=== PATIENT | female | born 1940 | race Caucasian/White ===

== ENCOUNTER 2017-07-25 17:26 | Inpatient (IN) | payer MEDICARE ==
--- NOTE | 2017-07-25 19:11 | EDM.PDOC ---
ED HPI GENERAL MEDICAL PROBLEM - General Chief Complaint: Lower Extremity Injury/Pain Stated Complaint: KNEE Time Seen by Provider: 07/25/17 17:55 Source of Information: Reports: Patient History Limitations: Reports: No Limitations - History of Present Illness INITIAL COMMENTS - FREE TEXT/NARRATIVE: pt went to stand up and she was not able to extend her knee. It is not painful unless there is an attemt to extend the knee. Onset: Today Duration: Hour(s):, Other (pt went to stand up. She did not fall. ) Location: Reports: Lower Extremity, Right Associated Symptoms: Reports: No Other Symptoms right knee Pain Score (Numeric/FACES): 0 - Related Data Allergies Allergy/AdvReac Type Severity Reaction Status Date / Time polyester fibers Allergy Hives Verified 07/25/17 17:48 lidocaine AdvReac Arrhythmias Verified 07/25/17 17:48 metoprolol AdvReac Arrhythmias Verified 07/25/17 17:48 Home Meds: Home Meds Ascorbic Acid [Vitamin C] 500 mg PO DAILY 04/11/14 [History] Levothyroxine 112 mcg PO DAILY 04/11/14 [History] Lisinopril 10 mg PO DAILY 04/11/14 [History] Meclizine [Antivert] 25 mg PO ASDIRECTED 04/11/14 [History] Multivitamin [Multi-Vitamin Daily] 1 each PO DAILY 04/11/14 [History] Vitamin B Complex 1 each PO DAILY 04/11/14 [History] Warfarin [Coumadin] 2.5 mg PO ASDIRECTED 04/11/14 [History] traMADol [Ultram] 100 mg PO Q6HR PRN 11/30/14 [History] Nitroglycerin [Nitrostat] 1 each PO ASDIRECTED 12/30/14 [History] Warfarin [Coumadin] 5 mg PO ASDIRECTED 12/30/14 [History] Gabapentin [Neurontin] 1 cap PO TID 02/14/16 [History] Bumetanide [Bumex] 6 mg PO DAILY 02/17/16 [History] Past Medical History HEENT History: Reports: Allergic Rhinitis Cardiovascular History: Reports: Afib, Heart Failure, Hypertension, Pacemaker, Pulmonary Hypertension Other Cardiovascular History: mitral regurgitation Respiratory History: Reports: Other (See Below) Other Respiratory History: home O2 at night Gastrointestinal History: Reports: GERD, GI Bleed, PUD Other Gastrointestinal History: esophageal stricture Genitourinary History: Reports: Renal Disease, Other (See Below) Other Genitourinary History: incontinence 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: , 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 Musculoskeletal History: Reports: Arthritis, Back Pain, Chronic, Fracture, Osteoarthritis Other Musculoskeletal History: DJD Neurological History: Reports: CVA Other Neuro History: hemorrhagic, compression fracture of L1, 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 Endocrine/Metabolic History: Reports: Hypothyroidism, Obesity/BMI 30+, Vitamin D Deficiency Hematologic History: Reports: Anemia, Anticoagulation Therapy Dermatologic History: Reports: Other (See Below) Other Dermatologic History: allergy to polyester - Infectious Disease History 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, Influenza, Measles, Mumps, VRE - Past Surgical History Cardiovascular Surgical History: Reports: Pacer Respiratory Surgical History: Reports: None GI Surgical History: Reports: Colonoscopy, EGD, Hernia, Abdominal Female Surgical History: Reports: None Endocrine Surgical History: Reports: None Musculoskeletal Surgical History: Reports: Knee Replacement, Other (See Below) Other Musculoskeletal Surgeries/Procedures:: bilateral knees replaced Social & Family History - Tobacco Use Smoking Status *Q: Never Smoker Second Hand Smoke Exposure: No - Alcohol Use Days Per Week of Alcohol Use: 0 - Recreational Drug Use Recreational Drug Use: No Review of Systems - Review of Systems Review Of Systems: See Below Constitutional: Reports: No Symptoms Eyes: Reports: No Symptoms Ears: Reports: No Symptoms Nose: Reports: No Symptoms Mouth/Throat: Reports: No Symptoms Respiratory: Reports: No Symptoms Cardiovascular: Reports: No Symptoms GI/Abdominal: Reports: No Symptoms Genitourinary: Reports: No Symptoms Musculoskeletal: Reports: Other ( severe kne pain. ) Skin: Reports: No Symptoms ED EXAM, GENERAL - Physical Exam Exam: See Below Free Text/Narrative:: pt arrived with pain in the rt knee. She is not able to extend the knee. She has not hit it or fallen. She had a total knee done several years ago. Exam Limited By: No Limitations General Appearance: Alert, Anxious Ears: Normal TMs Nose: Normal Inspection Throat/Mouth: Normal Inspection Head: Atraumatic Neck: Normal Inspection Respiratory/Chest: No Respiratory Distress Cardiovascular: Regular Rate, Rhythm GI/Abdominal: Soft, Non-Tender (Female) Exam: Deferred Rectal (Female) Exam: Deferred Back Exam: Normal Inspection Extremities: Normal Inspection Neurological: Alert, Oriented, Normal Cognition Psychiatric: Normal Affect Course - Vital Signs Last Recorded V/S: Last Vital Signs Temp 36.7 C 07/25/17 17:54 Pulse 70 07/25/17 17:54 Resp 16 07/25/17 17:54 BP 139/71 07/25/17 17:54 Pulse Ox 95 07/25/17 17:54 - Orders/Labs/Meds Orders: Active Orders 24 hr Category Date Time Status Knee Min 4V Rt [CR] Stat Exams 07/25/17 18:08 Taken Knee wo Cont Rt [CT] Stat Exams 07/25/17 20:01 Taken TSH ULTRASENSITIVE [CHEM] Stat Lab 07/25/17 20:40 Ordered UA W/MICROSCOPIC [URIN] Urgent Lab 07/25/17 19:55 Uncollected Sodium Chloride 0.9% [Normal Saline] 1,000 ml Med 07/25/17 20:45 Ordered IV ASDIRECTED Medication Orders Sodium Chloride (Normal Saline) 1,000 mls @ 200 mls/hr IV ASDIRECTED HAMZAH Labs: Laboratory Tests 07/25/17 07/25/17 07/25/17 Range/Units 20:08 20:08 20:08 WBC 6.2 (4.5-11.0) K/uL RBC 4.55 (3.30-5.50) M/uL Hgb 13.0 (12.0-15.0) g/dL Hct 41.4 (36.0-48.0) % MCV 91 (80-98) fL MCH 29 (27-31) pg MCHC 31 L (32-36) % Plt Count 193 (150-400) K/uL Neut % (Auto) 64 (36-66) % Lymph % (Auto) 18 L (24-44) % Gilchrist % (Auto) 10 H (2-6) % Eos % (Auto) 8 H (2-4) % Baso % (Auto) 1 (0-1) % PT 18.8 H (9.5-12.0) sec INR 1.72 H (0.80-1.20) Sodium 142 (140-148) mmol/L Potassium 3.8 (3.6-5.2) mmol/L Chloride 101 (100-108) mmol/L Carbon Dioxide 34 H (21-32) mmol/L Anion Gap 10.8 (5.0-14.0) mmol/L BUN 33 H D (7-18) mg/dL Creatinine 1.7 H D (0.6-1.0) mg/dL Est Cr Clr Drug Dosing 20.91 mL/min Estimated GFR (MDRD) 29 L (>60) Glucose 83 (74-106) mg/dL Calcium 9.0 (8.5-10.1) mg/dL Total Bilirubin 0.5 (0.2-1.0) mg/dL AST 26 (15-37) U/L ALT 25 (12-78) U/L Alkaline Phosphatase 109 (46-116) U/L Total Protein 7.0 (6.4-8.2) g/dL Albumin 3.5 (3.4-5.0) g/dL Globulin 3.5 (2.3-3.5) g/dL Albumin/Globulin Ratio 1.0 L (1.2-2.2) Meds: Medications Generic Name Dose Route Start Last Admin Trade Name Freq PRN Reason Stop Dose Admin Sodium Chloride 1,000 mls @ 200 mls/hr 07/25/17 20:45 Normal Saline IV ASDIRECTED HAMZAH - Re-Assessments/Exams Free Text/Narrative Re-Assessment/Exam: 07/25/17 19:43 pt had her total joint done in [facility] in 2012. She has not had problems with the joint. 07/25/17 19:44 The hardware appears to be intact. The films were sent to Dr Christiana Bustillos to review in the lite of her symptpoms. 07/25/17 20:41 Dr Christiana Bustillos requested a cat scan of the knee. Departure - Departure Time of Disposition: 20:44 Disposition: Admitted As Inpatient 66 Condition: Fair Clinical Impression: Knee pain, acute - Discharge Information Referrals: Ronan Nolasco MD [Primary Care Provider] - Forms: ED Department Discharge Care Plan Goals: admit to [facility] - My Orders Last 24 Hours: My Active Orders 07/25/17 18:08 Knee Min 4V Rt [CR] Stat 07/25/17 19:55 UA W/MICROSCOPIC [URIN] Urgent 07/25/17 20:01 Knee wo Cont Rt [CT] Stat 07/25/17 20:40 TSH ULTRASENSITIVE [CHEM] Stat 07/25/17 20:45 Sodium Chloride 0.9% [Normal Saline] 1,000 ml IV ASDIRECTED - Assessment/Plan Last 24 Hours: My Active Orders 07/25/17 18:08 Knee Min 4V Rt [CR] Stat 07/25/17 19:55 UA W/MICROSCOPIC [URIN] Urgent 07/25/17 20:01 Knee wo Cont Rt [CT] Stat 07/25/17 20:40 TSH ULTRASENSITIVE [CHEM] Stat 07/25/17 20:45 Sodium Chloride 0.9% [Normal Saline] 1,000 ml IV ASDIRECTED
[2017-07-25] MEDS ORDERED: Sodium Chloride 0.9% 1,000 ML IV SCH ×2 (20:45→22:34)
[2017-07-25] MEDS ORDERED: Docusate Sodium 100 MG Cap PO PRN (22:34)
[2017-07-25] MEDS ORDERED: Morphine 2 MG/ML Syringe IVPUSH PRN (22:34)
[2017-07-25] MEDS ORDERED: Ondansetron 4 MG/2 ML SDV IV PRN (22:34)
[2017-07-25] MEDS ORDERED: Zolpidem 5 MG Tab PO PRN (22:34)
[2017-07-25] MEDS ORDERED: Ondansetron 4 MG Tab.DIS PO PRN (22:34)
[2017-07-25] MEDS ORDERED: LORazepam 2 MG/ML MDV IV PRN (22:34)
[2017-07-25] MEDS ORDERED: Albuterol 0.083% 2.5 MG/3 ML Neb Soln NEB PRN (22:34)
--- NOTE | 2017-07-26 00:04 | PCM.HP ---
H&P History of Present Illness - General Admit Problem/Dx: Admission Diagnosis/Problem Admission Diagnosis/Problem Knee pain Source of Information: Patient, Family History Limitations: Reports: No Limitations - History of Present Illness Onset of Symptoms: Reports: Today, Sudden Symptom Onset Date: 07/25/17 Symptom Onset Time: 16:30 Duration of Symptoms: Reports: Hour(s): Location: Reports: Lower Extremity, Right Quality: Reports: Other (unable to flex right knee. ) Severity: Moderate Improves with: Reports: Immobilization Worsens with: Reports: Movement Associated Symptoms: Reports: Weakness right knee Pain Score (Numeric/FACES): 2 - Related Data Allergies/Adverse Reactions: Allergies Allergy/AdvReac Type Severity Reaction Status Date / Time polyester fibers Allergy Hives Verified 07/25/17 17:48 lidocaine AdvReac Arrhythmias Verified 07/25/17 17:48 metoprolol AdvReac Arrhythmias Verified 07/25/17 17:48 Home Medications: Home Meds Ascorbic Acid [Vitamin C] 500 mg PO DAILY 04/11/14 [History] Levothyroxine 112 mcg PO DAILY 04/11/14 [History] Lisinopril 10 mg PO DAILY 04/11/14 [History] Meclizine [Antivert] 25 mg PO ASDIRECTED 04/11/14 [History] Multivitamin [Multi-Vitamin Daily] 1 each PO DAILY 04/11/14 [History] Vitamin B Complex 1 each PO DAILY 04/11/14 [History] Warfarin [Coumadin] 2.5 mg PO ASDIRECTED 04/11/14 [History] traMADol [Ultram] 100 mg PO Q6HR PRN 11/30/14 [History] Nitroglycerin [Nitrostat] 1 each PO ASDIRECTED 12/30/14 [History] Warfarin [Coumadin] 5 mg PO ASDIRECTED 12/30/14 [History] Gabapentin [Neurontin] 1 cap PO TID 02/14/16 [History] Bumetanide [Bumex] 6 mg PO DAILY 02/17/16 [History] Past Medical History HEENT History: Reports: Allergic Rhinitis, Hard of Hearing Cardiovascular History: Reports: Afib, Heart Failure, Hypertension, Pacemaker, Pulmonary Hypertension Other Cardiovascular History: mitral regurgitation Respiratory History: Reports: Other (See Below) Other Respiratory History: home O2 at night Gastrointestinal History: Reports: GERD, GI Bleed, PUD Other Gastrointestinal History: esophageal stricture Genitourinary History: Reports: Renal Disease, Other (See Below) Other Genitourinary History: incontinence 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: , 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 Musculoskeletal History: Reports: Arthritis, Back Pain, Chronic, Fracture, Osteoarthritis Other Musculoskeletal History: DJD Neurological History: Reports: CVA Other Neuro History: hemorrhagic, compression fracture of L1, 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 Endocrine/Metabolic History: Reports: Hypothyroidism, Obesity/BMI 30+, Vitamin D Deficiency Hematologic History: Reports: Anemia, Anticoagulation Therapy Dermatologic History: Reports: Other (See Below) Other Dermatologic History: allergy to polyester - Infectious Disease History 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, Influenza, Measles, Mumps, VRE - Past Surgical History Cardiovascular Surgical History: Reports: Pacer Respiratory Surgical History: Reports: None GI Surgical History: Reports: Colonoscopy, EGD, Hernia, Abdominal Female Surgical History: Reports: None Endocrine Surgical History: Reports: None Musculoskeletal Surgical History: Reports: Knee Replacement, Other (See Below) Other Musculoskeletal Surgeries/Procedures:: bilateral knees replaced Social & Family History - Tobacco Use Smoking Status *Q: Never Smoker Second Hand Smoke Exposure: Yes - Caffeine Use Caffeine Use: Reports: Coffee - Alcohol Use Days Per Week of Alcohol Use: 0 - Recreational Drug Use Recreational Drug Use: No - Living Situation & Occupation Living situation: Reports: Single, with Family (lives in [facility], with 2 Grandsons. One Grandson has schizophrenia) H&P Review of Systems - Review of Systems: Review Of Systems: See Below General: Reports: Weakness HEENT: Reports: No Symptoms Pulmonary: Reports: No Symptoms Cardiovascular: Reports: No Symptoms Gastrointestinal: Reports: No Symptoms Genitourinary: Reports: No Symptoms Skin: Reports: Other (right kne pain without injury) Psychiatric: Reports: No Symptoms Neurological: Reports: No Symptoms Hematologic/Lymphatic: Reports: No Symptoms Immunologic: Reports: No Symptoms Exam - Exam Exam: See Below - Vital Signs Vital Signs: Last Vital Signs Temp 36.7 C 07/25/17 17:54 Pulse 70 07/25/17 21:16 Resp 16 07/25/17 21:16 BP 151/88 H 07/25/17 21:16 Pulse Ox 96 07/25/17 21:16 Weight: 77.791 kg - Exam Quality Assessment: Supplemental Oxygen (at bedtime and all during the night, use oxygen 2 l per NC) General: Alert, Oriented, Mild Distress (with any movement of right knee) HEENT: PERRLA, Hearing Intact, Mucosa Moist & Warden, Nares Patent, Normal Nasal Septum, Posterior Pharynx Clear, Conjunctiva Clear, EOMI, EACs Clear, TMs Clear Neck: Supple, Trachea Midline, 2 Lungs: Clear to Auscultation, Normal Respiratory Effort Cardiovascular: Regular Rate, Regular Rhythm GI/Abdominal Exam: Normal Bowel Sounds, Soft, Non-Tender, No Organomegaly, No Distention, No Abnormal Bruit, No Mass, Pelvis Stable Back Exam: Normal Inspection, Full Range of Motion, NT Extremities: Normal Inspection, Normal Range of Motion, Non-Tender, No Pedal Edema, Normal Capillary Refill Skin: Warm, Dry, Intact Neurological: Cranial Nerves Intact, Reflexes Equal Bilateral Neuro Extensive - Mental Status: Alert, Oriented x3, Normal Mood/Affect, Normal Cognition Neuro Extensive - Motor, Sensory, Reflexes: CN II-XII Intact, Normal Gait, Normal Reflexes Psychiatric: Alert, Normal Affect, Normal Mood - Patient Data Result Diagrams: 07/25/17 20:08 07/25/17 20:08 *Q Meaningful Use (ADM) - VTE *Q VTE Criteria *Q: - Stroke *Q Stroke Criteria *Q: - AMI *Q AMI Criteria *Q: - Problem List (1) Knee pain, acute SNOMED Code(s): 06945240 ICD Code: M25.569 - PAIN IN UNSPECIFIED KNEE Status: Acute Priority: High Current Visit: Yes Qualifiers: Laterality: right Qualified Code(s): M25.561 - Pain in right knee (2) Afib, Atrial fibrillation SNOMED Code(s): 72459153 ICD Code: I48.91 - UNSPECIFIED ATRIAL FIBRILLATION Status: Chronic Priority: High Current Visit: No Onset Date: 04/11/14 (3) Cardiac pacemaker SNOMED Code(s): 564857539 ICD Code: Z95.0 - PRESENCE OF CARDIAC PACEMAKER Status: Chronic Priority : High Current Visit: No Problem List Initiated/Reviewed/Updated: Yes Orders Last 24hrs: Active Orders 24 hr Category Date Time Status Patient Status [ADT] Routine ADT 07/25/17 22:34 Active Bedrest Bathroom Privileges [RC] ASDIRECTED Care 07/25/17 22:34 Active Intake and Output [RC] QSHIFT Care 07/25/17 22:34 Active Notify Provider Consults [RC] ASDIRECTED Care 07/25/17 22:34 Active Notify Provider Vital Signs [RC] ASDIRECTED Care 07/25/17 22:34 Active Oxygen Therapy [RC] PRN Care 07/25/17 22:34 Active RT Aerosol Therapy [RC] ASDIRECTED Care 07/25/17 22:34 Active VTE/DVT Education [RC] Per Unit Routine Care 07/25/17 22:34 Active Vital Signs [RC] Q4H Care 07/25/17 22:34 Active Consult to Physician [CONS] Routine Cons 07/25/17 22:34 Ordered Consult to Spiritual Care [CONS] Routine Cons 07/25/17 22:34 Active OT Evaluation and Treatment [CONS] Routine Cons 07/25/17 22:34 Active PT Evaluation and Treatment [CONS] Routine Cons 07/25/17 22:34 Active 2 Gram Sodium Diet [DIET] Diet 07/25/17 Breakfast Active BASIC METABOLIC PANEL,BMP [CHEM] AM Lab 07/26/17 05:11 Ordered CBC WITH AUTO DIFF [HEME] AM Lab 07/26/17 05:11 Ordered Acetaminophen/HYDROcodone [[place] 325-5 MG] Med 07/25/17 22:34 Active 1 tab PO Q4H PRN Albuterol [Proventil Neb Soln] Med 07/25/17 22:34 Active 2.5 mg NEB Q4H PRN Bumetanide [Bumex] Med 07/26/17 09:00 Active 6 mg PO DAILY Docusate Sodium [Colace] Med 07/25/17 22:34 Active 100 mg PO BID PRN Enoxaparin [Lovenox] Med 07/26/17 09:00 Active 30 mg SUBCUT DAILY Gabapentin [Neurontin] Med 07/26/17 09:00 Active 300 mg PO TID LORazepam [Ativan] Med 07/25/17 22:34 Active 1 mg IV Q6H PRN Levothyroxine Med 07/26/17 09:00 Active 112 mcg PO DAILY Lisinopril [Prinivil] Med 07/26/17 09:00 Active 10 mg PO DAILY Morphine Med 07/25/17 22:34 Active 2 mg IVPUSH Q2H PRN Ondansetron [Zofran ODT] Med 07/25/17 22:34 Active 4 mg PO Q6H PRN Ondansetron [Zofran] Med 07/25/17 22:34 Active 4 mg IV Q4H PRN Sodium Chloride 0.9% [Normal Saline] 1,000 ml Med 07/25/17 22:34 Active IV ASDIRECTED Zolpidem [Ambien] Med 07/25/17 22:34 Active 5 mg PO BEDTIME PRN Sequential Compression Device [OM.PC] Per Unit Routine Oth 07/25/17 22:34 Ordered Resuscitation Status Routine Resus Stat 07/25/17 21:19 Ordered Medication Orders Hydrocodone Bitart/Acetaminophen ([place] 325-5 Mg) 1 tab PO Q4H PRN PRN Reason: Pain (moderate 4-6) Albuterol (Proventil Neb Soln) 2.5 mg NEB Q4H PRN PRN Reason: Shortness Of Breath/wheezing Bumetanide (Bumex) 6 mg PO DAILY [facility] Docusate Sodium (Colace) 100 mg PO BID PRN PRN Reason: Constipation Enoxaparin Sodium (Lovenox) 30 mg SUBCUT DAILY [facility] Gabapentin (Neurontin) 300 mg PO TID [facility] Sodium Chloride (Normal Saline) 1,000 mls @ 200 mls/hr IV ASDIRECTED [facility] Last Admin: 07/25/17 21:28 Dose: 200 mls/hr Sodium Chloride (Normal Saline) 1,000 mls @ 100 mls/hr IV ASDIRECTED [facility] Levothyroxine Sodium (Levothyroxine) 112 mcg PO DAILY [facility] Lisinopril (Prinivil) 10 mg PO DAILY [facility] Lorazepam (Ativan) 1 mg IV Q6H PRN PRN Reason: Nausea/Vomiting Morphine Sulfate (Morphine) 2 mg IVPUSH Q2H PRN PRN Reason: Pain (severe 7-10) Ondansetron HCl (Zofran Odt) 4 mg PO Q6H PRN PRN Reason: Nausea able to take PO Ondansetron HCl (Zofran) 4 mg IV Q4H PRN PRN Reason: Nausea/Vomiting Zolpidem Tartrate (Ambien) 5 mg PO BEDTIME PRN PRN Reason: Sleep Assessment/Plan Comment:: ASSESSMENT / PLAN': Right knee pain. this is a 77 year old female with a past history of knee replacement, was at [facility] all day, got home, then could not get out of chair due to intense pain. She is unable to flex or extend the right knee. She had xray and CT scan of right knee did not show any acute finding. due to pain and unable to bear wt. consult to Dr. Jaison Yo, it was advised to admit for pain control and will re-evaluate in am. Right Knee pain -Admit to [address] [place] [address] for further monitoring -IV Fluids for rehydration NS at 125 mL per hour -pain medications ordered -consult to Dr. Jaison Yo, Orthopedic MD. Chronic Afib /flutter, hx of pacemarker -continue present plan of medication Sleep Apnea -oxygen 2 liter per nasal cannula during the night Maintenance issues -Orders home meds: -Nutrition: regular diet -Mukherjee catheter not indicated at this time -DVT: scd -PPI; PO Protonix 40mg daily -consult OT for discharge planning -consult PT for strengthing. -consult Spiritual CODE STATUS: FULL CODE Admission status: Admit to [address] [place] [address] Admission justification. This patient will be admitted for inpatient services and is medically appropriate meeting medical necessity for inpatient admission as outlined in my documentation. I reasonably expect the patient will require inpatient services that span. Time over 2 midnights. I reasonably expect this patient to be discharged or transferred within 96 hours after admission to the critical access hospital. Disposition; home Primary care provider: Dr. Armond Nolasco Hospitalists: Dr. Aaron Garcia
[2017-07-26] MEDS: Acetaminophen/HYDROcodone 325-5 MG Tab PO PRN ×3 (00:19→17:47)
[2017-07-26] MEDS ORDERED: Phytonadione ORAL 5mg/5ml Soln Simple Syrup U/D PO ONE (08:20)
--- NOTE | 2017-07-26 08:52 | CR ---
Knee Min 4V Rt INDICATION: pt is not able to straighten out hr total knee. FINDINGS: Postoperative changes total knee arthroplasty. No radiographic evidence for loosening. No a cute fracture. Tiny exostosis or spur extending anteriorly from the distal femur.
[2017-07-26] MEDS ORDERED: Enoxaparin 30 MG/0.3 ML Syringe SUBCUT SCH (09:00)
[2017-07-26] MEDS: Levothyroxine 112 MCG Tab PO SCH (09:01)
[2017-07-26] MEDS: Lisinopril 10 MG Tab PO SCH (09:03)
[2017-07-26] MEDS: Bumetanide 1 MG Tab PO SCH (09:03)
[2017-07-26] MEDS: Gabapentin 300 MG Cap PO SCH ×3 (09:04→21:31)
--- NOTE | 2017-07-26 09:58 | PCM.CONS ---
H&P History of Present Illness - General Admit Problem/Dx: Admission Diagnosis/Problem Admission Diagnosis/Problem Knee pain Source of Information: Patient History Limitations: Reports: No Limitations - History of Present Illness Onset of Symptoms: Reports: Sudden Duration of Symptoms: Reports: Day(s): Location: Reports: Lower Extremity, Right Quality: Reports: Burning, Dull, Pressure Severity: Moderate Improves with: Reports: Immobilization Worsens with: Reports: Movement Associated Symptoms: Reports: No Other Symptoms right knee Pain Score (Numeric/FACES): 2 - Related Data Allergies/Adverse Reactions: Allergies Allergy/AdvReac Type Severity Reaction Status Date / Time polyester fibers Allergy Hives Verified 07/25/17 17:48 lidocaine AdvReac Arrhythmias Verified 07/25/17 17:48 metoprolol AdvReac Arrhythmias Verified 07/25/17 17:48 Home Medications: Home Meds Ascorbic Acid [Vitamin C] 500 mg PO DAILY 04/11/14 [History] Levothyroxine 112 mcg PO DAILY 04/11/14 [History] Lisinopril 10 mg PO DAILY 04/11/14 [History] Meclizine [Antivert] 25 mg PO ASDIRECTED 04/11/14 [History] Multivitamin [Multi-Vitamin Daily] 1 each PO DAILY 04/11/14 [History] Vitamin B Complex 1 each PO DAILY 04/11/14 [History] Warfarin [Coumadin] 2.5 mg PO ASDIRECTED 04/11/14 [History] traMADol [Ultram] 100 mg PO Q6HR PRN 11/30/14 [History] Nitroglycerin [Nitrostat] 1 each PO ASDIRECTED 12/30/14 [History] Warfarin [Coumadin] 5 mg PO ASDIRECTED 12/30/14 [History] Gabapentin [Neurontin] 1 cap PO TID 02/14/16 [History] Bumetanide [Bumex] 6 mg PO DAILY 02/17/16 [History] Past Medical History HEENT History: Reports: Allergic Rhinitis, Hard of Hearing Cardiovascular History: Reports: Afib, Heart Failure, Hypertension, Pacemaker, Pulmonary Hypertension Other Cardiovascular History: mitral regurgitation Respiratory History: Reports: Other (See Below) Other Respiratory History: home O2 at night Gastrointestinal History: Reports: GERD, GI Bleed, PUD Other Gastrointestinal History: esophageal stricture Genitourinary History: Reports: Renal Disease, Other (See Below) Other Genitourinary History: incontinence 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: , 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 Musculoskeletal History: Reports: Arthritis, Back Pain, Chronic, Fracture, Osteoarthritis Other Musculoskeletal History: DJD Neurological History: Reports: CVA Other Neuro History: hemorrhagic, compression fracture of L1, 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 Endocrine/Metabolic History: Reports: Hypothyroidism, Obesity/BMI 30+, Vitamin D Deficiency Hematologic History: Reports: Anemia, Anticoagulation Therapy Dermatologic History: Reports: Other (See Below) Other Dermatologic History: allergy to polyester - Infectious Disease History 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, Influenza, Measles, Mumps, VRE - Past Surgical History Cardiovascular Surgical History: Reports: Pacer Respiratory Surgical History: Reports: None GI Surgical History: Reports: Colonoscopy, EGD, Hernia, Abdominal Female Surgical History: Reports: None Endocrine Surgical History: Reports: None Musculoskeletal Surgical History: Reports: Knee Replacement, Other (See Below) Other Musculoskeletal Surgeries/Procedures:: bilateral knees replaced Social & Family History - Tobacco Use Smoking Status *Q: Never Smoker Second Hand Smoke Exposure: Yes - Caffeine Use Caffeine Use: Reports: Coffee - Alcohol Use Days Per Week of Alcohol Use: 0 - Recreational Drug Use Recreational Drug Use: No - Living Situation & Occupation Living situation: Reports: Single, with Family (lives in [facility], with 2 Grandsons. One Grandson has schizophrenia) H&P Review of Systems - Review of Systems: Review Of Systems: See Below General: Reports: No Symptoms HEENT: Reports: No Symptoms Pulmonary: Reports: No Symptoms Cardiovascular: Reports: No Symptoms Gastrointestinal: Reports: No Symptoms Genitourinary: Reports: No Symptoms Musculoskeletal: Reports: Joint Pain Skin: Reports: No Symptoms Psychiatric: Reports: No Symptoms Neurological: Reports: No Symptoms Hematologic/Lymphatic: Reports: No Symptoms Immunologic: Reports: No Symptoms Exam - Exam Exam: See Below - Vital Signs Vital Signs: Last Vital Signs Temp 96.6 F 07/26/17 07:40 Pulse 71 07/26/17 07:40 Resp 19 07/26/17 07:40 BP 145/69 H 07/26/17 09:03 Pulse Ox 97 07/26/17 07:40 Weight: 171 lb 8 oz - Exam General: Alert HEENT: PERRLA, Conjunctiva Clear, EOMI, Hearing Intact, Mucosa Moist & [place] Neck: Supple Lungs: Normal Respiratory Effort Back Exam: Normal Inspection, Full Range of Motion Extremities: Limited Range of Motion Skin: Warm, Dry, Intact Neuro Extensive - Mental Status: Alert, Oriented x3, Normal Mood/Affect, Normal Cognition Psychiatric: Alert, Normal Affect, Normal Mood - Patient Data Lab Results Last 24 hrs: Laboratory Results - last 24 hr 07/26/17 07/26/17 07/26/17 Range/Units 02:56 04:45 04:45 WBC 5.8 (4.5-11.0) K/uL RBC 4.02 (3.30-5.50) M/uL Hgb 11.5 L (12.0-15.0) g/dL Hct 37.0 (36.0-48.0) % MCV 92 (80-98) fL MCH 29 (27-31) pg MCHC 31 L (32-36) % Plt Count 173 (150-400) K/uL Neut % (Auto) 57 (36-66) % Lymph % (Auto) 20 L (24-44) % [place] % (Auto) 14 H (2-6) % Eos % (Auto) 9 H (2-4) % Baso % (Auto) 0 (0-1) % Sodium 145 (140-148) mmol/L Potassium 3.7 (3.6-5.2) mmol/L Chloride 108 (100-108) mmol/L Carbon Dioxide 33 H (21-32) mmol/L Anion Gap 7.7 (5.0-14.0) mmol/L BUN 30 H (7-18) mg/dL Creatinine 1.6 H (0.6-1.0) mg/dL Est Cr Clr Drug Dosing 22.22 mL/min Estimated GFR (MDRD) 31 L (>60) Glucose 74 (74-106) mg/dL Calcium 8.1 L (8.5-10.1) mg/dL C-Reactive Protein (0.0-0.3) mg/dL Urine Color Yellow Urine Appearance Clear Urine pH 5.0 (4.5-8.0) Ur Specific [place] 1.020 (1.008-1.030) Urine Protein Negative (NEGATIVE) mg/dL Urine Glucose (UA) Normal (NEGATIVE) mg/dL Urine Ketones Negative (NEGATIVE) mg/dL Urine Occult Blood Negative (NEGATIVE) Urine Nitrite Negative (NEGATIVE) Urine Bilirubin Negative (NEGATIVE) Urine Urobilinogen Normal (NORMAL) mg/dL Ur Leukocyte Esterase Large (NEGATIVE) Urine RBC 0-5 (0-5) Urine WBC 5-10 H (0-5) Ur Epithelial Cells Few Amorphous Sediment Not seen Urine Bacteria Few Urine Mucus Not seen Fluid Type Fluid Glucose mg/dL Fluid Total Protein g/dL Fluid Uric Acid mg/dL 07/26/17 07/26/17 Range/Units 08:25 09:46 WBC (4.5-11.0) K/uL RBC (3.30-5.50) M/uL Hgb (12.0-15.0) g/dL Hct (36.0-48.0) % MCV (80-98) fL MCH (27-31) pg MCHC (32-36) % Plt Count (150-400) K/uL Neut % (Auto) (36-66) % Lymph % (Auto) (24-44) % [place] % (Auto) (2-6) % Eos % (Auto) (2-4) % Baso % (Auto) (0-1) % Sodium (140-148) mmol/L Potassium (3.6-5.2) mmol/L Chloride (100-108) mmol/L Carbon Dioxide (21-32) mmol/L Anion Gap (5.0-14.0) mmol/L BUN (7-18) mg/dL Creatinine (0.6-1.0) mg/dL Est Cr Clr Drug Dosing mL/min Estimated GFR (MDRD) (>60) Glucose (74-106) mg/dL Calcium (8.5-10.1) mg/dL C-Reactive Protein 1.28 H (0.0-0.3) mg/dL Urine Color Urine Appearance Urine pH (4.5-8.0) Ur Specific [place] (1.008-1.030) Urine Protein (NEGATIVE) mg/dL Urine Glucose (UA) (NEGATIVE) mg/dL Urine Ketones (NEGATIVE) mg/dL Urine Occult Blood (NEGATIVE) Urine Nitrite (NEGATIVE) Urine Bilirubin (NEGATIVE) Urine Urobilinogen (NORMAL) mg/dL Ur Leukocyte Esterase (NEGATIVE) Urine RBC (0-5) Urine WBC (0-5) Ur Epithelial Cells Amorphous Sediment Urine Bacteria Urine Mucus Fluid Type Synovial fluid Fluid Glucose 62 mg/dL Fluid Total Protein 2.3 g/dL Fluid Uric Acid 7.2 mg/dL Result Diagrams: 07/26/17 04:45 07/26/17 04:45 Robinson Results Last 24 hrs: Microbiology 07/26/17 08:48 Gram Stain - Final Joint / Synovial Fluid - Knee, Right Consult PN Assessment/Plan POD#: 0 Procedures: Procedures AIRWAY INHALATION TREATMENT (02/14/16) ASSAY OF CK (CPK) (12/30/14) ASSAY OF DIGOXIN TOTAL (02/14/16) ASSAY OF LACTIC ACID (02/14/16) ASSAY OF TROPONIN QUANT (02/14/16) ASSAY THYROID STIM HORMONE (12/30/14) BLOOD CULTURE FOR BACTERIA (02/14/16) BLOOD GASES ANY COMBINATION (02/14/16) CHEST X-RAY 1 VIEW FRONTAL (12/30/14) CHEST X-RAY 2VW FRONTAL&LATL (02/14/16) COMPLETE CBC AUTOMATED (12/30/14) COMPLETE CBC W/AUTO DIFF WBC (02/14/16) COMPREHEN METABOLIC PANEL (02/14/16) CT LOWER EXTREMITY W/O DYE (07/19/15) CT LUMBAR SPINE W/O DYE (07/19/15) ECG/MONITORING AND ANALYSIS (11/23/14) ELECTROCARDIOGRAM REPORT (02/14/16) ELECTROCARDIOGRAM TRACING (02/14/16) EMERGENCY DEPT VISIT (02/14/16) EMERGENCY DEPT VISIT (12/30/14) EMERGENCY DEPT VISIT (12/30/14) EMERGENCY DEPT VISIT (11/30/14) EMERGENCY DEPT VISIT (04/11/14) EMERGENCY DEPT VISIT (04/11/14) HYDRATE IV INFUSION ADD-ON (11/30/14) INFLUENZA ASSAY W/OPTIC (02/14/16) MEASURE BLOOD OXYGEN LEVEL (02/14/16) METABOLIC PANEL TOTAL CA (02/14/16) MICROBE SUSCEPTIBLE DIFFUSE (12/30/14) MICROBE SUSCEPTIBLE ROBINSON (02/14/16) OT EVALUATION (04/09/14) PROTHROMBIN TIME (02/14/16) PT EVALUATION (02/14/16) REMOTE 30 DAY ECG REV/REPORT (11/23/14) ROUTINE VENIPUNCTURE (02/14/16) THER/PROPH/DIAG INJ IV PUSH (12/30/14) THERAPEUTIC ACTIVITIES (02/14/16) THERAPEUTIC EXERCISES (04/09/14) TX/PRO/DX INJ NEW DRUG ADDON (12/30/14) URINALYSIS AUTO W/SCOPE (02/14/16) URINE BACTERIA CULTURE (02/14/16) URINE CULTURE/COLONY COUNT (02/14/16) US EXAM ABDO BACK WALL COMP (03/27/17) WITHDRAWAL OF ARTERIAL BLOOD (02/14/16) (1) Knee pain, acute SNOMED Code(s): 51553516 Code(s): M25.569 - PAIN IN UNSPECIFIED KNEE Priority: High Current Visit : Yes Qualifiers: Laterality: right Qualified Code(s): M25.561 - Pain in right knee Problem List Initiated/Reviewed/Updated: Yes My Orders Last 24 Hours: My Active Orders 07/26/17 08:24 Blood Culture x2 Reflex Set [OM.PC] Urgent 07/26/17 08:25 SEDIMENTATION RATE MANUAL [HEME] Routine 07/26/17 08:45 CULTURE BLOOD [BC] Urgent 07/26/17 08:48 CULTURE ANAEROBIC [RM] Routine CULTURE BLOOD [BC] Urgent CULTURE BODY FLUID + SMEAR [RM] Routine 07/26/17 09:46 CELL COUNT,BODY FLUID [BF] Routine 07/26/17 09:50 CRYSTALS,SYNOVIAL BATTERY [REF] Routine 07/27/17 07:30 Bone Scan 3 Phase [NM] Routine Plan: I the pleasure visiting with the patient today in her hospital room. In 2012 she had a right total knee replacement done in [place], [place]. She did very well until yesterday. She does not recall any traumatic injury. She is been unable to bear weight on it and unable to extend beyond 15 of flexion. Most of the pain is on the lateral side of her knee at the proximal tibia. She denies any previous problems after knee replacement. She did state that she fell proximally one year ago severely. She recovered uneventfully. She denies any fevers or chills. Physical examination of the right knee shows skin to be warm, dry, and intact. No effusion is present. Distal motor and sensory examinations grossly intact. The patient is able to actively extend her knee from 90 of flexion to 15. She has extreme pain with any increased extension. The knee stable varus and valgus stress at 15 and 30 of flexion. The patella appears to be tracking normally. Imaging plain films and CT of the right knee were reviewed incorporated into the decision-making process. This shows the implant to be in good position without any lucency around the implant or the cement. The polyethylene appears to be stable at the patella and tibial baseplate. No evidence of fractures visualized. Plan: I was able to aspirate 15 mL of sanguinous fluid from the knee. I'm going to send this off. Will also obtain blood cultures, sedimentation rate, and C- reactive protein. Will obtain a 3-phase bone scan tomorrow morning. I will evaluate her again after these tests are complete.
--- NOTE | 2017-07-26 10:59 | PCM.PN ---
- General Info Date of Service: 07/26/17 Functional Status: Reports: Pain Controlled, Tolerating Diet - Review of Systems General: Reports: Weakness Musculoskeletal: Reports: Joint Pain (right knee) Systems Review Comment:: No acute events overnight. Pain is a little better after aspiration of a small quantity of fluid. Ability to extend the knee has improved slightly. She has not had any fevers. Cultures were obtained from synovial fluid this morning. No issues with shortness of breath or abdominal pain. - Patient Data Vitals - Most Recent: Last Vital Signs Temp 35.9 C 07/26/17 07:40 Pulse 71 07/26/17 07:40 Resp 19 07/26/17 07:40 BP 145/69 H 07/26/17 09:03 Pulse Ox 97 07/26/17 07:40 Weight - Most Recent: 77.791 kg I&O - Last 24 Hours: Intake & Output 07/25/17 07/26/17 07/26/17 22:59 06:59 14:59 Output Total 1200 Balance -1200 Lab Results Last 24 Hours: Laboratory Results - last 24 hr 07/26/17 07/26/17 07/26/17 Range/Units 02:56 04:45 04:45 WBC 5.8 (4.5-11.0) K/uL RBC 4.02 (3.30-5.50) M/uL Hgb 11.5 L (12.0-15.0) g/dL Hct 37.0 (36.0-48.0) % MCV 92 (80-98) fL MCH 29 (27-31) pg MCHC 31 L (32-36) % Plt Count 173 (150-400) K/uL Neut % (Auto) 57 (36-66) % Lymph % (Auto) 20 L (24-44) % [place] % (Auto) 14 H (2-6) % Eos % (Auto) 9 H (2-4) % Baso % (Auto) 0 (0-1) % ESR (0-25) mm/hr Sodium 145 (140-148) mmol/L Potassium 3.7 (3.6-5.2) mmol/L Chloride 108 (100-108) mmol/L Carbon Dioxide 33 H (21-32) mmol/L Anion Gap 7.7 (5.0-14.0) mmol/L BUN 30 H (7-18) mg/dL Creatinine 1.6 H (0.6-1.0) mg/dL Est Cr Clr Drug Dosing 22.22 mL/min Estimated GFR (MDRD) 31 L (>60) Glucose 74 (74-106) mg/dL Calcium 8.1 L (8.5-10.1) mg/dL C-Reactive Protein (0.0-0.3) mg/dL Urine Color Yellow Urine Appearance Clear Urine pH 5.0 (4.5-8.0) Ur Specific [place] 1.020 (1.008-1.030) Urine Protein Negative (NEGATIVE) mg/dL Urine Glucose (UA) Normal (NEGATIVE) mg/dL Urine Ketones Negative (NEGATIVE) mg/dL Urine Occult Blood Negative (NEGATIVE) Urine Nitrite Negative (NEGATIVE) Urine Bilirubin Negative (NEGATIVE) Urine Urobilinogen Normal (NORMAL) mg/dL Ur Leukocyte Esterase Large (NEGATIVE) Urine RBC 0-5 (0-5) Urine WBC 5-10 H (0-5) Ur Epithelial Cells Few Amorphous Sediment Not seen Urine Bacteria Few Urine Mucus Not seen Fluid Type Fluid WBC /ul Fluid RBC /ul Fluid Diff Comment Fluid Mononuclear Cell % Fl Polymorphonucl Cell % Fluid Glucose mg/dL Fluid Total Protein g/dL Fluid Uric Acid mg/dL 07/26/17 07/26/17 07/26/17 Range/Units 08:25 08:25 09:46 WBC (4.5-11.0) K/uL RBC (3.30-5.50) M/uL Hgb (12.0-15.0) g/dL Hct (36.0-48.0) % MCV (80-98) fL MCH (27-31) pg MCHC (32-36) % Plt Count (150-400) K/uL Neut % (Auto) (36-66) % Lymph % (Auto) (24-44) % [place] % (Auto) (2-6) % Eos % (Auto) (2-4) % Baso % (Auto) (0-1) % ESR 28 H (0-25) mm/hr Sodium (140-148) mmol/L Potassium (3.6-5.2) mmol/L Chloride (100-108) mmol/L Carbon Dioxide (21-32) mmol/L Anion Gap (5.0-14.0) mmol/L BUN (7-18) mg/dL Creatinine (0.6-1.0) mg/dL Est Cr Clr Drug Dosing mL/min Estimated GFR (MDRD) (>60) Glucose (74-106) mg/dL Calcium (8.5-10.1) mg/dL C-Reactive Protein 1.28 H (0.0-0.3) mg/dL Urine Color Urine Appearance Urine pH (4.5-8.0) Ur Specific [place] (1.008-1.030) Urine Protein (NEGATIVE) mg/dL Urine Glucose (UA) (NEGATIVE) mg/dL Urine Ketones (NEGATIVE) mg/dL Urine Occult Blood (NEGATIVE) Urine Nitrite (NEGATIVE) Urine Bilirubin (NEGATIVE) Urine Urobilinogen (NORMAL) mg/dL Ur Leukocyte Esterase (NEGATIVE) Urine RBC (0-5) Urine WBC (0-5) Ur Epithelial Cells Amorphous Sediment Urine Bacteria Urine Mucus Fluid Type Synovial fluid Fluid WBC 200 /ul Fluid RBC [id number] /ul Fluid Diff Comment Fluid Mononuclear Cell 40 % Fl Polymorphonucl Cell 60 % Fluid Glucose mg/dL Fluid Total Protein g/dL Fluid Uric Acid mg/dL 07/26/17 Range/Units 09:46 WBC (4.5-11.0) K/uL RBC (3.30-5.50) M/uL Hgb (12.0-15.0) g/dL Hct (36.0-48.0) % MCV (80-98) fL MCH (27-31) pg MCHC (32-36) % Plt Count (150-400) K/uL Neut % (Auto) (36-66) % Lymph % (Auto) (24-44) % [place] % (Auto) (2-6) % Eos % (Auto) (2-4) % Baso % (Auto) (0-1) % ESR (0-25) mm/hr Sodium (140-148) mmol/L Potassium (3.6-5.2) mmol/L Chloride (100-108) mmol/L Carbon Dioxide (21-32) mmol/L Anion Gap (5.0-14.0) mmol/L BUN (7-18) mg/dL Creatinine (0.6-1.0) mg/dL Est Cr Clr Drug Dosing mL/min Estimated GFR (MDRD) (>60) Glucose (74-106) mg/dL Calcium (8.5-10.1) mg/dL C-Reactive Protein (0.0-0.3) mg/dL Urine Color Urine Appearance Urine pH (4.5-8.0) Ur Specific [place] (1.008-1.030) Urine Protein (NEGATIVE) mg/dL Urine Glucose (UA) (NEGATIVE) mg/dL Urine Ketones (NEGATIVE) mg/dL Urine Occult Blood (NEGATIVE) Urine Nitrite (NEGATIVE) Urine Bilirubin (NEGATIVE) Urine Urobilinogen (NORMAL) mg/dL Ur Leukocyte Esterase (NEGATIVE) Urine RBC (0-5) Urine WBC (0-5) Ur Epithelial Cells Amorphous Sediment Urine Bacteria Urine Mucus Fluid Type Synovial fluid Fluid WBC /ul Fluid RBC /ul Fluid Diff Comment Fluid Mononuclear Cell % Fl Polymorphonucl Cell % Fluid Glucose 62 mg/dL Fluid Total Protein 2.3 g/dL Fluid Uric Acid 7.2 mg/dL Robinson Results Last 24 Hours: Microbiology 07/26/17 08:48 Gram Stain - Final Joint / Synovial Fluid - Knee, Right Med Orders - Current: Current Medications Hydrocodone Bitart/Acetaminophen (Latimer 325-5 Mg) 1 tab PO Q4H PRN PRN Reason: Pain (moderate 4-6) Last Admin: 07/26/17 00:19 Dose: 1 tab Albuterol (Proventil Neb Soln) 2.5 mg NEB Q4H PRN PRN Reason: Shortness Of Breath/wheezing Bumetanide (Bumex) 6 mg PO DAILY [facility] Last Admin: 07/26/17 09:03 Dose: 6 mg Docusate Sodium (Colace) 100 mg PO BID PRN PRN Reason: Constipation Enoxaparin Sodium (Lovenox) 30 mg SUBCUT DAILY [facility] Last Admin: 07/26/17 09:02 Dose: 30 mg Gabapentin (Neurontin) 300 mg PO TID [facility] Last Admin: 07/26/17 09:04 Dose: 300 mg Levothyroxine Sodium (Levothyroxine) 112 mcg PO DAILY@0730 [facility] Last Admin: 07/26/17 09:01 Dose: 112 mcg Lisinopril (Prinivil) 10 mg PO DAILY [facility] Last Admin: 07/26/17 09:03 Dose: 10 mg Lorazepam (Ativan) 1 mg IV Q6H PRN PRN Reason: Nausea/Vomiting Morphine Sulfate (Morphine) 2 mg IVPUSH Q2H PRN PRN Reason: Pain (severe 7-10) Ondansetron HCl (Zofran Odt) 4 mg PO Q6H PRN PRN Reason: Nausea able to take PO Ondansetron HCl (Zofran) 4 mg IV Q4H PRN PRN Reason: Nausea/Vomiting Zolpidem Tartrate (Ambien) 5 mg PO BEDTIME PRN PRN Reason: Sleep Discontinued Medications Sodium Chloride (Normal Saline) 1,000 mls @ 200 mls/hr IV ASDIRECTED [facility] Last Admin: 07/25/17 21:28 Dose: 200 mls/hr Sodium Chloride (Normal Saline) 1,000 mls @ 100 mls/hr IV ASDIRECTED [facility] Last Admin: 07/26/17 03:50 Dose: 100 mls/hr Phytonadione (Aquamephyton) 5 mg PO ONETIME ONE Stop: 07/26/17 08:21 Last Admin: 07/26/17 09:10 Dose: 5 mg - Exam Quality Assessment: No: Supplemental Oxygen General: Alert, Oriented, Cooperative, No Acute Distress Neck: Supple Lungs: Normal Respiratory Effort GI/Abdominal Exam: No Distention Extremities: No Pedal Edema. No: Joint Swelling, Increased Warmth, Redness Psy/Mental Status: Alert, Normal Affect - Problem List Review Problem List Initiated/Reviewed/Updated: Yes - My Orders Last 24 Hours: My Active Orders 07/26/17 10:58 Up With Assistance [RC] ASDIRECTED 07/26/17 11:00 Sodium Chloride 0.9% [Normal Saline] 1,000 ml IV ASDIRECTED 07/26/17 Lunch Regular Diet [DIET] 07/27/17 05:00 BASIC METABOLIC PANEL,BMP [CHEM] Timed CBC W/O DIFF,HEMOGRAM [HEME] Timed (1) - Plan Plan:: ASSESSMENT / PLAN- Right knee pain - exact cause for pain not entirely clear. Doing little bit better today. Cultures were obtained from synovial fluid this morning which did appear bloody. No fevers. -Pain control -Follow-up cultures -Bone scan in the morning -consult to Dr. Jaison Yo, Orthopedic MD. Chronic Afib /flutter, hx of pacemarker - heart rate and rhythm have been stable with no symptoms. She has been chronically anticoagulated and this was reversed today. -Vitamin K 1 this morning -INR in the morning -continue present plan of medication Stage III chronic kidney disease - creatinine near baseline at this time. Sleep Apnea -oxygen 2 liter per nasal cannula during the night Maintenance issues -Nutrition: regular diet -Mukherjee catheter not indicated at this time -DVT: scd -PPI; PO Protonix 40mg daily -consult OT for discharge planning -consult PT for strengthing. -consult Spiritual Disposition; home Primary care provider: Dr. Armond Garcia MD
[2017-07-26] MEDS ORDERED: Sodium Chloride 0.9% 1,000 ML IV SCH (11:00)
[2017-07-27] MEDS: Levothyroxine 112 MCG Tab PO SCH (07:34)
[2017-07-27] MEDS: Lisinopril 10 MG Tab PO SCH ×2 (07:35→10:07)
[2017-07-27] MEDS: Gabapentin 300 MG Cap PO SCH ×4 (07:36→20:23)
[2017-07-27] MEDS: Acetaminophen/HYDROcodone 325-5 MG Tab PO PRN ×3 (07:42→19:40)
[2017-07-27] MEDS: Bumetanide 1 MG Tab PO SCH ×2 (07:48→10:07)
--- NOTE | 2017-07-27 13:59 | NM ---
Bone Scan 3 Phase INDICATION: knee pain COMPARISON: CT and x-ray 07/25/2017. TECHNIQUE: Nuclear medicine three-phase bone scan was performed of both knees utilizing 22.6 mCi of t echnetium 99 M injected IV. FINDINGS: Angiographic phase images demonstrate increased uptake about the right total knee arthropla sty. Blood pole images demonstrate increased uptake about the femoral, and minimally the tibial compo nents of the right total knee arthroplasty. 4 hour delayed images demonstrate increased radiotracer u ptake about the right and left total knee arthroplasties. IMPRESSION: Increased uptake on all 3 phases about the right total knee arthroplasty. Finding are sarah picious for infection.
--- NOTE | 2017-07-27 14:49 | PCM.PN ---
- General Info Date of Service: 07/27/17 Functional Status: Reports: Pain Controlled, Tolerating Diet, Ambulating - Review of Systems Musculoskeletal: Reports: Joint Pain (right knee) Systems Review Comment:: no acute events overnight. Knee pain is improving as is her range of motion. She has not had any fevers. No shortness breath or abdominal pain. Bone scan revealed uptake in all 3 phases felt to be most consistent with infection though need does not have significant redness or warmth at this time. - Patient Data Vitals - Most Recent: Last Vital Signs Temp 36.7 C 07/27/17 11:00 Pulse 74 07/27/17 11:00 Resp 18 07/27/17 11:00 BP 152/64 H 07/27/17 11:00 Pulse Ox 93 L 07/27/17 11:00 Weight - Most Recent: 77.791 kg I&O - Last 24 Hours: Intake & Output 07/26/17 07/27/17 07/27/17 22:59 06:59 14:59 Intake Total 2201 600 Output Total 260 021 9149 Balance 1801 -425 -600 Lab Results Last 24 Hours: Laboratory Results - last 24 hr 07/26/17 07/27/17 07/27/17 Range/Units 09:50 05:47 05:47 WBC 4.8 (4.5-11.0) K/uL RBC 4.16 (3.30-5.50) M/uL Hgb 11.8 L (12.0-15.0) g/dL Hct 38.4 (36.0-48.0) % MCV 92 (80-98) fL MCH 28 (27-31) pg MCHC 31 L (32-36) % Plt Count 168 (150-400) K/uL Sodium 144 (140-148) mmol/L Potassium 3.8 (3.6-5.2) mmol/L Chloride 108 (100-108) mmol/L Carbon Dioxide 32 (21-32) mmol/L Anion Gap 4.5 L (5.0-14.0) mmol/L BUN 23 H (7-18) mg/dL Creatinine 1.3 H (0.6-1.0) mg/dL Est Cr Clr Drug Dosing 27.35 mL/min Estimated GFR (MDRD) 40 L (>60) Glucose 88 (74-106) mg/dL Calcium 8.1 L (8.5-10.1) mg/dL Synovial Specific Grav 1.017 Synovial Crystals None seen Robinson Results Last 24 Hours: Microbiology 07/26/17 08:48 Aerobic Blood Culture - Preliminary Blood - Arm, Left NO GROWTH AFTER 1 DAY Anaerobic Blood Culture - Preliminary NO GROWTH AFTER 1 DAY 07/26/17 08:45 Aerobic Blood Culture - Preliminary Blood - Arm, Left NO GROWTH AFTER 1 DAY Anaerobic Blood Culture - Preliminary NO GROWTH AFTER 1 DAY 07/26/17 08:48 Anaerobic Culture - Preliminary Knee, Right NO GROWTH AFTER 1 DAY 07/26/17 08:48 Gram Stain - Final Joint / Synovial Fluid - Knee, Right Body Fluid Culture - Preliminary NO GROWTH AFTER 1 DAY Med Orders - Current: Current Medications Hydrocodone Bitart/Acetaminophen ([place] 325-5 Mg) 1 tab PO Q4H PRN PRN Reason: Pain (moderate 4-6) Last Admin: 07/27/17 12:23 Dose: 1 tab Albuterol (Proventil Neb Soln) 2.5 mg NEB Q4H PRN PRN Reason: Shortness Of Breath/wheezing Bumetanide (Bumex) 6 mg PO DAILY [facility] Last Admin: 07/27/17 10:07 Dose: Not Given Docusate Sodium (Colace) 100 mg PO BID PRN PRN Reason: Constipation Gabapentin (Neurontin) 300 mg PO TID [facility] Last Admin: 07/27/17 14:16 Dose: 300 mg Sodium Chloride (Normal Saline) 1,000 mls @ 50 mls/hr IV ASDIRECTED [facility] Last Admin: 07/26/17 15:08 Dose: 50 mls/hr Levothyroxine Sodium (Levothyroxine) 112 mcg PO DAILY@0730 [facility] Last Admin: 07/27/17 07:34 Dose: 112 mcg Lisinopril (Prinivil) 10 mg PO DAILY [facility] Last Admin: 07/27/17 10:07 Dose: Not Given Lorazepam (Ativan) 1 mg IV Q6H PRN PRN Reason: Nausea/Vomiting Morphine Sulfate (Morphine) 2 mg IVPUSH Q2H PRN PRN Reason: Pain (severe 7-10) Ondansetron HCl (Zofran Odt) 4 mg PO Q6H PRN PRN Reason: Nausea able to take PO Ondansetron HCl (Zofran) 4 mg IV Q4H PRN PRN Reason: Nausea/Vomiting Zolpidem Tartrate (Ambien) 5 mg PO BEDTIME PRN PRN Reason: Sleep Discontinued Medications Enoxaparin Sodium (Lovenox) 30 mg SUBCUT DAILY [facility] Last Admin: 07/26/17 09:02 Dose: 30 mg Sodium Chloride (Normal Saline) 1,000 mls @ 200 mls/hr IV ASDIRECTED [facility] Last Admin: 07/25/17 21:28 Dose: 200 mls/hr Sodium Chloride (Normal Saline) 1,000 mls @ 100 mls/hr IV ASDIRECTED [facility] Last Admin: 07/26/17 03:50 Dose: 100 mls/hr Phytonadione (Aquamephyton) 5 mg PO ONETIME ONE Stop: 07/26/17 08:21 Last Admin: 07/26/17 09:10 Dose: 5 mg - Exam Quality Assessment: No: Supplemental Oxygen General: Alert, Oriented, Cooperative, No Acute Distress Neck: Supple Lungs: Normal Respiratory Effort GI/Abdominal Exam: No Distention Extremities: No Pedal Edema Psy/Mental Status: Alert, Normal Affect - Problem List Review Problem List Initiated/Reviewed/Updated: Yes - Plan Plan:: ASSESSMENT / PLAN- Right knee pain - exact cause for pain not entirely clear, but hemarthrosis seems to be highest on the list of potential culprits. Cultures pending but no growth to date and no bacteria seen. Clinically she is improving each day. -Pain control -Follow-up cultures -discuss bone scan with orthopedic team -consult to Dr. Jaison [facility] . Chronic Afib /flutter, hx of pacemarker - heart rate and rhythm have been stable with no symptoms. She has been chronically anticoagulated and this was reversed today. -restart warfarin tomorrow -INR in the morning Stage III chronic kidney disease - creatinine near baseline and has been slowly improving. Sleep Apnea -oxygen 2 liter per nasal cannula during the night Maintenance issues -Nutrition: regular diet -Mukherjee catheter not indicated at this time -DVT: scd -PPI; PO Protonix 40mg daily -consult OT for discharge planning -consult PT for strengthing. -consult Spiritual Disposition; acute versus subacute rehabilitation Primary care provider: Dr. Armond Garcia MD
[2017-07-27] MEDS ORDERED: guaiFENesin 600 MG Tab.ER PO PRN (19:50)
[2017-07-28] MEDS: Acetaminophen/HYDROcodone 325-5 MG Tab PO PRN ×2 (06:30→20:00)
--- NOTE | 2017-07-28 08:55 | PCM.PN ---
- General Info Functional Status: Reports: Pain Controlled - Review of Systems General: Reports: No Symptoms HEENT: Reports: No Symptoms Pulmonary: Reports: No Symptoms Cardiovascular: Reports: No Symptoms Gastrointestinal: Reports: No Symptoms Genitourinary: Reports: No Symptoms Musculoskeletal: Reports: Joint Pain Skin: Reports: No Symptoms Neurological: Reports: No Symptoms Psychiatric: Reports: No Symptoms - Patient Data Vitals - Most Recent: Last Vital Signs Temp 97.0 F 07/28/17 07:00 Pulse 70 07/28/17 07:00 Resp 18 07/28/17 07:00 BP 138/60 07/28/17 07:00 Pulse Ox 92 L 07/28/17 07:00 Weight - Most Recent: 171 lb 8 oz I&O - Last 24 Hours: Intake & Output 07/27/17 07/28/17 07/28/17 22:59 06:59 14:59 Intake Total 800 Balance 800 Lab Results Last 24 Hours: Laboratory Results - last 24 hr 07/26/17 Range/Units 09:50 Synovial Specific Grav 1.017 Synovial Crystals None seen Robinson Results Last 24 Hours: Microbiology 07/26/17 08:48 Aerobic Blood Culture - Preliminary Blood - Arm, Left NO GROWTH AFTER 2 DAYS Anaerobic Blood Culture - Preliminary NO GROWTH AFTER 2 DAYS 07/26/17 08:45 Aerobic Blood Culture - Preliminary Blood - Arm, Left NO GROWTH AFTER 2 DAYS Anaerobic Blood Culture - Preliminary NO GROWTH AFTER 2 DAYS 07/26/17 08:48 Anaerobic Culture - Preliminary Knee, Right NO GROWTH AFTER 2 DAYS 07/26/17 08:48 Gram Stain - Final Joint / Synovial Fluid - Knee, Right Body Fluid Culture - Preliminary NO GROWTH AFTER 2 DAYS Med Orders - Current: Current Medications Hydrocodone Bitart/Acetaminophen ([place] 325-5 Mg) 1 tab PO Q4H PRN PRN Reason: Pain (moderate 4-6) Last Admin: 07/28/17 06:30 Dose: 1 tab Albuterol (Proventil Neb Soln) 2.5 mg NEB Q4H PRN PRN Reason: Shortness Of Breath/wheezing Bumetanide (Bumex) 6 mg PO DAILY [facility] Last Admin: 07/27/17 10:07 Dose: Not Given Docusate Sodium (Colace) 100 mg PO BID PRN PRN Reason: Constipation Gabapentin (Neurontin) 300 mg PO TID [facility] Last Admin: 07/27/17 20:23 Dose: 300 mg Guaifenesin (Mucinex) 600 mg PO BID PRN PRN Reason: Congestion Last Admin: 07/27/17 20:23 Dose: 600 mg Levothyroxine Sodium (Levothyroxine) 112 mcg PO DAILY@0730 [facility] Last Admin: 07/27/17 07:34 Dose: 112 mcg Lisinopril (Prinivil) 10 mg PO DAILY [facility] Last Admin: 07/27/17 10:07 Dose: Not Given Lorazepam (Ativan) 1 mg IV Q6H PRN PRN Reason: Nausea/Vomiting Morphine Sulfate (Morphine) 2 mg IVPUSH Q2H PRN PRN Reason: Pain (severe 7-10) Ondansetron HCl (Zofran Odt) 4 mg PO Q6H PRN PRN Reason: Nausea able to take PO Ondansetron HCl (Zofran) 4 mg IV Q4H PRN PRN Reason: Nausea/Vomiting Zolpidem Tartrate (Ambien) 5 mg PO BEDTIME PRN PRN Reason: Sleep Discontinued Medications Enoxaparin Sodium (Lovenox) 30 mg SUBCUT DAILY [facility] Last Admin: 07/26/17 09:02 Dose: 30 mg Sodium Chloride (Normal Saline) 1,000 mls @ 200 mls/hr IV ASDIRECTED [facility] Last Admin: 07/25/17 21:28 Dose: 200 mls/hr Sodium Chloride (Normal Saline) 1,000 mls @ 100 mls/hr IV ASDIRECTED [facility] Last Admin: 07/26/17 03:50 Dose: 100 mls/hr Sodium Chloride (Normal Saline) 1,000 mls @ 50 mls/hr IV ASDIRECTED [facility] Last Admin: 07/26/17 15:08 Dose: 50 mls/hr Phytonadione (Aquamephyton) 5 mg PO ONETIME ONE Stop: 07/26/17 08:21 Last Admin: 07/26/17 09:10 Dose: 5 mg - Exam General: Alert, Oriented HEENT: Pupils Equal, Pupils Reactive Neck: Supple Extremities: Normal Inspection, Normal Range of Motion Skin: Warm, Dry, Intact Neurological: No New Focal Deficit Psy/Mental Status: Alert, Normal Affect, Normal Mood - Problem List & Annotations (1) Knee pain, acute SNOMED Code(s): 35883693 Code(s): M25.569 - PAIN IN UNSPECIFIED KNEE Status: Acute Priority: High Current Visit: Yes Qualifiers: Laterality: right Qualified Code(s): M25.561 - Pain in right knee - Problem List Review Problem List Initiated/Reviewed/Updated: Yes - Plan Plan:: assessment: Hemarthrosis right knee Plan: So far the cultures come back negative. The bone scan is positive but I believe that this is secondary to hemarthrosis. No crystals were found on synovial fluid examination. The patient is doing significantly better with physical therapy with decreased pain. I will continue range of motion exercises. We will see how she does in the next day. If she continues to do better hopefully we can avoid sending her to the extended care facility. If she continues to have pain I recommend centimeter the extended care facility with physical therapy and ultrasound treatment.
[2017-07-28] MEDS: Levothyroxine 112 MCG Tab PO SCH (09:39)
[2017-07-28] MEDS: Lisinopril 10 MG Tab PO SCH (09:40)
[2017-07-28] MEDS: Gabapentin 300 MG Cap PO SCH ×3 (09:40→20:00)
[2017-07-28] MEDS: Bumetanide 1 MG Tab PO SCH (09:40)
--- NOTE | 2017-07-28 11:33 | PCM.PN ---
- General Info Date of Service: 07/28/17 Functional Status: Reports: Pain Controlled, Tolerating Diet, Ambulating - Review of Systems General: Denies: Fever Musculoskeletal: Reports: Joint Pain (mild right knee) Systems Review Comment:: No acute events overnight. Pain continues to improve. She's been able to improve her activity as well as her extension has not quite returned to full extension. Appetite good. No fevers. Cultures are all negative so far. - Patient Data Vitals - Most Recent: Last Vital Signs Temp 36.1 C 07/28/17 07:00 Pulse 70 07/28/17 07:00 Resp 18 07/28/17 07:00 BP 138/60 07/28/17 09:40 Pulse Ox 92 L 07/28/17 07:00 Weight - Most Recent: 77.791 kg I&O - Last 24 Hours: Intake & Output 07/27/17 07/28/17 07/28/17 22:59 06:59 14:59 Intake Total 800 360 Balance 800 360 Lab Results Last 24 Hours: Laboratory Results - last 24 hr 07/26/17 Range/Units 09:50 Synovial Specific Grav 1.017 Synovial Crystals None seen Robinson Results Last 24 Hours: Microbiology 07/26/17 08:48 Aerobic Blood Culture - Preliminary Blood - Arm, Left NO GROWTH AFTER 2 DAYS Anaerobic Blood Culture - Preliminary NO GROWTH AFTER 2 DAYS 07/26/17 08:45 Aerobic Blood Culture - Preliminary Blood - Arm, Left NO GROWTH AFTER 2 DAYS Anaerobic Blood Culture - Preliminary NO GROWTH AFTER 2 DAYS 07/26/17 08:48 Anaerobic Culture - Preliminary Knee, Right NO GROWTH AFTER 2 DAYS 07/26/17 08:48 Gram Stain - Final Joint / Synovial Fluid - Knee, Right Body Fluid Culture - Preliminary NO GROWTH AFTER 2 DAYS Med Orders - Current: Current Medications Hydrocodone Bitart/Acetaminophen ([place] 325-5 Mg) 1 tab PO Q4H PRN PRN Reason: Pain (moderate 4-6) Last Admin: 07/28/17 06:30 Dose: 1 tab Albuterol (Proventil Neb Soln) 2.5 mg NEB Q4H PRN PRN Reason: Shortness Of Breath/wheezing Bumetanide (Bumex) 6 mg PO DAILY [facility] Last Admin: 07/28/17 09:40 Dose: 6 mg Docusate Sodium (Colace) 100 mg PO BID PRN PRN Reason: Constipation Gabapentin (Neurontin) 300 mg PO TID [facility] Last Admin: 07/28/17 09:40 Dose: 300 mg Guaifenesin (Mucinex) 600 mg PO BID PRN PRN Reason: Congestion Last Admin: 07/27/17 20:23 Dose: 600 mg Levothyroxine Sodium (Levothyroxine) 112 mcg PO DAILY@0730 [facility] Last Admin: 07/28/17 09:39 Dose: 112 mcg Lisinopril (Prinivil) 10 mg PO DAILY [facility] Last Admin: 07/28/17 09:40 Dose: 10 mg Morphine Sulfate (Morphine) 2 mg IVPUSH Q2H PRN PRN Reason: Pain (severe 7-10) Ondansetron HCl (Zofran Odt) 4 mg PO Q6H PRN PRN Reason: Nausea able to take PO Ondansetron HCl (Zofran) 4 mg IV Q4H PRN PRN Reason: Nausea/Vomiting Warfarin Sodium (Coumadin) 5 mg PO DAILY@1300 [facility] Zolpidem Tartrate (Ambien) 5 mg PO BEDTIME PRN PRN Reason: Sleep Discontinued Medications Enoxaparin Sodium (Lovenox) 30 mg SUBCUT DAILY [facility] Last Admin: 07/26/17 09:02 Dose: 30 mg Sodium Chloride (Normal Saline) 1,000 mls @ 200 mls/hr IV ASDIRECTED [facility] Last Admin: 07/25/17 21:28 Dose: 200 mls/hr Sodium Chloride (Normal Saline) 1,000 mls @ 100 mls/hr IV ASDIRECTED [facility] Last Admin: 07/26/17 03:50 Dose: 100 mls/hr Sodium Chloride (Normal Saline) 1,000 mls @ 50 mls/hr IV ASDIRECTED [facility] Last Admin: 07/26/17 15:08 Dose: 50 mls/hr Lorazepam (Ativan) 1 mg IV Q6H PRN PRN Reason: Nausea/Vomiting Phytonadione (Aquamephyton) 5 mg PO ONETIME ONE Stop: 07/26/17 08:21 Last Admin: 07/26/17 09:10 Dose: 5 mg - Exam Quality Assessment: No: Supplemental Oxygen General: Alert, Oriented, Cooperative, No Acute Distress Neck: Supple Lungs: Normal Respiratory Effort Extremities: No Pedal Edema. No: Joint Swelling Psy/Mental Status: Alert, Normal Affect - Problem List Review Problem List Initiated/Reviewed/Updated: Yes - My Orders Last 24 Hours: My Active Orders 07/27/17 19:50 guaiFENesin [Mucinex] 600 mg PO BID PRN 07/28/17 13:00 Warfarin [Coumadin] 5 mg PO DAILY@1300 07/29/17 05:00 BASIC METABOLIC PANEL,BMP [CHEM] Timed INR,PT,PROTHROMBIN TIME [COAG] Timed - Plan Plan:: ASSESSMENT / PLAN- Right knee pain, suspect hemarthrosis - clinically doing better each day. Cultures remain negative and she has been afebrile. Bone scan showed inflammation with all 3 stages but we suspect this is because of the hemarthrosis. -Pain control -Follow-up cultures -Physical therapy Chronic Afib /flutter, hx of pacemarker - heart rate and rhythm have been stable with no symptoms. Restarting chronic anticoagulation today. -restart warfarin tomorrow -INR in the morning Stage III chronic kidney disease - creatinine near baseline and has been slowly improving. Sleep Apnea -oxygen 2 liter per nasal cannula during the night Maintenance issues -Nutrition: regular diet -DVT: scd -PPI; PO Protonix 40mg daily -consult OT for discharge planning -consult PT for strengthing -consult Spiritual Disposition - with ongoing improvement and no strong evidence for infection she may be able to go home tomorrow if she continues to improve. Primary care provider: Dr. Armond Garcia MD
[2017-07-28] MEDS: Warfarin 5 MG Tab PO SCH (14:04)
[2017-07-29] MEDS: Acetaminophen/HYDROcodone 325-5 MG Tab PO PRN (07:55)
[2017-07-29] MEDS: Bumetanide 1 MG Tab PO SCH (08:07)
[2017-07-29] MEDS: Gabapentin 300 MG Cap PO SCH ×2 (08:22→14:41)
[2017-07-29] MEDS: Levothyroxine 112 MCG Tab PO SCH (08:22)
[2017-07-29] MEDS: Lisinopril 10 MG Tab PO SCH (08:22)
[2017-07-29] MEDS ORDERED: Potassium Chloride 20 MEQ Tab.ER PO ONE (10:00)
--- NOTE | 2017-07-29 11:23 | PCM.DCSUM1 ---
Discharge Summary - Hospital Course Brief History: 77-year-old female with remote history of right knee replacement , chronic atrial fibrillation with chronic anticoagulation and previous embolic stroke who presented with right knee pain and inability to fully extend the knee - Discharge Data Discharge Date: 07/29/17 Discharge Disposition: Home, W Home Health Agency 06 Condition: Good - Discharge Diagnosis/Problem(s) (1) Hemarthrosis of knee, right SNOMED Code(s): 852045407 ICD Code: M25.061 - HEMARTHROSIS, RIGHT KNEE Status: Acute Current Visit : Yes (2) Afib, Atrial fibrillation SNOMED Code(s): 21658186 ICD Code: I48.91 - UNSPECIFIED ATRIAL FIBRILLATION Status: Chronic Priority: High Current Visit: No Onset Date: 04/11/14 - Patient Summary/Data Consults: Consultations 07/25/17 22:34 Consult to Physician [CONS] Routine Consulting Provider: Jaison Yo Call Completed to Consulting Physician: Yes Reason for Consult: right knee pain Consult to Spiritual Care [CONS] Routine OT Evaluation and Treatment [CONS] Routine Please Evaluate and Treat. OT Reason for Consult: Discharge Planning This query below is only for informational purposes and is not editable. PT Evaluation and Treatment [CONS] Routine Please Evaluate and Treat. PT Reason for Consult: Ambulation This query below is only for informational purposes and is not editable. Labs Pending at D/C: Final results of cultures which are negative at 4 days Hospital Course: Shannon presented to the emergency room with right knee pain with some swelling and inability to fully extend her knee. There had been no preceding trauma. Workup in the emergency room included x-ray which showed some soft tissue swelling but no evidence for fracture or hardware loosening. CT scan showed prepatellar swelling but no other significant abnormalities. She was admitted to the hospital for pain control and further workup. We held her warfarin on arrival and did reverse her INR with vitamin K. The morning after admission the joint was aspirated and bloody fluid was returned. This was sent for cultures. Just having the fluid aspirated improved her pain a fair amount. Over the next couple of days she worked with physical therapy and did make some improvement in extending her knee and had a decrease in her pain. She has been afebrile and has continued to have a normal white blood cell count. Cultures have remained negative throughout the hospital stay. 2 days before discharge she had a three- phase bone scan which revealed inflammation on all 3 phases but this was felt to be related to the hemarthrosis rather than a joint infection. Clinically she has done well and progressed not consistently throughout the hospital stay. She has been afebrile and stable throughout the hospital stay. We have restarted her warfarin though her level was not therapeutic as of yet. I'm not going to bridge the warfarin until therapeutic because of the recent hemarthrosis so there is additional time to allow the source of bleeding to quit and heal. Initially there was concern that she might need a correction facility for rehabilitation but she has a progressed quite well. Dr. Yo with the orthopedic services has been following along and we are both in agreement that she is safe for discharge at this time. The etiology for her pain and difficulty with extending the knee was a hemarthrosis which was probably spontaneous in the setting of chronic anticoagulation. There is no evidence for infection and she has not received any antibiotics. She will be discharged to home today and she is interested in home health care services. They will be providing nursing to help monitor the joint along with the blood testing and she will be receiving physical therapy. She should have her INR checked on Sunday, 2 days from now. She will receive an extra 5 mg of warfarin prior to discharge today with an attempt to increase the INR more quickly. - Patient Instructions Diet: Regular Diet as Tolerated Activity: As Tolerated Driving: Do Not Drive (while taking pain pills) Showering/Bathing: May Shower Notify Provider of: Fever, Increased Pain, Nausea and/or Vomiting Other/Special Instructions: 1. You were in the hospital for management of right knee pain caused by a hemarthrosis (blood in the knee joint). You have improved after aspiration of the joint and holding your warfarin for a couple of days. I recommend home physical therapy and pain control with hydrocodone/ acetaminophen. 2. Continue your warfarin as previously prescribed. You should take 5 mg today and tomorrow. I recommend a recheck of your warfarin level on Sunday. 3. I have placed a referral to home health to help ease the transition home from the hospital. They will provide nursing and physical therapy. 4. Please continue your other medications as previously prescribed. 5. Seek medical attention if you develop fever >101, severe knee pain or sudden onset of shortness of breath/chest pain. - Discharge Plan Prescriptions/Med Rec: Acetaminophen/HYDROcodone [Reagan 325-5 MG] 1 tab PO Q4H PRN #20 tablet PRN Reason: Pain Home Medications: Home Meds Ascorbic Acid [Vitamin C] 500 mg PO DAILY 04/11/14 [History] Levothyroxine 112 mcg PO DAILY 04/11/14 [History] Lisinopril 10 mg PO DAILY 04/11/14 [History] Meclizine [Antivert] 25 mg PO ASDIRECTED 04/11/14 [History] Multivitamin [Multi-Vitamin Daily] 1 each PO DAILY 04/11/14 [History] Vitamin B Complex 1 each PO DAILY 04/11/14 [History] Warfarin [Coumadin] 2.5 mg PO ASDIRECTED 04/11/14 [History] traMADol [Ultram] 100 mg PO Q6HR PRN 11/30/14 [History] Nitroglycerin [Nitrostat] 1 each PO ASDIRECTED 12/30/14 [History] Warfarin [Coumadin] 5 mg PO ASDIRECTED 12/30/14 [History] Gabapentin [Neurontin] 1 cap PO TID 02/14/16 [History] Bumetanide [Bumex] 4 mg PO DAILY 02/17/16 [History] Acetaminophen/HYDROcodone [Reagan 325-5 MG] 1 tab PO Q4H PRN #20 tablet 07/29/17 [Rx] Patient Handouts: Acetaminophen; Hydrocodone tablets or capsules, Knee Pain Referrals: Ronan Nolasco MD [Primary Care Provider] - (as needed) Jaison Yo DO [Physician] - (3 weeks - f/u right knee hemarthrosis ) - Discharge Summary/Plan Comment DC Time >30 min.: Yes (40 - setting up home care) - Patient Data Vitals - Most Recent: Last Vital Signs Temp 36.4 C 07/29/17 06:00 Pulse 80 07/29/17 06:00 Resp 16 07/29/17 06:00 BP 133/70 07/29/17 08:22 Pulse Ox 98 07/29/17 06:00 Weight - Most Recent: 77.791 kg I&O - Last 24 hours: Intake & Output 07/28/17 07/29/17 07/29/17 22:59 06:59 14:59 Intake Total 480 Output Total 900 Balance -900 480 Lab Results - Last 24 hrs: Laboratory Results - last 24 hr 07/29/17 07/29/17 Range/Units 05:40 05:40 PT 11.7 (9.5-12.0) sec INR 1.09 (0.80-1.20) Sodium 146 (140-148) mmol/L Potassium 3.4 L (3.6-5.2) mmol/L Chloride 105 (100-108) mmol/L Carbon Dioxide 36 H (21-32) mmol/L Anion Gap 8.4 (5.0-14.0) mmol/L BUN 26 H (7-18) mg/dL Creatinine 1.4 H (0.6-1.0) mg/dL Est Cr Clr Drug Dosing 25.39 mL/min Estimated GFR (MDRD) 36 L (>60) Glucose 91 (74-106) mg/dL Calcium 8.6 (8.5-10.1) mg/dL RIAN Results - Last 24 hrs: Microbiology 07/26/17 08:48 Aerobic Blood Culture - Preliminary Blood - Arm, Left NO GROWTH AFTER 3 DAYS Anaerobic Blood Culture - Preliminary NO GROWTH AFTER 3 DAYS 07/26/17 08:45 Aerobic Blood Culture - Preliminary Blood - Arm, Left NO GROWTH AFTER 3 DAYS Anaerobic Blood Culture - Preliminary NO GROWTH AFTER 3 DAYS 07/26/17 08:48 Anaerobic Culture - Final Knee, Right NO GROWTH AFTER 3 DAYS 07/26/17 08:48 Gram Stain - Final Joint / Synovial Fluid - Knee, Right Body Fluid Culture - Final NO GROWTH AFTER 3 DAYS Med Orders - Current: Current Medications Hydrocodone Bitart/Acetaminophen (Reagan 325-5 Mg) 1 tab PO Q4H PRN PRN Reason: Pain (moderate 4-6) Last Admin: 07/29/17 07:55 Dose: 1 tab Albuterol (Proventil Neb Soln) 2.5 mg NEB Q4H PRN PRN Reason: Shortness Of Breath/wheezing Bumetanide (Bumex) 6 mg PO DAILY [facility] Last Admin: 07/29/17 08:07 Dose: 4 mg Docusate Sodium (Colace) 100 mg PO BID PRN PRN Reason: Constipation Gabapentin (Neurontin) 300 mg PO TID [facility] Last Admin: 07/29/17 08:22 Dose: 300 mg Guaifenesin (Mucinex) 600 mg PO BID PRN PRN Reason: Congestion Last Admin: 07/27/17 20:23 Dose: 600 mg Levothyroxine Sodium (Levothyroxine) 112 mcg PO DAILY@0730 [facility] Last Admin: 07/29/17 08:22 Dose: 112 mcg Lisinopril (Prinivil) 10 mg PO DAILY [facility] Last Admin: 07/29/17 08:22 Dose: 10 mg Morphine Sulfate (Morphine) 2 mg IVPUSH Q2H PRN PRN Reason: Pain (severe 7-10) Ondansetron HCl (Zofran Odt) 4 mg PO Q6H PRN PRN Reason: Nausea able to take PO Ondansetron HCl (Zofran) 4 mg IV Q4H PRN PRN Reason: Nausea/Vomiting Warfarin Sodium (Coumadin) 5 mg PO DAILY@1300 [facility] Last Admin: 07/28/17 14:04 Dose: 5 mg Zolpidem Tartrate (Ambien) 5 mg PO BEDTIME PRN PRN Reason: Sleep Discontinued Medications Enoxaparin Sodium (Lovenox) 30 mg SUBCUT DAILY [facility] Last Admin: 07/26/17 09:02 Dose: 30 mg Sodium Chloride (Normal Saline) 1,000 mls @ 200 mls/hr IV ASDIRECTED [facility] Last Admin: 07/25/17 21:28 Dose: 200 mls/hr Sodium Chloride (Normal Saline) 1,000 mls @ 100 mls/hr IV ASDIRECTED [facility] Last Admin: 07/26/17 03:50 Dose: 100 mls/hr Sodium Chloride (Normal Saline) 1,000 mls @ 50 mls/hr [facility] Last Admin: 07/26/17 15:08 Dose: 50 mls/hr Lorazepam (Ativan) 1 mg IV Q6H PRN PRN Reason: Nausea/Vomiting Phytonadione (Aquamephyton) 5 mg PO ONETIME ONE Stop: 07/26/17 08:21 Last Admin: 07/26/17 09:10 Dose: 5 mg Potassium Chloride (Klor-Con M20) 40 meq PO ONETIME ONE Stop: 07/29/17 10:01 - Exam Quality Assessment: Denies: Supplemental Oxygen General: Reports: Alert, Oriented, Cooperative, No Acute Distress Neck: Reports: Supple Lungs: Reports: Normal Respiratory Effort Extremities: Pedal Edema, Other (no redness or swelling of the right knee) Psy/Mental Status: Reports: Alert, Normal Affect *Q Meaningful Use (DIS) - VTE *Q VTE Criteria *Q: - Stroke *Q Stroke Criteria *Q: - AMI *Q AMI Criteria *Q:
[2017-07-29] MEDS: Warfarin 5 MG Tab PO SCH (12:09)
[2017-07-29 15:13] VITALS: BP 137/61
== END 2017-07-29 15:30 | disposition home health service (06) | DRG 554 ==
LOC: JP.ED 17:26 → JP.MS 21:17
PROVIDERS: ADMIT Internal Medicine; ATTEND Orthopaedic Surgery
PROC: 0S9C3ZX Drainage of Right Knee Joint, Percutaneous Approach, Diagnostic (ICD-10-PCS; principal; 2017-07-26)
DX: M25.561 Pain in right knee (principal); M25.061 Hemarthrosis, right knee; Z96.653 Presence of artificial knee joint, bilateral; I48.2 Chronic atrial fibrillation; Z79.01 Long term (current) use of anticoagulants; I12.9 Hypertensive chronic kidney disease with stage 1 through stage 4 chronic kidney disease, or unspecified chronic kidney disease; N18.3 Chronic kidney disease, stage 3 (moderate); E03.9 Hypothyroidism, unspecified; G47.30 Sleep apnea, unspecified; Z95.0 Presence of cardiac pacemaker; Z99.81 Dependence on supplemental oxygen; M54.9 Dorsalgia, unspecified; G89.29 Other chronic pain; M19.90 Unspecified osteoarthritis, unspecified site; Z86.73 Personal history of transient ischemic attack (TIA), and cerebral infarction without residual deficits; Z88.8 Allergy status to other drugs, medicaments and biological substances; Z91.048 Other nonmedicinal substance allergy status
CPT/HCPCS: 36415; 73564-26-RT; 73564-RT; 73700-RT; 78315; 78315-26; 80048; 80053; 81001; 82945; 84157; 84443; 84560; 85025; 85027; 85610; 85651; 86140; 87040; 87070; 87075; 87205; 89050; 89060; 97010; 97110-GP; 97140-GP; 97162-GP; 97165-GO; 99284; 99285-25; A9270-GY; A9561; J1650; J7040

== ENCOUNTER 2017-09-03 14:16 | Emergency (ER) | payer MEDICARE ==
[2017-09-03] MEDS ORDERED: Diltiazem 25 MG/5 ML SDV IVPUSH ONE (14:50)
--- NOTE | 2017-09-03 15:19 | EDM.PDOC ---
ED HPI GENERAL MEDICAL PROBLEM - General Chief Complaint: Cardiovascular Problem Stated Complaint: CHEST PAIN/HIGH BP Time Seen by Provider: 09/03/17 14:45 Source of Information: Reports: Patient History Limitations: Reports: No Limitations - History of Present Illness INITIAL COMMENTS - FREE TEXT/NARRATIVE: 77-year-old female with a previous history of atrial fibrillation, on Coumadin therapy presents with palpitations for the past 48 hours. She received an injection in her hip 3 days ago and is wondering if she's having a reaction. She 's also been having intermittent mild substernal chest pain responding to nitroglycerin. Mild shortness of breath, no nausea or vomiting. Onset: Sudden (She thinks the atrial fibrillation started Sunday morning) Duration: Day(s): (2 days) Location: Reports: Chest Severity: Moderate Worsens with: Reports: Other (Activity) Associated Symptoms: Reports: Chest Pain, Shortness of Breath (With activity). Denies: Diaphoresis, Nausea/Vomiting - Related Data Allergies Allergy/AdvReac Type Severity Reaction Status Date / Time polyester fibers Allergy Hives Verified 09/03/17 14:34 lidocaine AdvReac Arrhythmias Verified 09/03/17 14:34 metoprolol AdvReac Arrhythmias Verified 09/03/17 14:34 Home Meds: Home Meds Ascorbic Acid [Vitamin C] 500 mg PO BEDTIME 04/11/14 [History] Meclizine [Antivert] 25 mg PO ASDIRECTED 04/11/14 [History] Multivitamin [Multi-Vitamin Daily] 1 each PO BEDTIME 04/11/14 [History] Vitamin B Complex 1 each PO BEDTIME 04/11/14 [History] Warfarin [Coumadin] 2.5 mg PO ASDIRECTED 04/11/14 [History] traMADol [Ultram] 100 mg PO Q8H PRN 11/30/14 [History] Nitroglycerin [Nitrostat] 0.4 mg PO ASDIRECTED 12/30/14 [History] Warfarin [Coumadin] 5 mg PO ASDIRECTED 12/30/14 [History] Gabapentin [Neurontin] 300 mg PO TID 02/14/16 [History] Bumetanide [Bumex] 4 mg PO DAILY 02/17/16 [History] Levothyroxine [Synthroid] 1 tab PO DAILY 09/03/17 [History] Lisinopril 1 tab PO BEDTIME 09/03/17 [History] Oxybutynin 1 tab PO TID 09/03/17 [History] Past Medical History HEENT History: Reports: Allergic Rhinitis, Hard of Hearing Cardiovascular History: Reports: Afib, Heart Failure, Hypertension, Pacemaker, Pulmonary Hypertension Other Cardiovascular History: mitral regurgitation Respiratory History: Reports: Other (See Below) Other Respiratory History: home O2 at night Gastrointestinal History: Reports: GERD, GI Bleed, PUD Other Gastrointestinal History: esophageal stricture Genitourinary History: Reports: Renal Disease, Urinary Incontinence Other Genitourinary History: incontinence [employer] History: Reports: , Spontaneous Musculoskeletal History: Reports: Arthritis, Back Pain, Chronic, Fracture, Osteoarthritis Other Musculoskeletal History: DJD Neurological History: Reports: CVA Other Neuro History: hemorrhagic, compression fracture of L1, 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 Endocrine/Metabolic History: Reports: Hypothyroidism, Obesity/BMI 30+, Vitamin D Deficiency Hematologic History: Reports: Anemia, Anticoagulation Therapy Dermatologic History: Reports: Other (See Below) Other Dermatologic History: allergy to polyester - Infectious Disease History 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, Influenza, Measles, Mumps, VRE - Past Surgical History HEENT Surgical History: Reports: Tonsillectomy Cardiovascular Surgical History: Reports: Pacer GI Surgical History: Reports: Colonoscopy, EGD, Hernia, Abdominal Musculoskeletal Surgical History: Reports: Knee Replacement, Other (See Below) Other Musculoskeletal Surgeries/Procedures:: bilateral knees replaced Social & Family History - Tobacco Use Smoking Status *Q: Never Smoker Second Hand Smoke Exposure: Yes - Caffeine Use Caffeine Use: Reports: Coffee - Alcohol Use Days Per Week of Alcohol Use: 0 - Recreational Drug Use Recreational Drug Use: No - Living Situation & Occupation Living situation: Reports: Single, with Family (lives in [facility], with 2 Grandsons. One Grandson has schizophrenia) ED ROS GENERAL - Review of Systems Review Of Systems: See Below Constitutional: Denies: Fever, Chills HEENT: Reports: No Symptoms Respiratory: Reports: Shortness of Breath Cardiovascular: Reports: Chest Pain GI/Abdominal: Denies: Abdominal Pain : Reports: No Symptoms Musculoskeletal: Reports: Back Pain Neurological: Denies: Headache Psychiatric: Reports: No Symptoms ED EXAM, GENERAL - Physical Exam Exam: See Below Exam Limited By: No Limitations General Appearance: Alert, No Apparent Distress Eye Exam: Bilateral Eye: Normal Inspection Respiratory/Chest: No Respiratory Distress, Lungs Clear Cardiovascular: Tachycardia, Irregularly Irregular GI/Abdominal: Soft, Non-Tender Neurological: Alert, Oriented Psychiatric: Normal Affect, Normal Mood Skin Exam: Warm, Dry EKG INTERPRETATION EKG Date: 09/03/17 Rhythm: A-Fib Rate (Beats/Min): 148 QRS: RBBB ST-T: Normal Course - Vital Signs Last Recorded V/S: Last Vital Signs Temp 98 F 09/03/17 14:32 Pulse 105 H 09/03/17 17:49 Resp 15 09/03/17 17:45 BP 157/97 H 09/03/17 17:49 Pulse Ox 98 09/03/17 17:45 - Orders/Labs/Meds Labs: Laboratory Tests 09/03/17 09/03/17 09/03/17 Range/Units 15:02 15:02 15:02 WBC 10.9 (4.5-11.0) K/uL RBC 4.88 (3.30-5.50) M/uL Hgb 14.0 D (12.0-15.0) g/dL Hct 43.3 (36.0-48.0) % MCV 89 (80-98) fL MCH 29 (27-31) pg MCHC 32 (32-36) % Plt Count 252 (150-400) K/uL Neut % (Auto) 82 H (36-66) % Lymph % (Auto) 7 L (24-44) % [place] % (Auto) 11 H (2-6) % Eos % (Auto) 0 L (2-4) % Baso % (Auto) 0 (0-1) % PT 21.3 H (9.5-12.0) sec INR 1.94 H (0.80-1.20) Sodium 143 (140-148) mmol/L Potassium 3.9 (3.6-5.2) mmol/L Chloride 102 (100-108) mmol/L Carbon Dioxide 33 H (21-32) mmol/L Anion Gap 11.9 (5.0-14.0) mmol/L BUN 41 H D (7-18) mg/dL Creatinine 1.5 H (0.6-1.0) mg/dL Est Cr Clr Drug Dosing 23.70 mL/min Estimated GFR (MDRD) 34 L (>60) Glucose 127 H (74-106) mg/dL Calcium 8.4 L (8.5-10.1) mg/dL Total Bilirubin 0.3 (0.2-1.0) mg/dL AST 38 H (15-37) U/L ALT 49 D (12-78) U/L Alkaline Phosphatase 118 H (46-116) U/L Troponin I (0.000-0.056) ng/mL Total Protein 7.0 (6.4-8.2) g/dL Albumin 3.4 (3.4-5.0) g/dL Globulin 3.6 H (2.3-3.5) g/dL Albumin/Globulin Ratio 0.9 L (1.2-2.2) 09/03/17 Range/Units 15:02 WBC (4.5-11.0) K/uL RBC (3.30-5.50) M/uL Hgb (12.0-15.0) g/dL Hct (36.0-48.0) % MCV (80-98) fL MCH (27-31) pg MCHC (32-36) % Plt Count (150-400) K/uL Neut % (Auto) (36-66) % Lymph % (Auto) (24-44) % [place] % (Auto) (2-6) % Eos % (Auto) (2-4) % Baso % (Auto) (0-1) % PT (9.5-12.0) sec INR (0.80-1.20) Sodium (140-148) mmol/L Potassium (3.6-5.2) mmol/L Chloride (100-108) mmol/L Carbon Dioxide (21-32) mmol/L Anion Gap (5.0-14.0) mmol/L BUN (7-18) mg/dL Creatinine (0.6-1.0) mg/dL Est Cr Clr Drug Dosing mL/min Estimated GFR (MDRD) (>60) Glucose (74-106) mg/dL Calcium (8.5-10.1) mg/dL Total Bilirubin (0.2-1.0) mg/dL AST (15-37) U/L ALT (12-78) U/L Alkaline Phosphatase (46-116) U/L Troponin I 0.019 (0.000-0.056) ng/mL Total Protein (6.4-8.2) g/dL Albumin (3.4-5.0) g/dL Globulin (2.3-3.5) g/dL Albumin/Globulin Ratio (1.2-2.2) Meds: Medications Discontinued Medications Generic Name Dose Route Start Last Admin Trade Name Scarlett PRN Reason Stop Dose Admin Diltiazem HCl 20 mg 09/03/17 14:50 09/03/17 15:05 Diltiazem IVPUSH 09/03/17 14:51 20 mg ONETIME ONE Administration Diltiazem HCl 120 mg 09/03/17 17:36 09/03/17 17:49 Cardizem Cd PO 09/03/17 17:37 120 mg ONETIME ONE Administration Propofol 80 mg 09/03/17 15:57 09/03/17 16:14 Diprivan 20 Ml IVPUSH 09/03/17 15:58 80 mg ONETIME ONE Administration - Re-Assessments/Exams Free Text/Narrative Re-Assessment/Exam: 09/03/17 15:27 An IV was started, CBC, CMP and troponin were obtained. Patient was given 20 mg of IV diltiazem. This gave her excellent rate control into the mid 80s to mid 90s over the next 30 minutes but she did not convert to sinus rhythm. She had no chest pain while in the emergency room. 09/03/17 17:09 Patient's troponin returned negative, CBC and CMP were reassuring. With the assistance of Dr. Garcia of the hospitalist service, the patient was given 80 mg of propofol IV and under appropriate sedation after consent was obtained, synchronized cardioversion was used to convert the patient back into sinus rhythm. Initially the patient converted to a sinus rhythm with very frequent PACs and slight sinus arrhythmia, which slowly increased in rate from 80-106 and appeared to be more irregular. She was given 120 mg of extended release diltiazem and a prescription for a daily dose, and should follow up with her primary physician in 5-7 days. She can return if she redevelops symptoms of palpitations or chest pain. Departure - Departure Time of Disposition: 18:20 Disposition: Home, Self-Care 01 Condition: Good Clinical Impression: Afib, Atrial fibrillation Instructions: Atrial Fibrillation, [id number] Referrals: Larissa Nolasco CNM [Primary Care Provider] - Forms: ED Department Discharge Care Plan Goals: Continue your current medications and add the once daily diltiazem as directed. Return any time if symptoms recur such as recurring chest pain, palpitations or lightheadedness. A recheck with your regular doctor in 5-10 days would be worthwhile.
[2017-09-03] MEDS ORDERED: Propofol 200 MG/20 ML SDV IVPUSH ONE (15:57)
--- NOTE | 2017-09-03 16:25 | PCM.PRNOTE ---
- Free Text/Narrative Note: Date of service: 09/03/2017 Proposed procedure: Synchronized cardioversion Preprocedure diagnosis: Paroxysmal atrial fibrillation with rapid ventricular response Post procedure diagnosis: Paroxysmal atrial fibrillation with rapid ventricular response Indication for procedure: Shannon was evaluated today for management atrial fibrillation with rapid ventricular response. Synchronized cardioversion was recommended as a primary treatment. she has been chronically anticoagulated. Description of the procedure: Shannon is currently located in [place] [id number]. We have reviewed the potential risks of electrical cardioversion including but not limited to: Superficial skin porras, ineffective treatment, other arrhythmias, reaction to anesthesia medications or potentially asystole. The benefits of the procedure have also been reviewed. At this time the patient wishes to proceed with electrical cardioversion. All necessary pre-procedure information and paperwork has been provided and completed, respectively. The patient was connected to cardioversion pads and monitoring equipment per protocol. Prior to the procedure, a timeout was held with nursing and anesthesia present to confirm the right patient and right procedure. Once appropriate anesthesia was applied the machine was charged to 200 Joules and a synchronized electrical shock was applied. Unfortunately she remained in atrial fibrillation after the initial shock. We performed a second electrical shock at 250 J. The patient was successfully converted to normal sinus rhythm based on telemetry monitoring. They will remain in their current location until anesthesia has dissipated and the patient is more awake and alert. They will then be discharged to home once medically stable. Anticoagulation should be continued for at least one month post cardioversion. There were no immediate complications noted from the procedure. Post procedure EKG is pending at the time of dictation. Aaron Garcia M.D.
[2017-09-03] MEDS ORDERED: Diltiazem 120 MG Cap.CD PO ONE (17:36)
[2017-09-03 17:50] VITALS: BP 157/97
== END 2017-09-03 18:58 | disposition home or self-care (01) ==
LOC: JP.ED 14:16
DX: I48.91 Unspecified atrial fibrillation (principal); I11.0 Hypertensive heart disease with heart failure; I50.9 Heart failure, unspecified; Z79.01 Long term (current) use of anticoagulants; Z95.0 Presence of cardiac pacemaker; Z99.81 Dependence on supplemental oxygen; Z77.22 Contact with and (suspected) exposure to environmental tobacco smoke (acute) (chronic); Z79.899 Other long term (current) drug therapy; Z88.6 Allergy status to analgesic agent; Z88.8 Allergy status to other drugs, medicaments and biological substances; Z91.048 Other nonmedicinal substance allergy status
CPT/HCPCS: 36415; 80053; 84484; 85025; 85610; 92950; 93005; 96374; 96375; 99285; A9270; J2704; J3490; 93010; 99284

== ENCOUNTER 2018-05-09 08:02 | Day surgery (SDC) | payer MEDICARE ==
[2018-05-09] MEDS ORDERED: Sodium Chloride 0.9% 10 ML Syringe FLUSH PRN (08:21)
[2018-05-09 09:30] VITALS: BP 114/72
--- NOTE | 2018-05-09 09:31 | OR ---
DATE OF PROCEDURE: 05/09/2018 POSTOPERATIVE CARE: Postoperative care will be provided mainly at the [address] [place] [address] [facility] in conjunction with [facility]. PREOPERATIVE DIAGNOSIS: Cataract, left eye. POSTOPERATIVE DIAGNOSIS: Cataract, left eye. PROCEDURE: Cataract extraction and phacoemulsification with intraocular lens placement, left eye. ANESTHESIA: Topical and intracameral. ESTIMATED BLOOD LOSS: Minimal. COMPLICATIONS: None. PATHOLOGY SPECIMENS: None. SURGICAL FINDINGS: None. INDICATION FOR PROCEDURE: The patient is a 77-year-old female with history of a visually significant cataract in the left eye, which interfered with activities of daily living. This consisted of a nuclear sclerosis cataract. Following careful discussion of the risks, benefits and alternatives to cataract extraction with intraocular lens placement including blindness and , the patient elected to proceed, and informed, written consent was obtained prior to the procedure. DESCRIPTION OF THE PROCEDURE: The patient was previously identified, and a yossi placed above the left eye. All sources, including the patient, indicated that the left eye was the correct eye. The patient was subsequently taken to the operating room where standard monitors were applied. The patient was then prepped and draped in the usual sterile fashion for ophthalmic surgery. Attention was first directed at the 12 o'clock position where a paracentesis port was fashioned. Shugar solution followed by Viscoat was instilled into the eye. Attention was then directed to the 8:30 position where a triplanar incision was made in a near-clear manner using a keratome. A continuous capsulorrhexis was then made using a combination of the cystotome and Utrata forceps. Hydrodissection was achieved using a balanced salt solution, and the lens rotated nicely. Phacoemulsification was then done using a modified [id number] technique without complication. Phaco time was 5.95 CDE. The remaining cortex was removed using the irrigation/aspiration handpiece. Provisc was then instilled into the eye. A Technis lens, model [id number], at 17.5 diopters was then placed in the capsular bag using an [place] injector. The remaining viscoelastic was removed using the irrigation/aspiration forceps. All wounds were then checked and found to be watertight. The lid speculum and drapes were removed. Maxitrol ointment was placed in the patient's left eye, and the eye was shielded. The patient tolerated the procedure well. The patient was instructed to follow up tomorrow. All needle and sponge counts were correct at the end of the procedure. Diann Duenas MD /[id number]
== END 2018-05-09 10:07 | disposition home or self-care (01) ==
LOC: JP.SDS 08:02
PROVIDERS: ATTEND Ophthalmology
DX: H25.12 Age-related nuclear cataract, left eye (principal); I10 Essential (primary) hypertension; I48.91 Unspecified atrial fibrillation; E03.9 Hypothyroidism, unspecified; Z88.4 Allergy status to anesthetic agent; Z88.8 Allergy status to other drugs, medicaments and biological substances; Z91.048 Other nonmedicinal substance allergy status
CPT/HCPCS: 66984; J7050; V2632

== ENCOUNTER 2018-10-03 13:47 | Emergency (ER) | payer MEDICARE ==
[2018-10-03] MEDS ORDERED: Diltiazem 120 MG Cap.CD PO ONE (14:52)
--- NOTE | 2018-10-03 14:56 | EDM.PDOC ---
ED HPI GENERAL MEDICAL PROBLEM - General Chief Complaint: Cardiovascular Problem Stated Complaint: HAS PACE MAKER [place] IS FAST Time Seen by Provider: 10/03/18 14:40 Source of Information: Reports: Patient, RN Notes Reviewed History Limitations: Reports: No Limitations - History of Present Illness INITIAL COMMENTS - FREE TEXT/NARRATIVE: 78-year-old female presents to the emergency department today with complaint of palpitations, she has a known history of atrial fibrillation does of pacemaker in place and is anticoagulated, she states there have been some changes to her medications mainly with the Cardizem she used to be on 240 mg which seemed to be working well for her recently she was dropped down from 240-120 she started noticing more palpitations heart rate running in the 120s to 130 range however today had her pacemaker checked she had heart rates of 150 and the asked her to present to the emergency department for evaluation. She denies chest pain however she does have palpitations and does feel short of breath with exertion - Related Data Allergies Allergy/AdvReac Type Severity Reaction Status Date / Time atropine [From Lomotil] Allergy Rash Verified 10/03/18 14:06 Beta-Adrenergic Agents Allergy Dizziness Verified 10/03/18 14:06 diphenoxylate [From Lomotil] Allergy Rash Verified 10/03/18 14:06 polyester fibers Allergy Hives Verified 10/03/18 14:06 procaine Allergy Cannot Verified 10/03/18 14:06 Remember rosuvastatin Allergy Cannot Verified 10/03/18 14:06 Remember lidocaine AdvReac Arrhythmias Verified 10/03/18 14:06 metoprolol AdvReac Arrhythmias Verified 10/03/18 14:06 Home Meds: Home Meds Ascorbic Acid [Vitamin C] 500 mg PO BEDTIME 04/11/14 [History] Meclizine [Antivert] 25 mg PO TID PRN 04/11/14 [History] Multivitamin [Multi-Vitamin Daily] 1 each PO BEDTIME 04/11/14 [History] Vitamin B Complex 1 each PO BEDTIME 04/11/14 [History] Warfarin [Coumadin] 2.5 mg PO ASDIRECTED 04/11/14 [History] traMADol [Ultram] 100 mg PO Q8H PRN 11/30/14 [History] Nitroglycerin [Nitrostat] 0.4 mg PO ASDIRECTED 12/30/14 [History] Warfarin [Coumadin] 5 mg PO ASDIRECTED 12/30/14 [History] Gabapentin [Neurontin] 300 mg PO TID 02/14/16 [History] Bumetanide [Bumex] 2 mg PO DAILY 02/17/16 [History] Levothyroxine [Synthroid] 100 mcg PO DAILY 09/03/17 [History] Lisinopril 5 mg PO BEDTIME 09/03/17 [History] Oxybutynin 5 mg PO TID 09/03/17 [History] Aspirin 325 mg PO DAILY 04/09/18 [History] Cholecalciferol (Vitamin D3) [Cholecalciferol] 400 mg PO DAILY 04/09/18 [History ] Clotrimazole/Betamethasone Dip [Lotrisone Cream] 1 film TOP BID 04/09/18 [ History] Diclofenac Sodium [Voltaren] 4 gr TOP QID 04/09/18 [History] Diltiazem HCl [Cardizem Cd] 180 mg PO QPM 04/09/18 [History] Fluticasone Propionate [Flonase] 2 spray NASBOTH DAILY 04/09/18 [History] Diltiazem HCl [Cardizem LA] 240 mg PO DAILY #30 tab.sr.24h 10/03/18 [Rx] Past Medical History HEENT History: Reports: Allergic Rhinitis, Cataract, Hard of Hearing, Impaired Vision Other HEENT History: left cataract Cardiovascular History: Reports: Afib, Heart Failure, Hypertension, [place], Pacemaker, Pulmonary Hypertension Other Cardiovascular History: mitral regurgitation Respiratory History: Reports: SOB, Other (See Below) Other Respiratory History: home O2 at night Gastrointestinal History: Reports: GERD, GI Bleed, PUD Other Gastrointestinal History: esophageal stricture Genitourinary History: Reports: Renal Disease, Urinary Incontinence Other Genitourinary History: incontinence [employer]ING History: Reports: , Spontaneous Musculoskeletal History: Reports: Arthritis, Back Pain, Chronic, Fracture, Osteoarthritis Other Musculoskeletal History: DJD Neurological History: Reports: CVA, TIA Other Neuro History: hemorrhagic, compression fracture of L1, 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 Endocrine/Metabolic History: Reports: Hypothyroidism, Obesity/BMI 30+, Vitamin D Deficiency Hematologic History: Reports: Anemia, Anticoagulation Therapy Dermatologic History: Reports: Other (See Below) Other Dermatologic History: allergy to polyester - Infectious Disease History Infectious Disease History: Reports: Chicken Pox, Measles, Mumps - Past Surgical History Head Surgeries/Procedures: Reports: None Cardiovascular Surgical History: Reports: Pacer Respiratory Surgical History: Reports: None GI Surgical History: Reports: Colonoscopy, EGD, Hernia, Abdominal Female Surgical History: Reports: None Endocrine Surgical History: Reports: None Neurological Surgical History: Reports: None Musculoskeletal Surgical History: Reports: Knee Replacement, Other (See Below) Other Musculoskeletal Surgeries/Procedures:: bilateral knees replaced Dermatological Surgical History: Reports: None Social & Family History - Family History Family Medical History: Noncontributory - Tobacco Use Smoking Status *Q: Never Smoker Second Hand Smoke Exposure: No - Caffeine Use Caffeine Use: Reports: Coffee - Recreational Drug Use Recreational Drug Use: No - Living Situation & Occupation Living situation: Reports: Single, with Family (lives in [facility], with 2 Grandsons. One Grandson has schizophrenia) ED ROS GENERAL - Review of Systems Review Of Systems: See Below Constitutional: Reports: No Symptoms HEENT: Reports: No Symptoms Respiratory: Reports: Shortness of Breath Cardiovascular: Reports: Dyspnea on Exertion, Palpitations. Denies: Chest Pain GI/Abdominal: Reports: No Symptoms : Reports: No Symptoms ED EXAM, GENERAL - Physical Exam Exam: See Below Exam Limited By: No Limitations General Appearance: Alert, WD/WN, No Apparent Distress Head: Atraumatic, Normocephalic Neck: Normal Inspection, Supple, Non-Tender, Full Range of Motion Respiratory/Chest: No Respiratory Distress, Lungs Clear, Normal Breath Sounds, No Accessory Muscle Use, Chest Non-Tender Cardiovascular: Tachycardia GI/Abdominal: Soft, Non-Tender Course - Vital Signs Last Recorded V/S: Last Vital Signs Temp 97.8 F 10/03/18 14:01 Pulse 104 H 10/03/18 15:18 Resp 16 10/03/18 15:18 BP 139/55 L 10/03/18 15:18 Pulse Ox 92 L 10/03/18 15:18 - Orders/Labs/Meds Orders: Active Orders 24 hr Category Date Time Status Cardiac Monitoring [RC] .As Directed Care 10/03/18 14:52 Active EKG Documentation Completion [RC] ASDIRECTED Care 10/03/18 14:52 Active EKG 12 Lead [EK] Stat Ther 10/03/18 14:52 Ordered Labs: Laboratory Tests 10/03/18 10/03/18 10/03/18 Range/Units 14:53 14:53 14:53 WBC 6.8 (4.5-11.0) K/uL RBC 4.60 (3.30-5.50) M/uL Hgb 13.6 (12.0-15.0) g/dL Hct 42.5 (36.0-48.0) % MCV 92 (80-98) fL MCH 30 (27-31) pg MCHC 32 (32-36) % Plt Count 212 (150-400) K/uL Neut % (Auto) 73 H (36-66) % Lymph % (Auto) 12 L (24-44) % [place] % (Auto) 10 H (2-6) % Eos % (Auto) 5 H (2-4) % Baso % (Auto) 1 (0-1) % PT 23.5 H (9.5-12.0) sec INR 2.24 H (0.80-1.20) Sodium 144 (140-148) mmol/L Potassium 3.8 (3.6-5.2) mmol/L Chloride 103 (100-108) mmol/L Carbon Dioxide 31 (21-32) mmol/L Anion Gap 9.8 (5.0-14.0) mmol/L BUN 29 H (7-18) mg/dL Creatinine 1.6 H (0.6-1.0) mg/dL Est Cr Clr Drug Dosing 21.87 mL/min Estimated GFR (MDRD) 31 L (>60) Glucose 100 (74-106) mg/dL Lactic Acid (0.4-2.0) mmol/L Calcium 9.1 (8.5-10.1) mg/dL Total Bilirubin 0.5 (0.2-1.0) mg/dL AST 28 (15-37) U/L ALT 28 (12-78) U/L Alkaline Phosphatase 128 H (46-116) U/L Troponin I < 0.017 (0.000-0.056) ng/mL Total Protein 7.3 (6.4-8.2) g/dL Albumin 3.5 (3.4-5.0) g/dL Globulin 3.8 H (2.3-3.5) g/dL Albumin/Globulin Ratio 0.9 L (1.2-2.2) 10/03/18 Range/Units 14:53 WBC (4.5-11.0) K/uL RBC (3.30-5.50) M/uL Hgb (12.0-15.0) g/dL Hct (36.0-48.0) % MCV (80-98) fL MCH (27-31) pg MCHC (32-36) % Plt Count (150-400) K/uL Neut % (Auto) (36-66) % Lymph % (Auto) (24-44) % [place] % (Auto) (2-6) % Eos % (Auto) (2-4) % Baso % (Auto) (0-1) % PT (9.5-12.0) sec INR (0.80-1.20) Sodium (140-148) mmol/L Potassium (3.6-5.2) mmol/L Chloride (100-108) mmol/L Carbon Dioxide (21-32) mmol/L Anion Gap (5.0-14.0) mmol/L BUN (7-18) mg/dL Creatinine (0.6-1.0) mg/dL Est Cr Clr Drug Dosing mL/min Estimated GFR (MDRD) (>60) Glucose (74-106) mg/dL Lactic Acid 1.4 (0.4-2.0) mmol/L Calcium (8.5-10.1) mg/dL Total Bilirubin (0.2-1.0) mg/dL AST (15-37) U/L ALT (12-78) U/L Alkaline Phosphatase (46-116) U/L Troponin I (0.000-0.056) ng/mL Total Protein (6.4-8.2) g/dL Albumin (3.4-5.0) g/dL Globulin (2.3-3.5) g/dL Albumin/Globulin Ratio (1.2-2.2) Meds: Medications Discontinued Medications Generic Name Dose Route Start Last Admin Trade Name Freq PRN Reason Stop Dose Admin Diltiazem HCl 120 mg 10/03/18 14:52 10/03/18 15:01 Cardizem Cd PO 10/03/18 14:53 120 mg ONETIME ONE Administration Departure - Departure Time of Disposition: 15:51 Disposition: Home, Self-Care 01 Condition: Fair Clinical Impression: Atrial fibrillation with RVR Referrals: PCP,None [Primary Care Provider] - Forms: ED Department Discharge Additional Instructions: Start Cardizem SA at 240 mg once a day prescription was sent to [facility] you can start this medication tomorrow, please keep your follow-up appointment with your primary care provider at the end of the month call return to the emergency department worsening of symptoms - My Orders Last 24 Hours: My Active Orders 10/03/18 14:52 Cardiac Monitoring [RC] .As Directed EKG Documentation Completion [RC] ASDIRECTED EKG 12 Lead [EK] Stat - Assessment/Plan Last 24 Hours: My Active Orders 10/03/18 14:52 Cardiac Monitoring [RC] .As Directed EKG Documentation Completion [RC] ASDIRECTED EKG 12 Lead [EK] Stat Plan: Assessment Acuity = acute Site and laterality = atrial fibrillation with rapid ventricular response Etiology = probably related to underdosing of Cardizem Manifestations = palpitations now resolved Location of injury = Home Lab values = CBC unremarkable INR therapeutic at 2.24 creatinine elevated 1.6 consistent chronic renal failure stage G IIIB EKG demonstrates a tachycardia 138 atrial fibrillation Plan Plan is to discharge home increase her Cardizem from 120-240 daily prescription faxed to [facility] to follow-up with her primary care to in the month for reevaluation This note was dictated using [employer] voice recognition software please call with any questions on syntax or grammar.
[2018-10-03 16:04] VITALS: BP 149/85
== END 2018-10-03 16:44 | disposition home or self-care (01) ==
LOC: JP.ED 13:47
DX: I48.91 Unspecified atrial fibrillation (principal); I11.0 Hypertensive heart disease with heart failure; I50.9 Heart failure, unspecified; I25.2 Old myocardial infarction; E03.9 Hypothyroidism, unspecified; Z95.0 Presence of cardiac pacemaker; Z88.8 Allergy status to other drugs, medicaments and biological substances; Z79.899 Other long term (current) drug therapy
CPT/HCPCS: 36415; 80053; 83605; 84484; 85025; 85610; 93005; 99284; A9270

== ENCOUNTER 2018-11-23 14:25 | Emergency (ER) | payer MEDICARE ==
[2018-11-23 14:47] VITALS: BP 116/72
--- NOTE | 2018-11-23 15:33 | EDM.PDOC ---
ED HPI GENERAL MEDICAL PROBLEM - General Chief Complaint: Back Pain or Injury Stated Complaint: BACK PAIN Time Seen by Provider: 11/23/18 15:14 Source of Information: Reports: Patient, Old Records, RN Notes Reviewed History Limitations: Reports: No Limitations - History of Present Illness INITIAL COMMENTS - FREE TEXT/NARRATIVE: 78-year-old female presents to the emergency department today with complaint of back pain, she fell about 6 weeks ago has been evaluated by her primary care with image studies including there is a question of compression fractures thorax and lumbar region however uncertain age. She has been using combination of Tylenol and tramadol for pain control her biggest issue is she would like to try some for muscle spasms she has used Flexeril in the past Upper Back Pain Score (Numeric/FACES): 4 - Related Data Allergies Allergy/AdvReac Type Severity Reaction Status Date / Time atropine [From Lomotil] Allergy Rash Verified 10/03/18 14:06 Beta-Adrenergic Agents Allergy Dizziness Verified 10/03/18 14:06 diphenoxylate [From Lomotil] Allergy Rash Verified 10/03/18 14:06 polyester fibers Allergy Hives Verified 10/03/18 14:06 procaine Allergy Cannot Verified 10/03/18 14:06 Remember rosuvastatin Allergy Cannot Verified 10/03/18 14:06 Remember lidocaine AdvReac Arrhythmias Verified 10/03/18 14:06 metoprolol AdvReac Arrhythmias Verified 10/03/18 14:06 Home Meds: Home Meds Ascorbic Acid [Vitamin C] 500 mg PO BEDTIME 04/11/14 [History] Meclizine [Antivert] 25 mg PO TID PRN 04/11/14 [History] Multivitamin [Multi-Vitamin Daily] 1 each PO BEDTIME 04/11/14 [History] Vitamin B Complex 1 each PO BEDTIME 04/11/14 [History] Warfarin [Coumadin] 2.5 mg PO ASDIRECTED 04/11/14 [History] traMADol [Ultram] 100 mg PO Q8H PRN 11/30/14 [History] Nitroglycerin [Nitrostat] 0.4 mg PO ASDIRECTED 12/30/14 [History] Warfarin [Coumadin] 5 mg PO ASDIRECTED 12/30/14 [History] Gabapentin [Neurontin] 300 mg PO TID 02/14/16 [History] Bumetanide [Bumex] 2 mg PO DAILY 02/17/16 [History] Levothyroxine [Synthroid] 100 mcg PO DAILY 09/03/17 [History] Lisinopril 5 mg PO BEDTIME 09/03/17 [History] Oxybutynin 5 mg PO TID 09/03/17 [History] Aspirin 325 mg PO DAILY 04/09/18 [History] Cholecalciferol (Vitamin D3) [Cholecalciferol] 400 mg PO DAILY 04/09/18 [History ] Clotrimazole/Betamethasone Dip [Lotrisone Cream] 1 film TOP BID 04/09/18 [ History] Diclofenac Sodium [Voltaren] 4 gr TOP QID 04/09/18 [History] Diltiazem HCl [Cardizem Cd] 180 mg PO QPM 04/09/18 [History] Fluticasone Propionate [Flonase] 2 spray NASBOTH DAILY 04/09/18 [History] Diltiazem HCl [Cardizem LA] 240 mg PO DAILY #30 tab.sr.24h 10/03/18 [Rx] Cyclobenzaprine [Flexeril] 10 mg PO TID PRN #30 tab 11/23/18 [Rx] Past Medical History HEENT History: Reports: Allergic Rhinitis, Cataract, Hard of Hearing, Impaired Vision Other HEENT History: left cataract Cardiovascular History: Reports: Afib, Heart Failure, Hypertension, [place], Pacemaker, Pulmonary Hypertension Other Cardiovascular History: mitral regurgitation Respiratory History: Reports: SOB, Other (See Below) Other Respiratory History: home O2 at night Gastrointestinal History: Reports: GERD, GI Bleed, PUD Other Gastrointestinal History: esophageal stricture Genitourinary History: Reports: Renal Disease, Urinary Incontinence Other Genitourinary History: incontinence [employer]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: , 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 Musculoskeletal History: Reports: Arthritis, Back Pain, Chronic, Fracture, Osteoarthritis Other Musculoskeletal History: DJD Neurological History: Reports: CVA, TIA Other Neuro History: hemorrhagic, compression fracture of L1, 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 Endocrine/Metabolic History: Reports: Hypothyroidism, Obesity/BMI 30+, Vitamin D Deficiency Hematologic History: Reports: Anemia, Anticoagulation Therapy Dermatologic History: Reports: Other (See Below) Other Dermatologic History: allergy to polyester - Infectious Disease History Infectious Disease History: Reports: Measles, Mumps - Past Surgical History Head Surgeries/Procedures: Reports: None Cardiovascular Surgical History: Reports: Pacer Respiratory Surgical History: Reports: None GI Surgical History: Reports: Colonoscopy, EGD, Hernia, Abdominal Female Surgical History: Reports: None Endocrine Surgical History: Reports: None Neurological Surgical History: Reports: None Musculoskeletal Surgical History: Reports: Knee Replacement, Other (See Below) Other Musculoskeletal Surgeries/Procedures:: bilateral knees replaced Dermatological Surgical History: Reports: None Social & Family History - Family History Family Medical History: Noncontributory - Tobacco Use Smoking Status *Q: Never Smoker - Caffeine Use Caffeine Use: Reports: Coffee, Soda, Tea - Recreational Drug Use Recreational Drug Use: No - Living Situation & Occupation Living situation: Reports: Single, with Family (lives in [facility], with 2 Grandsons. One Grandson has schizophrenia) ED ROS GENERAL - Review of Systems Review Of Systems: See Below Constitutional: Reports: No Symptoms : Reports: No Symptoms Musculoskeletal: Reports: Back Pain Neurological: Reports: No Symptoms ED EXAM, UPPER BACK/NECK PAIN - Physical Exam Exam: See Below Exam Limited By: No Limitations General Appearance: Alert, WD/WN, No Apparent Distress Cardiovascular/Respiratory: No Respiratory Distress Course - Vital Signs Last Recorded V/S: Last Vital Signs Temp 98.8 F 11/23/18 14:52 Pulse 114 H 11/23/18 14:52 Resp 13 11/23/18 14:52 BP 116/72 11/23/18 14:52 Pulse Ox 93 L 11/23/18 14:52 Departure - Departure Time of Disposition: 15:31 Disposition: Home, Self-Care 01 Condition: Fair Clinical Impression: Chronic low back pain Qualifiers: Back pain laterality: midline Sciatica presence: without sciatica Qualified Code(s): M54.5 - Low back pain; G89.29 - Other chronic pain - Discharge Information Referrals: Larissa Nolasco CNM [Primary Care Provider] - Additional Instructions: Try the Flexeril as needed for muscle relaxant, please follow-up with your primary care in the next 3-5 days for reevaluation and pain control, your medications have been faxed to [facility] - Assessment/Plan Plan: Assessment Acuity = chronic Site and laterality = lumbar and thoracic back pain Etiology = compression fractures Manifestations = none Location of injury = Home Lab values = none Plan Prescription written for Flexeril 10 mg by mouth 3 times a day when necessary have her follow-up with her primary care for further evaluation next week This note was dictated using [employer] voice recognition software please call with any questions on syntax or grammar.
== END 2018-11-23 15:43 | disposition home or self-care (01) ==
LOC: JP.ED 14:25
DX: M54.5 Low back pain (principal); M54.6 Pain in thoracic spine; I11.0 Hypertensive heart disease with heart failure; I50.9 Heart failure, unspecified; K21.9 Gastro-esophageal reflux disease without esophagitis; E03.9 Hypothyroidism, unspecified; Z88.8 Allergy status to other drugs, medicaments and biological substances; Z79.899 Other long term (current) drug therapy; Z79.01 Long term (current) use of anticoagulants
CPT/HCPCS: 99282

== ENCOUNTER 2019-01-13 09:38 | Inpatient (IN) | payer MEDICARE ==
[2019-01-13] MEDS ORDERED: Albuterol/Ipratropium 3.0-0.5 MG/3 ML Neb Soln NEB ONE (10:24)
--- NOTE | 2019-01-13 10:33 | CR ---
CHEST: 2 view CLINICAL HISTORY:Dyspnea COMPARISON:2018 FINDINGS: Heart is moderately enlarged. Pulmonary vascular areas cephalized. There is diffuse interstitial prominence appears some of this is chronic but appears to have increased since prior study suggesting superimposed interstitial edema. The patient is a permanent cardiac pacer. Lungs are generally hyperaerated Impression: Cardiomegaly may have increased slightly since prior study. There is vascular cephalization and interstitial prominence suggests mild CHF.
--- NOTE | 2019-01-13 10:35 | EDM.PDOC ---
ED HPI GENERAL MEDICAL PROBLEM - General Chief Complaint: Cardiovascular Problem Stated Complaint: FLUID LEGS AND LUNGS Time Seen by Provider: 01/13/19 09:55 Source of Information: Reports: Patient, Family, Provider History Limitations: Reports: No Limitations - History of Present Illness INITIAL COMMENTS - FREE TEXT/NARRATIVE: 70-year-old female that is having trouble taking the correct dose of Bumex over the past several days, did see nephrology last week and had her doses directed. Over the weekend however she's become more short of breath. She went into the clinic this morning and was found to be dyspneic with O2 saturations of 85% so was sent over the emergency room. She has some fullness in her chest from a chronic hiatal hernia, but no chest pain, she also has increased peripheral edema. She arrived to the emergency room on that was provided by the clinic and her sats are 95%. Onset: Unknown/Unsure Associated Symptoms: Reports: Shortness of Breath (Especially with activity), Weakness. 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 Left Upper Abdomen Pain Score (Numeric/FACES): 5 - Related Data Allergies Allergy/AdvReac Type Severity Reaction Status Date / Time atropine [From Lomotil] Allergy Rash Verified 01/13/19 09:40 Beta-Adrenergic Agents Allergy Dizziness Verified 01/13/19 09:40 diphenoxylate [From Lomotil] Allergy Rash Verified 01/13/19 09:40 polyester fibers Allergy Hives Verified 01/13/19 09:40 procaine Allergy Cannot Verified 01/13/19 09:40 Remember rosuvastatin Allergy Cannot Verified 01/13/19 09:40 Remember lidocaine AdvReac Arrhythmias Verified 01/13/19 09:40 metoprolol AdvReac Arrhythmias Verified 01/13/19 09:40 Home Meds: Home Meds Ascorbic Acid [Vitamin C] 500 mg PO BEDTIME 04/11/14 [History] Meclizine [Antivert] 25 mg PO TID PRN 04/11/14 [History] Multivitamin [Multi-Vitamin Daily] 1 each PO BEDTIME 04/11/14 [History] Vitamin B Complex 1 each PO BEDTIME 04/11/14 [History] Warfarin [Coumadin] 2.5 mg PO ASDIRECTED 04/11/14 [History] traMADol [Ultram] 100 mg PO Q8H PRN 11/30/14 [History] Nitroglycerin [Nitrostat] 0.4 mg PO ASDIRECTED 12/30/14 [History] Warfarin [Coumadin] 5 mg PO ASDIRECTED 12/30/14 [History] Gabapentin [Neurontin] 300 mg PO TID 02/14/16 [History] Bumetanide [Bumex] 1 mg PO BID 02/17/16 [History] Levothyroxine [Synthroid] 100 mcg PO DAILY 09/03/17 [History] Oxybutynin 5 mg PO TID 09/03/17 [History] Aspirin 325 mg PO DAILY 04/09/18 [History] Cholecalciferol (Vitamin D3) [Cholecalciferol] 400 mg PO DAILY 04/09/18 [History ] Clotrimazole/Betamethasone Dip [Lotrisone Cream] 1 film TOP BID 04/09/18 [ History] Diclofenac Sodium [Voltaren] 4 gr TOP QID 04/09/18 [History] Diltiazem HCl [Cardizem Cd] 180 mg PO QPM 04/09/18 [History] Fluticasone Propionate [Flonase] 2 spray NASBOTH DAILY 04/09/18 [History] Cyclobenzaprine [Flexeril] 10 mg PO TID PRN #30 tab 11/23/18 [Rx] Past Medical History HEENT History: Reports: Allergic Rhinitis, Cataract, Hard of Hearing, Impaired Vision Other HEENT History: left cataract Cardiovascular History: Reports: Afib, Heart Failure, Hypertension, [place], Pacemaker, Pulmonary Hypertension Other Cardiovascular History: mitral regurgitation Respiratory History: Reports: SOB, Other (See Below) Other Respiratory History: home O2 at night Gastrointestinal History: Reports: GERD, GI Bleed, PUD Other Gastrointestinal History: esophageal stricture Genitourinary History: Reports: Renal Disease, Urinary Incontinence Other Genitourinary History: incontinence 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: , 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 Musculoskeletal History: Reports: Arthritis, Back Pain, Chronic, Fracture, Osteoarthritis Other Musculoskeletal History: DJD Neurological History: Reports: CVA, TIA Other Neuro History: hemorrhagic, compression fracture of L1, 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 Endocrine/Metabolic History: Reports: Hypothyroidism, Obesity/BMI 30+, Vitamin D Deficiency Hematologic History: Reports: Anemia, Anticoagulation Therapy Dermatologic History: Reports: Other (See Below) Other Dermatologic History: allergy to polyester - Infectious Disease History Infectious Disease History: Reports: Measles, Mumps - Past Surgical History Cardiovascular Surgical History: Reports: Pacer GI Surgical History: Reports: Colonoscopy, EGD, Hernia, Abdominal Endocrine Surgical History: Reports: None Musculoskeletal Surgical History: Reports: Knee Replacement, Other (See Below) Other Musculoskeletal Surgeries/Procedures:: bilateral knees replaced Social & Family History - Family History Family Medical History: Noncontributory - Tobacco Use Smoking Status *Q: Never Smoker - Caffeine Use Caffeine Use: Reports: Coffee - Recreational Drug Use Recreational Drug Use: No - Living Situation & Occupation Living situation: Reports: Single, with Family (lives in [facility], with 2 Grandsons. One Grandson has schizophrenia) ED ROS GENERAL - Review of Systems Review Of Systems: See Below Constitutional: Denies: Fever, Chills HEENT: Reports: No Symptoms Respiratory: Reports: Shortness of Breath Cardiovascular: Reports: Edema (Chronic lower extremity edema, recently worse than baseline). Denies: Chest Pain GI/Abdominal: Denies: Abdominal Pain, Decreased Appetite, Nausea, Vomiting : Reports: No Symptoms Skin: Reports: Other (Chronic skin discoloration of the lower extremities, easy bruising) Neurological: Denies: Headache ED EXAM, GENERAL - Physical Exam Exam: See Below Exam Limited By: No Limitations General Appearance: Alert, No Apparent Distress Eye Exam: Bilateral Eye: EOMI Head: Atraumatic Neck: Normal Inspection Respiratory/Chest: No Respiratory Distress, Wheezing (Diffuse expiratory wheezes , more pronounced in the bases) Cardiovascular: Regular Rate, Rhythm GI/Abdominal: Soft, Non-Tender Extremities: Pedal Edema (Patient has 2+ pitting edema of the lower extremities with chronic venous stasis discoloration of the lower legs) Neurological: Alert, Oriented Psychiatric: Normal Affect Skin Exam: Erythema (Lower extremities) Course - Vital Signs Last Recorded V/S: Last Vital Signs Temp 98.6 F 01/14/19 07:27 Pulse 79 01/14/19 07:27 Resp 16 01/14/19 07:27 BP 160/73 H 01/14/19 07:27 Pulse Ox 90 L 01/14/19 07:27 - Orders/Labs/Meds Orders: Medication Orders Acetaminophen (Tylenol) 650 mg PO Q4H PRN PRN Reason: Pain (Mild 1-3)/fever Albuterol/Ipratropium (Duoneb 3.0-0.5 Mg/3 Ml) 3 ml NEB Q4H PRN PRN Reason: Shortness Of Breath/wheezing Aspirin (Ecotrin) 325 mg PO DAILY [facility] Last Admin: 01/14/19 08:50 Dose: 325 mg Cyclobenzaprine HCl (Flexeril) 10 mg PO TID PRN PRN Reason: Pain Last Admin: 01/14/19 07:44 Dose: 10 mg Admin: 01/13/19 21:33 Dose: 10 mg Diclofenac Sodium (Voltaren 1% Gel) 0 gm TOP QID [facility] Last Admin: 01/14/19 06:09 Dose: Admin: 01/13/19 22:16 Dose: Admin: 01/13/19 21:09 Dose: Diltiazem HCl (Cardizem Cd) 180 mg PO QPM [facility] Last Admin: 01/13/19 21:08 Dose: 180 mg Fluticasone Propionate (Flonase) 0 gm NASBOTH DAILY [facility] Last Admin: 01/14/19 08:50 Dose: 2 spray Gabapentin (Neurontin) 300 mg PO TID [facility] Last Admin: 01/14/19 08:49 Dose: 300 mg Admin: 01/13/19 21:08 Dose: 300 mg Levothyroxine Sodium (Synthroid) 100 mcg PO DAILY@0730 [facility] Last Admin: 01/14/19 08:50 Dose: 100 mcg Ondansetron HCl (Zofran) 4 mg IV Q4H PRN PRN Reason: Nausea/Vomiting Oxybutynin Chloride (Oxybutynin) 5 mg PO TID [facility] Last Admin: 01/14/19 08:50 Dose: 5 mg Admin: 01/13/19 21:08 Dose: 5 mg Polyethylene Glycol (Miralax) 17 gm PO DAILY PRN PRN Reason: Constipation Sodium Chloride (Saline Flush) 10 ml FLUSH ASDIRECTED PRN PRN Reason: Keep Vein Open Tramadol HCl (Ultram) 100 mg PO Q8H PRN PRN Reason: Pain Warfarin Sodium (Coumadin) 5 mg PO MoFr@1300 [facility] Last Admin: 01/13/19 21:08 Dose: 5 mg Warfarin Sodium (Coumadin) 2.5 mg PO SuTuWeThSa@1300 [facility] Labs: Laboratory Tests 04/01/13/19 01/13/19 Range/Units 11:45 11:45 11:47 WBC 8.0 (4.5-11.0) K/uL RBC 4.39 (3.30-5.50) M/uL Hgb 12.4 (12.0-15.0) g/dL Hct 40.8 (36.0-48.0) % MCV 93 (80-98) fL MCH 28 (27-31) pg MCHC 30 L (32-36) % Plt Count 231 (150-400) K/uL Neut % (Auto) 78 H (36-66) % Lymph % (Auto) 9 L (24-44) % [place] % (Auto) 12 H (2-6) % Eos % (Auto) 1 L (2-4) % Baso % (Auto) 0 (0-1) % PT 23.2 H (9.5-12.0) sec INR 2.21 H (0.80-1.20) Sodium 145 (140-148) mmol/L Potassium 3.1 L (3.6-5.2) mmol/L Chloride 102 (100-108) mmol/L Carbon Dioxide 33 H (21-32) mmol/L Anion Gap 13.1 (5.0-14.0) mmol/L BUN 24 H (7-18) mg/dL Creatinine 1.5 H (0.6-1.0) mg/dL Est Cr Clr Drug Dosing 23.32 mL/min Estimated GFR (MDRD) 34 L (>60) Glucose 99 (74-106) mg/dL Calcium 8.8 (8.5-10.1) mg/dL Total Bilirubin 0.9 D (0.2-1.0) mg/dL AST 22 (15-37) U/L ALT 17 (12-78) U/L Alkaline Phosphatase 119 H (46-116) U/L Total Protein 6.7 (6.4-8.2) g/dL Albumin 3.0 L (3.4-5.0) g/dL Globulin 3.7 H (2.3-3.5) g/dL Albumin/Globulin Ratio 0.8 L (1.2-2.2) Meds: Medications Generic Name Dose Route Start Last Admin Trade Name Freq PRN Reason Stop Dose Admin Acetaminophen 650 mg 01/13/19 18:07 Tylenol PO Q4H PRN Pain (Mild 1-3)/fever Albuterol/Ipratropium 3 ml 01/13/19 18:07 Duoneb 3.0-0.5 Mg/3 Ml NEB Q4H PRN Shortness Of Breath/wheezing Aspirin 325 mg 01/14/19 09:00 01/14/19 08:50 Ecotrin PO 325 mg DAILY [facility] Administration Cyclobenzaprine HCl 10 mg 01/13/19 18:07 01/14/19 07:44 Flexeril PO 10 mg TID PRN Administration Pain Diclofenac Sodium 0 gm 01/13/19 18:07 01/14/19 06:09 Voltaren 1% Gel TOP Not Given QID [facility] Diltiazem HCl 180 mg 01/13/19 18:07 01/13/19 21:08 Cardizem Cd PO 180 mg QPM [facility] Administration Fluticasone Propionate 0 gm 01/14/19 09:00 01/14/19 08:50 Flonase NASBOTH 2 spray DAILY [facility] Administration Gabapentin 300 mg 01/13/19 21:00 01/14/19 08:49 Neurontin PO 300 mg TID [facility] Administration Levothyroxine Sodium 100 mcg 01/14/19 07:30 01/14/19 08:50 Synthroid PO 100 mcg DAILY@0730 [facility] Administration Ondansetron HCl 4 mg 01/13/19 18:07 Zofran IV Q4H PRN Nausea/Vomiting Oxybutynin Chloride 5 mg 01/13/19 21:00 01/14/19 08:50 Oxybutynin PO 5 mg TID [facility] Administration Polyethylene Glycol 17 gm 01/13/19 18:07 Miralax PO DAILY PRN Constipation Sodium Chloride 10 ml 01/13/19 18:07 Saline Flush FLUSH ASDIRECTED PRN Keep Vein Open Tramadol HCl 100 mg 01/13/19 18:07 Ultram PO Q8H PRN Pain Warfarin Sodium 5 mg 01/13/19 19:30 01/13/19 21:08 Coumadin PO 5 mg MoFr@1300 [facility] Administration Warfarin Sodium 2.5 mg 01/14/19 13:00 Coumadin PO SuTuWeThSa@1300 [facility] Discontinued Medications Generic Name Dose Route Start Last Admin Trade Name Freq PRN Reason Stop Dose Admin Albuterol/Ipratropium 3 ml 04/29/19 10:24 01/13/19 10:28 Duoneb 3.0-0.5 Mg/3 Ml NEB 01/13/19 10:25 3 ml ONETIME ONE Administration Bumetanide 2 mg 01/13/19 11:01 01/13/19 11:08 Bumex PO 01/13/19 11:02 2 mg ONETIME ONE Administration Bumetanide 4 mg 01/13/19 18:07 01/13/19 21:09 Bumex IVPUSH 01/13/19 18:08 4 mg ONETIME ONE Administration Bumetanide Confirm 01/13/19 20:51 01/13/19 21:07 Bumex Administered 01/13/19 20:52 Not Given Dose 4 mg .ROUTE .STK-MED ONE Potassium Chloride 40 meq/ 100 mls @ 25 mls/hr 01/13/19 18:30 01/13/19 21:10 Premix IV 01/13/19 22:29 Not Given ONETIME ONE Potassium Chloride 40 meq/ 100 mls @ 25 mls/hr 01/13/19 22:30 Premix IV 01/14/19 02:29 ONETIME ONE Potassium Chloride 20 meq/ 100 mls @ 50 mls/hr 01/13/19 21:00 01/14/19 03:33 Premix IV 01/14/19 04:59 50 mls/hr Q2H [facility] Administration Potassium Chloride 40 meq 01/13/19 18:07 01/13/19 21:08 Klor-Con M20 PO 01/13/19 18:08 40 meq ONETIME ONE Administration Potassium Chloride Confirm 01/13/19 20:54 01/13/19 21:07 Klor-Con M20 Administered 01/13/19 20:55 Not Given Dose 40 meq .ROUTE .STK-MED ONE Sodium Chloride 10 ml 01/13/19 13:07 01/13/19 14:44 Saline Flush FLUSH 10 ml ASDIRECTED PRN Administration Keep Vein Open - Re-Assessments/Exams Free Text/Narrative Re-Assessment/Exam: 01/13/19 12:37 A two-view chest x-ray was obtained which showed mild to moderate congestive failure. No effusions. Patient was given a DuoNeb but still remained hypoxic without oxygen. CBC CMP were obtained and she was given 2 mg of oral Bumex. Because of the failure to diuresis as an outpatient and the hypoxia even at rest without supplemental O2 requires admission for IV diuretics and monitoring for diuresis. Patient is agreeable to the plan. Departure - Departure Time of Disposition: 16:11 Disposition: Admitted As Inpatient 66 Condition: Fair Clinical Impression: Chronic diastolic (congestive) heart failure
[2019-01-13] MEDS ORDERED: Bumetanide 1 MG Tab PO ONE (11:01)
[2019-01-13] MEDS ORDERED: Sodium Chloride 0.9% 10 ML Syringe FLUSH PRN ×2 (13:07→18:07)
--- NOTE | 2019-01-13 15:20 | PCM.HP ---
H&P History of Present Illness - General Date of Service: 01/13/19 Admit Problem/Dx: Admission Diagnosis/Problem Admission Diagnosis/Problem CHF, Congestive heart failure Source of Information: Patient, Provider, RN Notes Reviewed History Limitations: Reports: No Limitations - History of Present Illness Initial Comments - Free Text/Narative: Ms. Lezama is a 78-year-old woman who was admitted through the emergency department with cough and shortness of breath secondary to congestive heart failure. She is noted increased fluid retention over the weekend, with worsening peripheral edema extending into her thighs. Associated with this has been weakness and increased shortness of breath. She denies any chest pain or pressure but has had a nonproductive cough. She denies PND and orthopnea. Chest x-ray shows evidence of pulmonary edema. Left Upper Abdomen Pain Score (Numeric/FACES): 5 - Related Data Allergies/Adverse Reactions: Allergies Allergy/AdvReac Type Severity Reaction Status Date / Time atropine [From Lomotil] Allergy Rash Verified 01/13/19 09:40 Beta-Adrenergic Agents Allergy Dizziness Verified 01/13/19 09:40 diphenoxylate [From Lomotil] Allergy Rash Verified 01/13/19 09:40 polyester fibers Allergy Hives Verified 01/13/19 09:40 procaine Allergy Cannot Verified 01/13/19 09:40 Remember rosuvastatin Allergy Cannot Verified 01/13/19 09:40 Remember lidocaine AdvReac Arrhythmias Verified 01/13/19 09:40 metoprolol AdvReac Arrhythmias Verified 01/13/19 09:40 Home Medications: Home Meds Ascorbic Acid [Vitamin C] 500 mg PO BEDTIME 04/11/14 [History] Meclizine [Antivert] 25 mg PO TID PRN 04/11/14 [History] Multivitamin [Multi-Vitamin Daily] 1 each PO BEDTIME 04/11/14 [History] Vitamin B Complex 1 each PO BEDTIME 04/11/14 [History] Warfarin [Coumadin] 2.5 mg PO ASDIRECTED 04/11/14 [History] traMADol [Ultram] 100 mg PO Q8H PRN 11/30/14 [History] Nitroglycerin [Nitrostat] 0.4 mg PO ASDIRECTED 12/30/14 [History] Warfarin [Coumadin] 5 mg PO ASDIRECTED 04/15/15 [History] Gabapentin [Neurontin] 300 mg PO TID 02/14/16 [History] Bumetanide [Bumex] 1 mg PO BID 02/17/16 [History] Levothyroxine [Synthroid] 100 mcg PO DAILY 09/03/17 [History] Oxybutynin 5 mg PO TID 09/03/17 [History] Aspirin 325 mg PO DAILY 04/09/18 [History] Cholecalciferol (Vitamin D3) [Cholecalciferol] 400 mg PO DAILY 04/09/18 [History ] Clotrimazole/Betamethasone Dip [Lotrisone Cream] 1 film TOP BID 04/09/18 [ History] Diclofenac Sodium [Voltaren] 4 gr TOP QID 04/09/18 [History] Diltiazem HCl [Cardizem Cd] 180 mg PO QPM 04/09/18 [History] Fluticasone Propionate [Flonase] 2 spray NASBOTH DAILY 04/09/18 [History] Cyclobenzaprine [Flexeril] 10 mg PO TID PRN #30 tab 11/23/18 [Rx] Past Medical History HEENT History: Reports: Allergic Rhinitis, Cataract, Hard of Hearing, Impaired Vision Other HEENT History: left cataract Cardiovascular History: Reports: Afib, Heart Failure, Hypertension, [place], Pacemaker, Pulmonary Hypertension Other Cardiovascular History: mitral regurgitation Respiratory History: Reports: SOB, Other (See Below) Other Respiratory History: home O2 at night Gastrointestinal History: Reports: GERD, GI Bleed, PUD Other Gastrointestinal History: esophageal stricture Genitourinary History: Reports: Renal Disease, Urinary Incontinence Other Genitourinary History: incontinence 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: , 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 Musculoskeletal History: Reports: Arthritis, Back Pain, Chronic, Fracture, Osteoarthritis Other Musculoskeletal History: DJD Neurological History: Reports: CVA, TIA Other Neuro History: hemorrhagic, compression fracture of L1, 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 Endocrine/Metabolic History: Reports: Hypothyroidism, Obesity/BMI 30+, Vitamin D Deficiency Hematologic History: Reports: Anemia, Anticoagulation Therapy Dermatologic History: Reports: Other (See Below) Other Dermatologic History: allergy to polyester - Infectious Disease History Infectious Disease History: Reports: Measles, Mumps - Past Surgical History Cardiovascular Surgical History: Reports: Pacer GI Surgical History: Reports: Colonoscopy, EGD, Hernia, Abdominal Endocrine Surgical History: Reports: None Musculoskeletal Surgical History: Reports: Knee Replacement, Other (See Below) Other Musculoskeletal Surgeries/Procedures:: bilateral knees replaced Social & Family History - Family History Family Medical History: Noncontributory - Tobacco Use Smoking Status *Q: Never Smoker - Caffeine Use Caffeine Use: Reports: Coffee - Recreational Drug Use Recreational Drug Use: No - Living Situation & Occupation Living situation: Reports: Single, with Family (lives in [facility], with 2 Grandsons. One Grandson has schizophrenia) H&P Review of Systems - Review of Systems: Review Of Systems: See Below General: Reports: Weakness, Fatigue. Denies: Fever, Chills HEENT: Reports: No Symptoms Pulmonary: Reports: Shortness of Breath, Cough. Denies: Wheezing, Pleuritic Chest Pain, Sputum, Hemoptysis Cardiovascular: Reports: Dyspnea on Exertion, Edema. Denies: Chest Pain, Palpitations, Orthopnea, PND, Lightheadedness Gastrointestinal: Reports: No Symptoms Genitourinary: Reports: No Symptoms Musculoskeletal: Reports: No Symptoms Skin: Reports: No Symptoms Psychiatric: Reports: No Symptoms Neurological: Reports: No Symptoms Hematologic/Lymphatic: Reports: No Symptoms Immunologic: Reports: No Symptoms Exam - Exam Exam: See Below - Vital Signs Vital Signs: Last Vital Signs Temp 98.4 F 01/13/19 09:45 Pulse 68 01/13/19 15:03 Resp 20 01/13/19 10:45 BP 133/58 L 01/13/19 15:03 Pulse Ox 93 L 01/13/19 15:03 Weight: 176 lb 2.389 oz - Exam Quality Assessment: Supplemental Oxygen, DVT Prophylaxis General: Alert, Oriented, Cooperative, Mild Distress HEENT: Conjunctiva Clear, Hearing Intact, Mucosa Moist & [place], Normal Nasal Septum, Posterior Pharynx Clear, Pupils Equal Neck: Supple, Trachea Midline, +2 Carotid Pulse wo Bruit Lungs: Decreased Breath Sounds, Rales. No: Rhonchi, Rub, Stridor Cardiovascular: Regular Rate, Normal S1, Normal S2, Irregular Rhythm, Systolic Murmur. No: Diastolic Murmur GI/Abdominal Exam: Soft, Non-Tender, No Organomegaly, No Distention Back Exam: Normal Inspection, Full Range of Motion Extremities: Non-Tender, Pedal Edema Skin: Warm, Dry Neurological: Cranial Nerves Intact, Strength Equal Bilateral, Normal Speech, Normal Tone, Sensation Intact. No: Focal Deficit Neuro Extensive - Mental Status: Alert, Oriented x3, Normal Mood/Affect, Normal Cognition, Memory Intact - Patient Data Lab Results Last 24 hrs: Laboratory Results - last 24 hr 01/13/19 01/13/19 Range/Units 11:45 11:45 WBC 8.0 (4.5-11.0) K/uL RBC 4.39 (3.30-5.50) M/uL Hgb 12.4 (12.0-15.0) g/dL Hct 40.8 (36.0-48.0) % MCV 93 (80-98) fL MCH 28 (27-31) pg MCHC 30 L (32-36) % Plt Count 231 (150-400) K/uL Neut % (Auto) 78 H (36-66) % Lymph % (Auto) 9 L (24-44) % [place] % (Auto) 12 H (2-6) % Eos % (Auto) 1 L (2-4) % Baso % (Auto) 0 (0-1) % Sodium 145 (140-148) mmol/L Potassium 3.1 L (3.6-5.2) mmol/L Chloride 102 (100-108) mmol/L Carbon Dioxide 33 H (21-32) mmol/L Anion Gap 13.1 (5.0-14.0) mmol/L BUN 24 H (7-18) mg/dL Creatinine 1.5 H (0.6-1.0) mg/dL Est Cr Clr Drug Dosing 23.32 mL/min Estimated GFR (MDRD) 34 L (>60) Glucose 99 (74-106) mg/dL Calcium 8.8 (8.5-10.1) mg/dL Total Bilirubin 0.9 D (0.2-1.0) mg/dL AST 22 (15-37) U/L ALT 17 (12-78) U/L Alkaline Phosphatase 119 H (46-116) U/L Total Protein 6.7 (6.4-8.2) g/dL Albumin 3.0 L (3.4-5.0) g/dL Globulin 3.7 H (2.3-3.5) g/dL Albumin/Globulin Ratio 0.8 L (1.2-2.2) Result Diagrams: 01/13/19 11:45 01/13/19 11:45 *Q Meaningful Use (ADM) - VTE Risk Assess *Q Each Risk Factor Represents 1 Point: Obesity ( BMI > 25 kg/m2), Congestive heart failure (CHF) Total Score 1 Point Risk Factors: 2 Each Risk Factor Represents 2 Points: None Total Score 2 Point Risk Factors: 0 Each Risk Factor Represents 3 Points: Age 75 Years or Greater Total Score 3 Point Risk Factors: 3 Each Risk Factor Represents 5 Points: None Total Score 5 Point Risk Factors: 0 Venous Thromboembolism Risk Factor Score *Q: 5 Problem List Initiated/Reviewed/Updated: Yes Orders Last 24hrs: Active Orders 24 hr Category Date Time Status Patient Status Manage Transfer [TRANSFER] Routine ADT 01/13/19 15:11 Active RT Aerosol Therapy [RC] ASDIRECTED Care 01/13/19 10:24 Active Sodium Chloride 0.9% [Saline Flush] Med 01/13/19 13:07 Active 10 ml FLUSH ASDIRECTED PRN Saline Lock Insert [OM.PC] Routine Oth 01/13/19 13:07 Ordered Resuscitation Status Routine Resus Stat 01/13/19 15:15 Ordered Medication Orders Sodium Chloride (Saline Flush) 10 ml FLUSH ASDIRECTED PRN PRN Reason: Keep Vein Open Last Admin: 01/13/19 14:44 Dose: 10 ml Assessment/Plan Comment:: ASSESSMENT AND PLAN CONGESTIVE HEART FAILURE-previous history of heart failure, reports recent dietary indiscretion with sodium. -Echocardiogram in a.m. -2 g sodium diet -Bumex 4 mg IV now, reassess in a.m. HYPOXIA-secondary to congestive heart failure with pulmonary edema -Supplemental oxygen as needed CHRONIC KIDNEY DISEASE STAGE IIIb -Closely monitor urine output and renal function with diuresis HYPOKALEMIA -IV and oral potassium replacement -Recheck potassium level in a.m. ATRIAL FIBRILLATION-rate well controlled, on long-term oral anticoagulation with warfarin. -Continue usual dosing of warfarin -INR in a.m. MAINTENANCE ISSUES -DVT prophylaxis; current therapy with warfarin should provide adequate DVT prophylaxis -GI prophylaxis; not indicated -Mukherjee catheter; not indicated -Nutrition; 2 g sodium diet -Nicotine dependence; not required CODE STATUS-FULL CODE ADMISSION STATUS-patient will be admitted to inpatient status, expect at least a 2 night hospital stay for evaluation and management of problems as outlined above. At the time of this admission I do not reasonably expected evaluation and management of this problem will require more than a 96 hour hospital stay. DISPOSITION-anticipate discharge to home after the hospital stay. PRIMARY CARE PROVIDER-Larissa Nolasco
[2019-01-13] MEDS ORDERED: Potassium Chloride 20 MEQ Tab.ER PO ONE (18:07)
[2019-01-13] MEDS ORDERED: Polyethylene Glycol 3350 Powder 17 GM Packet PO PRN (18:07)
[2019-01-13] MEDS ORDERED: Ondansetron 4 MG/2 ML SDV IV PRN (18:07)
[2019-01-13] MEDS ORDERED: Bumetanide 1 MG/4 ML MDV IVPUSH ONE (18:07)
[2019-01-13] MEDS ORDERED: Albuterol/Ipratropium 3.0-0.5 MG/3 ML Neb Soln NEB PRN (18:07)
[2019-01-13] MEDS ORDERED: Potassium Chloride Riders 40 MEQ in Premix Bag 1 BAG IV ONE ×2 (18:30→22:30)
[2019-01-13] MEDS ORDERED: Bumetanide 1 MG/4 ML MDV ONE (20:51)
[2019-01-13] MEDS ORDERED: Potassium Chloride 20 MEQ Tab.ER ONE (20:54)
[2019-01-13] MEDS: Gabapentin 300 MG Cap PO SCH (21:08)
[2019-01-13] MEDS: Warfarin 5 MG Tab PO SCH (21:08)
[2019-01-13] MEDS: Oxybutynin 5 MG Tab PO SCH (21:08)
[2019-01-13] MEDS: Diltiazem 180 MG Cap.CD PO SCH (21:08)
[2019-01-13] MEDS: Diclofenac Sodium 1% Gel 100 GM Tube TOP SCH ×2 (21:09→22:16)
[2019-01-13] MEDS: Potassium Chloride 20 MEQ in Premix Bag 1 BAG IV SCH ×2 (21:20→23:26)
[2019-01-13] MEDS: Cyclobenzaprine 10 MG Tab PO PRN (21:33)
[2019-01-14] MEDS: Potassium Chloride 20 MEQ in Premix Bag 1 BAG IV SCH ×2 (01:30→03:33)
[2019-01-14] MEDS: Diclofenac Sodium 1% Gel 100 GM Tube TOP SCH ×4 (06:09→21:12)
[2019-01-14] MEDS: Cyclobenzaprine 10 MG Tab PO PRN (07:44)
[2019-01-14] MEDS: Gabapentin 300 MG Cap PO SCH ×3 (08:49→21:12)
[2019-01-14] MEDS: Oxybutynin 5 MG Tab PO SCH ×3 (08:50→21:12)
[2019-01-14] MEDS: Fluticasone Propionate Nasal Spray 16 GM Bottle NASBOTH SCH (08:50)
[2019-01-14] MEDS: Levothyroxine 100 MCG Tab PO SCH (08:50)
[2019-01-14] MEDS: Aspirin 325 MG Tab.EC PO SCH (08:50)
[2019-01-14] MEDS: Warfarin 2.5 MG Tab PO SCH (13:09)
[2019-01-14] MEDS ORDERED: Bumetanide 2.5 MG/10 ML MDV IVPUSH ONE (15:00)
[2019-01-14] MEDS: Diltiazem 180 MG Cap.CD PO SCH (16:12)
--- NOTE | 2019-01-14 16:35 | PCM.PN ---
- General Info Date of Service: 01/14/19 Subjective Update: Ms. Lezama has improved from admission with less shortness of breath and peripheral edema following IV Bumex given yesterday. She is able to walk further and feels as though she has more energy. Preliminary report on echocardiogram shows decreased left ventricular function with estimated ejection fraction of 40-45%, biatrial enlargement, right ventricular enlargement , moderate to severe TR, and moderate MR. Functional Status: Reports: Tolerating Diet, Ambulating, Urinating - Review of Systems General: Reports: Weakness. Denies: Fever, Chills Pulmonary: Reports: Shortness of Breath. Denies: Pleuritic Chest Pain, Cough, Sputum, Hemoptysis, Wheezing Cardiovascular: Reports: Dyspnea on Exertion, Edema. Denies: Chest Pain, Palpitations, Orthopnea, PND, Lightheadedness Gastrointestinal: Reports: No Symptoms - Patient Data Vitals - Most Recent: Last Vital Signs Temp 97.9 F 01/14/19 15:53 Pulse 78 01/14/19 15:53 Resp 16 01/14/19 15:53 BP 139/65 01/14/19 15:53 Pulse Ox 92 L 01/14/19 15:53 Weight - Most Recent: 169 lb 3.206 oz I&O - Last 24 Hours: Intake & Output 01/14/19 01/14/19 01/14/19 06:59 14:59 22:59 Intake Total 300 Output Total 200 Balance 300 -200 Lab Results Last 24 Hours: Laboratory Results - last 24 hr 01/13/19 01/14/19 01/14/19 Range/Units 11:47 05:00 05:00 PT 23.2 H 20.9 H (9.5-12.0) sec INR 2.21 H 1.97 H (0.80-1.20) Sodium (140-148) mmol/L Potassium (3.6-5.2) mmol/L Chloride (100-108) mmol/L Carbon Dioxide (21-32) mmol/L Anion Gap (5.0-14.0) mmol/L BUN (7-18) mg/dL Creatinine (0.6-1.0) mg/dL Est Cr Clr Drug Dosing mL/min Estimated GFR (MDRD) (>60) Glucose (74-106) mg/dL Calcium (8.5-10.1) mg/dL Magnesium (1.8-2.4) mg/dL TSH, Ultra Sensitive 1.712 (0.358-3.740) uIU/mL 01/14/19 Range/Units 05:00 PT (9.5-12.0) sec INR (0.80-1.20) Sodium 143 (140-148) mmol/L Potassium 4.2 (3.6-5.2) mmol/L Chloride 102 (100-108) mmol/L Carbon Dioxide 35 H (21-32) mmol/L Anion Gap 10.2 (5.0-14.0) mmol/L BUN 21 H (7-18) mg/dL Creatinine 1.4 H (0.6-1.0) mg/dL Est Cr Clr Drug Dosing 25.02 mL/min Estimated GFR (MDRD) 36 L (>60) Glucose 107 H (74-106) mg/dL Calcium 9.0 (8.5-10.1) mg/dL Magnesium 1.8 (1.8-2.4) mg/dL TSH, Ultra Sensitive (0.358-3.740) uIU/mL Med Orders - Current: Current Medications Acetaminophen (Tylenol) 650 mg PO Q4H PRN PRN Reason: Pain (Mild 1-3)/fever Albuterol/Ipratropium (Duoneb 3.0-0.5 Mg/3 Ml) 3 ml NEB Q4H PRN PRN Reason: Shortness Of Breath/wheezing Aspirin (Ecotrin) 325 mg PO DAILY [facility] Last Admin: 01/14/19 08:50 Dose: 325 mg Cyclobenzaprine HCl (Flexeril) 10 mg PO TID PRN PRN Reason: Pain Last Admin: 01/14/19 07:44 Dose: 10 mg Diclofenac Sodium (Voltaren 1% Gel) 0 gm TOP QID [facility] Last Admin: 01/14/19 16:12 Dose: Not Given Diltiazem HCl (Cardizem Cd) 180 mg PO QPM [facility] Last Admin: 01/14/19 16:12 Dose: 180 mg Fluticasone Propionate (Flonase) 0 gm NASBOTH DAILY [facility] Last Admin: 01/14/19 08:50 Dose: 2 spray Gabapentin (Neurontin) 300 mg PO TID [facility] Last Admin: 01/14/19 13:09 Dose: 300 mg Levothyroxine Sodium (Synthroid) 100 mcg PO DAILY@0730 [facility] Last Admin: 01/14/19 08:50 Dose: 100 mcg Ondansetron HCl (Zofran) 4 mg IV Q4H PRN PRN Reason: Nausea/Vomiting Oxybutynin Chloride (Oxybutynin) 5 mg PO TID [facility] Last Admin: 01/14/19 13:09 Dose: 5 mg Polyethylene Glycol (Miralax) 17 gm PO DAILY PRN PRN Reason: Constipation Sodium Chloride (Saline Flush) 10 ml FLUSH ASDIRECTED PRN PRN Reason: Keep Vein Open Tramadol HCl (Ultram) 100 mg PO Q8H PRN PRN Reason: Pain Warfarin Sodium (Coumadin) 5 mg PO MoFr@1300 [facility] Last Admin: 01/13/19 21:08 Dose: 5 mg Warfarin Sodium (Coumadin) 2.5 mg PO SuTuWeThSa@1300 [facility] Last Admin: 01/14/19 13:09 Dose: 2.5 mg Discontinued Medications Albuterol/Ipratropium (Duoneb 3.0-0.5 Mg/3 Ml) 3 ml NEB ONETIME ONE Stop: 01/13/19 10:25 Last Admin: 01/13/19 10:28 Dose: 3 ml Bumetanide (Bumex) 2 mg PO ONETIME ONE Stop: 01/13/19 11:02 Last Admin: 01/13/19 11:08 Dose: 2 mg Bumetanide (Bumex) 4 mg IVPUSH ONETIME ONE Stop: 01/13/19 18:08 Last Admin: 01/13/19 21:09 Dose: 4 mg Bumetanide (Bumex) Confirm Administered Dose 4 mg .ROUTE .STK-MED ONE Stop: 01/13/19 20:52 Last Admin: 01/13/19 21:07 Dose: Not Given Bumetanide (Bumex) 4 mg IVPUSH ONETIME ONE Stop: 01/14/19 15:01 Last Admin: 01/14/19 15:19 Dose: 4 mg Potassium Chloride 40 meq/ (Premix) 100 mls @ 25 mls/hr IV ONETIME ONE Stop: 01/13/19 22:29 Last Admin: 01/13/19 21:10 Dose: Not Given Potassium Chloride 40 meq/ (Premix) 100 mls @ 25 mls/hr IV ONETIME ONE Stop: 01/14/19 02:29 Potassium Chloride 20 meq/ (Premix) 100 mls @ 50 mls/hr IV Q2H [facility] Stop: 01/14/19 04:59 Last Admin: 01/14/19 03:33 Dose: 50 mls/hr Potassium Chloride (Klor-Con M20) 40 meq PO ONETIME ONE Stop: 01/13/19 18:08 Last Admin: 01/13/19 21:08 Dose: 40 meq Potassium Chloride (Klor-Con M20) Confirm Administered Dose 40 meq .ROUTE .STK- MED ONE Stop: 01/13/19 20:55 Last Admin: 01/13/19 21:07 Dose: Not Given Sodium Chloride (Saline Flush) 10 ml FLUSH ASDIRECTED PRN PRN Reason: Keep Vein Open Last Admin: 01/13/19 14:44 Dose: 10 ml - Exam Quality Assessment: DVT Prophylaxis. No: Supplemental Oxygen General: Alert, Oriented, Cooperative, Mild Distress Lungs: Clear to Auscultation, Normal Respiratory Effort Cardiovascular: Regular Rate, Irregular Rhythm, Murmurs GI/Abdominal Exam: Soft, Non-Tender, No Organomegaly, No Distention Extremities: Non-Tender, Pedal Edema - Problem List Review Problem List Initiated/Reviewed/Updated: Yes - My Orders Last 24 Hours: My Active Orders 01/13/19 18:07 Patient Status [ADT] Routine Ambulate [RC] QID Cardiac Monitoring [RC] .As Directed Height and Weight [RC] DAILY Intake and Output [RC] QSHIFT Notify Provider Vital Signs [RC] ASDIRECTED Oxygen Therapy [RC] PRN RT Aerosol Therapy [RC] ASDIRECTED Up With Assistance [RC] ASDIRECTED Up to Chair [RC] QID VTE/DVT Education [RC] Per Unit Routine Vital Signs [RC] Q4H Acetaminophen [Tylenol] 650 mg PO Q4H PRN Albuterol/Ipratropium [DuoNeb 3.0-0.5 MG/3 ML] 3 ml NEB Q4H PRN Cyclobenzaprine [Flexeril] 10 mg PO TID PRN Diclofenac Sodium [Voltaren 1% Gel] 0 gm TOP QID Diltiazem [Cardizem CD] 180 mg PO QPM Ondansetron [Zofran] 4 mg IV Q4H PRN Polyethylene Glycol 3350 [MiraLAX] 17 gm PO DAILY PRN Sodium Chloride 0.9% [Saline Flush] 10 ml FLUSH ASDIRECTED PRN traMADol [Ultram] 100 mg PO Q8H PRN Saline Lock Insert [OM.PC] Routine VTE Pharmacological Contraindications [AST] Per Unit Routine 01/13/19 19:30 Warfarin [Coumadin] 5 mg PO MoFr@1300 01/13/19 21:00 Gabapentin [Neurontin] 300 mg PO TID Oxybutynin 5 mg PO TID 01/14/19 07:30 Levothyroxine [Synthroid] 100 mcg PO DAILY@0730 01/14/19 08:00 Echo Comp wo Cont [US] Urgent 01/14/19 09:00 Aspirin [Ecotrin] 325 mg PO DAILY Fluticasone Propionate [Flonase] 0 gm NASBOTH DAILY 01/14/19 13:00 Warfarin [Coumadin] 2.5 mg PO SuTuWeThSa@1300 01/15/19 05:00 BASIC METABOLIC PANEL,BMP [CHEM] Timed INR,PT,PROTHROMBIN TIME [COAG] Timed - Plan Plan:: ASSESSMENT AND PLAN CONGESTIVE HEART FAILURE-previous history of heart failure, reports recent dietary indiscretion with sodium. Preliminary report of echocardiogram shows decreased left ventricular systolic function with estimated ejection fraction of 40-45%. Moderate mitral regurgitation and moderate to severe tricuspid regurgitation -2 g sodium diet -Bumex 4 mg IV now, reassess in a.m. HYPOXIA-resolved with diuresis, now off of supplemental oxygen. -Supplemental oxygen as needed CHRONIC KIDNEY DISEASE STAGE IIIb-renal function has remained stable with diuresis -Closely monitor urine output and renal function with diuresis HYPOKALEMIA-potassium level today within normal range -Recheck potassium level in a.m. ATRIAL FIBRILLATION-rate well controlled, on long-term oral anticoagulation with warfarin. -Continue usual dosing of warfarin -INR in a.m. MAINTENANCE ISSUES -DVT prophylaxis; current therapy with warfarin should provide adequate DVT prophylaxis -GI prophylaxis; not indicated -Mukherjee catheter; not indicated -Nutrition; 2 g sodium diet -Nicotine dependence; not required CODE STATUS-FULL CODE ADMISSION STATUS-patient will be admitted to inpatient status, expect at least a 2 night hospital stay for evaluation and management of problems as outlined above. At the time of this admission I do not reasonably expected evaluation and management of this problem will require more than a 96 hour hospital stay. DISPOSITION-anticipate discharge to home after the hospital stay. PRIMARY CARE PROVIDER-Larissa Nolasco
[2019-01-14] MEDS: Acetaminophen 325 MG Tab PO PRN (21:19)
[2019-01-15] MEDS: Diclofenac Sodium 1% Gel 100 GM Tube TOP SCH ×4 (07:19→23:33)
[2019-01-15] MEDS: Levothyroxine 100 MCG Tab PO SCH (07:23)
[2019-01-15] MEDS: Cyclobenzaprine 10 MG Tab PO PRN (07:26)
[2019-01-15] MEDS: Fluticasone Propionate Nasal Spray 16 GM Bottle NASBOTH SCH (08:09)
[2019-01-15] MEDS: Aspirin 325 MG Tab.EC PO SCH (08:10)
[2019-01-15] MEDS: Gabapentin 300 MG Cap PO SCH ×3 (08:10→20:44)
[2019-01-15] MEDS: Oxybutynin 5 MG Tab PO SCH ×3 (08:11→20:44)
[2019-01-15] MEDS ORDERED: Bumetanide 1 MG/4 ML MDV IVPUSH ONE (09:00)
[2019-01-15] MEDS: traMADol 50 MG Tab PO PRN ×2 (09:36→20:49)
[2019-01-15] MEDS: Acetaminophen 325 MG Tab PO PRN (11:30)
--- NOTE | 2019-01-15 12:48 | PCM.PN ---
- General Info Date of Service: 01/15/19 Subjective Update: Ms. Giron not felt as well today with increased shortness of breath and increase in edema despite IV diuretic therapy. She feels she is somewhat more short of breath today with exertion than she had been yesterday. Functional Status: Reports: Tolerating Diet, Ambulating, Urinating - Review of Systems General: Reports: Weakness. Denies: Fever, Chills Pulmonary: Reports: Shortness of Breath. Denies: Pleuritic Chest Pain, Cough, Sputum, Hemoptysis, Wheezing Cardiovascular: Reports: Dyspnea on Exertion, Edema. Denies: Chest Pain, Palpitations, Orthopnea, PND, Lightheadedness Gastrointestinal: Reports: No Symptoms - Patient Data Vitals - Most Recent: Last Vital Signs Temp 97.6 F 01/15/19 10:27 Pulse 88 01/15/19 10:27 Resp 18 01/15/19 10:27 BP 133/79 01/15/19 10:27 Pulse Ox 86 L 01/15/19 12:34 Weight - Most Recent: 168 lb I&O - Last 24 Hours: Intake & Output 01/14/19 01/15/19 01/15/19 22:59 06:59 14:59 Intake Total 680 240 Output Total 600 350 500 Balance 80 -350 -260 Lab Results Last 24 Hours: Laboratory Results - last 24 hr 01/15/19 01/15/19 Range/Units 05:54 05:54 PT 20.4 H (9.5-12.0) sec INR 1.92 H (0.80-1.20) Sodium 143 (140-148) mmol/L Potassium 3.7 (3.6-5.2) mmol/L Chloride 102 (100-108) mmol/L Carbon Dioxide 33 H (21-32) mmol/L Anion Gap 11.7 (5.0-14.0) mmol/L BUN 23 H (7-18) mg/dL Creatinine 1.3 H (0.6-1.0) mg/dL Est Cr Clr Drug Dosing 26.94 mL/min Estimated GFR (MDRD) 40 L (>60) Glucose 112 H (74-106) mg/dL Calcium 9.0 (8.5-10.1) mg/dL Med Orders - Current: Current Medications Acetaminophen (Tylenol) 650 mg PO Q4H PRN PRN Reason: Pain (Mild 1-3)/fever Last Admin: 01/15/19 11:30 Dose: 650 mg Albuterol/Ipratropium (Duoneb 3.0-0.5 Mg/3 Ml) 3 ml NEB Q4H PRN PRN Reason: Shortness Of Breath/wheezing Aspirin (Ecotrin) 325 mg PO DAILY [facility] Last Admin: 01/15/19 08:10 Dose: 325 mg Bumetanide (Bumex) 2 mg IVPUSH Q12H [facility] Cyclobenzaprine HCl (Flexeril) 10 mg PO TID PRN PRN Reason: Pain Last Admin: 01/15/19 07:26 Dose: 10 mg Diclofenac Sodium (Voltaren 1% Gel) 0 gm TOP QID [facility] Last Admin: 01/15/19 09:36 Dose: Not Given Diltiazem HCl (Cardizem Cd) 180 mg PO QPM [facility] Last Admin: 01/14/19 16:12 Dose: 180 mg Fluticasone Propionate (Flonase) 0 gm NASBOTH DAILY [facility] Last Admin: 01/15/19 08:09 Dose: 2 spray Gabapentin (Neurontin) 300 mg PO TID [facility] Last Admin: 01/15/19 08:10 Dose: 300 mg Levothyroxine Sodium (Synthroid) 100 mcg PO DAILY@0730 [facility] Last Admin: 01/15/19 07:23 Dose: 100 mcg Ondansetron HCl (Zofran) 4 mg IV Q4H PRN PRN Reason: Nausea/Vomiting Oxybutynin Chloride (Oxybutynin) 5 mg PO TID [facility] Last Admin: 01/15/19 08:11 Dose: 5 mg Polyethylene Glycol (Miralax) 17 gm PO DAILY PRN PRN Reason: Constipation Sodium Chloride (Saline Flush) 10 ml FLUSH ASDIRECTED PRN PRN Reason: Keep Vein Open Tramadol HCl (Ultram) 100 mg PO Q8H PRN PRN Reason: Pain Last Admin: 01/15/19 09:36 Dose: 100 mg Warfarin Sodium (Coumadin) 5 mg PO MoFr@1300 [facility] Last Admin: 01/13/19 21:08 Dose: 5 mg Warfarin Sodium (Coumadin) 2.5 mg PO SuTuWeThSa@1300 [facility] Last Admin: 01/14/19 13:09 Dose: 2.5 mg Discontinued Medications Albuterol/Ipratropium (Duoneb 3.0-0.5 Mg/3 Ml) 3 ml NEB ONETIME ONE Stop: 01/13/19 10:25 Last Admin: 01/13/19 10:28 Dose: 3 ml Bumetanide (Bumex) 2 mg PO ONETIME ONE Stop: 01/13/19 11:02 Last Admin: 01/13/19 11:08 Dose: 2 mg Bumetanide (Bumex) 4 mg IVPUSH ONETIME ONE Stop: 01/13/19 18:08 Last Admin: 01/13/19 21:09 Dose: 4 mg Bumetanide (Bumex) Confirm Administered Dose 4 mg .ROUTE .STK-MED ONE Stop: 01/13/19 20:52 Last Admin: 01/13/19 21:07 Dose: Not Given Bumetanide (Bumex) 4 mg IVPUSH ONETIME ONE Stop: 01/14/19 15:01 Last Admin: 01/14/19 15:19 Dose: 4 mg Bumetanide (Bumex) 4 mg IVPUSH ONETIME ONE Stop: 01/15/19 09:01 Last Admin: 01/15/19 09:30 Dose: 4 mg Potassium Chloride 40 meq/ (Premix) 100 mls @ 25 mls/hr IV ONETIME ONE Stop: 01/13/19 22:29 Last Admin: 01/13/19 21:10 Dose: Not Given Potassium Chloride 40 meq/ (Premix) 100 mls @ 25 mls/hr IV ONETIME ONE Stop: 01/14/19 02:29 Potassium Chloride 20 meq/ (Premix) 100 mls @ 50 mls/hr IV Q2H [facility] Stop: 01/14/19 04:59 Last Admin: 01/14/19 03:33 Dose: 50 mls/hr Potassium Chloride (Klor-Con M20) 40 meq PO ONETIME ONE Stop: 01/13/19 18:08 Last Admin: 01/13/19 21:08 Dose: 40 meq Potassium Chloride (Klor-Con M20) Confirm Administered Dose 40 meq .ROUTE .STK- MED ONE Stop: 01/13/19 20:55 Last Admin: 01/13/19 21:07 Dose: Not Given Sodium Chloride (Saline Flush) 10 ml FLUSH ASDIRECTED PRN PRN Reason: Keep Vein Open Last Admin: 01/13/19 14:44 Dose: 10 ml - Exam Quality Assessment: Supplemental Oxygen, DVT Prophylaxis General: Alert, Oriented, Cooperative, Mild Distress Lungs: Normal Respiratory Effort, Rales. No: Crackles, Rhonchi, Rub, Wheezing Cardiovascular: Regular Rate, Regular Rhythm, No Murmurs GI/Abdominal Exam: Soft, Non-Tender, No Organomegaly, No Distention Extremities: Non-Tender, No Pedal Edema - Problem List Review Problem List Initiated/Reviewed/Updated: Yes - My Orders Last 24 Hours: My Active Orders 01/14/19 13:00 Warfarin [Coumadin] 2.5 mg PO SuTuWeThSa@1300 01/15/19 12:22 Evaluate for Home Oxygen [RT Evaluate for Home Oxygen] [RC] Click to Edit 01/15/19 19:00 Bumetanide [Bumex] 2 mg IVPUSH Q12H 01/16/19 05:00 BASIC METABOLIC PANEL,BMP [CHEM] Timed INR,PT,PROTHROMBIN TIME [COAG] Timed - Plan Plan:: ASSESSMENT AND PLAN CONGESTIVE HEART FAILURE-previous history of heart failure, reports recent dietary indiscretion with sodium. Preliminary report of echocardiogram shows decreased left ventricular systolic function with estimated ejection fraction of 40-45%. Moderate mitral regurgitation and moderate to severe tricuspid regurgitation -2 g sodium diet -Bumex 2 mg IV q12h, reassess in a.m. HYPOXIA-ttoday he is requiring use of supplemental oxygen because of hypoxia -Supplemental oxygen as needed CHRONIC KIDNEY DISEASE STAGE IIIb-renal function has remained stable with diuresis -Closely monitor urine output and renal function with diuresis HYPOKALEMIA-potassium level today within normal range -Recheck potassium level in a.m. ATRIAL FIBRILLATION-rate well controlled, on long-term oral anticoagulation with warfarin. -Continue usual dosing of warfarin -INR in a.m. MAINTENANCE ISSUES -DVT prophylaxis; current therapy with warfarin should provide adequate DVT prophylaxis -GI prophylaxis; not indicated -Mukherjee catheter; not indicated -Nutrition; 2 g sodium diet -Nicotine dependence; not required CODE STATUS-FULL CODE ADMISSION STATUS-patient will be admitted to inpatient status, expect at least a 2 night hospital stay for evaluation and management of problems as outlined above. At the time of this admission I do not reasonably expected evaluation and management of this problem will require more than a 96 hour hospital stay. DISPOSITION-anticipate discharge to home after the hospital stay. PRIMARY CARE PROVIDER-Larissa Nolasco
[2019-01-15] MEDS: Warfarin 2.5 MG Tab PO SCH (13:06)
[2019-01-15] MEDS: Diltiazem 180 MG Cap.CD PO SCH (16:34)
[2019-01-15] MEDS: Bumetanide 1 MG/4 ML MDV IVPUSH SCH (20:43)
[2019-01-16] MEDS: Cyclobenzaprine 10 MG Tab PO PRN ×2 (02:26→10:46)
[2019-01-16] MEDS: Diclofenac Sodium 1% Gel 100 GM Tube TOP SCH ×4 (06:30→21:09)
[2019-01-16] MEDS: Bumetanide 1 MG/4 ML MDV IVPUSH SCH (07:49)
[2019-01-16] MEDS: Levothyroxine 100 MCG Tab PO SCH (07:52)
[2019-01-16] MEDS: Aspirin 325 MG Tab.EC PO SCH (09:17)
[2019-01-16] MEDS: Gabapentin 300 MG Cap PO SCH ×3 (09:18→21:09)
[2019-01-16] MEDS: Fluticasone Propionate Nasal Spray 16 GM Bottle NASBOTH SCH (09:18)
[2019-01-16] MEDS: Oxybutynin 5 MG Tab PO SCH ×3 (09:19→21:09)
[2019-01-16] MEDS: Warfarin 2.5 MG Tab PO SCH (12:42)
--- NOTE | 2019-01-16 13:37 | CRLCR ---
INDICATION: Increased dyspnea, cough TECHNIQUE: Chest radiograph 2 views COMPARISON: 01/13/2019 FINDINGS: Mediastinum: Large sliding type gastric hiatal hernia (type IV) is present with a large amount of mottled luminal densities. Moderate cardiomegaly is noted. There is a left cardiac pacer present with leads in the right atrium and right ventricle. Lung: Mild compressive atelectasis at the left lung base is seen. There is an asymmetric density in the medial right apex measuring 1.3 cm which is most likely due to osteophytes at the 1st costochondral junction. No sign of pleural effusion seen. No pneumothorax is identified. Musculoskeletal: Severe chronic appearing compression deformity is present in the mid thoracic spine. IMPRESSIONS: 1. Large sliding type gastric hiatal hernia (type IV) is present with a large amount of mottled luminal densities. Correlation with patient history would be helpful to distinguish between a recent meal or a bezoar. 2. There is an asymmetric density in the medial right apex measuring 1.3 cm which is most likely due to osteophytes at the 1st costochondral junction. Comparison with any prior outside imaging is recommended. If these cannot be obtained, follow up chest radiograph in 3 months is warranted to document stability. 3. Moderate cardiomegaly is noted. Dictated by Brian Romero MD @ 01/16/2019 1:34:33 PM Dictated by: Brian Romero MD @ 01/16/2019 13:34:36 (Electronically Signed)
--- NOTE | 2019-01-16 15:36 | PCM.PN ---
- General Info Date of Service: 01/16/19 Subjective Update: Ms. Lezama is not felt as well today, somewhat short of breath with nausea and anorexia. She is diuresed fairly well with current dose of IV Bumex, peripheral edema has essentially resolved. Chest x-ray was obtained and really shows no significant pulmonary edema or pleural effusion. Chest x-ray did note a fairly large hiatal hernia with material within the stomach consistent with food versus bezoar. She is really not had anything to eat today, making food less likely. Functional Status: Reports: Ambulating, Urinating. Denies: Tolerating Diet - Review of Systems Pulmonary: Reports: Shortness of Breath. Denies: Pleuritic Chest Pain, Cough, Sputum, Hemoptysis, Wheezing Cardiovascular: Reports: Dyspnea on Exertion. Denies: Chest Pain, Palpitations , Orthopnea, PND, Edema, Lightheadedness Gastrointestinal: Reports: Decreased Appetite, Nausea. Denies: Abdominal Pain, Diarrhea, Difficulty Swallowing, Vomiting - Patient Data Vitals - Most Recent: Last Vital Signs Temp 98.6 F 01/16/19 07:42 Pulse 96 01/16/19 14:00 Resp 18 01/16/19 14:00 BP 126/67 01/16/19 14:00 Pulse Ox 94 L 01/16/19 14:00 Weight - Most Recent: 168 lb I&O - Last 24 Hours: Intake & Output 01/16/19 01/16/19 01/16/19 06:59 14:59 22:59 Intake Total 200 500 Output Total 1500 745 Balance -1300 -245 Lab Results Last 24 Hours: Laboratory Results - last 24 hr 01/16/19 01/16/19 Range/Units 04:30 04:30 PT 18.7 H (9.5-12.0) sec INR 1.75 H (0.80-1.20) Sodium 140 (140-148) mmol/L Potassium 3.7 (3.6-5.2) mmol/L Chloride 98 L (100-108) mmol/L Carbon Dioxide 36 H (21-32) mmol/L Anion Gap 9.7 (5.0-14.0) mmol/L BUN 23 H (7-18) mg/dL Creatinine 1.3 H (0.6-1.0) mg/dL Est Cr Clr Drug Dosing 26.94 mL/min Estimated GFR (MDRD) 40 L (>60) Glucose 109 H (74-106) mg/dL Calcium 9.0 (8.5-10.1) mg/dL Med Orders - Current: Current Medications Acetaminophen (Tylenol) 650 mg PO Q4H PRN PRN Reason: Pain (Mild 1-3)/fever Last Admin: 01/15/19 11:30 Dose: 650 mg Albuterol/Ipratropium (Duoneb 3.0-0.5 Mg/3 Ml) 3 ml NEB Q4H PRN PRN Reason: Shortness Of Breath/wheezing Aspirin (Ecotrin) 325 mg PO DAILY [facility] Last Admin: 01/16/19 09:17 Dose: 325 mg Bumetanide (Bumex) 2 mg PO BIDDIURETIC [facility] Cyclobenzaprine HCl (Flexeril) 10 mg PO TID PRN PRN Reason: Pain Last Admin: 01/16/19 10:46 Dose: 10 mg Diclofenac Sodium (Voltaren 1% Gel) 0 gm TOP QID [facility] Last Admin: 01/16/19 09:22 Dose: 1 applic Diltiazem HCl (Cardizem Cd) 180 mg PO QPM [facility] Last Admin: 01/15/19 16:34 Dose: 180 mg Fluticasone Propionate (Flonase) 0 gm NASBOTH DAILY [facility] Last Admin: 01/16/19 09:18 Dose: 2 spray Gabapentin (Neurontin) 300 mg PO TID [facility] Last Admin: 01/16/19 15:31 Dose: 300 mg Phytonadione 1 mg/ Sodium (Chloride) 50.5 mls @ 100 mls/hr IV ONETIME ONE Stop: 01/16/19 15:59 Levothyroxine Sodium (Synthroid) 100 mcg PO DAILY@0730 [facility] Last Admin: 01/16/19 07:52 Dose: 100 mcg Ondansetron HCl (Zofran) 4 mg IV Q4H PRN PRN Reason: Nausea/Vomiting Oxybutynin Chloride (Oxybutynin) 5 mg PO TID [facility] Last Admin: 01/16/19 14:14 Dose: 5 mg Polyethylene Glycol (Miralax) 17 gm PO DAILY PRN PRN Reason: Constipation Sodium Chloride (Saline Flush) 10 ml FLUSH ASDIRECTED PRN PRN Reason: Keep Vein Open Tramadol HCl (Ultram) 100 mg PO Q8H PRN PRN Reason: Pain Last Admin: 01/15/19 20:49 Dose: 100 mg Warfarin Sodium (Coumadin) 5 mg PO MoFr@1300 [facility] Last Admin: 01/13/19 21:08 Dose: 5 mg Warfarin Sodium (Coumadin) 2.5 mg PO SuTuWeThSa@1300 [facility] Last Admin: 01/16/19 12:42 Dose: 2.5 mg Discontinued Medications Albuterol/Ipratropium (Duoneb 3.0-0.5 Mg/3 Ml) 3 ml NEB ONETIME ONE Stop: 01/13/19 10:25 Last Admin: 01/13/19 10:28 Dose: 3 ml Bumetanide (Bumex) 2 mg PO ONETIME ONE Stop: 01/13/19 11:02 Last Admin: 01/13/19 11:08 Dose: 2 mg Bumetanide (Bumex) 4 mg IVPUSH ONETIME ONE Stop: 01/13/19 18:08 Last Admin: 01/13/19 21:09 Dose: 4 mg Bumetanide (Bumex) Confirm Administered Dose 4 mg .ROUTE .STK-MED ONE Stop: 01/13/19 20:52 Last Admin: 01/13/19 21:07 Dose: Not Given Bumetanide (Bumex) 4 mg IVPUSH ONETIME ONE Stop: 01/14/19 15:01 Last Admin: 01/14/19 15:19 Dose: 4 mg Bumetanide (Bumex) 4 mg IVPUSH ONETIME ONE Stop: 01/15/19 09:01 Last Admin: 01/15/19 09:30 Dose: 4 mg Bumetanide (Bumex) 2 mg IVPUSH Q12H [facility] Last Admin: 01/16/19 07:49 Dose: 2 mg Potassium Chloride 40 meq/ (Premix) 100 mls @ 25 mls/hr IV ONETIME ONE Stop: 01/13/19 22:29 Last Admin: 01/13/19 21:10 Dose: Not Given Potassium Chloride 40 meq/ (Premix) 100 mls @ 25 mls/hr IV ONETIME ONE Stop: 01/14/19 02:29 Potassium Chloride 20 meq/ (Premix) 100 mls @ 50 mls/hr IV Q2H [facility] Stop: 01/14/19 04:59 Last Admin: 01/14/19 03:33 Dose: 50 mls/hr Potassium Chloride (Klor-Con M20) 40 meq PO ONETIME ONE Stop: 01/13/19 18:08 Last Admin: 01/13/19 21:08 Dose: 40 meq Potassium Chloride (Klor-Con M20) Confirm Administered Dose 40 meq .ROUTE .STK- MED ONE Stop: 01/13/19 20:55 Last Admin: 01/13/19 21:07 Dose: Not Given Sodium Chloride (Saline Flush) 10 ml FLUSH ASDIRECTED PRN PRN Reason: Keep Vein Open Last Admin: 01/13/19 14:44 Dose: 10 ml Warfarin Sodium (Coumadin) 1 mg PO DAILY@1300 [facility] - Exam Quality Assessment: DVT Prophylaxis General: Alert, Oriented, Cooperative, Mild Distress Lungs: Clear to Auscultation, Normal Respiratory Effort Cardiovascular: Regular Rate, Regular Rhythm, No Murmurs GI/Abdominal Exam: Soft, Non-Tender, No Organomegaly. No: Distended Extremities: Non-Tender, No Pedal Edema - Problem List Review Problem List Initiated/Reviewed/Updated: Yes - My Orders Last 24 Hours: My Active Orders 01/16/19 15:24 Notify Provider Consults [RC] ASDIRECTED Consult to Physician [CONS] Routine 01/16/19 15:29 Phytonadione [AquaMephyton] 1 mg Sodium Chloride 0.9% [Normal Saline] 50 ml IV ONETIME 01/17/19 05:00 BASIC METABOLIC PANEL,BMP [CHEM] Timed 01/17/19 05:11 INR,PT,PROTHROMBIN TIME [COAG] AM 01/17/19 08:00 Bumetanide [Bumex] 2 mg PO BIDDIURETIC 01/17/19 Breakfast Nothing per Oral After Midnight Diet [DIET] - Plan Plan:: ASSESSMENT AND PLAN CONGESTIVE HEART FAILURE-still notes symptoms of shortness of breath, chest x- ray shows no appreciable pulmonary edema and peripheral edema markedly improved -2 g sodium diet -Bumex 2 mg by mouth twice daily HYPOXIA-10 used to experience symptoms of shortness of breath -Supplemental oxygen as needed NAUSEA AND ANOREXIA-question of retained food versus possible bezoar in the stomach -Consult Dr. Connor serrano for EGD in a.m. CHRONIC KIDNEY DISEASE STAGE IIIb-renal function has remained stable with diuresis -Closely monitor urine output and renal function with diuresis HYPOKALEMIA-potassium level today within normal range -Recheck potassium level in a.m. ATRIAL FIBRILLATION-rate well controlled, on long-term oral anticoagulation with warfarin. -Vitamin K 1 mg IV now because of EGD in a.m. -INR in a.m. MAINTENANCE ISSUES -DVT prophylaxis; current therapy with warfarin should provide adequate DVT prophylaxis -GI prophylaxis; not indicated -Mukherjee catheter; not indicated -Nutrition; 2 g sodium diet -Nicotine dependence; not required CODE STATUS-FULL CODE ADMISSION STATUS-patient will be admitted to inpatient status, expect at least a 2 night hospital stay for evaluation and management of problems as outlined above. At the time of this admission I do not reasonably expected evaluation and management of this problem will require more than a 96 hour hospital stay. DISPOSITION-anticipate discharge to home after the hospital stay. PRIMARY CARE PROVIDER-Larissa Nolasco
[2019-01-16] MEDS ORDERED: Phytonadione 1 MG in Sodium Chloride 0.9% 50 ML IV ONE (16:00)
[2019-01-16] MEDS: Diltiazem 180 MG Cap.CD PO SCH (16:13)
[2019-01-17] MEDS: Diclofenac Sodium 1% Gel 100 GM Tube TOP SCH ×4 (05:43→21:36)
[2019-01-17] MEDS ORDERED: Midazolam 1 MG/ML 2 ML SDV ONE (09:43)
[2019-01-17] MEDS ORDERED: fentaNYL 100 MCG/2 ML SDV ONE (09:43)
[2019-01-17] MEDS ORDERED: Propofol 200 MG/20 ML SDV ONE (09:43)
[2019-01-17] MEDS: Levothyroxine 100 MCG Tab PO SCH (12:10)
[2019-01-17] MEDS: Bumetanide 1 MG Tab PO SCH ×2 (12:10→14:10)
[2019-01-17] MEDS: Oxybutynin 5 MG Tab PO SCH ×3 (12:11→20:28)
[2019-01-17] MEDS: Aspirin 325 MG Tab.EC PO SCH (12:11)
[2019-01-17] MEDS: Gabapentin 300 MG Cap PO SCH ×3 (12:11→20:28)
[2019-01-17] MEDS: Fluticasone Propionate Nasal Spray 16 GM Bottle NASBOTH SCH (14:09)
[2019-01-17] MEDS: Warfarin 5 MG Tab PO SCH (14:10)
--- NOTE | 2019-01-17 16:17 | PCM.PN ---
- General Info Date of Service: 01/17/19 Subjective Update: Ms. Lezama did undergo EGD earlier today by Dr. Barfield, this didn't document significant hiatal hernia with a large bezoar. For the most part he was able to dismantle the bezoar and hopefully it will clear. She currently is on a clear liquid diet, level of dyspnea stable. Functional Status: Reports: Tolerating Diet, Ambulating, Urinating - Review of Systems General: Reports: Weakness. Denies: Fever, Chills Pulmonary: Reports: Shortness of Breath, Cough. Denies: Pleuritic Chest Pain, Sputum, Hemoptysis, Wheezing Cardiovascular: Reports: Dyspnea on Exertion. Denies: Chest Pain, Palpitations , Orthopnea, PND, Edema, Lightheadedness Gastrointestinal: Reports: Decreased Appetite, Nausea. Denies: Abdominal Pain, Constipation, Diarrhea, Difficulty Swallowing, Vomiting - Patient Data Vitals - Most Recent: Last Vital Signs Temp 98.5 F 01/17/19 14:00 Pulse 90 01/17/19 14:00 Resp 16 01/17/19 14:00 BP 126/63 01/17/19 14:00 Pulse Ox 92 L 01/17/19 14:00 Weight - Most Recent: 164 lb I&O - Last 24 Hours: Intake & Output 01/17/19 01/17/19 01/17/19 06:59 14:59 22:59 Intake Total 200 300 Output Total 450 250 Balance -250 50 Lab Results Last 24 Hours: Laboratory Results - last 24 hr 01/17/19 01/17/19 Range/Units 05:25 05:25 PT 13.2 H (9.5-12.0) sec INR 1.21 H (0.80-1.20) Sodium 141 (140-148) mmol/L Potassium 3.7 (3.6-5.2) mmol/L Chloride 99 L (100-108) mmol/L Carbon Dioxide 37 H (21-32) mmol/L Anion Gap 8.7 (5.0-14.0) mmol/L BUN 27 H (7-18) mg/dL Creatinine 1.4 H (0.6-1.0) mg/dL Est Cr Clr Drug Dosing 25.02 mL/min Estimated GFR (MDRD) 36 L (>60) Glucose 100 (74-106) mg/dL Calcium 9.2 (8.5-10.1) mg/dL Med Orders - Current: Current Medications Acetaminophen (Tylenol) 650 mg PO Q4H PRN PRN Reason: Pain (Mild 1-3)/fever Last Admin: 01/15/19 11:30 Dose: 650 mg Albuterol/Ipratropium (Duoneb 3.0-0.5 Mg/3 Ml) 3 ml NEB Q4H PRN PRN Reason: Shortness Of Breath/wheezing Aspirin (Ecotrin) 325 mg PO DAILY [facility] Last Admin: 01/17/19 12:11 Dose: Not Given Bumetanide (Bumex) 2 mg PO BIDDIURETIC [facility] Last Admin: 01/17/19 14:10 Dose: 2 mg Cyclobenzaprine HCl (Flexeril) 10 mg PO TID PRN PRN Reason: Pain Last Admin: 01/16/19 10:46 Dose: 10 mg Diclofenac Sodium (Voltaren 1% Gel) 0 gm TOP QID [facility] Last Admin: 01/17/19 14:09 Dose: 1 applic Diltiazem HCl (Cardizem Cd) 180 mg PO QPM [facility] Last Admin: 01/16/19 16:13 Dose: 180 mg Fluticasone Propionate (Flonase) 0 gm NASBOTH DAILY [facility] Last Admin: 01/17/19 14:09 Dose: 2 spray Gabapentin (Neurontin) 300 mg PO TID [facility] Last Admin: 01/17/19 14:10 Dose: 300 mg Levothyroxine Sodium (Synthroid) 100 mcg PO DAILY@0730 [facility] Last Admin: 01/17/19 12:10 Dose: Not Given Metoclopramide HCl (Reglan) 10 mg IV Q6H [facility] Ondansetron HCl (Zofran) 4 mg IV Q4H PRN PRN Reason: Nausea/Vomiting Oxybutynin Chloride (Oxybutynin) 5 mg PO TID [facility] Last Admin: 01/17/19 14:11 Dose: 5 mg Polyethylene Glycol (Miralax) 17 gm PO DAILY PRN PRN Reason: Constipation Sodium Chloride (Saline Flush) 10 ml FLUSH ASDIRECTED PRN PRN Reason: Keep Vein Open Tramadol HCl (Ultram) 100 mg PO Q8H PRN PRN Reason: Pain Last Admin: 01/15/19 20:49 Dose: 100 mg Warfarin Sodium (Coumadin) 5 mg PO MoFr@1300 [facility] Last Admin: 01/17/19 14:10 Dose: 5 mg Warfarin Sodium (Coumadin) 2.5 mg PO SuTuWeThSa@1300 [facility] Last Admin: 01/16/19 12:42 Dose: 2.5 mg Discontinued Medications Albuterol/Ipratropium (Duoneb 3.0-0.5 Mg/3 Ml) 3 ml NEB ONETIME ONE Stop: 01/13/19 10:25 Last Admin: 01/13/19 10:28 Dose: 3 ml Bumetanide (Bumex) 2 mg PO ONETIME ONE Stop: 01/13/19 11:02 Last Admin: 01/13/19 11:08 Dose: 2 mg Bumetanide (Bumex) 4 mg IVPUSH ONETIME ONE Stop: 01/13/19 18:08 Last Admin: 01/13/19 21:09 Dose: 4 mg Bumetanide (Bumex) Confirm Administered Dose 4 mg .ROUTE .STK-MED ONE Stop: 01/13/19 20:52 Last Admin: 01/13/19 21:07 Dose: Not Given Bumetanide (Bumex) 4 mg IVPUSH ONETIME ONE Stop: 01/14/19 15:01 Last Admin: 01/14/19 15:19 Dose: 4 mg Bumetanide (Bumex) 4 mg IVPUSH ONETIME ONE Stop: 01/15/19 09:01 Last Admin: 01/15/19 09:30 Dose: 4 mg Bumetanide (Bumex) 2 mg IVPUSH Q12H [facility] Last Admin: 01/16/19 07:49 Dose: 2 mg Fentanyl (Sublimaze) Confirm Administered Dose 100 mcg .ROUTE .STK-MED ONE Stop: 01/17/19 09:44 Potassium Chloride 40 meq/ (Premix) 100 mls @ 25 mls/hr IV ONETIME ONE Stop: 01/13/19 22:29 Last Admin: 01/13/19 21:10 Dose: Not Given Potassium Chloride 40 meq/ (Premix) 100 mls @ 25 mls/hr IV ONETIME ONE Stop: 01/14/19 02:29 Potassium Chloride 20 meq/ (Premix) 100 mls @ 50 mls/hr IV Q2H [facility] Stop: 01/14/19 04:59 Last Admin: 01/14/19 03:33 Dose: 50 mls/hr Phytonadione 1 mg/ Sodium (Chloride) 50.5 mls @ 100 mls/hr IV ONETIME ONE Stop: 01/16/19 16:30 Last Admin: 01/16/19 16:08 Dose: 100 mls/hr Midazolam HCl (Versed 1 Mg/Ml) Confirm Administered Dose 2 mg .ROUTE .STK-MED ONE Stop: 01/17/19 09:44 Potassium Chloride (Klor-Con M20) 40 meq PO ONETIME ONE Stop: 01/13/19 18:08 Last Admin: 01/13/19 21:08 Dose: 40 meq Potassium Chloride (Klor-Con M20) Confirm Administered Dose 40 meq .ROUTE .STK- MED ONE Stop: 01/13/19 20:55 Last Admin: 01/13/19 21:07 Dose: Not Given Propofol (Diprivan 20 Ml) Confirm Administered Dose 200 mg .ROUTE .STK-MED ONE Stop: 01/17/19 09:44 Sodium Chloride (Saline Flush) 10 ml FLUSH ASDIRECTED PRN PRN Reason: Keep Vein Open Last Admin: 01/13/19 14:44 Dose: 10 ml Warfarin Sodium (Coumadin) 1 mg PO DAILY@1300 [facility] - Exam Quality Assessment: DVT Prophylaxis General: Alert, Oriented, Cooperative, Mild Distress Lungs: Decreased Breath Sounds. No: Rales, Rhonchi, Rub, Wheezing Cardiovascular: Regular Rate, Regular Rhythm, No Murmurs GI/Abdominal Exam: Soft, Non-Tender, No Organomegaly, No Distention Extremities: Non-Tender, No Pedal Edema - Problem List Review Problem List Initiated/Reviewed/Updated: Yes - My Orders Last 24 Hours: My Active Orders 01/16/19 15:24 Notify Provider Consults [RC] ASDIRECTED Consult to Physician [CONS] Routine 01/17/19 08:00 Bumetanide [Bumex] 2 mg PO BIDDIURETIC 01/17/19 15:00 Metoclopramide [Reglan] 10 mg IV Q6H 01/18/19 05:00 INR,PT,PROTHROMBIN TIME [COAG] Timed - Plan Plan:: ASSESSMENT AND PLAN CONGESTIVE HEART FAILURE-still notes symptoms of shortness of breath, chest x- ray shows no appreciable pulmonary edema and peripheral edema markedly improved. Congestive failure remains well compensated over the last 24 hours -2 g sodium diet -Bumex 2 mg by mouth twice daily HYPOXIA-shortness of breath is improved since yesterday -Supplemental oxygen as needed GASTRIC BEZOAR WITH LARGE HIATAL HERNIA-this potentially could explain many of her symptoms including nausea and even shortness of breath -Clear liquid diet, plan to advance to anti-bezoar diet -Reglan 10 mg IV every 6 hours CHRONIC KIDNEY DISEASE STAGE IIIb-renal function has remained stable with diuresis -Closely monitor urine output and renal function with diuresis HYPOKALEMIA-resolved ATRIAL FIBRILLATION-rate well controlled, on long-term oral anticoagulation with warfarin. -Resume useual dosing of warfarin -INR in a.m. MAINTENANCE ISSUES -DVT prophylaxis; current therapy with warfarin should provide adequate DVT prophylaxis -GI prophylaxis; not indicated -Mukherjee catheter; not indicated -Nutrition; 2 g sodium diet -Nicotine dependence; not required CODE STATUS-FULL CODE ADMISSION STATUS-patient will be admitted to inpatient status, expect at least a 2 night hospital stay for evaluation and management of problems as outlined above. At the time of this admission I do not reasonably expected evaluation and management of this problem will require more than a 96 hour hospital stay. DISPOSITION-anticipate discharge to home after the hospital stay. PRIMARY CARE PROVIDER-Larissa Nolasco
[2019-01-17] MEDS: Metoclopramide 10 MG/2 ML SDV IV SCH ×2 (16:20→20:27)
[2019-01-17] MEDS: Diltiazem 180 MG Cap.CD PO SCH (16:25)
[2019-01-18] MEDS: Metoclopramide 10 MG/2 ML SDV IV SCH ×2 (03:46→09:56)
[2019-01-18] MEDS: Diclofenac Sodium 1% Gel 100 GM Tube TOP SCH ×2 (05:48→09:57)
[2019-01-18] MEDS: Levothyroxine 100 MCG Tab PO SCH (07:50)
[2019-01-18] MEDS: Bumetanide 1 MG Tab PO SCH ×2 (08:56→13:52)
[2019-01-18] MEDS: Gabapentin 300 MG Cap PO SCH ×2 (09:55→13:52)
[2019-01-18] MEDS: Oxybutynin 5 MG Tab PO SCH ×2 (09:55→13:52)
[2019-01-18] MEDS: Aspirin 325 MG Tab.EC PO SCH (09:55)
[2019-01-18] MEDS: Fluticasone Propionate Nasal Spray 16 GM Bottle NASBOTH SCH (09:55)
[2019-01-18 11:17] VITALS: BP 132/67
--- NOTE | 2019-01-18 13:16 | PCM.DCSUM1 ---
Discharge Summary - Hospital Course Brief History: Ms. Lezama is a 78-year-old woman who was admitted through the emergency department with weakness, shortness of breath, nausea, secondary to CHF exacerbation and a large hiatal hernia with a bezoar. - Discharge Data Discharge Date: 01/18/19 Discharge Disposition: Home, Self-Care 01 Condition: Fair - Discharge Diagnosis/Problem(s) (1) Hiatal hernia SNOMED Code(s): 76485994 ICD Code: K44.9 - DIAPHRAGMATIC HERNIA WITHOUT OBSTRUCTION OR GANGRENE Status: Acute Current Visit: Yes (2) Gastric bezoar SNOMED Code(s): 122918931 ICD Code: T18.2XXA - FOREIGN BODY IN STOMACH, INITIAL ENCOUNTER Status: Acute Current Visit: Yes (3) Afib, Atrial fibrillation SNOMED Code(s): 32028164 ICD Code: I48.91 - UNSPECIFIED ATRIAL FIBRILLATION Status: Chronic Priority: High Current Visit: No Onset Date: 04/11/14 (4) CKD (chronic kidney disease) stage 4, GFR 15-29 ml/min SNOMED Code(s): 858951462 ICD Code: N18.4 - CHRONIC KIDNEY DISEASE, STAGE 4 (SEVERE) Status: Chronic Current Visit: No (5) Chronic diastolic (congestive) heart failure SNOMED Code(s): 291564924, 404075073 ICD Code: I50.32 - CHRONIC DIASTOLIC (CONGESTIVE) HEART FAILURE Status: Chronic Current Visit: Yes (6) Chronic anticoagulation SNOMED Code(s): 010395621 ICD Code: 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 bezoar on CXR, EGD in am Hospital Course: Ms. Lezama is a 78-year-old woman who was admitted through the emergency department with cough and shortness of breath secondary to congestive heart failure. She has noted increased fluid retention over the weekend, with worsening peripheral edema extending into her thighs. Associated with this has been weakness and increased shortness of breath. She denies any chest pain or pressure but has had a nonproductive cough. She denies PND and orthopnea. Chest x-ray shows evidence of pulmonary edema. She was given IV Bumex in the emergency department and this was continued over the next 2 days of her hospitalization. Echocardiogram was obtained which did show mild decrease in left ventricular function with estimated ejection fraction of 4045%. In addition there was biatrial enlargement, moderate TR, moderate MR, and elevation in right-sided pressures. Initially she noted some improvement of symptoms but then reported ongoing shortness of breath as well as nausea with abdominal and lower chest fullness. She had been kept on a 2 g sodium diet and did experience good diuresis with the Bumex. Chest x-ray was repeated showing no evidence of pulmonary edema but did show a large hiatal hernia with evidence of retained food or other material. She was seen and evaluated by Dr. Barfield for surgical consult and EGD was performed which did document a large hiatal hernia with a large bezoar. Dr. Barfield was able to break the bezoar apart and she was started on IV Reglan which was transitioned to oral Reglan at the time of discharge. She will be on a soft low residue diet and was given written information concerning the antibiotics or diet. We'll resume her usual dose of diuretic therapy and continue to also monitor the sodium in her diet. Activity will be as tolerated and follow-up appointment will be scheduled with her primary care provider within one week. Follow up appointment will be scheduled in the Coumadin clinic for January 20. - Patient Instructions Diet: GI Soft/Low Residue/Low Fiber Activity: As Tolerated Other/Special Instructions: Reschedule follow-up appointment with primary care provider within one week. Please schedule follow-up appointment in the Coumadin clinic for January 20. - Discharge Plan *PRESCRIPTION DRUG MONITORING PROGRAM REVIEWED*: Not Applicable *COPY OF PRESCRIPTION DRUG MONITORING REPORT IN PATIENT EMILY: Not Applicable Prescriptions/Med Rec: Metoclopramide [Reglan] 5 mg PO QID #120 tab Home Medications: Home Meds Ascorbic Acid [Vitamin C] 500 mg PO BEDTIME 04/11/14 [History] Meclizine [Antivert] 25 mg PO TID PRN 04/11/14 [History] Multivitamin [Multi-Vitamin Daily] 1 each PO BEDTIME 04/11/14 [History] Vitamin B Complex 1 each PO BEDTIME 04/11/14 [History] Warfarin [Coumadin] 2.5 mg PO ASDIRECTED 04/11/14 [History] traMADol [Ultram] 100 mg PO Q8H PRN 11/30/14 [History] Nitroglycerin [Nitrostat] 0.4 mg PO ASDIRECTED 12/30/14 [History] Warfarin [Coumadin] 5 mg PO ASDIRECTED 12/30/14 [History] Gabapentin [Neurontin] 300 mg PO TID 02/14/16 [History] Bumetanide [Bumex] 1 mg PO BID 02/17/16 [History] Levothyroxine [Synthroid] 100 mcg PO DAILY 09/03/17 [History] Oxybutynin 5 mg PO TID 09/03/17 [History] Aspirin 325 mg PO DAILY 04/09/18 [History] Cholecalciferol (Vitamin D3) [Cholecalciferol] 400 mg PO DAILY 04/09/18 [History ] Clotrimazole/Betamethasone Dip [Lotrisone Cream] 1 film TOP BID 04/09/18 [ History] Diclofenac Sodium [Voltaren] 4 gr TOP QID 04/09/18 [History] Diltiazem HCl [Cardizem Cd] 180 mg PO QPM 04/09/18 [History] Fluticasone Propionate [Flonase] 2 spray NASBOTH DAILY 04/09/18 [History] Cyclobenzaprine [Flexeril] 10 mg PO TID PRN #30 tab 11/23/18 [Rx] Metoclopramide [Reglan] 5 mg PO QID #120 tab 01/18/19 [Rx] Oxygen Therapy Mode: Nasal Cannula Referrals: Nayla Grant MD [Ordering Only Provider] - 01/23/19 1:30 pm (Please arrive 15 minutes early to register for your appointment.) - Discharge Summary/Plan Comment DC Time >30 min.: No - Patient Data Vitals - Most Recent: Last Vital Signs Temp 97 F 01/18/19 11:14 Pulse 62 01/18/19 11:14 Resp 12 01/18/19 11:14 BP 132/67 01/18/19 11:14 Pulse Ox 86 L 01/18/19 12:01 Weight - Most Recent: 164 lb I&O - Last 24 hours: Intake & Output 01/17/19 01/18/19 01/18/19 22:59 06:59 14:59 Intake Total 1000 720 Output Total 400 300 Balance 600 -300 720 Lab Results - Last 24 hrs: Laboratory Results - last 24 hr 01/18/19 Range/Units 04:30 PT 12.3 H (9.5-12.0) sec INR 1.13 (0.80-1.20) Med Orders - Current: Current Medications Acetaminophen (Tylenol) 650 mg PO Q4H PRN PRN Reason: Pain (Mild 1-3)/fever Last Admin: 01/15/19 11:30 Dose: 650 mg Albuterol/Ipratropium (Duoneb 3.0-0.5 Mg/3 Ml) 3 ml NEB Q4H PRN PRN Reason: Shortness Of Breath/wheezing Aspirin (Ecotrin) 325 mg PO DAILY [facility] Last Admin: 01/18/19 09:55 Dose: 325 mg Bumetanide (Bumex) 2 mg PO BIDDIURETIC [facility] Last Admin: 01/18/19 08:56 Dose: 2 mg Cyclobenzaprine HCl (Flexeril) 10 mg PO TID PRN PRN Reason: Pain Last Admin: 01/16/19 10:46 Dose: 10 mg Diclofenac Sodium (Voltaren 1% Gel) 0 gm TOP QID [facility] Last Admin: 01/18/19 09:57 Dose: Not Given Diltiazem HCl (Cardizem Cd) 180 mg PO QPM [facility] Last Admin: 01/17/19 16:25 Dose: 180 mg Fluticasone Propionate (Flonase) 0 gm NASBOTH DAILY [facility] Last Admin: 01/18/19 09:55 Dose: 2 spray Gabapentin (Neurontin) 300 mg PO TID [facility] Last Admin: 01/18/19 09:55 Dose: 300 mg Levothyroxine Sodium (Synthroid) 100 mcg PO DAILY@0730 [facility] Last Admin: 01/18/19 07:50 Dose: 100 mcg Metoclopramide HCl (Reglan) 10 mg IV Q6H [facility] Last Admin: 01/18/19 09:56 Dose: 10 mg Ondansetron HCl (Zofran) 4 mg IV Q4H PRN PRN Reason: Nausea/Vomiting Oxybutynin Chloride (Oxybutynin) 5 mg PO TID [facility] Last Admin: 01/18/19 09:55 Dose: 5 mg Polyethylene Glycol (Miralax) 17 gm PO DAILY PRN PRN Reason: Constipation Sodium Chloride (Saline Flush) 10 ml FLUSH ASDIRECTED PRN PRN Reason: Keep Vein Open Tramadol HCl (Ultram) 100 mg PO Q8H PRN PRN Reason: Pain Last Admin: 01/15/19 20:49 Dose: 100 mg Warfarin Sodium (Coumadin) 5 mg PO MoFr@1300 [facility] Last Admin: 01/17/19 14:10 Dose: 5 mg Warfarin Sodium (Coumadin) 2.5 mg PO SuTuWeThSa@1300 [facility] Last Admin: 01/16/19 12:42 Dose: 2.5 mg Discontinued Medications Albuterol/Ipratropium (Duoneb 3.0-0.5 Mg/3 Ml) 3 ml NEB ONETIME ONE Stop: 01/13/19 10:25 Last Admin: 01/13/19 10:28 Dose: 3 ml Bumetanide (Bumex) 2 mg PO ONETIME ONE Stop: 01/13/19 11:02 Last Admin: 01/13/19 11:08 Dose: 2 mg Bumetanide (Bumex) 4 mg IVPUSH ONETIME ONE Stop: 01/13/19 18:08 Last Admin: 01/13/19 21:09 Dose: 4 mg Bumetanide (Bumex) Confirm Administered Dose 4 mg .ROUTE .STK-MED ONE Stop: 01/13/19 20:52 Last Admin: 01/13/19 21:07 Dose: Not Given Bumetanide (Bumex) 4 mg IVPUSH ONETIME ONE Stop: 01/14/19 15:01 Last Admin: 01/14/19 15:19 Dose: 4 mg Bumetanide (Bumex) 4 mg IVPUSH ONETIME ONE Stop: 01/15/19 09:01 Last Admin: 01/15/19 09:30 Dose: 4 mg Bumetanide (Bumex) 2 mg IVPUSH Q12H [facility] Last Admin: 01/16/19 07:49 Dose: 2 mg Fentanyl (Sublimaze) Confirm Administered Dose 100 mcg .ROUTE .STK-MED ONE Stop: 01/17/19 09:44 Potassium Chloride 40 meq/ (Premix) 100 mls @ 25 mls/hr IV ONETIME ONE Stop: 01/13/19 22:29 Last Admin: 01/13/19 21:10 Dose: Not Given Potassium Chloride 40 meq/ (Premix) 100 mls @ 25 mls/hr IV ONETIME ONE Stop: 01/14/19 02:29 Potassium Chloride 20 meq/ (Premix) 100 mls @ 50 mls/hr IV Q2H [facility] Stop: 01/14/19 04:59 Last Admin: 01/14/19 03:33 Dose: 50 mls/hr Phytonadione 1 mg/ Sodium (Chloride) 50.5 mls @ 100 mls/hr IV ONETIME ONE Stop: 01/16/19 16:30 Last Admin: 01/16/19 16:08 Dose: 100 mls/hr Midazolam HCl (Versed 1 Mg/Ml) Confirm Administered Dose 2 mg .ROUTE .STK-MED ONE Stop: 01/17/19 09:44 Potassium Chloride (Klor-Con M20) 40 meq PO ONETIME ONE Stop: 01/13/19 18:08 Last Admin: 01/13/19 21:08 Dose: 40 meq Potassium Chloride (Klor-Con M20) Confirm Administered Dose 40 meq .ROUTE .STK- MED ONE Stop: 01/13/19 20:55 Last Admin: 01/13/19 21:07 Dose: Not Given Propofol (Diprivan 20 Ml) Confirm Administered Dose 200 mg .ROUTE .STK-MED ONE Stop: 01/17/19 09:44 Sodium Chloride (Saline Flush) 10 ml FLUSH ASDIRECTED PRN PRN Reason: Keep Vein Open Last Admin: 01/13/19 14:44 Dose: 10 ml Warfarin Sodium (Coumadin) 1 mg PO DAILY@1300 [facility] - Exam Quality Assessment: Reports: Supplemental Oxygen, DVT Prophylaxis General: Reports: Alert, Oriented, Cooperative, No Acute Distress Lungs: Reports: Clear to Auscultation, Normal Respiratory Effort, Decreased Breath Sounds Cardiovascular: Reports: Regular Rate, Regular Rhythm, No Murmurs GI/Abdominal Exam: Soft, Non-Tender, No Organomegaly, No Distention Extremities: Non-Tender, No Pedal Edema *Q Meaningful Use (DIS) - VTE *Q VTE Pharmacological Contraindications *Q: High INR Value
[2019-01-18] MEDS: Warfarin 2.5 MG Tab PO SCH (13:51)
--- NOTE | 2019-01-20 13:47 | OR ---
DATE OF PROCEDURE: 01/17/2019 PREOPERATIVE DIAGNOSIS: Dysphagia. POSTOPERATIVE DIAGNOSIS: Dysphagia, hiatal hernia with bezoar within it. PROCEDURE PERFORMED: Esophagogastroduodenoscopy with break up of bezoar in the hiatal hernia. SURGEON: Primo Barfield MD ANESTHESIA: IV anesthesia with monitored anesthesia care. INDICATION: This 78-year-old white female is in the hospital. She is having difficulty eating. She eats only a little bit and becomes full. CT scan is suggestive of a bezoar. She has a hiatal hernia. A request is made for an upper endoscopy. I counseled her for an upper endoscopy with possible biopsy, including risks and alternatives, and she gave her informed consent to proceed. DESCRIPTION OF PROCEDURE: The patient was placed in the left lateral decubitus position. IV anesthesia was administered by the Anesthesia Service. Time-out was held. The flexible video Olympus upper endoscope was passed through her mouth, down her esophagus and into her stomach. At the entrance of the stomach, we encountered a lot of old food. This was in a hiatal hernia. We were able to get past this and go into the main body of the stomach, which was clear. The scope was then passed through the pylorus down into the duodenum, reaching its third portion. The scope was then slowly withdrawn examining the mucosa throughout. The duodenal mucosa appeared unremarkable. The main portion of the stomach appeared unremarkable. We went back up into the hiatal hernia. We took a snare and broke up the bezoar. We aspirated some of it up and some of it passed down into the main body of the stomach. It should hopefully pass after we broke it up. The scope was then removed. She tolerated the procedure well. Primo Barfield MD /[id number]
== END 2019-01-18 14:45 | disposition home or self-care (01) | DRG 291 ==
LOC: JP.ED 09:38 → JP.MS 15:11
PROVIDERS: ADMIT Hospitalist; ATTEND Hospitalist
PROC: 0DC68ZZ Extirpation of Matter from Stomach, Via Natural or Artificial Opening Endoscopic (ICD-10-PCS; principal; 2019-01-17)
DX: I13.0 Hypertensive heart and chronic kidney disease with heart failure and stage 1 through stage 4 chronic kidney disease, or unspecified chronic kidney disease (principal); I50.33 Acute on chronic diastolic (congestive) heart failure; N18.3 Chronic kidney disease, stage 3 (moderate); N18.4 Chronic kidney disease, stage 4 (severe); T18.2XXA Foreign body in stomach, initial encounter; K44.9 Diaphragmatic hernia without obstruction or gangrene; R13.10 Dysphagia, unspecified; R09.02 Hypoxemia; I48.91 Unspecified atrial fibrillation; X58.XXXA Exposure to other specified factors, initial encounter; Z79.01 Long term (current) use of anticoagulants; I25.2 Old myocardial infarction; Z95.0 Presence of cardiac pacemaker; Z99.81 Dependence on supplemental oxygen; R06.02 Shortness of breath; E03.9 Hypothyroidism, unspecified; E87.6 Hypokalemia; R11.0 Nausea; R63.0 Anorexia; M79.5 Residual foreign body in soft tissue; K21.9 Gastro-esophageal reflux disease without esophagitis; Z86.73 Personal history of transient ischemic attack (TIA), and cerebral infarction without residual deficits; M19.90 Unspecified osteoarthritis, unspecified site; M54.9 Dorsalgia, unspecified; G89.29 Other chronic pain; E55.9 Vitamin D deficiency, unspecified; H54.7 Unspecified visual loss; H91.90 Unspecified hearing loss, unspecified ear; Z96.653 Presence of artificial knee joint, bilateral; R32 Unspecified urinary incontinence; Z87.11 Personal history of peptic ulcer disease; J30.9 Allergic rhinitis, unspecified; I27.20 Pulmonary hypertension, unspecified; Z79.82 Long term (current) use of aspirin; Z88.8 Allergy status to other drugs, medicaments and biological substances; Z79.899 Other long term (current) drug therapy; I34.0 Nonrheumatic mitral (valve) insufficiency; I07.1 Rheumatic tricuspid insufficiency
CPT/HCPCS: 36415; 71046 ×2; 80053; 85025; 85610; 94640; 99285; A9270; 80048; 83735; 84443; 93306; J2250; J2704; J2765; J3010; J3430; J3480; J3490; J7050; J7620-GY

== ENCOUNTER 2019-01-28 16:59 | Emergency (ER) | payer MEDICARE ==
[2019-01-28 17:32] VITALS: BP 106/70
--- NOTE | 2019-01-28 18:03 | EDM.PDOC ---
ED HPI GENERAL MEDICAL PROBLEM - General Chief Complaint: Laceration Stated Complaint: FELL HURT HEAD AND FINGER Time Seen by Provider: 01/28/19 17:30 Source of Information: Reports: Patient, Family History Limitations: Reports: No Limitations - History of Present Illness INITIAL COMMENTS - FREE TEXT/NARRATIVE: 70-year-old female arrives after falling while working in her yard. She arrives with an injury to her right scalp, where there is dried blood but no active bleeding. She also has a small skin tear on her right forearm and some nontender hematomas of the hands, a small amount of tenderness to the right knee. Onset: Sudden Duration: Hour(s): (Within the last 2 hours) Associated Symptoms: Denies: Confusion, Chest Pain, Cough, Nausea/Vomiting, Shortness of Breath Head Pain Score (Numeric/FACES): 3 - Related Data Allergies Allergy/AdvReac Type Severity Reaction Status Date / Time atropine [From Lomotil] Allergy Rash Verified 01/28/19 17:33 Beta-Adrenergic Agents Allergy Dizziness Verified 01/28/19 17:33 diphenoxylate [From Lomotil] Allergy Rash Verified 01/28/19 17:33 polyester fibers Allergy Hives Verified 01/28/19 17:33 procaine Allergy Cannot Verified 01/28/19 17:33 Remember rosuvastatin Allergy Cannot Verified 01/28/19 17:33 Remember lidocaine AdvReac Arrhythmias Verified 01/28/19 17:33 metoprolol AdvReac Arrhythmias Verified 01/28/19 17:33 Home Meds: Home Meds Ascorbic Acid [Vitamin C] 500 mg PO BEDTIME 04/11/14 [History] Meclizine [Antivert] 25 mg PO TID PRN 04/11/14 [History] Multivitamin [Multi-Vitamin Daily] 1 each PO BEDTIME 04/11/14 [History] Vitamin B Complex 1 each PO BEDTIME 04/11/14 [History] Warfarin [Coumadin] 2.5 mg PO ASDIRECTED 04/11/14 [History] traMADol [Ultram] 100 mg PO Q8H PRN 11/30/14 [History] Nitroglycerin [Nitrostat] 0.4 mg PO ASDIRECTED 12/30/14 [History] Warfarin [Coumadin] 5 mg PO ASDIRECTED 12/30/14 [History] Gabapentin [Neurontin] 300 mg PO TID 02/14/16 [History] Bumetanide [Bumex] 1 mg PO BID 02/17/16 [History] Levothyroxine [Synthroid] 100 mcg PO DAILY 09/03/17 [History] Oxybutynin 5 mg PO TID 09/03/17 [History] Aspirin 325 mg PO DAILY 04/09/18 [History] Cholecalciferol (Vitamin D3) [Cholecalciferol] 400 mg PO DAILY 04/09/18 [History ] Clotrimazole/Betamethasone Dip [Lotrisone Cream] 1 film TOP BID 04/09/18 [ History] Diclofenac Sodium [Voltaren] 4 gr TOP QID 04/09/18 [History] Diltiazem HCl [Cardizem Cd] 180 mg PO QPM 04/09/18 [History] Fluticasone Propionate [Flonase] 2 spray NASBOTH DAILY 04/09/18 [History] Cyclobenzaprine [Flexeril] 10 mg PO TID PRN #30 tab 11/23/18 [Rx] Metoclopramide [Reglan] 5 mg PO QID #120 tab 01/18/19 [Rx] Lisinopril 2.5 mg PO DAILY 01/28/19 [History] Past Medical History HEENT History: Reports: Allergic Rhinitis, Cataract, Hard of Hearing, Impaired Vision Other HEENT History: left cataract Cardiovascular History: Reports: Afib, Heart Failure, Hypertension, ID, Pacemaker, Pulmonary Hypertension Other Cardiovascular History: mitral regurgitation Respiratory History: Reports: SOB, Other (See Below) Other Respiratory History: home O2 at night Gastrointestinal History: Reports: GERD, GI Bleed, PUD Other Gastrointestinal History: esophageal stricture Genitourinary History: Reports: Renal Disease, Urinary Incontinence Other Genitourinary History: incontinence 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: , 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 Musculoskeletal History: Reports: Arthritis, Back Pain, Chronic, Fracture, Osteoarthritis Other Musculoskeletal History: DJD Neurological History: Reports: CVA, TIA Other Neuro History: hemorrhagic, compression fracture of L1, 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 Endocrine/Metabolic History: Reports: Hypothyroidism, Obesity/BMI 30+, Vitamin D Deficiency Hematologic History: Reports: Anemia, Anticoagulation Therapy Dermatologic History: Reports: Other (See Below) Other Dermatologic History: allergy to polyester - Infectious Disease History Infectious Disease History: Reports: Chicken Pox, Measles, Mumps - Past Surgical History Cardiovascular Surgical History: Reports: Pacer GI Surgical History: Reports: Colonoscopy, EGD, Hernia, Abdominal Endocrine Surgical History: Reports: None Musculoskeletal Surgical History: Reports: Knee Replacement, Other (See Below) Other Musculoskeletal Surgeries/Procedures:: bilateral knees replaced Social & Family History - Family History Family Medical History: Noncontributory - Tobacco Use Smoking Status *Q: Never Smoker Second Hand Smoke Exposure: No - Caffeine Use Caffeine Use: Reports: Coffee, Soda - Recreational Drug Use Recreational Drug Use: No - Living Situation & Occupation Living situation: Reports: Single, with Family (lives in [facility], with 2 Grandsons. One Grandson has schizophrenia) ED ROS GENERAL - Review of Systems Review Of Systems: See Below Constitutional: Denies: Fever, Chills HEENT: Denies: Vision Change Respiratory: Denies: Shortness of Breath Cardiovascular: Denies: Chest Pain GI/Abdominal: Denies: Nausea, Vomiting Skin: Reports: Other (Bruising of the arms) Neurological: Denies: Dizziness, Headache Psychiatric: Reports: No Symptoms ED EXAM, SKIN/RASH Exam: See Below Exam Limited By: No Limitations General Appearance: Alert, No Apparent Distress Eye Exam: Bilateral Eye: EOMI Head: Other (Injured area on the right parietal scalp was cleaned and revealed a 2.5 cm laceration into the subcutaneous tissue) Neck: Supple, Non-Tender Respiratory/Chest: No Respiratory Distress, Lungs Clear Cardiovascular: Regular Rate, Rhythm Extremities: Other (Very small 1 cm skin tear on the right forearm, nontender hematomas on the dorsal aspect of the left hand and a smaller one on the right hand) Neurological: Alert, Oriented Course - Vital Signs Last Recorded V/S: Last Vital Signs Temp 96.9 F 01/28/19 17:42 Pulse 76 01/28/19 17:42 Resp 24 H 01/28/19 17:42 BP 106/70 01/28/19 17:42 Pulse Ox 88 L 01/28/19 17:42 - Orders/Labs/Meds Meds: Medications Discontinued Medications Generic Name Dose Route Start Last Admin Trade Name Freq PRN Reason Stop Dose Admin Bacitracin 1 dose 01/28/19 18:38 01/28/19 18:43 Bacitracin Oint 1 Gm TOP 01/28/19 18:39 1 dose ONETIME ONE Administration Lidocaine HCl 5 ml 01/28/19 18:21 01/28/19 18:26 Xylocaine-Mpf 1% INJECT 01/28/19 18:22 5 ml ONETIME ONE Administration - Re-Assessments/Exams Free Text/Narrative Re-Assessment/Exam: 01/29/19 07:38 CT of the head without contrast was done which was negative for intracranial injury. This was done due to the age of the patient as well as Coumadin therapy and significant head injury. After the CT scan, the scalp laceration was infiltrated with lidocaine and 3 micha were applied across the laceration. Bacitracin and a Band-Aid was applied to the right forearm skin tear. Patient was encouraged to ice sore areas for the next couple of days, micha can be removed in 7-8 days. She should return sooner if increased pain, concerns of infection or not improving satisfactorily. Departure - Departure Time of Disposition: 19:50 Disposition: Home, Self-Care 01 Condition: Good Clinical Impression: Scalp laceration Qualifiers: Encounter type: initial encounter Qualified Code(s): S01.01XA - Laceration without foreign body of scalp, initial encounter Skin tear of right forearm without complication Qualifiers: Encounter type: initial encounter Qualified Code(s): S51.811A - Laceration without foreign body of right forearm, initial encounter Traumatic hematoma of left hand Qualifiers: Encounter type: initial encounter Qualified Code(s): S60.222A - Contusion of left hand, initial encounter - Discharge Information Instructions: Hand Contusion, [id number], Laceration Care, Adult Referrals: Nayla Grant MD [Primary Care Provider] - Forms: ED Department Discharge Care Plan Goals: Ice to sore or swollen areas for the next 2 days will be helpful. Scalp micha can be removed in 7 or 8 days, Sunday or Sunday of next week. Increase activity as tolerated. Keep abrasions clean while healing. Recheck sooner if concerns of infection or not healing satisfactorily.
--- NOTE | 2019-01-28 18:37 | CRLCT ---
INDICATION: Fall on Coumadin TECHNIQUE: CT head without contrast. COMPARISON: None FINDINGS: CSF spaces: Within normal limits for age. Brain parenchyma: The lomeli-white differentiation is normal. No sign of mass, hemorrhage, or midline shift. Bifrontal volume loss. Skull base and calvarium: The visualized paranasal sinuses and mastoid air cells demonstrate no acute or significant findings. The visualized orbits are grossly unremarkable. No skull fractures. IMPRESSION: No evidence of acute intracranial trauma. Dictated by John Paul Stoner MD @ 01/28/2019 6:35:37 PM Please note that all CT scans at this facility use dose modulation, iterative reconstruction, and/or weight-based dosing when appropriate to reduce radiation dose to as low as reasonably achievable. Dictated by: John Paul Stoner MD @ 01/28/2019 18:35:42 (Electronically Signed)
[2019-01-28] MEDS ORDERED: Bacitracin Oint 1 GM U/D Packet TOP ONE (18:38)
== END 2019-01-28 19:27 | disposition home or self-care (01) ==
LOC: JP.ED 16:59
DX: S01.01XA Laceration without foreign body of scalp, initial encounter (principal); S51.811A Laceration without foreign body of right forearm, initial encounter; S60.222A Contusion of left hand, initial encounter; I11.0 Hypertensive heart disease with heart failure; I50.9 Heart failure, unspecified; I48.91 Unspecified atrial fibrillation; I25.2 Old myocardial infarction; K21.9 Gastro-esophageal reflux disease without esophagitis; Z86.73 Personal history of transient ischemic attack (TIA), and cerebral infarction without residual deficits; E03.9 Hypothyroidism, unspecified; Z79.01 Long term (current) use of anticoagulants; Z79.899 Other long term (current) drug therapy; Z88.8 Allergy status to other drugs, medicaments and biological substances; Z91.09 Other allergy status, other than to drugs and biological substances; W19.XXXA Unspecified fall, initial encounter; Y92.096 Garden or yard of other non-institutional residence as the place of occurrence of the external cause; Y99.0 Civilian activity done for income or pay
CPT/HCPCS: 12001; 70450; 99283; J2001

== ENCOUNTER 2019-01-30 18:37 | Emergency (ER) | payer MEDICARE ==
[2019-01-30] MEDS ORDERED: Diltiazem 25 MG/5 ML SDV IVPUSH ONE (20:00)
[2019-01-30] MEDS ORDERED: Sodium Chloride 0.9% 10 ML Syringe FLUSH PRN (20:02)
[2019-01-30] MEDS ORDERED: Sodium Chloride 0.9% 1,000 ML IV SCH (20:15)
--- NOTE | 2019-01-30 20:35 | EDM.PDOC ---
ED HPI GENERAL MEDICAL PROBLEM - General Chief Complaint: Neurological Problem Stated Complaint: LIGHTHEADED Time Seen by Provider: 01/30/19 19:00 Source of Information: Reports: Patient History Limitations: Reports: No Limitations - History of Present Illness INITIAL COMMENTS - FREE TEXT/NARRATIVE: 78-year-old female took a fall 2 days ago resulting in a scalp laceration and numerous bruises. She was seen in the emergency room and had a CT scan of the head which was normal. Yesterday she started noticing lightheadedness when she stood up. She denies any symptoms of spinning or focal neurologic deficit. She was seen at the walk-in clinic and subsequently referred to the emergency room for more detailed workup. She denies any pain. She does have a history of recurrent atrial fibrillation and sometimes with rapid ventricular response. She is anticoagulated with Coumadin. She has a history of COPD and is oxygen dependent at night. She denies any shortness of breath at this time. - Related Data Allergies Allergy/AdvReac Type Severity Reaction Status Date / Time atropine [From Lomotil] Allergy Rash Verified 01/30/19 19:10 Beta-Adrenergic Agents Allergy Dizziness Verified 01/30/19 19:10 diphenoxylate [From Lomotil] Allergy Rash Verified 01/30/19 19:10 polyester fibers Allergy Hives Verified 01/30/19 19:10 procaine Allergy Cannot Verified 01/30/19 19:10 Remember rosuvastatin Allergy Cannot Verified 01/30/19 19:10 Remember lidocaine AdvReac Arrhythmias Verified 01/30/19 19:10 metoprolol AdvReac Arrhythmias Verified 01/30/19 19:10 Home Meds: Home Meds RX: Ascorbic Acid [Vitamin C] 500 mg PO BEDTIME 04/11/14 [History] RX: Meclizine [Antivert] 25 mg PO TID PRN 04/11/14 [History] RX: Multivitamin [Multi-Vitamin Daily] 1 each PO BEDTIME 04/11/14 [History] RX: Vitamin B Complex 1 each PO BEDTIME 04/11/14 [History] RX: Warfarin [Coumadin] 2.5 mg PO ASDIRECTED 04/11/14 [History] RX: traMADol [Ultram] 50 mg PO Q8H PRN 11/30/14 [History] RX: Nitroglycerin [Nitrostat] 0.4 mg PO ASDIRECTED 12/30/14 [History] RX: Warfarin [Coumadin] 5 mg PO ASDIRECTED 12/30/14 [History] RX: Gabapentin [Neurontin] 300 mg PO TID 02/14/16 [History] RX: Bumetanide [Bumex] 1 mg PO BID 02/17/16 [History] RX: Levothyroxine [Synthroid] 100 mcg PO DAILY 09/03/17 [History] RX: Oxybutynin 5 mg PO TID 09/03/17 [History] RX: Aspirin 81 mg PO DAILY 04/09/18 [History] RX: Cholecalciferol (Vitamin D3) [Cholecalciferol] 400 mg PO DAILY 04/09/18 [ History] RX: Clotrimazole/Betamethasone Dip [Lotrisone Cream] 1 film TOP BID 04/09/18 [ History] RX: Diclofenac Sodium [Voltaren] 4 gr TOP QID 04/09/18 [History] RX: Diltiazem HCl [Cardizem Cd] 240 mg PO QPM 04/09/18 [History] RX: Fluticasone Propionate [Flonase] 2 spray NASBOTH DAILY 04/09/18 [History] RX: Lisinopril 2.5 mg PO DAILY 01/28/19 [History] Omeprazole 40 mg PO ACBREAKFAST 01/30/19 [History] RX: tiZANidine [Zanaflex] 4 mg PO Q8H PRN 01/30/19 [History] Past Medical History HEENT History: Reports: Allergic Rhinitis, Cataract, Hard of Hearing, Impaired Vision Other HEENT History: left cataract Cardiovascular History: Reports: Afib, Heart Failure, Hypertension, [place], Pacemaker, Pulmonary Hypertension Other Cardiovascular History: mitral regurgitation Respiratory History: Reports: SOB, Other (See Below) Other Respiratory History: home O2 at night Gastrointestinal History: Reports: GERD, GI Bleed, PUD Other Gastrointestinal History: esophageal stricture Genitourinary History: Reports: Renal Disease, Urinary Incontinence, UTI, Recurrent Other Genitourinary History: incontinence 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: Reports: , Spontaneous Musculoskeletal History: Reports: Arthritis, Back Pain, Chronic, Fracture, Osteoarthritis Other Musculoskeletal History: DJD Neurological History: Reports: CVA, Migraines, TIA Other Neuro History: hemorrhagic, compression fracture of L1, 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 Endocrine/Metabolic History: Reports: Hypothyroidism, Obesity/BMI 30+, Vitamin D Deficiency Hematologic History: Reports: Anemia, Anticoagulation Therapy Oncologic (Cancer) History: Reports: Malignant Melanoma, Other (See Below) Other Oncologic History: skin cancer on nose Dermatologic History: Reports: Melanoma Other Dermatologic History: allergy to polyester - Infectious Disease History Infectious Disease History: Reports: Chicken Pox, Measles, Mumps - Past Surgical History HEENT Surgical History: Reports: Cataract Surgery Cardiovascular Surgical History: Reports: Pacer GI Surgical History: Reports: Colonoscopy, EGD, Hernia, Abdominal Endocrine Surgical History: Reports: None Musculoskeletal Surgical History: Reports: Knee Replacement, Other (See Below) Other Musculoskeletal Surgeries/Procedures:: bilateral knees replaced Social & Family History - Family History Family Medical History: Noncontributory - Tobacco Use Smoking Status *Q: Never Smoker - Caffeine Use Caffeine Use: Reports: Coffee - Recreational Drug Use Recreational Drug Use: No - Living Situation & Occupation Living situation: Reports: Single, with Family (lives in [facility], with 2 Grandsons. One Grandson has schizophrenia) ED ROS GENERAL - Review of Systems Review Of Systems: See Below Constitutional: Reports: Weakness. Denies: Fever, Chills HEENT: Reports: No Symptoms. Denies: Vertigo Respiratory: Reports: No Symptoms. Denies: Shortness of Breath, Pleuritic Chest Pain Cardiovascular: Reports: Lightheadedness, Palpitations. Denies: Chest Pain, Edema Endocrine: Reports: Fatigue GI/Abdominal: Reports: No Symptoms. Denies: Abdominal Pain, Constipation, Diarrhea Musculoskeletal: Reports: No Symptoms Neurological: Reports: Weakness. Denies: Confusion, Paresthesia, Syncope, Tingling, Trouble Speaking ED EXAM, NEURO - Physical Exam Exam: See Below Exam Limited By: No Limitations General Appearance: Alert, No Apparent Distress Eye Exam: Bilateral Eye: Abnormal EOM, Abnormal Pupil Ears: Normal External Exam, Normal Canal Head Exam: Other (Repaired laceration on posterior scalp. No infection.) Neck: Supple, Non-Tender Respiratory/Chest: No Respiratory Distress, Lungs Clear, Normal Breath Sounds Cardiovascular: Tachycardia, Irregularly Irregular GI/Abdominal: Normal Bowel Sounds, Soft, Non-Tender (Female) Exam: No: Adnexal Tenderness Neurological: Alert, No Motor/Sensory Deficits, Oriented x 3 EKG INTERPRETATION Rhythm: A-Fib Rate (Beats/Min): 130 P-Wave: Absent Course - Vital Signs Last Recorded V/S: Last Vital Signs Temp 35.7 C 01/30/19 19:00 Pulse 68 01/30/19 22:15 Resp 15 01/30/19 22:15 BP 119/59 L 01/30/19 22:15 Pulse Ox 95 01/30/19 22:15 - Orders/Labs/Meds Orders: Active Orders 24 hr Category Date Time Status EKG Documentation Completion [RC] ASDIRECTED Care 01/30/19 19:57 Active Saline Lock Insert [OM.PC] Routine Oth 01/30/19 20:02 Ordered EKG 12 Lead [EK] Urgent Ther 01/30/19 19:55 Ordered Labs: Laboratory Tests 01/30/19 01/30/19 01/30/19 Range/Units 19:56 20:19 20:19 WBC 6.8 (4.5-11.0) K/uL RBC 4.51 (3.30-5.50) M/uL Hgb 12.9 (12.0-15.0) g/dL Hct 41.2 (36.0-48.0) % MCV 91 (80-98) fL MCH 29 (27-31) pg MCHC 31 L (32-36) % Plt Count 273 (150-400) K/uL Neut % (Auto) 58 (36-66) % Lymph % (Auto) 20 L (24-44) % Lake % (Auto) 15 H (2-6) % Eos % (Auto) 7 H (2-4) % Baso % (Auto) 1 (0-1) % PT (9.5-12.0) sec INR (0.80-1.20) Sodium 140 (140-148) mmol/L Potassium 3.5 L (3.6-5.2) mmol/L Chloride 100 (100-108) mmol/L Carbon Dioxide 35 H (21-32) mmol/L Anion Gap 8.5 (5.0-14.0) mmol/L BUN 33 H (7-18) mg/dL Creatinine 1.9 H (0.6-1.0) mg/dL Est Cr Clr Drug Dosing 18.41 mL/min Estimated GFR (MDRD) 26 L (>60) Glucose 110 H (74-106) mg/dL Lactic Acid 1.1 (0.4-2.0) mmol/L Calcium 8.4 L (8.5-10.1) mg/dL Magnesium 2.1 (1.8-2.4) mg/dL Total Bilirubin 0.4 D (0.2-1.0) mg/dL AST 28 (15-37) U/L ALT 24 (12-78) U/L Alkaline Phosphatase 145 H (46-116) U/L Troponin I < 0.017 (0.000-0.056) ng/mL Total Protein 6.8 (6.4-8.2) g/dL Albumin 3.1 L (3.4-5.0) g/dL Globulin 3.7 H (2.3-3.5) g/dL Albumin/Globulin Ratio 0.8 L (1.2-2.2) Urine Color Urine Appearance Urine pH (4.5-8.0) Ur Specific [place] (1.008-1.030) Urine Protein (NEGATIVE) mg/dL Urine Glucose (UA) (NEGATIVE) mg/dL Urine Ketones (NEGATIVE) mg/dL Urine Occult Blood (NEGATIVE) Urine Nitrite (NEGATIVE) Urine Bilirubin (NEGATIVE) Urine Urobilinogen (NORMAL) mg/dL Ur Leukocyte Esterase (NEGATIVE) Urine RBC (0-5) Urine WBC (0-5) Ur Epithelial Cells Amorphous Sediment Urine Bacteria Urine Mucus 01/30/19 01/30/19 Range/Units 20:23 21:05 WBC (4.5-11.0) K/uL RBC (3.30-5.50) M/uL Hgb (12.0-15.0) g/dL Hct (36.0-48.0) % MCV (80-98) fL MCH (27-31) pg MCHC (32-36) % Plt Count (150-400) K/uL Neut % (Auto) (36-66) % Lymph % (Auto) (24-44) % Lake % (Auto) (2-6) % Eos % (Auto) (2-4) % Baso % (Auto) (0-1) % PT 23.4 H (9.5-12.0) sec INR 2.23 H (0.80-1.20) Sodium (140-148) mmol/L Potassium (3.6-5.2) mmol/L Chloride (100-108) mmol/L Carbon Dioxide (21-32) mmol/L Anion Gap (5.0-14.0) mmol/L BUN (7-18) mg/dL Creatinine (0.6-1.0) mg/dL Est Cr Clr Drug Dosing mL/min Estimated GFR (MDRD) (>60) Glucose (74-106) mg/dL Lactic Acid (0.4-2.0) mmol/L Calcium (8.5-10.1) mg/dL Magnesium (1.8-2.4) mg/dL Total Bilirubin (0.2-1.0) mg/dL AST (15-37) U/L ALT (12-78) U/L Alkaline Phosphatase (46-116) U/L Troponin I (0.000-0.056) ng/mL Total Protein (6.4-8.2) g/dL Albumin (3.4-5.0) g/dL Globulin (2.3-3.5) g/dL Albumin/Globulin Ratio (1.2-2.2) Urine Color Yellow Urine Appearance Cloudy Urine pH 6.0 (4.5-8.0) Ur Specific [place] 1.010 (1.008-1.030) Urine Protein Negative (NEGATIVE) mg/dL Urine Glucose (UA) Normal (NEGATIVE) mg/dL Urine Ketones Negative (NEGATIVE) mg/dL Urine Occult Blood Trace (NEGATIVE) Urine Nitrite Negative (NEGATIVE) Urine Bilirubin Moderate (NEGATIVE) Urine Urobilinogen 4 (NORMAL) mg/dL Ur Leukocyte Esterase Moderate (NEGATIVE) Urine RBC 0-5 (0-5) Urine WBC 10-20 H (0-5) Ur Epithelial Cells Few Amorphous Sediment Rare Urine Bacteria Many Urine Mucus Few Meds: Medications Discontinued Medications Generic Name Dose Route Start Last Admin Trade Name Freq PRN Reason Stop Dose Admin Diltiazem HCl 20 mg 01/30/19 20:00 01/30/19 20:27 Diltiazem IVPUSH 01/30/19 20:01 20 mg ONETIME ONE Administration Sodium Chloride 1,000 mls @ 125 mls/hr 01/30/19 20:15 01/30/19 20:27 Normal Saline IV 125 mls/hr ASDIRECTED HAMZAH Administration Sodium Chloride 10 ml 01/30/19 20:02 01/30/19 20:27 Saline Flush FLUSH 10 ml ASDIRECTED PRN Administration Keep Vein Open - Radiology Interpretation Free Text/Narrative:: Chest x-ray is normal. - Re-Assessments/Exams Free Text/Narrative Re-Assessment/Exam: 01/30/19 22:20 Diltiazem 20 mg IV was administered and she had improvement of her rate which dropped down into the 70s and 80s and she felt much improved. Labs were pretty much were unremarkable. Her INR is therapeutic. She was able to get up and walked bathroom without any problem Departure - Departure Time of Disposition: 22:30 Disposition: Home, Self-Care 01 Condition: Good Clinical Impression: Atrial fibrillation with rapid ventricular response, UTI (urinary tract infection) - Discharge Information *PRESCRIPTION DRUG MONITORING PROGRAM REVIEWED*: No *COPY OF PRESCRIPTION DRUG MONITORING REPORT IN PATIENT EMILY: No Instructions: Asymptomatic Bacteriuria, Atrial Fibrillation Referrals: Larissa Nolasco CNM [Primary Care Provider] - Forms: ED Department Discharge Additional Instructions: Patient will be discharged home at this time with her daughter and she will be observed by her family. She will follow-up with her primary care provider tomorrow for a reevaluation of her EKG and heart rate. Return if there is any acute worsening of symptoms. Care Plan Goals: Follow-up with primary care provider tomorrow. Return if any acute symptoms recur. Bactrim prescribed for urinary tract infection. - Problem List & Annotations (1) Atrial fibrillation with RVR SNOMED Code(s): 995992074245454 Code(s): I48.91 - UNSPECIFIED ATRIAL FIBRILLATION Status: Acute Priority : High - Problem List Review Problem List Initiated/Reviewed/Updated: Yes - My Orders Last 24 Hours: My Active Orders 01/30/19 19:55 EKG 12 Lead [EK] Urgent 01/30/19 19:57 EKG Documentation Completion [RC] ASDIRECTED 01/30/19 20:02 Saline Lock Insert [OM.PC] Routine - Assessment/Plan Last 24 Hours: My Active Orders 01/30/19 19:55 EKG 12 Lead [EK] Urgent 01/30/19 19:57 EKG Documentation Completion [RC] ASDIRECTED 01/30/19 20:02 Saline Lock Insert [OM.PC] Routine Plan: Patient is feeling much better after rate control using diltiazem. She was asking to go home at this time. She lives with her grandson who takes care of her and feels comfortable in doing this. Her daughter has also arrived and has agreed to help. She will be following up with her primary care provider tomorrow.
--- NOTE | 2019-01-30 20:48 | CRLCR ---
Indication: Weakness Technique: Chest 1 view Comparison: January 16, 2019 Findings/Impression: Stable cardiomegaly. Dual lead left-sided pacemaker appears intact. Normal pulmonary vasculature. No focal infiltrate, effusion, or pneumothorax. Levoscoliosis. Dictated by Nayla Moody MD @ Jan 30 2019 8:44PM Signed by Dr. Nayla Moody @ Jan 30 2019 8:45PM
[2019-01-30 22:28] VITALS: BP 119/59
== END 2019-01-30 22:46 | disposition home or self-care (01) ==
LOC: JP.ED 18:37
DX: I48.91 Unspecified atrial fibrillation (principal); N39.0 Urinary tract infection, site not specified; I11.0 Hypertensive heart disease with heart failure; I50.9 Heart failure, unspecified; I25.2 Old myocardial infarction; K21.9 Gastro-esophageal reflux disease without esophagitis; E03.9 Hypothyroidism, unspecified; Z88.8 Allergy status to other drugs, medicaments and biological substances; Z88.5 Allergy status to narcotic agent; Z79.82 Long term (current) use of aspirin; Z79.899 Other long term (current) drug therapy
CPT/HCPCS: 36415; 71045; 80053; 81001; 83605; 83735; 84484; 85025; 85610; 93005; 96374; 99284; J3490; J7030

== ENCOUNTER 2019-03-09 10:40 | Emergency (ER) | payer MEDICARE ==
[2019-03-09] MEDS ORDERED: Diltiazem IR 30 MG Tab PO ONE (11:19)
--- NOTE | 2019-03-09 13:39 | EDM.PDOC ---
ED HPI GENERAL MEDICAL PROBLEM - General Chief Complaint: Cardiovascular Problem Stated Complaint: CHEST PAINS, LOW BP, HIGH PULSE Time Seen by Provider: 03/09/19 11:00 Source of Information: Reports: Patient History Limitations: Reports: No Limitations - History of Present Illness INITIAL COMMENTS - FREE TEXT/NARRATIVE: This lady comes in because of an episode of rapid heart rate and chest pain. She said her heart rate went up to about 135 on her blood pressure monitor and that stayed up for about 4 hours. She felt a little bit short of breath eventually she had chest pain for about 10 minutes but took some nitroglycerin and it went away. She also had a headache after the nitroglycerin. She said she' s been getting little twinges of chest pain for a couple of days with a just last little while. She has a pacemaker and said recently it was tested and the battery is somewhere between empty and 09/24 of atank. She is scheduled to have the pacemaker generator replaced in the very near future as well as an ablation. Next by the cardiology clinic in [place]. Her Dr. there is Dr. Ace. She also thinks she might have a bladder infection. - Related Data Allergies Allergy/AdvReac Type Severity Reaction Status Date / Time atropine [From Lomotil] Allergy Rash Verified 03/09/19 10:49 Beta-Adrenergic Agents Allergy Dizziness Verified 03/09/19 10:49 diphenoxylate [From Lomotil] Allergy Rash Verified 03/09/19 10:49 polyester fibers Allergy Hives Verified 03/09/19 10:49 procaine Allergy Cannot Verified 03/09/19 10:49 Remember rosuvastatin Allergy Cannot Verified 03/09/19 10:49 Remember lidocaine AdvReac Arrhythmias Verified 03/09/19 10:49 metoprolol AdvReac Arrhythmias Verified 03/09/19 10:49 Home Meds: Home Meds Ascorbic Acid [Vitamin C] 500 mg PO BEDTIME 04/11/14 [History] Meclizine [Antivert] 25 mg PO TID PRN 04/11/14 [History] Multivitamin [Multi-Vitamin Daily] 1 each PO BEDTIME 04/11/14 [History] Vitamin B Complex 1 each PO BEDTIME 04/11/14 [History] Warfarin [Coumadin] 2.5 mg PO ASDIRECTED 04/11/14 [History] traMADol [Ultram] 50 mg PO Q8H PRN 11/30/14 [History] Nitroglycerin [Nitrostat] 0.4 mg PO ASDIRECTED 12/30/14 [History] Warfarin [Coumadin] 5 mg PO ASDIRECTED 12/30/14 [History] Gabapentin [Neurontin] 300 mg PO TID 02/14/16 [History] Bumetanide [Bumex] 1 mg PO BID 02/17/16 [History] Levothyroxine [Synthroid] 100 mcg PO DAILY 09/03/17 [History] Oxybutynin 5 mg PO TID 09/03/17 [History] Aspirin 81 mg PO DAILY 04/09/18 [History] Cholecalciferol (Vitamin D3) [Cholecalciferol] 400 mg PO DAILY 04/09/18 [History ] Clotrimazole/Betamethasone Dip [Lotrisone Cream] 1 film TOP BID 04/09/18 [ History] Diclofenac Sodium [Voltaren] 4 gr TOP QID 04/09/18 [History] Diltiazem HCl [Cardizem Cd] 240 mg PO QPM 04/09/18 [History] Fluticasone Propionate [Flonase] 2 spray NASBOTH DAILY 04/09/18 [History] Lisinopril 2.5 mg PO ASDIRECTED 01/28/19 [History] Omeprazole 40 mg PO ACBREAKFAST 01/30/19 [History] tiZANidine [Zanaflex] 4 mg PO Q8H PRN 01/30/19 [History] Past Medical History HEENT History: Reports: Allergic Rhinitis, Cataract, Hard of Hearing, Impaired Vision Other HEENT History: left cataract Cardiovascular History: Reports: Afib, Heart Failure, Hypertension, [place], Pacemaker, Pulmonary Hypertension Other Cardiovascular History: mitral regurgitation Respiratory History: Reports: SOB, Other (See Below) Other Respiratory History: home O2 at night Gastrointestinal History: Reports: GERD, GI Bleed, PUD Other Gastrointestinal History: esophageal stricture Genitourinary History: Reports: Renal Disease, Urinary Incontinence, UTI, Recurrent Other Genitourinary History: incontinence 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: , 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 Musculoskeletal History: Reports: Arthritis, Back Pain, Chronic, Fracture, Osteoarthritis Other Musculoskeletal History: DJD Neurological History: Reports: CVA, Migraines, TIA Other Neuro History: hemorrhagic, compression fracture of L1, 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 Endocrine/Metabolic History: Reports: Hypothyroidism, Obesity/BMI 30+, Vitamin D Deficiency Hematologic History: Reports: Anemia, Anticoagulation Therapy Oncologic (Cancer) History: Reports: Malignant Melanoma, Other (See Below) Other Oncologic History: skin cancer on nose Dermatologic History: Reports: Melanoma Other Dermatologic History: allergy to polyester - Infectious Disease History Infectious Disease History: Reports: Chicken Pox, Measles, Mumps - Past Surgical History HEENT Surgical History: Reports: Cataract Surgery Cardiovascular Surgical History: Reports: Pacer GI Surgical History: Reports: Colonoscopy, EGD, Hernia, Abdominal Endocrine Surgical History: Reports: None Musculoskeletal Surgical History: Reports: Knee Replacement, Other (See Below) Other Musculoskeletal Surgeries/Procedures:: bilateral knees replaced Social & Family History - Family History Family Medical History: Noncontributory - Tobacco Use Smoking Status *Q: Never Smoker - Caffeine Use Caffeine Use: Reports: Coffee, Soda - Recreational Drug Use Recreational Drug Use: No - Living Situation & Occupation Living situation: Reports: Single, with Family (lives in [facility], with 2 Grandsons. One Grandson has schizophrenia) ED ROS GENERAL - Review of Systems Review Of Systems: See Below Constitutional: Reports: No Symptoms HEENT: Reports: No Symptoms Respiratory: Reports: Shortness of Breath (Brief shortness of breath) Cardiovascular: Reports: Chest Pain, Palpitations Endocrine: Reports: No Symptoms GI/Abdominal: Reports: No Symptoms : Reports: No Symptoms ED EXAM, GENERAL - Physical Exam Exam: See Below Exam Limited By: No Limitations General Appearance: Alert, No Apparent Distress, Thin Eye Exam: Bilateral Eye: Normal Inspection Ears: Normal External Exam Nose: Normal Inspection Throat/Mouth: Normal Oropharynx Head: Atraumatic Neck: Normal Inspection Respiratory/Chest: Lungs Clear Cardiovascular: Normal Peripheral Pulses, Tachycardia, Irregularly Irregular, Other (She appears to be in atrial fibrillation or atrial flutter and the right ranges from about 110s to 115 sometimes a little higher.) GI/Abdominal: Soft, Non-Tender Extremities: Normal Inspection Neurological: Alert, Oriented, CN II-XII Intact, No Motor/Sensory Deficits Psychiatric: Normal Affect Skin Exam: Warm, Dry Course - Vital Signs Last Recorded V/S: Last Vital Signs Temp 36.3 C 03/09/19 10:44 Pulse 120 H 03/09/19 10:44 Resp 16 03/09/19 10:44 BP 135/68 03/09/19 10:44 Pulse Ox 91 L 03/09/19 10:44 - Orders/Labs/Meds Orders: Active Orders 24 hr Category Date Time Status EKG Documentation Completion [RC] ASDIRECTED Care 03/09/19 11:14 Active EKG 12 Lead [EK] Urgent Ther 03/09/19 11:14 Ordered Labs: Laboratory Tests 03/09/19 03/09/19 03/09/19 Range/Units 11:25 11:25 11:25 WBC 5.7 (4.5-11.0) K/uL RBC 4.22 (3.30-5.50) M/uL Hgb 12.5 (12.0-15.0) g/dL Hct 39.1 (36.0-48.0) % MCV 93 (80-98) fL MCH 30 (27-31) pg MCHC 32 (32-36) % Plt Count 204 (150-400) K/uL Neut % (Auto) 66 (36-66) % Lymph % (Auto) 17 L (24-44) % [place] % (Auto) 12 H (2-6) % Eos % (Auto) 5 H (2-4) % Baso % (Auto) 1 (0-1) % PT 34.8 H (9.5-12.0) sec INR 3.39 H (0.80-1.20) Sodium 142 (140-148) mmol/L Potassium 3.5 L (3.6-5.2) mmol/L Chloride 102 (100-108) mmol/L Carbon Dioxide 34 H (21-32) mmol/L Anion Gap 9.5 (5.0-14.0) mmol/L BUN 24 H (7-18) mg/dL Creatinine 1.4 H (0.6-1.0) mg/dL Est Cr Clr Drug Dosing 28.60 mL/min Estimated GFR (MDRD) 36 L (>60) Glucose 100 (74-106) mg/dL Calcium 8.8 (8.5-10.1) mg/dL Total Bilirubin 0.6 (0.2-1.0) mg/dL AST 26 (15-37) U/L ALT 30 (12-78) U/L Alkaline Phosphatase 105 (46-116) U/L Troponin I < 0.017 (0.000-0.056) ng/mL Total Protein 6.7 (6.4-8.2) g/dL Albumin 3.1 L (3.4-5.0) g/dL Globulin 3.6 H (2.3-3.5) g/dL Albumin/Globulin Ratio 0.9 L (1.2-2.2) Urine Color Urine Appearance Urine pH (4.5-8.0) Ur Specific [place] (1.008-1.030) Urine Protein (NEGATIVE) mg/dL Urine Glucose (UA) (NEGATIVE) mg/dL Urine Ketones (NEGATIVE) mg/dL Urine Occult Blood (NEGATIVE) Urine Nitrite (NEGATIVE) Urine Bilirubin (NEGATIVE) Urine Urobilinogen (NORMAL) mg/dL Ur Leukocyte Esterase (NEGATIVE) Urine RBC (0-5) Urine WBC (0-5) Ur Epithelial Cells Amorphous Sediment Urine Bacteria Urine Mucus 03/09/19 Range/Units 11:47 WBC (4.5-11.0) K/uL RBC (3.30-5.50) M/uL Hgb (12.0-15.0) g/dL Hct (36.0-48.0) % MCV (80-98) fL MCH (27-31) pg MCHC (32-36) % Plt Count (150-400) K/uL Neut % (Auto) (36-66) % Lymph % (Auto) (24-44) % [place] % (Auto) (2-6) % Eos % (Auto) (2-4) % Baso % (Auto) (0-1) % PT (9.5-12.0) sec INR (0.80-1.20) Sodium (140-148) mmol/L Potassium (3.6-5.2) mmol/L Chloride (100-108) mmol/L Carbon Dioxide (21-32) mmol/L Anion Gap (5.0-14.0) mmol/L BUN (7-18) mg/dL Creatinine (0.6-1.0) mg/dL Est Cr Clr Drug Dosing mL/min Estimated GFR (MDRD) (>60) Glucose (74-106) mg/dL Calcium (8.5-10.1) mg/dL Total Bilirubin (0.2-1.0) mg/dL AST (15-37) U/L ALT (12-78) U/L Alkaline Phosphatase (46-116) U/L Troponin I (0.000-0.056) ng/mL Total Protein (6.4-8.2) g/dL Albumin (3.4-5.0) g/dL Globulin (2.3-3.5) g/dL Albumin/Globulin Ratio (1.2-2.2) Urine Color Yellow Urine Appearance Slightly cloudy Urine pH 6.0 (4.5-8.0) Ur Specific [place] 1.005 L (1.008-1.030) Urine Protein Negative (NEGATIVE) mg/dL Urine Glucose (UA) Normal (NEGATIVE) mg/dL Urine Ketones Negative (NEGATIVE) mg/dL Urine Occult Blood Negative (NEGATIVE) Urine Nitrite Negative (NEGATIVE) Urine Bilirubin Negative (NEGATIVE) Urine Urobilinogen Normal (NORMAL) mg/dL Ur Leukocyte Esterase Small (NEGATIVE) Urine RBC 0-5 (0-5) Urine WBC 0-5 (0-5) Ur Epithelial Cells Not seen Amorphous Sediment Moderate Urine Bacteria Rare Urine Mucus Rare Meds: Medications Discontinued Medications Generic Name Dose Route Start Last Admin Trade Name Freq PRN Reason Stop Dose Admin Diltiazem HCl 60 mg 03/09/19 11:19 03/09/19 11:35 Cardizem PO 03/09/19 11:20 60 mg ONETIME ONE Administration - Re-Assessments/Exams Free Text/Narrative Re-Assessment/Exam: 03/09/19 13:35 Initial EKG showed atrial flutter at 109 bpm with some borderline ST changes laterally. Labs were done and I just gave her Cardizem immediate release 60 mg orally. She normally takes Cardizem CD 240 mg at night. The purpose here was just again a little bit more control over her heart rate. IV medications does not appear to be indicated. I continue to observe her but it made little difference in her heart rate then suddenly she switched to a ventricular paced rhythm running at about 110 bpm. She did maintain a good pulse during that rhythm. It has switched back and forth from the ventricular paced rhythm to her previous atrial flutter rhythm. I spoke briefly with Dr. Hurd in [place] and he thinks that the pacemaker is malfunctioning. I then spoke with the the nurse test kitchen home economist at the [facility] in [place] and the patient has been sick accepted in transfer there to the services of with direct admission to the telemetry unit. The patient is stable at time of transport but she still is in and out of a ventricular paced rhythm versus atrial flutter rhythm at about 110 to 112 bpm. Departure - Departure Time of Disposition: 13:39 Disposition: DC/Tfer to Acute Hospital 02 Reason for Transfer *Q: Other (Pacemaker generator replacement) Condition: Serious Clinical Impression: Malfunction of generator of cardiac pacemaker Referrals: Nayla Grant MD [Primary Care Provider] - - My Orders Last 24 Hours: My Active Orders 03/09/19 11:14 EKG Documentation Completion [RC] ASDIRECTED EKG 12 Lead [EK] Urgent - Assessment/Plan Last 24 Hours: My Active Orders 03/09/19 11:14 EKG Documentation Completion [RC] ASDIRECTED EKG 12 Lead [EK] Urgent
[2019-03-09 15:28] VITALS: BP 111/60
== END 2019-03-09 16:01 ==
LOC: JP.ED 10:40
DX: T82.111A Breakdown (mechanical) of cardiac pulse generator (battery), initial encounter (principal); I48.91 Unspecified atrial fibrillation; I11.0 Hypertensive heart disease with heart failure; I50.9 Heart failure, unspecified; K21.9 Gastro-esophageal reflux disease without esophagitis; E03.9 Hypothyroidism, unspecified; E66.9 Obesity, unspecified; I25.2 Old myocardial infarction; Z88.8 Allergy status to other drugs, medicaments and biological substances; Z79.899 Other long term (current) drug therapy; Z79.01 Long term (current) use of anticoagulants; Z95.0 Presence of cardiac pacemaker; Z86.73 Personal history of transient ischemic attack (TIA), and cerebral infarction without residual deficits; Z68.27 Body mass index [BMI] 27.0-27.9, adult; Y83.8 Other surgical procedures as the cause of abnormal reaction of the patient, or of later complication, without mention of misadventure at the time of the procedure; Z79.82 Long term (current) use of aspirin
CPT/HCPCS: 36415; 80053; 81001; 84484; 85025; 85610; 93005; 99285; A9270; 93010

== ENCOUNTER 2019-03-14 07:26 | Emergency (ER) | payer MEDICARE ==
--- NOTE | 2019-03-14 09:01 | EDM.PDOC ---
ED HPI GENERAL MEDICAL PROBLEM - General Chief Complaint: Cardiovascular Problem Stated Complaint: MEDICAL VIA [facility] Time Seen by Provider: 03/14/19 07:40 Source of Information: Reports: Patient, EMS, Family History Limitations: Reports: No Limitations - History of Present Illness INITIAL COMMENTS - FREE TEXT/NARRATIVE: 78-year-old female brought in by ambulance from [facility] with tachycardia and mild chest discomfort. She was just discharged from the hospital 2 days ago with ongoing atrial fib flutter and is scheduled for an ablation on 26 March. When she is in atrial fibrillation her rate is controlled but is tachycardic went in atrial flutter. This morning she woke with chest pressure, palpitations and mild pain in the upper right chest into her neck. No significant shortness of breath. She was found to be tachycardic so sent him to the emergency room for evaluation. On arrival she was found to be in atrial flutter with a rate of 145 which was very consistent. She did not receive her morning medications. Onset: Unknown/Unsure (Symptoms and flutter must have started sometime in the night) Associated Symptoms: Reports: Other (Some mild chest pressure, neck discomfort and general malaise) - Related Data Allergies Allergy/AdvReac Type Severity Reaction Status Date / Time atropine [From Lomotil] Allergy Rash Verified 03/14/19 07:40 Beta-Adrenergic Agents Allergy Dizziness Verified 03/14/19 07:40 diphenoxylate [From Lomotil] Allergy Rash Verified 03/14/19 07:40 polyester fibers Allergy Hives Verified 03/14/19 07:40 procaine Allergy Cannot Verified 03/14/19 07:40 Remember rosuvastatin Allergy Cannot Verified 03/14/19 07:40 Remember lidocaine AdvReac Arrhythmias Verified 03/14/19 07:40 metoprolol AdvReac Arrhythmias Verified 03/14/19 07:40 Home Meds: Home Meds Ascorbic Acid [Vitamin C] 500 mg PO BEDTIME 04/11/14 [History] Meclizine [Antivert] 25 mg PO TID PRN 04/11/14 [History] Multivitamin [Multi-Vitamin Daily] 1 each PO BEDTIME 04/11/14 [History] Vitamin B Complex 1 each PO BEDTIME 04/11/14 [History] Warfarin [Coumadin] 2.5 mg PO ASDIRECTED 04/11/14 [History] traMADol [Ultram] 50 mg PO Q8H PRN 11/30/14 [History] Nitroglycerin [Nitrostat] 0.4 mg PO ASDIRECTED 12/30/14 [History] Warfarin [Coumadin] 5 mg PO ASDIRECTED 12/30/14 [History] Gabapentin [Neurontin] 300 mg PO TID 02/14/16 [History] Bumetanide [Bumex] 1 mg PO BID 02/17/16 [History] Levothyroxine [Synthroid] 100 mcg PO DAILY 09/03/17 [History] Oxybutynin 5 mg PO TID 09/03/17 [History] Aspirin 81 mg PO DAILY 04/09/18 [History] Cholecalciferol (Vitamin D3) [Cholecalciferol] 1,000 mg PO DAILY 04/09/18 [ History] Clotrimazole/Betamethasone Dip [Lotrisone Cream] 1 film TOP BID 04/09/18 [ History] Diclofenac Sodium [Voltaren] 4 gr TOP QID 04/09/18 [History] Diltiazem HCl [Cardizem Cd] 180 mg PO QAM 04/09/18 [History] Fluticasone Propionate [Flonase] 2 spray NASBOTH DAILY 04/09/18 [History] Lisinopril 2.5 mg PO ASDIRECTED 01/28/19 [History] Omeprazole 40 mg PO ACBREAKFAST 01/30/19 [History] tiZANidine [Zanaflex] 4 mg PO Q8H PRN 01/30/19 [History] Magnesium Oxide [Magnesium Oxide 400] 241.3 mg PO 03/14/19 [History] Metoclopramide [Reglan] 5 mg PO QID 03/14/19 [History] Past Medical History HEENT History: Reports: Allergic Rhinitis, Cataract, Hard of Hearing, Impaired Vision Other HEENT History: left cataract Cardiovascular History: Reports: Afib, Heart Failure, Hypertension, [place], Pacemaker, Pulmonary Hypertension Other Cardiovascular History: mitral regurgitation Respiratory History: Reports: SOB, Other (See Below) Other Respiratory History: home O2 at night Gastrointestinal History: Reports: GERD, GI Bleed, PUD Other Gastrointestinal History: esophageal stricture Genitourinary History: Reports: Renal Disease, Urinary Incontinence, UTI, Recurrent Other Genitourinary History: incontinence 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: , 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 Musculoskeletal History: Reports: Arthritis, Back Pain, Chronic, Fracture, Osteoarthritis Other Musculoskeletal History: DJD Neurological History: Reports: CVA, Migraines, TIA Other Neuro History: hemorrhagic, compression fracture of L1, 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 Endocrine/Metabolic History: Reports: Hypothyroidism, Obesity/BMI 30+, Vitamin D Deficiency Hematologic History: Reports: Anemia, Anticoagulation Therapy Oncologic (Cancer) History: Reports: Malignant Melanoma, Other (See Below) Other Oncologic History: skin cancer on nose Dermatologic History: Reports: Melanoma Other Dermatologic History: allergy to polyester - Infectious Disease History Infectious Disease History: Reports: Chicken Pox, Measles, Mumps - Past Surgical History HEENT Surgical History: Reports: Cataract Surgery Cardiovascular Surgical History: Reports: Pacer GI Surgical History: Reports: Colonoscopy, EGD, Hernia, Abdominal Musculoskeletal Surgical History: Reports: Knee Replacement, Other (See Below) Other Musculoskeletal Surgeries/Procedures:: bilateral knees replaced Social & Family History - Family History Family Medical History: Noncontributory - Tobacco Use Smoking Status *Q: Never Smoker Second Hand Smoke Exposure: No - Caffeine Use Caffeine Use: Reports: Coffee, Soda Other Caffeine Use: pop per day - Recreational Drug Use Recreational Drug Use: No - Living Situation & Occupation Living situation: Reports: Single, with Family (lives in [facility], with 2 Grandsons. One Grandson has schizophrenia) ED ROS GENERAL - Review of Systems Review Of Systems: See Below Constitutional: Reports: Malaise. Denies: Fever, Chills HEENT: Denies: Vision Change Respiratory: Reports: Shortness of Breath Cardiovascular: Reports: Chest Pain, Dyspnea on Exertion, Palpitations GI/Abdominal: Denies: Abdominal Pain, Nausea, Vomiting : Reports: No Symptoms Skin: Reports: No Symptoms Neurological: Denies: Headache ED EXAM, GENERAL - Physical Exam Exam: See Below Exam Limited By: No Limitations General Appearance: Alert, No Apparent Distress Eye Exam: Bilateral Eye: Normal Inspection Head: Atraumatic Neck: Normal Inspection Respiratory/Chest: No Respiratory Distress, Lungs Clear Cardiovascular: Regular Rate, Rhythm, No Murmur, Tachycardia GI/Abdominal: Non-Tender Extremities: No: Pedal Edema Neurological: Alert, Oriented Psychiatric: Normal Affect, Normal Mood Skin Exam: Warm, Dry EKG INTERPRETATION EKG Date: 03/14/19 Rhythm: A-Flutter Rate (Beats/Min): 145 Course - Vital Signs Last Recorded V/S: Last Vital Signs Temp 97.6 F 03/14/19 07:36 Pulse 96 03/14/19 09:49 Resp 15 03/14/19 09:49 BP 123/67 03/14/19 09:49 Pulse Ox 91 L 03/14/19 09:49 - Orders/Labs/Meds Orders: Active Orders 24 hr Category Date Time Status EKG Documentation Completion [RC] ASDIRECTED Care 03/14/19 07:44 Active EKG Documentation Completion [RC] ASDIRECTED Care 03/14/19 09:47 Active EKG 12 Lead [EK] Routine Ther 03/14/19 07:43 Ordered EKG 12 Lead [EK] Routine Ther 03/14/19 09:47 Ordered Labs: Laboratory Tests 03/14/19 03/14/19 03/14/19 Range/Units 07:50 07:50 07:50 WBC 7.8 (4.5-11.0) K/uL RBC 4.81 (3.30-5.50) M/uL Hgb 13.8 (12.0-15.0) g/dL Hct 44.3 (36.0-48.0) % MCV 92 (80-98) fL MCH 29 (27-31) pg MCHC 31 L (32-36) % Plt Count 248 (150-400) K/uL Neut % (Auto) 72 H (36-66) % Lymph % (Auto) 13 L (24-44) % [place] % (Auto) 11 H (2-6) % Eos % (Auto) 4 (2-4) % Baso % (Auto) 1 (0-1) % PT 10.9 (9.5-12.0) sec INR 0.99 (0.80-1.20) Sodium 142 (140-148) mmol/L Potassium 3.9 (3.6-5.2) mmol/L Chloride 103 (100-108) mmol/L Carbon Dioxide 30 (21-32) mmol/L Anion Gap 9.4 (5.0-14.0) mmol/L BUN 18 (7-18) mg/dL Creatinine 1.2 H (0.6-1.0) mg/dL Est Cr Clr Drug Dosing 28.45 mL/min Estimated GFR (MDRD) 43 L (>60) Glucose 111 H (74-106) mg/dL Calcium 9.2 (8.5-10.1) mg/dL Troponin I < 0.017 (0.000-0.056) ng/mL Meds: Medications Discontinued Medications Generic Name Dose Route Start Last Admin Trade Name Scarlett PRN Reason Stop Dose Admin Diltiazem HCl 20 mg 03/14/19 09:24 03/14/19 09:32 Diltiazem IVPUSH 03/14/19 09:25 20 mg ONETIME ONE Administration Diltiazem HCl 180 mg 03/14/19 09:43 03/14/19 09:48 Cardizem Cd PO 03/14/19 09:44 180 mg ONETIME ONE Administration - Re-Assessments/Exams Free Text/Narrative Re-Assessment/Exam: 03/14/19 10:02 Initial monitor showed atrial flutter with a rate of 145-149. This was confirmed with EKG. Records were obtained from [place], and it appeared when discharged she was not in a tachycardia. She is scheduled for an ablation on the . A CBC, BMP, troponin and INR were obtained. INR returned at 0.99, but she did receive vitamin K in [place] and just resumed Coumadin last evening. Electrocardioversion is not an option. CBC BMP and troponin returned reassuring troponin was 0. At that point she was given 20 mg of IV Cardizem which converted her into atrial fibrillation with an excellent rate. Rate was around 100. Her symptoms did improve, the change was documented with EKG. She was given her 180 mg of oral Cardizem. 03/14/19 10:10 Patient was discharged still in the atrial fibrillation with a rate between 95 and 102. She was more comfortable. Departure - Departure Time of Disposition: 10:27 Disposition: DC/Tfer to [facility] 63 Reason for Transfer *Q: Other Clinical Impression: Atrial fibrillation and flutter, Tachycardia Instructions: Atrial Flutter Referrals: Chauncey Pollard MD [Primary Care Provider] - Forms: ED Department Discharge Care Plan Goals: Continue current medications, return to ER if persistent tachycardia recurs. If patient wakes in the morning with tachycardia, give her the regular Cardizem dose and send to the emergency room if she does not improve over the next 1-2 hours. - My Orders Last 24 Hours: My Active Orders 03/14/19 07:43 EKG 12 Lead [EK] Routine 03/14/19 07:44 EKG Documentation Completion [RC] ASDIRECTED 03/14/19 09:47 EKG Documentation Completion [RC] ASDIRECTED EKG 12 Lead [EK] Routine - Assessment/Plan Last 24 Hours: My Active Orders 03/14/19 07:43 EKG 12 Lead [EK] Routine 03/14/19 07:44 EKG Documentation Completion [RC] ASDIRECTED 03/14/19 09:47 EKG Documentation Completion [RC] ASDIRECTED EKG 12 Lead [EK] Routine
[2019-03-14] MEDS ORDERED: Diltiazem 25 MG/5 ML SDV IVPUSH ONE (09:24)
[2019-03-14] MEDS ORDERED: Diltiazem 180 MG Cap.CD PO ONE (09:43)
[2019-03-14 09:50] VITALS: BP 123/67
== END 2019-03-14 10:27 ==
LOC: JP.ED 07:26
DX: I48.91 Unspecified atrial fibrillation (principal); I48.92 Unspecified atrial flutter; I25.2 Old myocardial infarction; I27.22 Pulmonary hypertension due to left heart disease; I34.0 Nonrheumatic mitral (valve) insufficiency; K21.9 Gastro-esophageal reflux disease without esophagitis; E03.9 Hypothyroidism, unspecified; E55.9 Vitamin D deficiency, unspecified; E66.9 Obesity, unspecified; Z68.30 Body mass index [BMI] 30.0-30.9, adult; Z86.73 Personal history of transient ischemic attack (TIA), and cerebral infarction without residual deficits; Z88.8 Allergy status to other drugs, medicaments and biological substances; Z91.09 Other allergy status, other than to drugs and biological substances; Z79.01 Long term (current) use of anticoagulants; Z79.82 Long term (current) use of aspirin; Z79.899 Other long term (current) drug therapy; Z95.0 Presence of cardiac pacemaker
CPT/HCPCS: 36415; 80048; 84484; 85025; 85610; 93005; 96374; 99284; 99285; A9270; J3490

== ENCOUNTER 2019-09-12 05:26 | Day surgery (SDC) | payer MEDICARE ==
[2019-09-12] MEDS ORDERED: Dextrose 5%-Lactated Ringers 1,000 ML IV SCH (06:30)
[2019-09-12] MEDS ORDERED: fentaNYL 100 MCG/2 ML SDV ONE (07:00)
[2019-09-12] MEDS ORDERED: Propofol 200 MG/20 ML SDV ONE (07:00)
[2019-09-12 08:55] VITALS: BP 123/81; PULSE 81
--- NOTE | 2019-09-22 11:03 | OR ---
DATE OF PROCEDURE: 09/12/2019 SURGEON: Reddy Yo MD PREOPERATIVE DIAGNOSIS: Continued epigastric pain and early satiety with known previous gastric bezoar. POSTOPERATIVE DIAGNOSIS: Persistent large gastric bezoar. OPERATIVE PROCEDURE: Esophagogastroduodenoscopy with antral biopsies for RUDOLPH test. ANESTHESIA: IV sedation. INDICATION FOR PROCEDURE: A 79-year-old female presenting with ongoing epigastric discomfort, some heartburn, and a sense of early satiety. The patient is known to have a bezoar and was scheduled to have repeat endoscopy at this time to see to what extent that has been cleared. She was started on an anti-bezoar diet and also being maintained on omeprazole 40 mg a day. Potential risks of the procedure including bleeding and perforation were discussed, and the patient wishes to proceed. DETAILS OF PROCEDURE: The patient was taken to the operating room and placed in a left lateral decubitus position. IV sedation was administered, after which the upper GI endoscope was passed orally through the length of the esophagus into the stomach with retroflexion view of the fundus, and thereafter, through the pyloric channel into the junction of the third and fourth portions of the duodenum. Findings included normal hypopharynx, larynx, upper esophageal sphincter, and esophageal body. At the EG junction, there was no significant inflammation or signs of neoplastic changes. Within the stomach, the patient continued to have a large gastric bezoar consisting of old vegetable matter and other food substances. There was some redness along the edges of the bezoar site and the adjacent mucosa, as well as the antrum, but no erosions or ulcers were seen. The pyloric channel and proximal duodenum were unremarkable. At this point, biopsies were taken from the antrum and sent for RUDOLPH test for H pylori. No bleeding from the biopsy sites was seen, and the procedure was then concluded. At this point, we will have Dietary review the anti-bezoar diet with the patient and any available family, as well as [facility], which is the patient's assisted-living facility. We will add Zithromax 1/2 tab of 250 mg tablet, i.e. 125 mg a day to augment gastric emptying as well, and we will plan to repeat the upper endoscopy in 2 months. Reddy Yo MD /[id number]
== END 2019-09-12 09:45 | disposition home or self-care (01) ==
LOC: JP.SDS 05:26
PROVIDERS: ATTEND Surgery
DX: T18.2XXA Foreign body in stomach, initial encounter (principal); I13.0 Hypertensive heart and chronic kidney disease with heart failure and stage 1 through stage 4 chronic kidney disease, or unspecified chronic kidney disease; N18.9 Chronic kidney disease, unspecified; I50.9 Heart failure, unspecified; I25.10 Atherosclerotic heart disease of native coronary artery without angina pectoris; K21.9 Gastro-esophageal reflux disease without esophagitis; X58.XXXA Exposure to other specified factors, initial encounter; Z86.73 Personal history of transient ischemic attack (TIA), and cerebral infarction without residual deficits; Z79.899 Other long term (current) drug therapy
CPT/HCPCS: 43239; 87081; J2704; J3010; J7121

== ENCOUNTER 2019-10-20 16:46 | Observation (INO) | payer MEDICARE ==
[2019-10-20] MEDS ORDERED: Sodium Chloride 0.9% 10 ML Syringe FLUSH PRN (16:52)
[2019-10-20] MEDS ORDERED: Acetaminophen 325 MG Tab PO PRN (16:52)
[2019-10-20] MEDS ORDERED: Ondansetron 4 MG/2 ML SDV IV PRN (16:52)
[2019-10-20] MEDS ORDERED: Polyethylene Glycol 3350 Powder 17 GM Packet PO PRN (16:52)
--- NOTE | 2019-10-20 17:01 | PCM.HP.2 ---
H&P History of Present Illness - General Date of Service: 10/20/19 Admit Problem/Dx: Admission Diagnosis/Problem Admission Diagnosis/Problem CHF, Congestive heart failure Source of Information: Patient, Family, Old Records, Provider, RN Notes Reviewed History Limitations: Reports: No Limitations - History of Present Illness Initial Comments - Free Text/Narative: Ms. Lezama is a 79-year-old woman who was admitted as a direct admission from the clinic with symptoms of shortness of breath and increased peripheral edema secondary to CHF exacerbation. She has a known history of congestive heart failure, was hospitalized at this facility last December and at that time echocardiogram showed an ejection fraction of 40 to 45%. She was also found to have moderate TR, moderate MR, and elevated right-sided pressures. She is noted an approximate 10 pound weight gain over the past few weeks with increased shortness of breath and peripheral edema. She has had no fevers chills sweats or productive cough. Denies any symptoms of chest pain or pressure. Denies PND and orthopnea. - Related Data Allergies/Adverse Reactions: Allergies Allergy/AdvReac Type Severity Reaction Status Date / Time atropine [From Lomotil] Allergy Rash Verified 09/12/19 06:12 Beta-Adrenergic Agents Allergy Dizziness Verified 09/12/19 06:12 diphenoxylate [From Lomotil] Allergy Rash Verified 09/12/19 06:12 metoclopramide [From Reglan] Allergy Tremors Verified 09/12/19 06:13 polyester fibers Allergy Hives Verified 09/12/19 06:12 procaine Allergy Cannot Verified 09/12/19 06:12 Remember rosuvastatin Allergy Cannot Verified 09/12/19 06:12 Remember lidocaine AdvReac Arrhythmias Verified 09/12/19 06:12 metoprolol AdvReac Arrhythmias Verified 09/12/19 06:12 Home Medications: Home Meds RX: Ascorbic Acid [Vitamin C] 500 mg PO BEDTIME 04/11/14 [History] RX: Meclizine [Antivert] 25 mg PO TID PRN 04/11/14 [History] RX: Vitamin B Complex 1 each PO BEDTIME 04/11/14 [History] RX: Warfarin [Coumadin] 2.5 mg PO ASDIRECTED 04/11/14 [History] RX: traMADol [Ultram] 50 mg PO Q8H PRN 11/30/14 [History] RX: Nitroglycerin [Nitrostat] 0.4 mg PO ASDIRECTED 12/30/14 [History] RX: Warfarin [Coumadin] 5 mg PO ASDIRECTED 12/30/14 [History] RX: Gabapentin [Neurontin] 300 mg PO TID 02/14/16 [History] RX: Bumetanide [Bumex] 1 mg PO BID 02/17/16 [History] RX: Levothyroxine [Synthroid] 100 mcg PO DAILY 09/03/17 [History] RX: Oxybutynin 5 mg PO TID 09/03/17 [History] RX: Aspirin 81 mg PO DAILY 04/09/18 [History] RX: Cholecalciferol (Vitamin D3) [Cholecalciferol] 1,000 mg PO DAILY 04/09/18 [ History] RX: Clotrimazole/Betamethasone Dip [Lotrisone Cream] 1 film TOP BID 04/09/18 [ History] RX: Diclofenac Sodium [Voltaren] 4 gr TOP DAILY PRN 04/09/18 [History] RX: Fluticasone Propionate [Flonase] 2 spray NASBOTH DAILY 04/09/18 [History] RX: Lisinopril 2.5 mg PO DAILY 01/28/19 [History] Omeprazole 40 mg PO ACBREAKFAST 01/30/19 [History] RX: tiZANidine [Zanaflex] 4 mg PO Q8H PRN 01/30/19 [History] Magnesium Oxide [Magnesium Oxide 400] 241.3 mg PO ASDIRECTED PRN 03/14/19 [ History] Acetaminophen [Tylenol] 2 tab PO TID 09/09/19 [History] Albuterol Sulfate [Albuterol Sulfate Hfa] 1 - 2 puff INH Q4HR PRN 09/09/19 [ History] Escitalopram Oxalate [Lexapro] 5 mg PO DAILY 09/09/19 [History] Sennosides [Senokot] 2 tab PO DAILY 09/09/19 [History] Magnesium Hydroxide [Milk of Magnesia] 30 ml PO DAILY PRN 09/12/19 [History] Multivit-Min/FA/Lycopen/Lutein [Certavite Sr with Lutein Tab] 1 each PO DAILY [History] Na Phos,M-B/Na Phos,DI-B [Fleet Enema] 133 ml RC DAILY PRN 09/12/19 [History] RX: Bacitracin [Bacitracin Oint 1 GM] 1 applic TOP DAILY PRN 09/12/19 [History] RX: traMADol [Ultram] 50 mg PO TID 09/12/19 [History] bisacodyL [Dulcolax] 10 mg RC ASDIRECTED PRN 09/12/19 [History] guaiFENesin [Tussin] 10 ml PO Q4H PRN 09/12/19 [History] Past Medical History HEENT History: Reports: Allergic Rhinitis, Cataract, Hard of Hearing, Impaired Vision, Macular Degeneration, Other (See Below) Other HEENT History: left cataract, hyperopia of both eyes with astigmatism and presbyopia Cardiovascular History: Reports: Afib, CAD, Heart Failure, Hypertension, [place], Pacemaker, Pulmonary Hypertension Other Cardiovascular History: mitral regurgitation Respiratory History: Reports: SOB, Other (See Below) Other Respiratory History: home O2 at night, pulmonary hypertension, hypoxemia Gastrointestinal History: Reports: GERD, GI Bleed, PUD Other Gastrointestinal History: esophageal stricture Genitourinary History: Reports: Renal Disease, Urinary Incontinence, UTI, Recurrent Other Genitourinary History: incontinence [employer] History: Reports: , Spontaneous Musculoskeletal History: Reports: Arthritis, Back Pain, Chronic, Fracture, Osteoarthritis Other Musculoskeletal History: DJD Neurological History: Reports: CVA, Migraines, TIA Other Neuro History: hemorrhagic, compression fracture of L1, 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 Endocrine/Metabolic History: Reports: Hypothyroidism, Vitamin D Deficiency Hematologic History: Reports: Anemia, Anticoagulation Therapy Oncologic (Cancer) History: Reports: Malignant Melanoma, Other (See Below) Other Oncologic History: skin cancer on nose Dermatologic History: Reports: Melanoma Other Dermatologic History: allergy to polyester - Infectious Disease History Infectious Disease History: Reports: Measles, Mumps - Past Surgical History HEENT Surgical History: Reports: Cataract Surgery, Tonsillectomy Cardiovascular Surgical History: Reports: Pacer Respiratory Surgical History: Reports: None GI Surgical History: Reports: Colonoscopy, EGD, Hernia, Abdominal Female Surgical History: Reports: None Endocrine Surgical History: Reports: None Neurological Surgical History: Reports: None Musculoskeletal Surgical History: Reports: Knee Replacement, Other (See Below) Other Musculoskeletal Surgeries/Procedures:: bilateral knees replaced, compression fx, spondylolisthesis at L2-L3, DJD Oncologic Surgical History: Reports: None Dermatological Surgical History: Reports: None Social & Family History - Family History Family Medical History: Noncontributory - Caffeine Use Caffeine Use: Reports: Coffee Other Caffeine Use: pop per day - Living Situation & Occupation Living situation: Reports: Single, with Family (lives in [facility], with 2 Grandsons. One Grandson has schizophrenia) H&P Review of Systems - Review of Systems: Review Of Systems: See Below General: Reports: Malaise, Weakness, Fatigue, Decreased Appetite, Weight Gain. Denies: Fever, Chills, Diaphoresis HEENT: Reports: No Symptoms Pulmonary: Reports: Shortness of Breath. Denies: Wheezing, Pleuritic Chest Pain , Cough, Sputum, Hemoptysis Cardiovascular: Reports: Dyspnea on Exertion, Edema. Denies: Chest Pain, Palpitations, Orthopnea, PND, Lightheadedness Gastrointestinal: Reports: No Symptoms Genitourinary: Reports: No Symptoms Musculoskeletal: Reports: No Symptoms Skin: Reports: No Symptoms Psychiatric: Reports: No Symptoms Neurological: Reports: No Symptoms Hematologic/Lymphatic: Reports: No Symptoms Immunologic: Reports: No Symptoms Exam - Exam Exam: See Below - Exam Quality Assessment: DVT Prophylaxis General: Alert, Oriented, Cooperative, Mild Distress HEENT: Conjunctiva Clear, Hearing Intact, Mucosa Moist & [place], Normal Nasal Septum, Posterior Pharynx Clear, Pupils Equal Neck: Supple, Trachea Midline, +2 Carotid Pulse wo Bruit Lungs: Rales (At bases). No: Decreased Breath Sounds, Crackles, Rhonchi, Rub, Wheezing Cardiovascular: Regular Rate, Normal S1, Normal S2, Irregular Rhythm, Systolic Murmur. No: Diastolic Murmur GI/Abdominal Exam: Soft, Non-Tender, No Organomegaly, No Distention Back Exam: Normal Inspection, Full Range of Motion Extremities: Non-Tender, Pedal Edema Skin: Warm, Dry, Intact Neurological: Cranial Nerves Intact, Strength Equal Bilateral, Normal Speech, Normal Tone, Sensation Intact. No: Focal Deficit Neuro Extensive - Mental Status: Alert, Oriented x3, Normal Mood/Affect, Normal Cognition, Memory Intact *Q Meaningful Use (ADM) - VTE Risk Assess *Q Each Risk Factor Represents 1 Point: Swollen Legs, Current, Obesity ( BMI > 25 kg/m2), Congestive heart failure (CHF) Total Score 1 Point Risk Factors: 3 Each Risk Factor Represents 2 Points: None Total Score 2 Point Risk Factors: 0 Each Risk Factor Represents 3 Points: Age 75 Years or Greater Total Score 3 Point Risk Factors: 3 Each Risk Factor Represents 5 Points: None Total Score 5 Point Risk Factors: 0 Venous Thromboembolism Risk Factor Score *Q: 6 Problem List Initiated/Reviewed/Updated: Yes Orders Last 24hrs: Active Orders 24 hr Category Date Time Status Patient Status [ADT] Routine ADT 10/20/19 16:52 Ordered Ambulate [RC] QID Care 10/20/19 16:52 Ordered Cardiac Monitoring [RC] .As Directed Care 10/20/19 16:54 Ordered Height and Weight [RC] DAILY Care 10/20/19 16:52 Ordered Intake and Output [RC] QSHIFT Care 10/20/19 16:52 Ordered Notify Provider Vital Signs [RC] ASDIRECTED Care 10/20/19 16:52 Ordered Oxygen Therapy [RC] PRN Care 10/20/19 16:52 Ordered Pulse Oximetry [RC] CONTINUOUS Care 10/20/19 16:54 Ordered Up With Assistance [RC] ASDIRECTED Care 10/20/19 16:52 Ordered Up to Chair [RC] QID Care 10/20/19 16:52 Ordered VTE/DVT Education [RC] Per Unit Routine Care 10/20/19 16:52 Ordered Vital Signs [RC] Q4H Care 10/20/19 16:52 Ordered 2 Gram Sodium Diet [DIET] Diet 10/20/19 Dinner Ordered Chest 2V [CR] Stat Exams 10/20/19 16:52 Ordered Echo Comp wo Cont [US] Urgent Exams 10/21/19 08:00 Ordered BASIC METABOLIC PANEL,BMP [CHEM] AM Lab 10/21/19 05:11 Ordered CBC WITH AUTO DIFF [HEME] AM Lab 10/21/19 05:11 Ordered INR,PT,PROTHROMBIN TIME [COAG] Stat Lab 10/20/19 16:57 Ordered INR,PT,PROTHROMBIN TIME [COAG] Timed Lab 10/21/19 05:00 Ordered MAGNESIUM [CHEM] AM Lab 10/21/19 05:11 Ordered TSH ULTRASENSITIVE [CHEM] Timed Lab 10/21/19 05:00 Ordered Acetaminophen [Tylenol] Med 10/20/19 16:52 Ordered 650 mg PO Q4H PRN Bumetanide [Bumex] Med 10/20/19 16:58 Once 4 mg IVPUSH ONETIME ONE Ondansetron [Zofran] Med 10/20/19 16:52 Ordered 4 mg IV Q4H PRN Sodium Chloride 0.9% [Saline Flush] Med 10/20/19 16:52 Ordered 10 ml FLUSH ASDIRECTED PRN polyethylene glycoL 3350 [MiraLAX] Med 10/20/19 16:52 Ordered 17 gm PO DAILY PRN Saline Lock Insert [OM.PC] Routine Oth 10/20/19 16:52 Ordered Resuscitation Status Routine Resus Stat 10/20/19 16:52 Ordered Assessment/Plan Comment:: ASSESSMENT AND PLAN CONGESTIVE HEART FAILURE EXACERBATION-treated decrease left ventricular function , estimated ejection fraction of 40 to 45% in December 2018. History of increased shortness of breath and worsened peripheral edema with approximately 10 pound weight gain. When seen at the clinic earlier today was noted to be hypoxic on room air with oxygen saturation of 88%. Initial evaluation in the hospital showed oxygen saturation of 94% on room air. -2 g sodium diet -Bumex 4 mg IV now, reassess in a.m. 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 DISPOSITION-anticipate discharge to home after the hospital stay. PRIMARY CARE PROVIDER-Dr. Grant - Mortality Measure Prognosis:: Good
[2019-10-20] MEDS ORDERED: Bumetanide 1 MG/4 ML MDV IVPUSH ONE (17:30)
[2019-10-20] MEDS ORDERED: WARFARIN 2.5 MG PO ONE (20:00)
[2019-10-20] MEDS: Gabapentin 300 MG Cap *PT OWN MED PO SCH (20:49)
[2019-10-20] MEDS: Acetaminophen 500 MG Tab PO SCH (20:58)
[2019-10-20] MEDS: [UNRECOGNIZED DRUG - OTHER] EYEBOTH SCH (21:00)
[2019-10-20] MEDS: traMADol 50 MG Tab PO SCH (22:54)
[2019-10-21] MEDS: [UNRECOGNIZED DRUG - OTHER] EYEBOTH SCH ×4 (05:58→22:12)
--- NOTE | 2019-10-21 08:44 | CR ---
CHEST: 2 view CLINICAL HISTORY:Dyspnea COMPARISON:2019 FINDINGS: Heart is moderately enlarged. Patient has a permanent cardiac pacer. Pulmonary vascularity is mildly cephalized. There are atherosclerotic changes in the aorta. There is resistant patchy density in the left lower lobe. This is seen on multiple prior studies and could be related to left-sided large hiatal hernia which is seen on the lateral image. This appearance is unchanged since 2019. Impression: Cardiomegaly with vascular cephalization suggesting pulmonary venous hypertension Patchy and mottled left lower hemithorax density is likely a very large retrocardiac hiatal hernia with debris. This appears similar to studies from 2019
[2019-10-21] MEDS ORDERED: Warfarin 2.5 MG Tab PO SCH (09:00)
[2019-10-21] MEDS: LEVOTHYROXINE 100 MCG PO SCH (09:05)
[2019-10-21] MEDS: OMEPRAZOLE 40 MG PO SCH (09:05)
[2019-10-21] MEDS ORDERED: Potassium Chloride 20 MEQ Tab.ER PO ONE ×2 (09:15→17:00)
[2019-10-21] MEDS ORDERED: Bumetanide 2.5 MG/10 ML MDV IVPUSH ONE (09:15)
[2019-10-21] MEDS: FLUTICASONE PROPIONATE NASBOTH SCH (09:55)
[2019-10-21] MEDS: ESCITALOPRAM 10 MG PO SCH (09:57)
[2019-10-21] MEDS: Aspirin 81 MG Tab.EC PO SCH (09:57)
[2019-10-21] MEDS: Magnesium Oxide 400 MG Tab PO SCH (09:58)
[2019-10-21] MEDS: LISINOPRIL 2.5 MG PO SCH (09:58)
[2019-10-21] MEDS: Gabapentin 300 MG Cap *PT OWN MED PO SCH ×3 (09:59→20:02)
[2019-10-21] MEDS: Acetaminophen 500 MG Tab PO SCH ×3 (10:00→20:13)
[2019-10-21] MEDS: Sennosides 8.6 MG Tab PO SCH (10:00)
[2019-10-21] MEDS: traMADol 50 MG Tab PO SCH ×3 (10:06→20:13)
[2019-10-21] MEDS ORDERED: WARFARIN 2.5 MG PO SCH (12:00)
[2019-10-21] MEDS ORDERED: Warfarin 2.5 MG Tab PO ONE (14:57)
--- NOTE | 2019-10-21 15:02 | PCM.PN ---
- General Info Date of Service: 10/21/19 Subjective Update: Ms. Lezama has been stable since admission and admits modest improvement in shortness of breath as well as peripheral edema with diuresis. She has tolerated diuresis well thus far, potassium mildly low, kidney function stable. Functional Status: Reports: Tolerating Diet, Ambulating, Urinating - Review of Systems General: Reports: Weakness, Fatigue. Denies: Fever, Chills Pulmonary: Reports: Shortness of Breath. Denies: Pleuritic Chest Pain, Cough, Sputum, Hemoptysis, Wheezing Cardiovascular: Reports: Dyspnea on Exertion, Edema. Denies: Chest Pain, Palpitations, Orthopnea, PND, Lightheadedness Gastrointestinal: Reports: No Symptoms - Patient Data Vitals - Most Recent: Last Vital Signs Temp 97.4 F 10/21/19 11:00 Pulse 80 10/21/19 11:00 Resp 19 10/21/19 11:00 BP 128/61 10/21/19 11:00 Pulse Ox 96 10/21/19 12:03 Weight - Most Recent: 161 lb 6.4 oz I&O - Last 24 Hours: Intake & Output 10/20/19 10/21/19 10/21/19 22:59 06:59 14:59 Intake Total 640 Output Total 700 700 900 Balance -700 -700 -260 Lab Results Last 24 Hours: Laboratory Results - last 24 hr 10/20/19 10/21/19 10/21/19 Range/Units 15:10 04:20 04:20 WBC (4.5-11.0) K/uL RBC (3.30-5.50) M/uL Hgb (12.0-15.0) g/dL Hct (36.0-48.0) % MCV (80-98) fL MCH (27-31) pg MCHC (32-36) % Plt Count (150-400) K/uL Neut % (Auto) (36-66) % Lymph % (Auto) (24-44) % [place] % (Auto) (2-6) % Eos % (Auto) (2-4) % Baso % (Auto) (0-1) % PT 27.0 H 29.3 H (9.5-12.0) sec INR 2.64 H 2.88 H (0.80-1.20) Sodium (140-148) mmol/L Potassium (3.6-5.2) mmol/L Chloride (100-108) mmol/L Carbon Dioxide (21-32) mmol/L Anion Gap (5.0-14.0) mmol/L BUN (7-18) mg/dL Creatinine (0.6-1.0) mg/dL Est Cr Clr Drug Dosing Estimated GFR (MDRD) (>60) Glucose (74-106) mg/dL Calcium (8.5-10.1) mg/dL Magnesium (1.8-2.4) mg/dL TSH, Ultra Sensitive 1.484 (0.358-3.740) uIU/mL 10/21/19 10/21/19 Range/Units 04:20 04:20 WBC 4.6 (4.5-11.0) K/uL RBC 4.13 (3.30-5.50) M/uL Hgb 11.2 L D (12.0-15.0) g/dL Hct 37.0 (36.0-48.0) % MCV 90 (80-98) fL MCH 27 (27-31) pg MCHC 30 L (32-36) % Plt Count 176 (150-400) K/uL Neut % (Auto) 55 (36-66) % Lymph % (Auto) 19 L (24-44) % [place] % (Auto) 19 H (2-6) % Eos % (Auto) 7 H (2-4) % Baso % (Auto) 0 (0-1) % PT (9.5-12.0) sec INR (0.80-1.20) Sodium 144 (140-148) mmol/L Potassium 3.5 L (3.6-5.2) mmol/L Chloride 102 (100-108) mmol/L Carbon Dioxide 36 H (21-32) mmol/L Anion Gap 9.5 (5.0-14.0) mmol/L BUN 31 H D (7-18) mg/dL Creatinine 1.7 H (0.6-1.0) mg/dL Est Cr Clr Drug Dosing TNP Estimated GFR (MDRD) 29 L (>60) Glucose 99 (74-106) mg/dL Calcium 8.6 (8.5-10.1) mg/dL Magnesium 2.3 (1.8-2.4) mg/dL TSH, Ultra Sensitive (0.358-3.740) uIU/mL Med Orders - Current: Current Medications Acetaminophen (Tylenol Extra Strength) 1,000 mg PO TID [facility] Last Admin: 10/21/19 13:31 Dose: 1,000 mg Aspirin (Halfprin) 81 mg PO DAILY [facility] Last Admin: 10/21/19 09:57 Dose: 81 mg Escitalopram Oxalate (Lexapro) 5 mg PO DAILY [facility] Last Admin: 10/21/19 09:57 Dose: 5 mg Fluticasone Propionate (Flonase) 0 gm NASBOTH DAILY [facility] Last Admin: 10/21/19 09:55 Dose: 2 spray Lisinopril (Prinivil) 2.5 mg PO DAILY [facility] Last Admin: 10/21/19 09:58 Dose: 2.5 mg Magnesium Oxide (Magnesium Oxide) 400 mg PO DAILY [facility] Last Admin: 10/21/19 09:58 Dose: 400 mg Ondansetron HCl (Zofran) 4 mg IV Q4H PRN PRN Reason: Nausea/Vomiting Artificial Tears *Pt (Onw Med*) 0 each EYEBOTH QID [facility] Last Admin: 10/21/19 10:09 Dose: 1 each Gabapentin 300 Mg (Cap *Pt Own Med*) 0 each PO TID [facility] Last Admin: 10/21/19 13:31 Dose: 1 each Levothyroxine 100 (Mcg Tab *Pt Own Med*) 0 each PO ACBREAKFAST [facility] Last Admin: 10/21/19 09:05 Dose: 1 each Omepraz[address] (Capsule *Pt Own Med*) 0 each PO ACBREAKFAST [facility] Last Admin: 10/21/19 09:05 Dose: 1 each Oxybutynin 5 Mg Tab (*Pt Own Med*) 0 each PO TID [facility] Last Admin: 10/21/19 13:30 Dose: 1 each Warfarin 2.5 Mg Tabs (*Pt Own Med*) 0 each PO MoTuThFr@1200 [facility] Last Admin: 10/21/19 13:33 Dose: 1 each Warfarin 2.5 Mg Tabs (*Pt Own Med*) 0 each PO SuWeSa@1200 [facility] Polyethylene Glycol (Miralax) 17 gm PO DAILY PRN PRN Reason: Constipation Last Admin: 10/21/19 09:12 Dose: 17 gm Senna (Senna) 17.2 mg PO DAILY [facility] Last Admin: 10/21/19 10:00 Dose: 17.2 mg Sodium Chloride (Saline Flush) 10 ml FLUSH ASDIRECTED PRN PRN Reason: Keep Vein Open Tramadol HCl (Ultram) 50 mg PO TID [facility] Last Admin: 10/21/19 13:30 Dose: 50 mg Warfarin Sodium (Coumadin) 2.5 mg PO ONETIME ONE Stop: 10/21/19 14:58 Discontinued Medications Acetaminophen (Tylenol) 650 mg PO Q4H PRN PRN Reason: Pain (Mild 1-3)/fever Bumetanide (Bumex) 4 mg IVPUSH ONETIME ONE Stop: 10/20/19 17:31 Last Admin: 10/20/19 18:53 Dose: 4 mg Bumetanide (Bumex) 4 mg IVPUSH ONETIME ONE Stop: 10/21/19 09:16 Last Admin: 10/21/19 10:07 Dose: 4 mg Warfarin 2.5 Mg Tabs (*Pt Own Med*) 0 each PO ONETIME ONE Stop: 10/20/19 20:01 Last Admin: 10/20/19 20:48 Dose: 1 each Potassium Chloride (Klor-Con M20) 40 meq PO ONETIME ONE Stop: 10/21/19 09:16 Last Admin: 10/21/19 10:02 Dose: 40 meq Warfarin Sodium (Coumadin) 2.5 mg PO DAILY [facility] - Exam Quality Assessment: Supplemental Oxygen, DVT Prophylaxis General: Alert, Oriented, Cooperative, Mild Distress Lungs: Normal Respiratory Effort, Rales. No: Crackles, Rhonchi, Rub, Wheezing Cardiovascular: Regular Rate, No Murmurs, Irregular Rhythm. No: Murmurs GI/Abdominal Exam: Soft, Non-Tender, No Organomegaly, No Distention Extremities: Non-Tender, Pedal Edema Sepsis Event Note - Evaluation Sepsis Screening Result: No Definite Risk - Focused Exam Vital Signs: Vital Signs Temp Pulse Resp BP BP Pulse Ox Pulse Ox 10/21/19 12:03 96 10/21/19 11:54 87 L 10/21/19 11:00 97.4 F 80 19 128/61 92 L 10/21/19 09:58 127/72 10/21/19 07:00 97.7 F 80 16 127/72 94 L 10/21/19 03:00 96.7 F 80 16 109/63 97 Date Exam was Performed: 10/21/19 Time Exam was Performed: 14:59 - Problem List Review Problem List Initiated/Reviewed/Updated: Yes - My Orders Last 24 Hours: My Active Orders 10/20/19 16:52 Patient Status [ADT] Routine Ambulate [RC] QID Height and Weight [RC] 0500 Intake and Output [RC] QSHIFT Notify Provider Vital Signs [RC] ASDIRECTED Oxygen Therapy [RC] PRN Up With Assistance [RC] ASDIRECTED Up to Chair [RC] QID VTE/DVT Education [RC] Per Unit Routine Vital Signs [RC] Q4H Ondansetron [Zofran] 4 mg IV Q4H PRN Sodium Chloride 0.9% [Saline Flush] 10 ml FLUSH ASDIRECTED PRN polyethylene glycoL 3350 [MiraLAX] 17 gm PO DAILY PRN Saline Lock Insert [OM.PC] Routine Resuscitation Status Routine 10/20/19 16:54 Cardiac Monitoring [RC] .As Directed Pulse Oximetry [RC] CONTINUOUS 10/20/19 21:00 Acetaminophen [Tylenol Extra Strength] 1,000 mg PO TID Patient's Own Medication [Ptom] 0 each PO TID Patient's Own Medication [Ptom] 0 each PO TID traMADol [Ultram] 50 mg PO TID 10/20/19 22:00 Patient's Own Medication [Ptom] 0 each EYEBOTH QID 10/20/19 Dinner 2 Gram Sodium Diet [DIET] 10/21/19 07:30 Patient's Own Medication [Ptom] 0 each PO ACBREAKFAST Patient's Own Medication [Ptom] 0 each PO ACBREAKFAST 10/21/19 08:00 Echo Comp wo Cont [US] Urgent 10/21/19 09:00 Aspirin [Halfprin] 81 mg PO DAILY Escitalopram [Lexapro] 5 mg PO DAILY Fluticasone Propionate [Flonase] 0 gm NASBOTH DAILY Magnesium Oxide 400 mg PO DAILY Sennosides [Senna] 17.2 mg PO DAILY lisinopriL [Prinivil] 2.5 mg PO DAILY 10/21/19 12:00 Patient's Own Medication [Ptom] 0 each PO MoTuThFr@1200 02/04/20 14:57 Warfarin [Coumadin] 2.5 mg PO ONETIME ONE 10/21/19 17:00 Potassium Chloride [Klor-Con M20] 40 meq PO ONETIME ONE 10/22/19 05:00 BASIC METABOLIC PANEL,BMP [CHEM] Timed 10/22/19 05:11 INR,PT,PROTHROMBIN TIME [COAG] AM 10/22/19 12:00 Patient's Own Medication [Ptom] 0 each PO SuWeSa@1200 - Plan Plan:: ASSESSMENT AND PLAN CONGESTIVE HEART FAILURE EXACERBATION-improvement in shortness of breath with diuresis -2 g sodium diet -Bumex 4 mg IV today -Repeat echocardiogram else pending CHRONIC KIDNEY DISEASE IIIb/IV-borderline between stage III and IV, renal function modestly improved from admission -Monitor kidney function and urine output with diuresis CHRONIC ORAL ANTICOAGULATION-in atrial fibrillation, on warfarin, INR within therapeutic range -Outpatient dosing of warfarin -Recheck INR in a.m. 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 DISPOSITION-anticipate discharge to home after the hospital stay. PRIMARY CARE PROVIDER-Dr. Grant
[2019-10-22] MEDS: [UNRECOGNIZED DRUG - OTHER] EYEBOTH SCH ×2 (05:19→09:39)
[2019-10-22] MEDS: OMEPRAZOLE 40 MG PO SCH (08:10)
[2019-10-22] MEDS: LEVOTHYROXINE 100 MCG PO SCH (08:11)
[2019-10-22] MEDS: ESCITALOPRAM 10 MG PO SCH (08:12)
[2019-10-22] MEDS: LISINOPRIL 2.5 MG PO SCH (08:13)
[2019-10-22] MEDS: FLUTICASONE PROPIONATE NASBOTH SCH (08:13)
[2019-10-22] MEDS: Aspirin 81 MG Tab.EC PO SCH (08:14)
[2019-10-22] MEDS: Magnesium Oxide 400 MG Tab PO SCH (08:14)
[2019-10-22] MEDS: Sennosides 8.6 MG Tab PO SCH (08:17)
[2019-10-22] MEDS: Acetaminophen 500 MG Tab PO SCH (08:18)
[2019-10-22] MEDS: traMADol 50 MG Tab PO SCH (08:20)
[2019-10-22] MEDS ORDERED: Gabapentin 300 MG Cap PO SCH (09:00)
[2019-10-22 11:48] VITALS: BP 124/75; PULSE 81
[2019-10-22] MEDS ORDERED: WARFARIN 2.5 MG PO SCH ×2 (12:00)
[2019-10-22] MEDS ORDERED: Bumetanide 1 MG/4 ML MDV IVPUSH ONE (12:00)
--- NOTE | 2019-10-22 12:05 | PCM.DCSUM1 ---
Discharge Summary - Hospital Course Brief History: Ms. Lezama is a 79-year-old woman who was admitted as a direct admission from the clinic with shortness of breath, peripheral edema, and hypoxia, secondary to congestive heart failure exacerbation and underlying chronic kidney disease stage IV. - Discharge Data Discharge Date: 10/22/19 Discharge Disposition: Home, Self-Care 01 Condition: Good - Referral to Home Health Primary Care Physician: Nayla Grant MD - Discharge Diagnosis/Problem(s) (1) SOB (shortness of breath) SNOMED Code(s): 088040978 ICD Code: R06.02 - SHORTNESS OF BREATH Status: Acute Current Visit: Yes (2) CHF (congestive heart failure) SNOMED Code(s): 72436669 ICD Code: I50.9 - HEART FAILURE, UNSPECIFIED Status: Acute Current Visit : Yes (3) CKD (chronic kidney disease) stage 4, GFR 15-29 ml/min SNOMED Code(s): 806167819 ICD Code: N18.4 - CHRONIC KIDNEY DISEASE, STAGE 4 (SEVERE) Status: Chronic Current Visit: No - Patient Summary/Data Hospital Course: Ms. Lezama is a 79-year-old woman who was admitted as a direct admission from the clinic with symptoms of shortness of breath and increased peripheral edema secondary to CHF exacerbation. She has a known history of congestive heart failure, was hospitalized at this facility last December and at that time echocardiogram showed an ejection fraction of 40 to 45%. She was also found to have moderate TR, moderate MR, and elevated right-sided pressures. She is noted an approximate 10 pound weight gain over the past few weeks with increased shortness of breath and peripheral edema. She has had no fevers chills sweats or productive cough. Denies any symptoms of chest pain or pressure. Denies PND and orthopnea. On admission she was given Bumex 4 mg IV and placed on a 2 g sodium diet. Echocardiogram was obtained on the day after admission. This showed a further decrease in left ventricular function with estimated ejection fraction of 30 to 35%, severe mitral regurgitation, and further increase in elevation of right-sided pressures. She improved with diuretic therapy and was given Bumex 4 mg on the next 2 days of hospitalization. By the time of discharge shortness of breath had improved and there was good improvement in her peripheral edema although it had not totally resolved. The day prior to discharge she was found to be hypoxic on room air with oxygen saturation of 87%. She will be discharged back to the assisted living facility with continuous oxygen at 2 L/min via nasal cannula. She will be placed on increased dose of oral Bumex 4 mg twice daily. She will remain on a 2 g sodium diet and activity will be as tolerated. Follow-up appointment will be scheduled with her primary care provider within 1 week and a BMP will be obtained at the time of follow-up appointment. INR levels were monitored daily during hospital stay because of her anticoagulation. INR was slightly supratherapeutic on the day of discharge and a follow-up INR level will be obtained on October 24. - Patient Instructions Diet: Low Sodium Activity: As Tolerated Other/Special Instructions: Please schedule follow-up appointment with primary care provider within 1 week. BMP should be obtained at the time of follow-up appointment. Please obtain follow-up INR on October 24. - Discharge Plan *PRESCRIPTION DRUG MONITORING PROGRAM REVIEWED*: Not Applicable *COPY OF PRESCRIPTION DRUG MONITORING REPORT IN PATIENT EMILY: Not Applicable Prescriptions/Med Rec: Bumetanide [Bumex] 4 mg PO BID #120 tablet Home Medications: Home Meds Ascorbic Acid [Vitamin C] 500 mg PO BEDTIME 04/11/14 [History] Meclizine [Antivert] 25 mg PO TID PRN 04/11/14 [History] Vitamin B Complex 1 each PO BEDTIME 04/11/14 [History] Warfarin [Coumadin] 2.5 mg PO ASDIRECTED 04/11/14 [History] Nitroglycerin [Nitrostat] 0.4 mg PO ASDIRECTED 12/30/14 [History] Warfarin [Coumadin] 5 mg PO ASDIRECTED 12/30/14 [History] Gabapentin [Neurontin] 300 mg PO TID 02/14/16 [History] Levothyroxine [Synthroid] 100 mcg PO DAILY 09/03/17 [History] Oxybutynin 5 mg PO TID 09/03/17 [History] Aspirin 81 mg PO DAILY 04/09/18 [History] Cholecalciferol (Vitamin D3) [Cholecalciferol] 1,000 mg PO DAILY 04/09/18 [ History] Clotrimazole/Betamethasone Dip [Lotrisone Cream] 1 film TOP BID 04/09/18 [ History] Diclofenac Sodium [Voltaren] 4 gr TOP DAILY PRN 04/09/18 [History] Fluticasone Propionate [Flonase] 2 spray NASBOTH DAILY 04/09/18 [History] Lisinopril 2.5 mg PO DAILY 01/28/19 [History] Omeprazole 40 mg PO ACBREAKFAST 01/30/19 [History] tiZANidine [Zanaflex] 4 mg PO Q8H PRN 01/30/19 [History] Magnesium Oxide [Magnesium Oxide 400] 400 mg PO ASDIRECTED PRN 03/14/19 [History ] Albuterol Sulfate [Albuterol Sulfate Hfa] 1 - 2 puff INH Q4HR PRN 09/09/19 [ History] Escitalopram Oxalate [Lexapro] 5 mg PO DAILY 09/09/19 [History] Sennosides [Senokot] 2 tab PO DAILY 09/09/19 [History] Bacitracin [Bacitracin Oint 1 GM] 1 applic TOP DAILY PRN 09/12/19 [History] Magnesium Hydroxide [Milk of Magnesia] 30 ml PO DAILY PRN 09/12/19 [History] Multivit-Min/FA/Lycopen/Lutein [Certavite Sr-Antioxidant Tab] 1 each PO DAILY [History] Na Phos,M-B/Na Phos,DI-B [Fleet Enema] 133 ml RC DAILY PRN 09/12/19 [History] bisacodyL [Dulcolax] 10 mg RC ASDIRECTED PRN 09/12/19 [History] traMADol [Ultram] 50 mg PO TID 09/12/19 [History] Acetaminophen 1,000 mg PO TID 10/20/19 [History] Dextran 70/Hypromellose [Artificial Tears] 1 each EYEBOTH QID 10/20/19 [History] Magnesium Oxide 400 mg PO DAILY 10/20/19 [History] Sennosides [Senna] 17.2 mg PO DAILY 10/20/19 [History] Vitamin B Complex [B Complex] 1 each DAILY 10/20/19 [History] Bumetanide [Bumex] 4 mg PO BID #120 tablet 10/22/19 [Rx] Oxygen Therapy Mode: Nasal Cannula Oxygen Flow Rate (L/min): 2 Maintain SpO2% greater than: 90 - Discharge Summary/Plan Comment DC Time >30 min.: No - Patient Data Vitals - Most Recent: Last Vital Signs Temp 97.8 F 10/22/19 11:00 Pulse 81 10/22/19 11:00 Resp 20 10/22/19 11:00 BP 124/75 10/22/19 11:00 Pulse Ox 99 10/22/19 11:00 Weight - Most Recent: 161 lb I&O - Last 24 hours: Intake & Output 10/21/19 10/22/19 10/22/19 22:59 06:59 14:59 Intake Total 120 360 360 Output Total 375 300 425 Balance -255 60 -65 Lab Results - Last 24 hrs: Laboratory Results - last 24 hr 10/22/19 10/22/19 Range/Units 04:00 04:00 PT 30.8 H (9.5-12.0) sec INR 3.04 H (0.80-1.20) Sodium 144 (140-148) mmol/L Potassium 4.6 (3.6-5.2) mmol/L Chloride 105 (100-108) mmol/L Carbon Dioxide 33 H (21-32) mmol/L Anion Gap 10.6 (5.0-14.0) mmol/L BUN 32 H (7-18) mg/dL Creatinine 1.7 H (0.6-1.0) mg/dL Est Cr Clr Drug Dosing 19.27 mL/min Estimated GFR (MDRD) 29 L (>60) Glucose 95 (74-106) mg/dL Calcium 8.5 (8.5-10.1) mg/dL Med Orders - Current: Current Medications Acetaminophen (Tylenol Extra Strength) 1,000 mg PO TID [facility] Last Admin: 10/22/19 08:18 Dose: 1,000 mg Aspirin (Halfprin) 81 mg PO DAILY [facility] Last Admin: 10/22/19 08:14 Dose: 81 mg Bumetanide (Bumex) 4 mg IVPUSH ONETIME ONE Stop: 10/22/19 12:01 Escitalopram Oxalate (Lexapro) 5 mg PO DAILY [facility] Last Admin: 10/22/19 08:12 Dose: 5 mg Fluticasone Propionate (Flonase) 0 gm NASBOTH DAILY [facility] Last Admin: 10/22/19 08:13 Dose: 2 spray Gabapentin (Neurontin) 300 mg PO TID [facility] Last Admin: 10/22/19 09:39 Dose: 300 mg Lisinopril (Prinivil) 2.5 mg PO DAILY [facility] Last Admin: 10/22/19 08:13 Dose: 2.5 mg Magnesium Oxide (Magnesium Oxide) 400 mg PO DAILY [facility] Last Admin: 10/22/19 08:14 Dose: 400 mg Ondansetron HCl (Zofran) 4 mg IV Q4H PRN PRN Reason: Nausea/Vomiting Artificial Tears *Pt (Onw Med*) 0 each EYEBOTH QID [facility] Last Admin: 10/22/19 09:39 Dose: 1 each Levothyroxine 100 (Mcg Tab *Pt Own Med*) 0 each PO ACBREAKFAST [facility] Last Admin: 10/22/19 08:11 Dose: 1 each [address] (Capsule *Pt Own Med*) 0 each PO ACBREAKFAST [facility] Last Admin: 10/22/19 08:10 Dose: 1 each Oxybutynin 5 Mg Tab (*Pt Own Med*) 0 each PO TID [facility] Last Admin: 10/22/19 08:12 Dose: 1 each Polyethylene Glycol (Miralax) 17 gm PO DAILY PRN PRN Reason: Constipation Last Admin: 10/21/19 09:12 Dose: 17 gm Senna (Senna) 17.2 mg PO DAILY [facility] Last Admin: 10/22/19 08:17 Dose: 17.2 mg Sodium Chloride (Saline Flush) 10 ml FLUSH ASDIRECTED PRN PRN Reason: Keep Vein Open Tramadol HCl (Ultram) 50 mg PO TID [facility] Last Admin: 10/22/19 08:20 Dose: 50 mg Warfarin Sodium (Coumadin) 5 mg PO MoTuThFr@1200 [facility] Warfarin Sodium (Coumadin) 2.5 mg PO SuWeSa@1200 [facility] Discontinued Medications Acetaminophen (Tylenol) 650 mg PO Q4H PRN PRN Reason: Pain (Mild 1-3)/fever Bumetanide (Bumex) 4 mg IVPUSH ONETIME ONE Stop: 10/20/19 17:31 Last Admin: 10/20/19 18:53 Dose: 4 mg Bumetanide (Bumex) 4 mg IVPUSH ONETIME ONE Stop: 10/21/19 09:16 Last Admin: 10/21/19 10:07 Dose: 4 mg Gabapentin 300 Mg (Cap *Pt Own Med*) 0 each PO TID [facility] Last Admin: 10/21/19 20:02 Dose: Not Given Warfarin 2.5 Mg Tabs (*Pt Own Med*) 0 each PO ONETIME ONE Stop: 10/20/19 20:01 Last Admin: 10/20/19 20:48 Dose: 1 each Warfarin 2.5 Mg Tabs (*Pt Own Med*) 0 each PO MoTuThFr@1200 [facility] Last Admin: 10/21/19 13:33 Dose: 1 each Warfarin 2.5 Mg Tabs (*Pt Own Med*) 0 each PO SuWeSa@1200 [facility] Potassium Chloride (Klor-Con M20) 40 meq PO ONETIME ONE Stop: 10/21/19 09:16 Last Admin: 10/21/19 10:02 Dose: 40 meq Potassium Chloride (Klor-Con M20) 40 meq PO ONETIME ONE Stop: 10/21/19 17:01 Last Admin: 10/21/19 17:08 Dose: 40 meq Warfarin Sodium (Coumadin) 2.5 mg PO DAILY HAMZAH - Exam General: Reports: Alert, Oriented, Cooperative, Mild Distress Lungs: Reports: Clear to Auscultation, Normal Respiratory Effort Cardiovascular: Reports: Regular Rate, Irregular Rhythm, Murmurs GI/Abdominal Exam: Soft, Non-Tender, No Organomegaly, No Distention Extremities: Non-Tender, Pedal Edema
[2019-10-23] MEDS ORDERED: WARFARIN 2.5 MG PO SCH (12:00)
== END 2019-10-22 13:45 | disposition home or self-care (01) ==
LOC: JP.MS 16:46
PROVIDERS: ADMIT Hospitalist; ATTEND Hospitalist
DX: I13.0 Hypertensive heart and chronic kidney disease with heart failure and stage 1 through stage 4 chronic kidney disease, or unspecified chronic kidney disease (principal); I50.9 Heart failure, unspecified; N18.4 Chronic kidney disease, stage 4 (severe); D63.1 Anemia in chronic kidney disease; T18.2XXA Foreign body in stomach, initial encounter; I25.10 Atherosclerotic heart disease of native coronary artery without angina pectoris; I25.2 Old myocardial infarction; K21.9 Gastro-esophageal reflux disease without esophagitis; I48.91 Unspecified atrial fibrillation; G43.909 Migraine, unspecified, not intractable, without status migrainosus; E03.9 Hypothyroidism, unspecified; M47.816 Spondylosis without myelopathy or radiculopathy, lumbar region; G89.29 Other chronic pain; M54.9 Dorsalgia, unspecified; X58.XXXA Exposure to other specified factors, initial encounter; Z79.01 Long term (current) use of anticoagulants; Z79.82 Long term (current) use of aspirin; Z79.899 Other long term (current) drug therapy; Z88.8 Allergy status to other drugs, medicaments and biological substances; Z88.4 Allergy status to anesthetic agent; Z91.09 Other allergy status, other than to drugs and biological substances; Z99.81 Dependence on supplemental oxygen; Z86.73 Personal history of transient ischemic attack (TIA), and cerebral infarction without residual deficits
CPT/HCPCS: 36415; 71046; 71046-26; 80048; 83735; 84443; 85025; 85610; 93306; 96374; 96376; A9270-GY; G0378; G0379; J3490

== ENCOUNTER 2019-10-24 12:54 | Emergency (ER) | payer MEDICARE, OTHER ==
[2019-10-24 13:27] VITALS: BP 125/77; PULSE 81
--- NOTE | 2019-10-24 14:08 | EDM.PDOC ---
ED HPI GENERAL MEDICAL PROBLEM - General Chief Complaint: Cardiovascular Problem Stated Complaint: from clinic stomach pain Time Seen by Provider: 10/24/19 13:35 Source of Information: Reports: Patient, Provider History Limitations: Reports: No Limitations - History of Present Illness INITIAL COMMENTS - FREE TEXT/NARRATIVE: 79-year-old female who is in the clinic for a follow-up appointment after being hospitalized for congestive heart failure, mention she was still having intermittent abdominal pain. Tests were done which were very stable, her vitals were stable but there was concern there may be a cardiac element so she was sent to the emergency room. EKG at the clinic shows a paced rhythm, when the patient arrived she was stable, comfortable, and was complaining that her pain was in her lower left abdomen and intermittent. She has not had any all day today but it will get worse if she tries to eat something. She has a known hiatal hernia and bezoar. The main reason for the referral to the ER was to get a troponin. She really is not having any chest pain. Onset: Unknown/Unsure (Patient says this is been going on for quite some time, was even occurring before her last hospitalization) Worsens with: Reports: Eating - Related Data Allergies Allergy/AdvReac Type Severity Reaction Status Date / Time atropine [From Lomotil] Allergy Rash Verified 10/24/19 13:38 Beta-Adrenergic Agents Allergy Dizziness Verified 10/24/19 13:38 diphenoxylate [From Lomotil] Allergy Rash Verified 10/24/19 13:38 metoclopramide [From Reglan] Allergy Tremors Verified 10/24/19 13:38 polyester fibers Allergy Hives Verified 10/24/19 13:38 procaine Allergy Cannot Verified 10/24/19 13:38 Remember rosuvastatin Allergy Cannot Verified 10/24/19 13:38 Remember lidocaine AdvReac Arrhythmias Verified 10/24/19 13:38 metoprolol AdvReac Arrhythmias Verified 10/24/19 13:38 Home Meds: Home Meds Ascorbic Acid [Vitamin C] 500 mg PO BEDTIME 04/11/14 [History] Meclizine [Antivert] 25 mg PO TID PRN 04/11/14 [History] Vitamin B Complex 1 each PO BEDTIME 04/11/14 [History] Warfarin [Coumadin] 2.5 mg PO ASDIRECTED 04/11/14 [History] Nitroglycerin [Nitrostat] 0.4 mg PO ASDIRECTED 12/30/14 [History] Gabapentin [Neurontin] 300 mg PO TID 02/14/16 [History] Levothyroxine [Synthroid] 100 mcg PO DAILY 09/03/17 [History] Oxybutynin 5 mg PO TID 09/03/17 [History] Aspirin 81 mg PO DAILY 04/09/18 [History] Cholecalciferol (Vitamin D3) [Cholecalciferol] 1,000 mg PO DAILY 04/09/18 [ History] Clotrimazole/Betamethasone Dip [Lotrisone Cream] 1 film TOP BID 04/09/18 [ History] Diclofenac Sodium [Voltaren] 4 gr TOP DAILY PRN 04/09/18 [History] Fluticasone Propionate [Flonase] 2 spray NASBOTH DAILY 04/09/18 [History] Lisinopril 2.5 mg PO DAILY 01/28/19 [History] Omeprazole 40 mg PO ACBREAKFAST 01/30/19 [History] tiZANidine [Zanaflex] 4 mg PO Q8H PRN 01/30/19 [History] Albuterol Sulfate [Albuterol Sulfate Hfa] 1 - 2 puff INH Q4HR PRN 09/09/19 [ History] Escitalopram Oxalate [Lexapro] 5 mg PO DAILY 09/09/19 [History] Bacitracin [Bacitracin Oint 1 GM] 1 applic TOP DAILY PRN 09/12/19 [History] Multivit-Min/FA/Lycopen/Lutein [Certavite Sr-Antioxidant Tab] 1 each PO DAILY [History] Na Phos,M-B/Na Phos,DI-B [Fleet Enema] 133 ml RC DAILY PRN 09/12/19 [History] traMADol [Ultram] 50 mg PO TID 09/12/19 [History] Acetaminophen 1,000 mg PO TID 10/20/19 [History] Dextran 70/Hypromellose [Artificial Tears] 1 each EYEBOTH QID 10/20/19 [History] Magnesium Oxide 400 mg PO DAILY 10/20/19 [History] Sennosides [Senna] 17.2 mg PO DAILY 10/20/19 [History] Bumetanide [Bumex] 4 mg PO BID #120 tablet 10/22/19 [Rx] Past Medical History HEENT History: Reports: Allergic Rhinitis, Cataract, Hard of Hearing, Impaired Vision, Macular Degeneration, Other (See Below) Other HEENT History: left cataract, hyperopia of both eyes with astigmatism and presbyopia Cardiovascular History: Reports: Afib, CAD, Heart Failure, Hypertension, [place], Pacemaker, Pulmonary Hypertension Other Cardiovascular History: mitral regurgitation Respiratory History: Reports: SOB, Other (See Below) Other Respiratory History: home O2 at night, pulmonary hypertension, hypoxemia Gastrointestinal History: Reports: GERD, GI Bleed, PUD Other Gastrointestinal History: esophageal stricture Genitourinary History: Reports: Renal Disease, Urinary Incontinence, UTI, Recurrent Other Genitourinary History: incontinence [employer] History: Reports: , Spontaneous Musculoskeletal History: Reports: Arthritis, Back Pain, Chronic, Fracture, Osteoarthritis Other Musculoskeletal History: DJD Neurological History: Reports: CVA, Migraines, TIA Other Neuro History: hemorrhagic, compression fracture of L1, 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 Endocrine/Metabolic History: Reports: Hypothyroidism, Vitamin D Deficiency Hematologic History: Reports: Anemia, Anticoagulation Therapy Oncologic (Cancer) History: Reports: Malignant Melanoma, Other (See Below) Other Oncologic History: skin cancer on nose Dermatologic History: Reports: Melanoma Other Dermatologic History: allergy to polyester - Infectious Disease History Infectious Disease History: Reports: Measles, Mumps - Past Surgical History HEENT Surgical History: Reports: Cataract Surgery, Tonsillectomy Cardiovascular Surgical History: Reports: Pacer Respiratory Surgical History: Reports: None GI Surgical History: Reports: Colonoscopy, EGD, Hernia, Abdominal Female Surgical History: Reports: None Endocrine Surgical History: Reports: None Neurological Surgical History: Reports: None Musculoskeletal Surgical History: Reports: Knee Replacement, Other (See Below) Other Musculoskeletal Surgeries/Procedures:: bilateral knees replaced, compression fx, spondylolisthesis at L2-L3, DJD Oncologic Surgical History: Reports: None Dermatological Surgical History: Reports: None Social & Family History - Family History Family Medical History: Noncontributory - Tobacco Use Smoking Status *Q: Never Smoker - Caffeine Use Caffeine Use: Reports: Coffee Other Caffeine Use: pop per day - Living Situation & Occupation Living situation: Reports: Single, with Family (lives in [facility], with 2 Grandsons. One Grandson has schizophrenia) ED ROS GENERAL - Review of Systems Review Of Systems: See Below Constitutional: Denies: Fever, Chills, Malaise, Decreased Appetite Respiratory: Reports: Shortness of Breath (Intermittent shortness of breath, chronic congestive heart failure) Cardiovascular: Denies: Chest Pain, Palpitations GI/Abdominal: Reports: Abdominal Pain (Especially the left lower quadrant after eating). Denies: Diarrhea : Reports: No Symptoms Neurological: Denies: Headache ED EXAM, GENERAL - Physical Exam Exam: See Below Exam Limited By: No Limitations General Appearance: Alert, No Apparent Distress Eye Exam: Bilateral Eye: EOMI Respiratory/Chest: No Respiratory Distress, Rales (A few rales in the bases) Cardiovascular: Irregularly Irregular GI/Abdominal: Tender (Rectal tenderness to palpation in the left lower quadrant but no guarding and no rebound) Neurological: Alert, Oriented Psychiatric: Normal Affect, Normal Mood Skin Exam: Warm, Dry Course - Vital Signs Last Recorded V/S: Last Vital Signs Temp 95.6 F 10/24/19 13:24 Pulse 81 10/24/19 13:24 Resp 14 10/24/19 13:24 BP 125/77 10/24/19 13:24 Pulse Ox 94 L 10/24/19 13:24 - Orders/Labs/Meds Labs: Laboratory Tests 10/24/19 Range/Units 13:48 Troponin I < 0.017 (0.000-0.056) ng/mL - Re-Assessments/Exams Free Text/Narrative Re-Assessment/Exam: 10/24/19 14:08 A troponin was drawn, and because this is a lingering recurring pain a CT of the abdomen and pelvis was done without contrast. 10/24/19 14:22 CT confirmed a fairly large hiatal hernia full of matter as well as the stomach. I discussed her bezoar findings with Dr. Yo, he recommended a bezoar diet which she is already on, but also may benefit from 125 mg of daily Zithromax. A prescription was written for 2 months. She can recheck with her primary provider in the next few weeks if not improving, or can return anytime if worsening. 10/24/19 14:32 Troponin was 0. Departure - Departure Time of Disposition: 14:40 Disposition: Home, Self-Care 01 Clinical Impression: Hiatal hernia Abdominal pain Qualifiers: Abdominal location: lower abdomen, unspecified Qualified Code(s): R10.30 - Lower abdominal pain, unspecified Gastric bezoar Qualifiers: Encounter type: initial encounter Qualified Code(s): T18.2XXA - Foreign body in stomach, initial encounter Instructions: Abdominal Pain, Adult, [id number] Referrals: Nayla Grant MD [Primary Care Provider] - Forms: ED Department Discharge Care Plan Goals: Continue basilar diet, continue regular medications and add 125 mg of Zithromax suspension daily as prescribed for 2 months. Recheck at the clinic for a surgical consultation if not improving after a few weeks. Sepsis Event Note - Evaluation Sepsis Screening Result: No Definite Risk - Focused Exam Vital Signs: Vital Signs Temp Pulse Resp BP Pulse Ox 10/24/19 13:24 95.6 F 81 14 125/77 94 L Date Exam was Performed: 10/24/19 Time Exam was Performed: 17:32
--- NOTE | 2019-10-24 16:09 | CT ---
Abdomen Pelvis wo Cont CLINICAL HISTORY: Abdominal pain COMPARISON: 11/20/2018. TECHNIQUE: Axial tomographic images are obtained from the dome of the diaphragm to the pubic symphysis without IV contrast enhancement. No oral contrast was used. Prescribed dose FINDINGS: There are small bibasal pleural effusions. There is a large retrocardiac hiatal hernia. There is a large amount of fluid within the hernia. The liver contains a 1.6 cm rounded fluid density focus in the posterior segment of the right lobe likely a hepatic cyst. There is a similar ovoid density in the lower portion of the posterior segment of the right lobe measuring 2 cm.. The gallbladder shows some mild wall thickening. There may be filling defect the possibly an isodense stone. The spleen has a normal size shape and density. The pancreas shows no mass or inflammatory change. The adrenal glands are normal bilaterally. The kidneys show no stones or hydronephrosis. There is a 1.3 cm low-attenuation focus in the lower pole of the left kidney. This is likely a cyst. Ureters have a normal course and caliber. The bladder has a normal contour. There is some free fluid in the cul-de-sac. This is nonspecific. Uterus is postmenopausal in appearance. The aorta shows atheromatous calcification without aneurysm. There is no suspicious retroperitoneal adenopathy. There is moderate retained stool throughout the colon. The appendix is not definitively identified. IMPRESSION: Large retrocardiac hiatal hernia. This could be a paraesophageal hernia. There is moderate amount of food within it. Gallbladder wall is ill-defined and may be slightly thickened. It is feasible there is a large the isodense gallstone which would simulate this appearance. This should be correlated with ultrasound Moderate fecal retention Small bibasal pleural effusions Probable hepatic and renal cysts. Small amount of free fluid in the cul-de-sac is nonspecific
== END 2019-10-24 14:40 | disposition home or self-care (01) ==
LOC: JP.ED 12:54
DX: K44.9 Diaphragmatic hernia without obstruction or gangrene (principal); T18.2XXA Foreign body in stomach, initial encounter; Z88.8 Allergy status to other drugs, medicaments and biological substances; I48.91 Unspecified atrial fibrillation; I25.10 Atherosclerotic heart disease of native coronary artery without angina pectoris; I11.0 Hypertensive heart disease with heart failure; I50.9 Heart failure, unspecified; I25.2 Old myocardial infarction; M19.90 Unspecified osteoarthritis, unspecified site; Z79.82 Long term (current) use of aspirin; Z79.01 Long term (current) use of anticoagulants; K21.9 Gastro-esophageal reflux disease without esophagitis; Z79.899 Other long term (current) drug therapy; E03.9 Hypothyroidism, unspecified; Z86.73 Personal history of transient ischemic attack (TIA), and cerebral infarction without residual deficits
CPT/HCPCS: 36415; 74176; 74176-26; 84484; 99283; 99284-25

== ENCOUNTER 2019-11-14 07:12 | Day surgery (SDC) | payer MEDICARE ==
[2019-11-14] MEDS ORDERED: fentaNYL 100 MCG/2 ML SDV ONE (07:42)
[2019-11-14] MEDS ORDERED: Propofol 200 MG/20 ML SDV ONE (07:43)
[2019-11-14] MEDS ORDERED: Dextrose 5%-Lactated Ringers 1,000 ML IV SCH (08:30)
[2019-11-14 08:41] VITALS: PULSE 80
[2019-11-14 09:42] VITALS: BP 101/61
--- NOTE | 2019-11-24 15:09 | OR ---
DATE OF PROCEDURE: 11/14/2019 SURGEON: Reddy Yo MD PREOPERATIVE DIAGNOSIS: History of gastric bezoar. POSTOPERATIVE DIAGNOSES: 1. No persistent bezoar. 2. Moderate distal gastritis. OPERATIVE PROCEDURE: Esophagogastroduodenoscopy with antral biopsies for CLOtest. ANESTHESIA: IV sedation. INDICATION FOR PROCEDURE: A 79-year-old who some time ago had upper endoscopy showing a large gastric bezoar. She was placed on an anti-bezoar diet and also had been on Zithromax 125 mg daily to augment gastric emptying. The plan is to proceed with upper endoscopy to evaluate whether or not the bezoar has been cleared. Potential risks of the procedure including bleeding and perforation were discussed with the patient and family, and they wished to proceed. DETAILS OF PROCEDURE: The patient was taken to the operating room and placed in the left lateral decubitus position. IV sedation was administered, after which the upper GI endoscope was passed orally through the length of the esophagus into the stomach with retroflexion view of the fundus, and thereafter, through the pyloric channel and into the proximal duodenum. Findings included normal hypopharynx, larynx, upper esophageal sphincter, and esophageal body. At the EG junction, no significant inflammation was noted. Within the stomach, no persistent bezoar was present, i.e., there was a small amount of bile present, but otherwise no bezoar. The patient did have some moderate redness in the antrum. Pyloric channel and duodenum to the junction of the 3rd and 4th portions were unremarkable. At this point, biopsies were obtained from the antrum and sent for CLOtest to establish her H pylori status. No bleeding from the biopsy sites was seen, and the procedure was then concluded. Recommendation would be to continue the anti-bezoar diet, i.e., a low-residue diet, to avoid problems with long-term tachyphylaxis which can be seen with erythromycin-type agents used to augment gastric emptying. We will decrease the Zithromax dose to 125 mg every 3 days. Followup with Surgery at this point can be p.r.n. Reddy Yo MD /[id number]
== END 2019-11-14 10:27 ==
LOC: JP.SDS 07:12
PROVIDERS: ATTEND Surgery
DX: K29.70 Gastritis, unspecified, without bleeding (principal); K21.9 Gastro-esophageal reflux disease without esophagitis; I13.0 Hypertensive heart and chronic kidney disease with heart failure and stage 1 through stage 4 chronic kidney disease, or unspecified chronic kidney disease; I50.9 Heart failure, unspecified; N18.4 Chronic kidney disease, stage 4 (severe)
CPT/HCPCS: 36415; 43239; 85610; 87081; J2704; J7121; J3010

== ENCOUNTER 2019-11-29 13:06 | Emergency (ER) | payer MEDICARE ==
[2019-11-29 13:36] VITALS: BP 109/52; PULSE 80
--- NOTE | 2019-11-29 14:02 | EDM.PDOC ---
ED HPI GENERAL MEDICAL PROBLEM - General Chief Complaint: Skin Complaint Stated Complaint: MEDICAL FROM [facility] Time Seen by Provider: 11/29/19 13:54 Source of Information: Reports: Patient History Limitations: Reports: No Limitations - History of Present Illness INITIAL COMMENTS - FREE TEXT/NARRATIVE: Patient presents for evaluation of a diffuse rash which has developed on the dorsal surface of her body and also inability bandlike distribution just under the breasts. This is come on over the last couple of days but is very itchy and uncomfortable today. She underwent angioplasty and stenting recently and this seems to developed subsequent to her hospital stay. She believes she had the same thing occur in 2019 after some type of cardiac procedure. She states that she was seen here and prescribed 2 medications which helped the symptoms resolve. She does not recall what those were. She does not notice rash or itching on any of her extremities. The majority of the abdomen and chest are not involved, only a bandlike area as noted previously. No fever or chills. No nausea or vomiting. No leakage from vascular access site. Onset: Gradual Duration: Day(s): (3) Location: Reports: Abdomen, Back. Denies: Upper Extremity, Left, Upper Extremity, Right, Lower Extremity, Left, Lower Extremity, Right Quality: Reports: Burning, Other (Itching) Severity: Mild Improves with: Reports: None Worsens with: Reports: Movement Associated Symptoms: Reports: No Other Symptoms - Related Data Allergies Allergy/AdvReac Type Severity Reaction Status Date / Time atropine [From Lomotil] Allergy Rash Verified 11/29/19 13:42 diphenoxylate [From Lomotil] Allergy Rash Verified 11/29/19 13:42 polyester fibers Allergy Hives Verified 11/29/19 13:42 procaine Allergy Cannot Verified 11/29/19 13:42 Remember rosuvastatin Allergy Cannot Verified 11/29/19 13:42 Remember Beta-Adrenergic Agents AdvReac Dizziness Verified 11/29/19 13:42 lidocaine AdvReac Arrhythmias Verified 11/29/19 13:42 metoclopramide [From Reglan] AdvReac Tremors Verified 11/29/19 13:42 metoprolol AdvReac Arrhythmias Verified 11/29/19 13:42 Home Meds: Home Meds Ascorbic Acid [Vitamin C] 500 mg PO BEDTIME 04/11/14 [History] Meclizine [Antivert] 25 mg PO TID PRN 04/11/14 [History] Vitamin B Complex 1 each PO BEDTIME 04/11/14 [History] Warfarin [Coumadin] 2.5 mg PO SUTUWETHSA 04/11/14 [History] Nitroglycerin [Nitrostat] 0.4 mg PO ASDIRECTED 12/30/14 [History] Gabapentin [Neurontin] 300 mg PO TID 02/14/16 [History] Levothyroxine [Synthroid] 100 mcg PO DAILY 09/03/17 [History] Aspirin 81 mg PO DAILY 04/09/18 [History] Cholecalciferol (Vitamin D3) [Cholecalciferol] 1,000 mg PO DAILY 04/09/18 [ History] Clotrimazole/Betamethasone Dip [Lotrisone Cream] 1 film TOP BID 04/09/18 [ History] Diclofenac Sodium [Voltaren] 4 gr TOP DAILY PRN 04/09/18 [History] Fluticasone Propionate [Flonase] 2 spray NASBOTH DAILY 04/09/18 [History] Lisinopril 2.5 mg PO DAILY 01/28/19 [History] Omeprazole 40 mg PO ACBREAKFAST 01/30/19 [History] tiZANidine [Zanaflex] 4 mg PO Q8H PRN 01/30/19 [History] Albuterol Sulfate [Albuterol Sulfate Hfa] 1 - 2 puff INH Q4HR PRN 09/09/19 [ History] Escitalopram Oxalate [Lexapro] 5 mg PO DAILY 09/09/19 [History] Bacitracin [Bacitracin Oint 1 GM] 1 applic TOP DAILY PRN 09/12/19 [History] Multivit-Min/FA/Lycopen/Lutein [Certavite Sr-Antioxidant Tab] 1 each PO DAILY [History] Na Phos,M-B/Na Phos,DI-B [Fleet Enema] 133 ml RC DAILY PRN 09/12/19 [History] traMADol [Ultram] 50 mg PO TID 09/12/19 [History] Acetaminophen 650 mg PO TID 10/20/19 [History] Dextran 70/Hypromellose [Artificial Tears] 1 each EYEBOTH QID 10/20/19 [History] Magnesium Oxide 400 mg PO DAILY 10/20/19 [History] Sennosides [Senna] 17.2 mg PO DAILY 10/20/19 [History] Azithromycin [Zithromax] 125 mg PO ASDIRECTED 11/12/19 [History] Bumetanide [Bumex] 4 mg PO BID 11/12/19 [History] Nystatin [Nystatin Crm] 1 applic TOP BID 11/12/19 [History] Tolterodine Tartrate [Detrol LA] 4 mg PO DAILY 11/12/19 [History] Warfarin [Coumadin] 5 mg PO MOFR 11/12/19 [History] Clopidogrel [Plavix] 1 tab PO DAILY 11/29/19 [History] Past Medical History HEENT History: Reports: Allergic Rhinitis, Cataract, Hard of Hearing, Impaired Vision, Macular Degeneration, Other (See Below) Other HEENT History: left cataract, hyperopia of both eyes with astigmatism and presbyopia Cardiovascular History: Reports: Afib, CAD, Heart Failure, Hypertension, [place], Pacemaker, Pulmonary Hypertension Other Cardiovascular History: mitral regurgitation Respiratory History: Reports: SOB, Other (See Below) Other Respiratory History: home O2 at night, pulmonary hypertension, hypoxemia Gastrointestinal History: Reports: GERD, GI Bleed, PUD Other Gastrointestinal History: esophageal stricture Genitourinary History: Reports: Renal Disease, Urinary Incontinence, UTI, Recurrent Other Genitourinary History: incontinence [place] History: Reports: , Spontaneous Musculoskeletal History: Reports: Arthritis, Back Pain, Chronic, Fracture, Osteoarthritis Other Musculoskeletal History: DJD Neurological History: Reports: CVA, Migraines, TIA Other Neuro History: hemorrhagic, compression fracture of L1, 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 Endocrine/Metabolic History: Reports: Hypothyroidism, Vitamin D Deficiency Hematologic History: Reports: Anemia, Anticoagulation Therapy, Blood Transfusion (s) Oncologic (Cancer) History: Reports: Malignant Melanoma, Other (See Below) Other Oncologic History: skin cancer on nose Dermatologic History: Reports: Melanoma Other Dermatologic History: allergy to polyester - Infectious Disease History Infectious Disease History: Reports: Chicken Pox, Measles, Mumps, Rubella - Past Surgical History HEENT Surgical History: Reports: Cataract Surgery, Tonsillectomy Cardiovascular Surgical History: Reports: Coronary Artery Stent, Pacer GI Surgical History: Reports: Colonoscopy, EGD, Hernia, Abdominal Musculoskeletal Surgical History: Reports: Knee Replacement, Other (See Below) Other Musculoskeletal Surgeries/Procedures:: bilateral knees replaced, compression fx, spondylolisthesis at L2-L3, DJD Social & Family History - Family History Family Medical History: Noncontributory - Tobacco Use Smoking Status *Q: Never Smoker - Caffeine Use Caffeine Use: Reports: Coffee Other Caffeine Use: pop per day - Recreational Drug Use Recreational Drug Use: No - Living Situation & Occupation Living situation: Reports: Single, with Family (lives in [facility], with 2 Grandsons. One Grandson has schizophrenia) ED ROS GENERAL - Review of Systems Review Of Systems: Comprehensive ROS is negative, except as noted in HPI. ED EXAM, SKIN/RASH Exam: See Below Text/Narrative:: Patient is resting with head of bed elevated in room 5. Exam Limited By: No Limitations General Appearance: Alert, Mild Distress Respiratory/Chest: Lungs Clear Cardiovascular: Regular Rate, Rhythm GI/Abdominal: Non-Tender, Other (There is a 4 cm or so macular band extending across the abdomen and wrapping around each flank toward the back. There are areas of confluence of the rash into a continuous red zone.) Extremities: Redness (Essentially her entire back is diffusely red, more so toward the lower back and buttock region.) Course - Vital Signs Last Recorded V/S: Last Vital Signs Temp 36.3 C 11/29/19 13:41 Pulse 80 11/29/19 13:41 Resp 16 11/29/19 13:41 BP 109/52 L 11/29/19 13:41 Pulse Ox 97 11/29/19 13:41 - Orders/Labs/Meds Meds: Medications Discontinued Medications Generic Name Dose Route Start Last Admin Trade Name Scarlett PRN Reason Stop Dose Admin Diphenhydramine HCl 12.5 mg 11/29/19 14:16 11/29/19 14:32 Benadryl PO 11/29/19 14:17 Not Given ONETIME ONE Diphenhydramine HCl 12.5 mg 11/29/19 14:29 11/29/19 14:45 Benadryl PO 11/29/19 14:30 12.5 mg ONETIME STA Administration - Re-Assessments/Exams Free Text/Narrative Re-Assessment/Exam: 11/29/19 17:35 I was unable to find records of treatment of a similar rash from 2019. She is visibly uncomfortable from the associated itching. She has a known allergy to polyester fiber and perhaps it was/she is a reaction to linens from the hospital or where she is living now. She has a long list of current medications and at this time, I would recommend treating this with then a drill 12.5 mg up to 4 times a day regularly over the next 3 days. Prednisone was not prescribed to avoid interference with multiple other medications however if it is needed later, a dose of 20 mg daily would seem appropriate. She was discharged in stable condition. Departure - Departure Time of Disposition: 14:17 Disposition: DC/Tfer to [facility] 03 Condition: Good Clinical Impression: Pruritic rash - Discharge Information *PRESCRIPTION DRUG MONITORING PROGRAM REVIEWED*: Not Applicable *COPY OF PRESCRIPTION DRUG MONITORING REPORT IN PATIENT EMILY: Not Applicable Instructions: Rash, [id number] Referrals: Nayla Grant MD [Primary Care Provider] - Forms: ED Department Discharge Additional Instructions: Patient will be given 12.5 mg of Benadryl I recommend that the care center uses 12.5 mg up to 4 times a day to try and relieve the itching from the rash. Avoid using soaps or other potentially irritating rail detector car operator over the skin area. We discussed possibly using prednisone but given her long list of other medications , I would prefer to start with Benadryl itself. Rationale for use was explained to the patient. She will be returned to her skilled facility.. Sepsis Event Note - Evaluation Sepsis Screening Result: No Definite Risk - Focused Exam Vital Signs: Vital Signs Temp Pulse Resp BP Pulse Ox 11/29/19 13:41 36.3 C 80 16 109/52 L 97 11/29/19 13:35 36.3 C 80 16 109/52 L 97 Date Exam was Performed: 11/29/19 Time Exam was Performed: 17:31
[2019-11-29] MEDS ORDERED: diphenhydrAMINE 25 MG Cap PO ONE (14:16)
[2019-11-29] MEDS ORDERED: diphenhydrAMINE 25 MG/10 ML CUP PO STA (14:29)
== END 2019-11-29 15:10 ==
LOC: JP.ED 13:06
DX: L29.9 Pruritus, unspecified (principal); I25.10 Atherosclerotic heart disease of native coronary artery without angina pectoris; I50.9 Heart failure, unspecified; I11.0 Hypertensive heart disease with heart failure; I25.2 Old myocardial infarction; I48.91 Unspecified atrial fibrillation; Z86.73 Personal history of transient ischemic attack (TIA), and cerebral infarction without residual deficits; E03.9 Hypothyroidism, unspecified; K21.9 Gastro-esophageal reflux disease without esophagitis; Z88.8 Allergy status to other drugs, medicaments and biological substances; Z79.899 Other long term (current) drug therapy; Z79.01 Long term (current) use of anticoagulants; Z79.82 Long term (current) use of aspirin; Z79.02 Long term (current) use of antithrombotics/antiplatelets
CPT/HCPCS: 99282; 99283; A9270

== ENCOUNTER 2019-12-15 15:08 | Observation (INO) | payer MEDICARE ==
[2019-12-15] MEDS ORDERED: Phytonadione 10 MG in Sodium Chloride 0.9% 50 ML IV ONE ×2 (15:31→15:45)
--- NOTE | 2019-12-15 15:36 | EDM.PDOC ---
ED HPI GENERAL MEDICAL PROBLEM - General Chief Complaint: General Stated Complaint: FELL Time Seen by Provider: 12/15/19 16:38 Source of Information: Reports: Patient, Family, Provider, RN Notes Reviewed History Limitations: Reports: No Limitations - History of Present Illness INITIAL COMMENTS - FREE TEXT/NARRATIVE: 79-year-old female presents emergency department today sent from clinic. I did discuss the case with her clinic provider she fell last night around 8PM initially went to bed awoke this morning complaining of headache presented to the clinic today walk-in for further evaluation. Upon evaluation at the walk- in clinic CT scan of the head was performed which demonstrates acute to subacute subarachnoid hemorrhage right frontal lobe with sinus hematoma frontal lobes. Subsequently reported to the emergency department for further evaluation at this time GCS of 15 only complains of a headache and little bit of stiff neck is complaining of left knee pain and left arm pain. Otherwise no difficulties with cognition no focal neurologic deficit Left Arm Pain Score (Numeric/FACES): 2 - Related Data Allergies Allergy/AdvReac Type Severity Reaction Status Date / Time atropine [From Lomotil] Allergy Rash Verified 11/29/19 13:42 diphenoxylate [From Lomotil] Allergy Rash Verified 11/29/19 13:42 polyester fibers Allergy Hives Verified 11/29/19 13:42 procaine Allergy Cannot Verified 11/29/19 13:42 Remember rosuvastatin Allergy Cannot Verified 11/29/19 13:42 Remember Beta-Adrenergic Agents AdvReac Dizziness Verified 11/29/19 13:42 lidocaine AdvReac Arrhythmias Verified 11/29/19 13:42 metoclopramide [From Reglan] AdvReac Tremors Verified 11/29/19 13:42 metoprolol AdvReac Arrhythmias Verified 11/29/19 13:42 Home Meds: Home Meds Ascorbic Acid [Vitamin C] 500 mg PO BEDTIME 04/11/14 [History] Meclizine [Antivert] 25 mg PO TID PRN 04/11/14 [History] Vitamin B Complex 1 each PO BEDTIME 04/11/14 [History] Warfarin [Coumadin] 2.5 mg PO SUTUWETHSA 04/11/14 [History] Nitroglycerin [Nitrostat] 0.4 mg PO ASDIRECTED 12/30/14 [History] Gabapentin [Neurontin] 300 mg PO TID 02/14/16 [History] Levothyroxine [Synthroid] 100 mcg PO DAILY 09/03/17 [History] Aspirin 81 mg PO DAILY 04/09/18 [History] Cholecalciferol (Vitamin D3) [Cholecalciferol] 1,000 mg PO DAILY 04/09/18 [ History] Clotrimazole/Betamethasone Dip [Lotrisone Cream] 1 film TOP BID 04/09/18 [ History] Diclofenac Sodium [Voltaren] 4 gr TOP DAILY PRN 04/09/18 [History] Fluticasone Propionate [Flonase] 2 spray NASBOTH DAILY 04/09/18 [History] Lisinopril 2.5 mg PO DAILY 01/28/19 [History] Omeprazole 40 mg PO ACBREAKFAST 01/30/19 [History] tiZANidine [Zanaflex] 4 mg PO Q8H PRN 01/30/19 [History] Albuterol Sulfate [Albuterol Sulfate Hfa] 1 - 2 puff INH Q4HR PRN 09/09/19 [ History] Escitalopram Oxalate [Lexapro] 5 mg PO DAILY 09/09/19 [History] Bacitracin [Bacitracin Oint 1 GM] 1 applic TOP DAILY PRN 09/12/19 [History] Multivit-Min/FA/Lycopen/Lutein [Certavite Sr-Antioxidant Tab] 1 each PO DAILY [History] Na Phos,M-B/Na Phos,DI-B [Fleet Enema] 133 ml RC DAILY PRN 09/12/19 [History] traMADol [Ultram] 50 mg PO TID 09/12/19 [History] Acetaminophen 650 mg PO TID 10/20/19 [History] Dextran 70/Hypromellose [Artificial Tears] 1 each EYEBOTH QID 10/20/19 [History] Magnesium Oxide 400 mg PO DAILY 10/20/19 [History] Sennosides [Senna] 17.2 mg PO DAILY 10/20/19 [History] Azithromycin [Zithromax] 125 mg PO ASDIRECTED 11/12/19 [History] Bumetanide [Bumex] 4 mg PO BID 11/12/19 [History] Nystatin [Nystatin Crm] 1 applic TOP BID 11/12/19 [History] Tolterodine Tartrate [Detrol LA] 4 mg PO DAILY 11/12/19 [History] Warfarin [Coumadin] 5 mg PO MOFR 11/12/19 [History] Clopidogrel [Plavix] 1 tab PO DAILY 11/29/19 [History] Past Medical History HEENT History: Reports: Allergic Rhinitis, Cataract, Hard of Hearing, Impaired Vision, Macular Degeneration, Other (See Below) Other HEENT History: left cataract, hyperopia of both eyes with astigmatism and presbyopia Cardiovascular History: Reports: Afib, CAD, Heart Failure, Hypertension, [place], Pacemaker, Pulmonary Hypertension Other Cardiovascular History: mitral regurgitation Respiratory History: Reports: SOB, Other (See Below) Other Respiratory History: home O2 at night, pulmonary hypertension, hypoxemia Gastrointestinal History: Reports: GERD, GI Bleed, PUD Other Gastrointestinal History: esophageal stricture Genitourinary History: Reports: Renal Disease, Urinary Incontinence, UTI, Recurrent Other Genitourinary History: incontinence MOUN[employer]IPE History: Reports: , Spontaneous Musculoskeletal History: Reports: Arthritis, Back Pain, Chronic, Fracture, Osteoarthritis Other Musculoskeletal History: DJD Neurological History: Reports: CVA, Migraines, TIA Other Neuro History: hemorrhagic, compression fracture of L1, 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 Endocrine/Metabolic History: Reports: Hypothyroidism, Vitamin D Deficiency Hematologic History: Reports: Anemia, Anticoagulation Therapy, Blood Transfusion (s) Immunologic History: Reports: Immunosuppression Oncologic (Cancer) History: Reports: Malignant Melanoma, Other (See Below) Other Oncologic History: skin cancer on nose Dermatologic History: Reports: Melanoma Other Dermatologic History: allergy to polyester - Infectious Disease History Infectious Disease History: Reports: Chicken Pox, Measles, Mumps, Rubella - Past Surgical History HEENT Surgical History: Reports: Cataract Surgery, Tonsillectomy Cardiovascular Surgical History: Reports: Coronary Artery Stent, Pacer GI Surgical History: Reports: Colonoscopy, EGD, Hernia, Abdominal Musculoskeletal Surgical History: Reports: Knee Replacement, Other (See Below) Other Musculoskeletal Surgeries/Procedures:: bilateral knees replaced, compression fx, spondylolisthesis at L2-L3, DJD Social & Family History - Family History Family Medical History: Noncontributory - Tobacco Use Smoking Status *Q: Never Smoker - Caffeine Use Caffeine Use: Reports: Coffee Other Caffeine Use: pop per day - Recreational Drug Use Recreational Drug Use: No - Living Situation & Occupation Living situation: Reports: Single, with Family (lives in [place], with 2 Grandsons. One Grandson has schizophrenia) ED ROS GENERAL - Review of Systems Review Of Systems: See Below Constitutional: Reports: No Symptoms HEENT: Reports: No Symptoms Respiratory: Reports: No Symptoms Cardiovascular: Reports: No Symptoms GI/Abdominal: Reports: No Symptoms : Reports: No Symptoms Musculoskeletal: Reports: Arm Pain, Joint Pain Neurological: Reports: Headache ED EXAM, GENERAL - Physical Exam Exam: See Below Free Text/Narrative:: Examination of the integument system bruising is appreciated over the left knee small bruise over the right knee small bruise right elbow small bruise left arm GCS remains 15 throughout the entire stay in the emergency department Exam Limited By: No Limitations General Appearance: Alert, WD/WN, No Apparent Distress Eye Exam: Bilateral Eye: EOMI, PERRL Throat/Mouth: Normal Inspection, Normal Lips, Normal Teeth, Normal Gums, Normal Oropharynx, Normal Voice, No Airway Compromise Head: Facial Swelling, Facial Tenderness, Sinus Tenderness, Other Neck: Normal Inspection, Tender Lateral. No: Tender Midline Respiratory/Chest: No Respiratory Distress, Lungs Clear, Normal Breath Sounds, No Accessory Muscle Use, Chest Non-Tender Cardiovascular: Regular Rate, Rhythm, No Murmur GI/Abdominal: Soft, Non-Tender Course - Vital Signs Last Recorded V/S: Last Vital Signs Temp 96.7 F L 12/15/19 15:25 Pulse 79 12/15/19 15:52 Resp 12 12/15/19 15:52 BP 103/33 L 12/15/19 15:52 Pulse Ox 99 12/15/19 15:52 - Orders/Labs/Meds Orders: Active Orders 24 hr Category Date Time Status Humerus Lt [CR] Stat Exams 12/15/19 15:23 Taken Knee 3V Lt [CR] Stat Exams 12/15/19 15:23 Taken Labs: Laboratory Tests 12/15/19 12/15/19 12/15/19 Range/Units 15:10 15:10 15:10 WBC 7.4 (4.5-11.0) K/uL RBC 4.38 (3.30-5.50) M/uL Hgb 12.2 (12.0-15.0) g/dL Hct 39.2 (36.0-48.0) % MCV 90 (80-98) fL MCH 28 (27-31) pg MCHC 31 L (32-36) % Plt Count 215 (150-400) K/uL Neut % (Auto) 65 (36-66) % Lymph % (Auto) 15 L (24-44) % [place] % (Auto) 13 H (2-6) % Eos % (Auto) 6 H (2-4) % Baso % (Auto) 1 (0-1) % PT 32.2 H (9.5-12.0) sec INR 3.18 H (0.80-1.20) Sodium 141 (140-148) mmol/L Potassium 4.6 (3.6-5.2) mmol/L Chloride 100 (100-108) mmol/L Carbon Dioxide 35 H (21-32) mmol/L Anion Gap 10.6 (5.0-14.0) mmol/L BUN 40 H (7-18) mg/dL Creatinine 1.6 H (0.6-1.0) mg/dL Est Cr Clr Drug Dosing 20.48 mL/min Estimated GFR (MDRD) 31 L (>60) Glucose 99 (74-106) mg/dL Calcium 8.7 (8.5-10.1) mg/dL Meds: Medications Discontinued Medications Generic Name Dose Route Start Last Admin Trade Name Freq PRN Reason Stop Dose Admin Diltiazem HCl 20 mg 12/15/19 16:44 Diltiazem IVPUSH 12/15/19 16:45 ONETIME ONE Factor IX (Pha) 1,500 unit 12/15/19 16:00 12/15/19 16:03 Kcentra IV 12/15/19 16:01 1,500 unit ONETIME ONE Administration Phytonadione 10 mg/ Sodium 51 mls @ 100 mls/hr 12/15/19 15:31 Chloride IV 12/15/19 16:01 NOW ONE Phytonadione 10 mg/ Sodium 51 mls @ 100 mls/hr 12/15/19 15:45 12/15/19 16:18 Chloride IV 12/15/19 16:15 100 mls/hr ONETIME ONE Administration Departure - Departure Time of Disposition: 17:02 Disposition: DC/Tfer to Acute Hospital 02 Condition: Fair Clinical Impression: Subarachnoid hemorrhage - Discharge Information Referrals: Nayla Grant MD [Primary Care Provider] - Forms: ED Department Discharge Sepsis Event Note - Evaluation Sepsis Screening Result: No Definite Risk - Focused Exam Vital Signs: Vital Signs Temp Pulse Resp BP Pulse Ox 12/15/19 15:52 79 12 103/33 L 99 12/15/19 15:25 96.7 F L 80 12 119/56 L 99 12/15/19 15:18 96.7 F L 80 12 119/56 L 99 Date Exam was Performed: 12/15/19 Time Exam was Performed: 16:59 - My Orders Last 24 Hours: My Active Orders 12/15/19 15:23 Humerus Lt [CR] Stat Knee 3V Lt [CR] Stat - Assessment/Plan Last 24 Hours: My Active Orders 12/15/19 15:23 Humerus Lt [CR] Stat Knee 3V Lt [CR] Stat Plan: Assessment Acuity = acute Site and laterality = subarachnoid hemorrhage Etiology = secondary to fall Manifestations = none Location of injury = Home Lab values = CT scan maxillofacial bones, CT scan of the neck showed no acute process x-ray of the left humerus left knee I did review films myself I cannot appreciate any acute process, the official read from radiology is pending. CBC BMP unremarkable INR supratherapeutic at 3.18 Plan Initially called discussed case with Dr. Manzanares neurosurgeon at [facility] recommended vitamin K, Concentra stop all anticoagulants CT scan in the morning follow-up with him in 1 week's time however any changes needs to be transferred to [place]. Tylenol as needed for pain control. Call discussed case with hospitalist at 1700 he kindly agreed to evaluate the patient for observation repeat the CT scan in the morning This note was dictated using [employer] voice recognition software please call with any questions on syntax or grammar.
[2019-12-15] MEDS ORDERED: Factor IX Complex Human 500 UNIT VIAL IV ONE (16:00)
--- NOTE | 2019-12-15 16:35 | CRLCT ---
INDICATION: Facial injury TECHNIQUE: CT maxillofacial without contrast. COMPARISON: CT head December 15, 2019. FINDINGS: Facial bones: No fractures or bone lesions. Specifically the nasal bones, temporomandibular joints, maxilla and mandible appear intact. Orbits and globes: Unremarkable. Globes are intact. No sign of intraorbital hemorrhage or emphysema. Sinuses: There is partial opacification of the left maxillary sinus. Remainder of the paranasal sinuses are clear. Soft tissues: Frontal scalp contusion is present. There is intracranial hemorrhage which is unchanged compared to the CT head exam from earlier in the day. IMPRESSION: Frontal scalp contusion. No sign of facial fracture. Stable intracranial hemorrhage where visualized. Dictated by Shayne Leonard MD @ 12/15/2019 4:32:47 PM Please note that all CT scans at this facility use dose modulation, iterative reconstruction, and/or weight-based dosing when appropriate to reduce radiation dose to as low as reasonably achievable. Dictated by: Shayne Leonard MD @ 12/15/2019 16:32:50 (Electronically Signed)
--- NOTE | 2019-12-15 16:39 | CRLCT ---
INDICATION: Trauma TECHNIQUE: CT cervical spine without contrast. COMPARISON: None FINDINGS: Vertebrae: Alignment is normal. There are no fractures or suspicious bony lesions. Discs and facet joints: There are degenerative disc changes most severe at C5-6 and C6-7. There are multilevel degenerative changes in the facets. Extraspinal findings: Paraspinous soft tissues are unremarkable. IMPRESSION: 1. No sign of acute injury. 2. Multilevel degenerative spondylosis. Dictated by Shayne Leonard MD @ 12/15/2019 4:38:02 PM Please note that all CT scans at this facility use dose modulation, iterative reconstruction, and/or weight-based dosing when appropriate to reduce radiation dose to as low as reasonably achievable. Dictated by: Shayne Leonard MD @ 12/15/2019 16:38:09 (Electronically Signed)
[2019-12-15] MEDS ORDERED: Diltiazem 25 MG/5 ML SDV IVPUSH ONE (16:44)
--- NOTE | 2019-12-15 17:18 | PCM.HP.2 ---
H&P History of Present Illness - General Date of Service: 12/15/19 Admit Problem/Dx: Admission Diagnosis/Problem Admission Diagnosis/Problem Subarachnoid hemorrhage Source of Information: Patient, Old Records, Provider, RN Notes Reviewed History Limitations: Reports: No Limitations - History of Present Illness Initial Comments - Free Text/Narative: Ms. Lezama is a 79-year-old woman who was admitted to observation status through the emergency department, for monitoring and follow-up of an acute subarachnoid hemorrhage. She fell last night injuring her forehead and face. She presented to the clinic earlier today for evaluation. CT scan of the head was obtained and showed evidence of a small subarachnoid hemorrhage. CT scan has been reviewed by neurosurgery, current plan is for observation admission overnight and follow-up CT scan of the head tomorrow morning. She denies any current neurologic symptoms or deficits. She is on anticoagulation with aspirin, Plavix , and warfarin. INR was obtained and found to be mildly supratherapeutic. Received IV vitamin K as well as factor IX complex in the emergency department. Left Arm Pain Score (Numeric/FACES): 2 - Related Data Allergies/Adverse Reactions: Allergies Allergy/AdvReac Type Severity Reaction Status Date / Time atropine [From Lomotil] Allergy Rash Verified 11/29/19 13:42 diphenoxylate [From Lomotil] Allergy Rash Verified 11/29/19 13:42 polyester fibers Allergy Hives Verified 11/29/19 13:42 procaine Allergy Cannot Verified 11/29/19 13:42 Remember rosuvastatin Allergy Cannot Verified 11/29/19 13:42 Remember Beta-Adrenergic Agents AdvReac Dizziness Verified 11/29/19 13:42 lidocaine AdvReac Arrhythmias Verified 11/29/19 13:42 metoclopramide [From Reglan] AdvReac Tremors Verified 11/29/19 13:42 metoprolol AdvReac Arrhythmias Verified 11/29/19 13:42 Home Medications: Home Meds Ascorbic Acid [Vitamin C] 500 mg PO BEDTIME 04/11/14 [History] Meclizine [Antivert] 25 mg PO TID PRN 04/11/14 [History] Vitamin B Complex 1 each PO BEDTIME 04/11/14 [History] Warfarin [Coumadin] 2.5 mg PO SUTUWETHSA 04/11/14 [History] Nitroglycerin [Nitrostat] 0.4 mg PO ASDIRECTED 12/30/14 [History] Gabapentin [Neurontin] 300 mg PO TID 02/14/16 [History] Levothyroxine [Synthroid] 100 mcg PO DAILY 09/03/17 [History] Aspirin 81 mg PO DAILY 04/09/18 [History] Cholecalciferol (Vitamin D3) [Cholecalciferol] 1,000 mg PO DAILY 04/09/18 [ History] Clotrimazole/Betamethasone Dip [Lotrisone Cream] 1 film TOP BID 04/09/18 [ History] Diclofenac Sodium [Voltaren] 4 gr TOP DAILY PRN 04/09/18 [History] Fluticasone Propionate [Flonase] 2 spray NASBOTH DAILY 04/09/18 [History] Lisinopril 2.5 mg PO DAILY 01/28/19 [History] Omeprazole 40 mg PO ACBREAKFAST 01/30/19 [History] tiZANidine [Zanaflex] 4 mg PO Q8H PRN 01/30/19 [History] Albuterol Sulfate [Albuterol Sulfate Hfa] 1 - 2 puff INH Q4HR PRN 09/09/19 [ History] Escitalopram Oxalate [Lexapro] 5 mg PO DAILY 09/09/19 [History] Bacitracin [Bacitracin Oint 1 GM] 1 applic TOP DAILY PRN 09/12/19 [History] Multivit-Min/FA/Lycopen/Lutein [Certavite Sr-Antioxidant Tab] 1 each PO DAILY [History] Na Phos,M-B/Na Phos,DI-B [Fleet Enema] 133 ml RC DAILY PRN 09/12/19 [History] traMADol [Ultram] 50 mg PO TID 09/12/19 [History] Acetaminophen 650 mg PO TID 10/20/19 [History] Dextran 70/Hypromellose [Artificial Tears] 1 each EYEBOTH QID 10/20/19 [History] Magnesium Oxide 400 mg PO DAILY 10/20/19 [History] Sennosides [Senna] 17.2 mg PO DAILY 10/20/19 [History] Azithromycin [Zithromax] 125 mg PO ASDIRECTED 11/12/19 [History] Bumetanide [Bumex] 4 mg PO BID 11/12/19 [History] Nystatin [Nystatin Crm] 1 applic TOP BID 11/12/19 [History] Tolterodine Tartrate [Detrol LA] 4 mg PO DAILY 11/12/19 [History] Warfarin [Coumadin] 5 mg PO MOFR 11/12/19 [History] Clopidogrel [Plavix] 1 tab PO DAILY 11/29/19 [History] Past Medical History HEENT History: Reports: Allergic Rhinitis, Cataract, Hard of Hearing, Impaired Vision, Macular Degeneration, Other (See Below) Other HEENT History: left cataract, hyperopia of both eyes with astigmatism and presbyopia Cardiovascular History: Reports: Afib, CAD, Heart Failure, Hypertension, NM, Pacemaker, Pulmonary Hypertension Other Cardiovascular History: mitral regurgitation Respiratory History: Reports: SOB, Other (See Below) Other Respiratory History: home O2 at night, pulmonary hypertension, hypoxemia Gastrointestinal History: Reports: GERD, GI Bleed, PUD Other Gastrointestinal History: esophageal stricture Genitourinary History: Reports: Renal Disease, Urinary Incontinence, UTI, Recurrent Other Genitourinary History: incontinence [employer] History: Reports: , Spontaneous Musculoskeletal History: Reports: Arthritis, Back Pain, Chronic, Fracture, Osteoarthritis Other Musculoskeletal History: DJD Neurological History: Reports: CVA, Migraines, TIA Other Neuro History: hemorrhagic, compression fracture of L1, 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 Endocrine/Metabolic History: Reports: Hypothyroidism, Vitamin D Deficiency Hematologic History: Reports: Anemia, Anticoagulation Therapy, Blood Transfusion (s) Immunologic History: Reports: Immunosuppression Oncologic (Cancer) History: Reports: Malignant Melanoma, Other (See Below) Other Oncologic History: skin cancer on nose Dermatologic History: Reports: Melanoma Other Dermatologic History: allergy to polyester - Infectious Disease History Infectious Disease History: Reports: Chicken Pox, Measles, Mumps, Rubella - Past Surgical History HEENT Surgical History: Reports: Cataract Surgery, Tonsillectomy Cardiovascular Surgical History: Reports: Coronary Artery Stent, Pacer GI Surgical History: Reports: Colonoscopy, EGD, Hernia, Abdominal Musculoskeletal Surgical History: Reports: Knee Replacement, Other (See Below) Other Musculoskeletal Surgeries/Procedures:: bilateral knees replaced, compression fx, spondylolisthesis at L2-L3, DJD Social & Family History - Family History Family Medical History: Noncontributory - Tobacco Use Smoking Status *Q: Never Smoker - Caffeine Use Caffeine Use: Reports: Coffee Other Caffeine Use: pop per day - Recreational Drug Use Recreational Drug Use: No - Living Situation & Occupation Living situation: Reports: Single, with Family (lives in [facility], with 2 Grandsons. One Grandson has schizophrenia) H&P Review of Systems - Review of Systems: Review Of Systems: See Below General: Reports: No Symptoms HEENT: Reports: Headaches Pulmonary: Reports: No Symptoms Cardiovascular: Reports: No Symptoms Gastrointestinal: Reports: No Symptoms Genitourinary: Reports: No Symptoms Musculoskeletal: Reports: No Symptoms Skin: Reports: Other (Ecchymosis face and forehead) Psychiatric: Reports: No Symptoms Neurological: Reports: No Symptoms Hematologic/Lymphatic: Reports: No Symptoms Immunologic: Reports: No Symptoms Exam - Exam Exam: See Below - Vital Signs Vital Signs: Last Vital Signs Temp 96.7 F L 12/15/19 15:25 Pulse 80 12/15/19 17:05 Resp 12 12/15/19 17:05 BP 102/66 12/15/19 17:05 Pulse Ox 97 12/15/19 17:05 Weight: 145 lb - Exam General: Alert, Oriented, Cooperative, Mild Distress HEENT: Conjunctiva Clear, Hearing Intact, Mucosa Moist & [place], Normal Nasal Septum, Posterior Pharynx Clear, Pupils Equal Neck: Supple, Trachea Midline, +2 Carotid Pulse wo Bruit Lungs: Clear to Auscultation, Normal Respiratory Effort Cardiovascular: Regular Rate, Normal S1, Normal S2, Irregular Rhythm. No: Systolic Murmur, Diastolic Murmur GI/Abdominal Exam: Soft, Non-Tender, No Organomegaly, No Distention Back Exam: Normal Inspection, Full Range of Motion Extremities: Non-Tender, No Pedal Edema Skin: Ecchymosis (Face and forehead) Neurological: Cranial Nerves Intact, Strength Equal Bilateral, Normal Speech, Normal Tone, Sensation Intact. No: Focal Deficit Neuro Extensive - Mental Status: Alert, Oriented x3, Normal Mood/Affect, Normal Cognition, Memory Intact - Patient Data Lab Results Last 24 hrs: Laboratory Results - last 24 hr 12/15/19 12/15/19 12/15/19 Range/Units 15:10 15:10 15:10 WBC 7.4 (4.5-11.0) K/uL RBC 4.38 (3.30-5.50) M/uL Hgb 12.2 (12.0-15.0) g/dL Hct 39.2 (36.0-48.0) % MCV 90 (80-98) fL MCH 28 (27-31) pg MCHC 31 L (32-36) % Plt Count 215 (150-400) K/uL Neut % (Auto) 65 (36-66) % Lymph % (Auto) 15 L (24-44) % [place] % (Auto) 13 H (2-6) % Eos % (Auto) 6 H (2-4) % Baso % (Auto) 1 (0-1) % PT 32.2 H (9.5-12.0) sec INR 3.18 H (0.80-1.20) Sodium 141 (140-148) mmol/L Potassium 4.6 (3.6-5.2) mmol/L Chloride 100 (100-108) mmol/L Carbon Dioxide 35 H (21-32) mmol/L Anion Gap 10.6 (5.0-14.0) mmol/L BUN 40 H (7-18) mg/dL Creatinine 1.6 H (0.6-1.0) mg/dL Est Cr Clr Drug Dosing 20.48 mL/min Estimated GFR (MDRD) 31 L (>60) Glucose 99 (74-106) mg/dL Calcium 8.7 (8.5-10.1) mg/dL Result Diagrams: 12/15/19 15:10 12/15/19 15:10 Sepsis Event Note - Evaluation Sepsis Screening Result: No Definite Risk - Focused Exam Vital Signs: Vital Signs Temp Pulse Resp BP Pulse Ox 12/15/19 17:05 80 12 102/66 97 12/15/19 15:52 79 12 103/33 L 99 12/15/19 15:25 96.7 F L 80 12 119/56 L 99 12/15/19 15:18 96.7 F L 80 12 119/56 L 99 Date Exam was Performed: 12/15/19 Time Exam was Performed: 18:01 *Q Meaningful Use (ADM) - VTE *Q VTE Pharmacological Contraindications *Q: Active Hemorrhage - VTE Risk Assess *Q Each Risk Factor Represents 1 Point: Obesity ( BMI > 25 kg/m2), Congestive heart failure (CHF) Total Score 1 Point Risk Factors: 2 Each Risk Factor Represents 2 Points: None Total Score 2 Point Risk Factors: 0 Each Risk Factor Represents 3 Points: Age 75 Years or Greater Total Score 3 Point Risk Factors: 3 Each Risk Factor Represents 5 Points: None Total Score 5 Point Risk Factors: 0 Venous Thromboembolism Risk Factor Score *Q: 5 Problem List Initiated/Reviewed/Updated: Yes Orders Last 24hrs: Active Orders 24 hr Category Date Time Status Patient Status Manage Transfer [TRANSFER] Routine ADT 12/15/19 17:08 Ordered Humerus Lt [CR] Stat Exams 12/15/19 15:23 Taken Knee 3V Lt [CR] Stat Exams 12/15/19 15:23 Taken Resuscitation Status Routine Resus Stat 12/15/19 17:12 Ordered Assessment/Plan Comment:: ASSESSMENT AND PLAN SUBARACHNOID HEMORRHAGE-stable with no neurologic symptoms -Neurochecks every 4 hours -Follow-up head CT in a.m. -Hold anticoagulation with warfarin, Plavix, and aspirin -Reassess INR in a.m. CONGESTIVE HEART FAILURE-well compensated on current therapy -Continue outpatient medications MAINTENANCE ISSUES -DVT prophylaxis; SCUDs, hold on anticoagulation because of subarachnoid hemorrhage -GI prophylaxis; not indicated -Mukherjee catheter; not indicated -Nutrition; 2 g sodium diet -Nicotine dependence; not required CODE STATUS-FULL CODE ADMISSION STATUS-this patient will be admitted to observation status, expect no more than a one night hospital stay for evaluation and management of problems as outlined above. DISPOSITION-anticipate discharge to home after the hospital stay. PRIMARY CARE PROVIDER-Dr. Grant - Mortality Measure Prognosis:: Good
[2019-12-15] MEDS ORDERED: Acetaminophen 325 MG Tab PO PRN (17:45)
[2019-12-15] MEDS ORDERED: Polyethylene Glycol 3350 Powder 17 GM Packet PO PRN (17:45)
[2019-12-15] MEDS ORDERED: tiZANidine 4 MG Tab PO PRN (17:45)
[2019-12-15] MEDS ORDERED: Sodium Chloride 0.9% 10 ML Syringe FLUSH PRN (17:45)
[2019-12-15] MEDS ORDERED: Ondansetron 4 MG/2 ML SDV IV PRN (17:45)
[2019-12-15] MEDS ORDERED: Albuterol 8 GM Inhaler INH PRN (17:45)
[2019-12-15] MEDS: oxyCODONE 5 MG Tab PO PRN (20:42)
[2019-12-15] MEDS ORDERED: Bumetanide 1 MG Tab PO SCH (21:00)
[2019-12-15] MEDS ORDERED: Gabapentin 300 MG Cap PO SCH (21:00)
[2019-12-16] MEDS: oxyCODONE 5 MG Tab PO PRN (04:10)
[2019-12-16] MEDS: Pantoprazole 40 MG Tab.CR PO SCH ×2 (06:27→06:35)
[2019-12-16] MEDS ORDERED: Levothyroxine 100 MCG Tab PO SCH ×2 (07:30→09:00)
[2019-12-16] MEDS ORDERED: Trospium 20 MG Tab PO SCH (09:00)
[2019-12-16] MEDS ORDERED: Lisinopril 2.5 MG Tab PO SCH (09:00)
[2019-12-16] MEDS ORDERED: Escitalopram 10 MG Tab PO SCH (09:00)
[2019-12-16] MEDS ORDERED: Fluticasone Propionate Nasal Spray 16 GM Bottle NASBOTH SCH (09:00)
--- NOTE | 2019-12-16 10:07 | CT ---
Head wo Cont CLINICAL HISTORY: Hemorrhage COMPARISON: 12/15/2019 TECHNIQUE: Transverse scans were obtained from the base of the skull through the vertex without IV contrast on a multislice, multidetector CT scanner. Auto dosage reduction and iterative reconstruction techniques employed. FINDINGS: The right frontal hemorrhage is similar in size and configuration. The there is been of minimal increase in surrounding edema. There is still no significant mass effect. Subarachnoid blood in the suprasellar cistern and the sagittal sulcus has diminished slightly. Rounded subdural hemorrhages are unchanged. The extra-axial spaces over the frontal lobes are moderately prominent. This may be atrophy alone but superimposed chronic subdural hygromas are also a consideration. The ventricles are normal for age. IMPRESSION: No significant change in size of right frontal hematoma or increase in mass effect Slightly diminished amount of subarachnoid blood No change in the focal subdural hematomas. Prominent extra-axial spaces over the frontal lobes could represent chronic subdural hygromas.
--- NOTE | 2019-12-16 10:10 | CR ---
Knee 3V Lt, Humerus Lt CLINICAL HISTORY: Trauma, fall FINDINGS: No acute fracture or dislocation is noted. There are no osseous lesions. Patient is a 3 component total knee arthroplasty. There is soft tissue swelling over the patella which is likely swelling and hematoma. Impression: No acute fracture Total knee arthroplasty Prepatellar soft tissue hematoma Knee 3V Lt, Humerus Lt CLINICAL HISTORY: Fall FINDINGS: There is moderate osteoarthritic change and periarticular spurring at the humeral head. No definite fracture line is identified. Impression: Moderate periarticular spurring in the humeral head. No definite fracture is identified but if clinical symptomatology persists or worsens repeat study of the shoulder should be considered.
[2019-12-16 10:56] VITALS: BP 106/64; PULSE 82
--- NOTE | 2019-12-16 14:30 | PCM.DCSUM1 ---
Discharge Summary - Hospital Course Brief History: Ms. Lezama is a 79-year-old woman who was admitted through the emergency department with headache following a fall and head trauma. On evaluation was found to have evidence of a subarachnoid hemorrhage. - Discharge Data Discharge Date: 12/16/19 Discharge Disposition: Home, W Home Health Agency 06 Condition: Fair - Referral to Home Health Date of Face to Face Encounter: 12/16/19 Reason for Homebound Status: Subarachnoid hemorrhage, weakness Primary Care Physician: Nayla Grant MD Skilled Need: Generalized weakness, pain related to recent fall - Discharge Diagnosis/Problem(s) (1) Subarachnoid hemorrhage SNOMED Code(s): 770340191 ICD Code: I60.9 - NONTRAUMATIC SUBARACHNOID HEMORRHAGE, UNSPECIFIED Status : Acute Current Visit: Yes - Patient Summary/Data Consults: Consultations 12/15/19 17:45 PT Evaluation and Treatment [CONS] Routine Please Evaluate and Treat. PT Reason for Consult: Recent fall with subarachnoid hemorrhage This query below is only for informational purposes and is not editable. Hospital Course: Ms. Lezama is a 79-year-old woman who was admitted to observation status through the emergency department, for monitoring and follow-up of an acute subarachnoid hemorrhage. She fell last night injuring her forehead and face. She presented to the clinic earlier today for evaluation. CT scan of the head was obtained and showed evidence of a small subarachnoid hemorrhage. CT scan has been reviewed by neurosurgery, current plan is for observation admission overnight and follow-up CT scan of the head tomorrow morning. She denies any current neurologic symptoms or deficits. She is on anticoagulation with aspirin, Plavix , and warfarin. INR was obtained and found to be mildly supratherapeutic. Received IV vitamin K as well as factor IX complex in the emergency department. Reported other musculoskeletal pain and x-rays were obtained showing no evidence of fractures in the area of pain. Neurochecks were obtained during hospitalization and showed no significant change during her stay. CT scan of the head without contrast was obtained on the morning of discharge and showed no significant change in the area of subarachnoid hemorrhage. Will be discharged home with home care as well as home physical therapy and Occupational Therapy. She will remain off of warfarin, Plavix, and aspirin. CT scan was sent to [facility] system prior to discharge and reviewed by neurosurgery. Follow-up appointment with neurosurgery will be scheduled in 1 week with a follow-up CT scan of the head at that time. Follow-up appointment will be scheduled with her primary care provider within 10 days. Activity will be as tolerated and she will resume her usual diet. She will return immediately to the emergency department if she notes any increase in headache pain or neurologic deficits. - Patient Instructions Diet: Usual Diet as Tolerated Activity: As Tolerated - Discharge Plan *PRESCRIPTION DRUG MONITORING PROGRAM REVIEWED*: Not Applicable *COPY OF PRESCRIPTION DRUG MONITORING REPORT IN PATIENT EMILY: Not Applicable Home Medications: Home Meds Ascorbic Acid [Vitamin C] 500 mg PO BEDTIME 04/11/14 [History] Meclizine [Antivert] 25 mg PO TID PRN 04/11/14 [History] Vitamin B Complex 1 each PO BEDTIME 04/11/14 [History] Nitroglycerin [Nitrostat] 0.4 mg PO ASDIRECTED 12/30/14 [History] Gabapentin [Neurontin] 300 mg PO TID 02/14/16 [History] Levothyroxine [Synthroid] 100 mcg PO DAILY 09/03/17 [History] Cholecalciferol (Vitamin D3) [Cholecalciferol] 1,000 mg PO DAILY 04/09/18 [ History] Clotrimazole/Betamethasone Dip [Lotrisone Cream] 1 film TOP BID 04/09/18 [ History] Diclofenac Sodium [Voltaren] 4 gr TOP DAILY PRN 04/09/18 [History] Fluticasone Propionate [Flonase] 2 spray NASBOTH DAILY 04/09/18 [History] Lisinopril 2.5 mg PO DAILY 01/28/19 [History] Omeprazole 40 mg PO ACBREAKFAST 01/30/19 [History] tiZANidine [Zanaflex] 4 mg PO Q8H PRN 01/30/19 [History] Albuterol Sulfate [Albuterol Sulfate Hfa] 1 - 2 puff INH Q4HR PRN 09/09/19 [ History] Escitalopram Oxalate [Lexapro] 5 mg PO DAILY 09/09/19 [History] Bacitracin [Bacitracin Oint 1 GM] 1 applic TOP DAILY PRN 09/12/19 [History] Multivit-Min/FA/Lycopen/Lutein [Certavite Sr-Antioxidant Tab] 1 each PO DAILY [History] Na Phos,M-B/Na Phos,DI-B [Fleet Enema] 133 ml RC DAILY PRN 09/12/19 [History] traMADol [Ultram] 50 mg PO TID 09/12/19 [History] Acetaminophen 650 mg PO TID 10/20/19 [History] Dextran 70/Hypromellose [Artificial Tears] 1 each EYEBOTH QID 10/20/19 [History] Magnesium Oxide 400 mg PO DAILY 10/20/19 [History] Sennosides [Senna] 17.2 mg PO DAILY 10/20/19 [History] Bumetanide [Bumex] 4 mg PO BID 11/12/19 [History] Nystatin [Nystatin Crm] 1 applic TOP BID 11/12/19 [History] Tolterodine Tartrate [Detrol LA] 4 mg PO DAILY 11/12/19 [History] Referrals: Nayla Grant MD [Primary Care Provider] - 12/19/19 1:00 pm (Virtue appointment with Dr. Grant through [facility]. On the day of your appointment call at [phone] 2-3 hours before scheduled appointment for instructions. ) Jewel Hercules DO [Ordering Only Provider] - - Discharge Summary/Plan Comment DC Time >30 min.: No - Patient Data Vitals - Most Recent: Last Vital Signs Temp 98.9 F 12/16/19 10:55 Pulse 82 12/16/19 10:55 Resp 16 12/16/19 10:55 BP 106/64 12/16/19 10:55 Pulse Ox 96 12/16/19 10:55 Weight - Most Recent: 143 lb 9.605 oz I&O - Last 24 hours: Intake & Output 12/15/19 12/16/19 12/16/19 22:59 06:59 14:59 Intake Total 200 Output Total 450 500 200 Balance -450 -300 -200 Lab Results - Last 24 hrs: Laboratory Results - last 24 hr 12/15/19 12/15/19 12/15/19 Range/Units 15:10 15:10 15:10 WBC 7.4 (4.5-11.0) K/uL RBC 4.38 (3.30-5.50) M/uL Hgb 12.2 (12.0-15.0) g/dL Hct 39.2 (36.0-48.0) % MCV 90 (80-98) fL MCH 28 (27-31) pg MCHC 31 L (32-36) % Plt Count 215 (150-400) K/uL Neut % (Auto) 65 (36-66) % Lymph % (Auto) 15 L (24-44) % [place] % (Auto) 13 H (2-6) % Eos % (Auto) 6 H (2-4) % Baso % (Auto) 1 (0-1) % PT 32.2 H (9.5-12.0) sec INR 3.18 H (0.80-1.20) Sodium 141 (140-148) mmol/L Potassium 4.6 (3.6-5.2) mmol/L Chloride 100 (100-108) mmol/L Carbon Dioxide 35 H (21-32) mmol/L Anion Gap 10.6 (5.0-14.0) mmol/L BUN 40 H (7-18) mg/dL Creatinine 1.6 H (0.6-1.0) mg/dL Est Cr Clr Drug Dosing 20.48 mL/min Estimated GFR (MDRD) 31 L (>60) Glucose 99 (74-106) mg/dL Calcium 8.7 (8.5-10.1) mg/dL 12/16/19 12/16/19 12/16/19 Range/Units 05:03 05:03 05:03 WBC 5.3 (4.5-11.0) K/uL RBC 3.97 (3.30-5.50) M/uL Hgb 10.6 L (12.0-15.0) g/dL Hct 35.9 L (36.0-48.0) % MCV 90 (80-98) fL MCH 27 (27-31) pg MCHC 30 L (32-36) % Plt Count 181 (150-400) K/uL Neut % (Auto) 58 (36-66) % Lymph % (Auto) 20 L (24-44) % [place] % (Auto) 13 H (2-6) % Eos % (Auto) 8 H (2-4) % Baso % (Auto) 1 (0-1) % PT 11.2 (9.5-12.0) sec INR 1.04 D (0.80-1.20) Sodium 142 (140-148) mmol/L Potassium 4.0 (3.6-5.2) mmol/L Chloride 102 (100-108) mmol/L Carbon Dioxide 36 H (21-32) mmol/L Anion Gap 8.0 (5.0-14.0) mmol/L BUN 38 H (7-18) mg/dL Creatinine 1.4 H (0.6-1.0) mg/dL Est Cr Clr Drug Dosing 23.40 mL/min Estimated GFR (MDRD) 36 L (>60) Glucose 86 (74-106) mg/dL Calcium 8.5 (8.5-10.1) mg/dL Med Orders - Current: Current Medications Acetaminophen (Tylenol) 650 mg PO Q4H PRN PRN Reason: Pain (Mild 1-3)/fever Albuterol (Ventolin Hfa) 0 gm INH Q4H PRN PRN Reason: Wheezing Bumetanide (Bumex) 4 mg PO BID [facility] Last Admin: 12/15/19 20:42 Dose: 4 mg Escitalopram Oxalate (Lexapro) 5 mg PO DAILY [facility] Fluticasone Propionate (Flonase) 0 gm NASBOTH DAILY [facility] Gabapentin (Neurontin) 300 mg PO TID [facility] Last Admin: 12/15/19 20:42 Dose: 300 mg Levothyroxine Sodium (Synthroid) 100 mcg PO ACBREAKFAST [facility] Lisinopril (Prinivil) 2.5 mg PO DAILY [facility] Ondansetron HCl (Zofran) 4 mg IV Q4H PRN PRN Reason: Nausea/Vomiting Oxycodone HCl (Oxycodone) 5 mg PO Q4H PRN PRN Reason: Pain Last Admin: 12/16/19 04:10 Dose: 5 mg Pantoprazole Sodium (Protonix) 40 mg PO ACBREAKFAST [facility] Last Admin: 12/16/19 06:35 Dose: Not Given Polyethylene Glycol (Miralax) 17 gm PO DAILY PRN PRN Reason: Constipation Sodium Chloride (Saline Flush) 10 ml FLUSH ASDIRECTED PRN PRN Reason: Keep Vein Open Tizanidine HCl (Zanaflex) 4 mg PO Q8H PRN PRN Reason: Spasms Trospium (Sanctura) 20 mg PO DAILY [facility] Discontinued Medications Factor IX (Pha) (Kcentra) 1,500 unit IV ONETIME ONE Stop: 12/15/19 16:01 Last Admin: 12/15/19 16:03 Dose: 1,500 unit Phytonadione 10 mg/ Sodium (Chloride) 51 mls @ 100 mls/hr IV NOW ONE Stop: 12/15/19 16:01 Last Admin: 12/15/19 19:20 Dose: Not Given Phytonadione 10 mg/ Sodium (Chloride) 51 mls @ 100 mls/hr IV ONETIME ONE Stop: 12/15/19 16:15 Last Admin: 12/15/19 16:18 Dose: 100 mls/hr Levothyroxine Sodium (Synthroid) 100 mcg PO DAILY [facility] - Exam Quality Assessment: Reports: DVT Prophylaxis General: Reports: Alert, Oriented, Cooperative, Mild Distress Lungs: Reports: Clear to Auscultation, Normal Respiratory Effort Cardiovascular: Reports: Regular Rate, No Murmurs, Irregular Rhythm GI/Abdominal Exam: Soft, Non-Tender, No Organomegaly, No Distention Extremities: Non-Tender, No Pedal Edema Skin: Reports: Ecchymosis (Right arm forehead and face) Neurological: Reports: No New Focal Deficit *Q Meaningful Use (DIS) - VTE *Q VTE Pharmacological Contraindications *Q: Active Hemorrhage
== END 2019-12-16 14:44 | disposition home health service (06) ==
LOC: JP.ED 15:08 → JP.MS 17:08
PROVIDERS: ADMIT Hospitalist; ATTEND Hospitalist
DX: S06.6X0A Traumatic subarachnoid hemorrhage without loss of consciousness, initial encounter (principal); I11.0 Hypertensive heart disease with heart failure; I50.9 Heart failure, unspecified; E03.9 Hypothyroidism, unspecified; Z79.01 Long term (current) use of anticoagulants; Z79.890 Hormone replacement therapy; Z79.82 Long term (current) use of aspirin; Z88.8 Allergy status to other drugs, medicaments and biological substances; Z79.899 Other long term (current) drug therapy; W19.XXXA Unspecified fall, initial encounter; Y92.009 Unspecified place in unspecified non-institutional (private) residence as the place of occurrence of the external cause
CPT/HCPCS: 36415; 70450; 70486; 72125; 73060; 73562; 80048; 85025; 85610; 96365; 96375; 97161; 99284; 99285; A9270; C9132; G0378; J3430; J7050

== ENCOUNTER 2022-02-04 20:29 | Inpatient (IN) | payer MEDICARE ==
[2022-02-04] MEDS ORDERED: Sodium Chloride 0.9% 1,000 ML IV SCH (20:45)
[2022-02-04] MEDS ORDERED: Ondansetron 4 MG/2 ML SDV IVPUSH ONE (21:36)
[2022-02-05] MEDS ORDERED: Sodium Chloride 0.9% 1,000 ML IV SCH ×2 (01:00→12:15)
[2022-02-05 01:45] LABS: CORONAVIRUS COVID-19 NAA NEGATIVE (NEGATIVE)
[2022-02-05] MEDS ORDERED: Ondansetron 4 MG/2 ML SDV IV PRN (02:14)
[2022-02-05] MEDS ORDERED: Albuterol/Ipratropium 3.0-0.5 MG/3 ML Neb Soln NEB PRN (02:14)
[2022-02-05] MEDS ORDERED: Acetaminophen 325 MG Tab PO PRN (02:14)
[2022-02-05] MEDS ORDERED: HYDROmorphone 0.5 MG/0.5 ML Syringe IVPUSH PRN (02:23)
[2022-02-05] MEDS ORDERED: Piperacillin/Tazobactam 3.375 GM in Sodium Chloride 0.9% 50 ML IV SCH (02:30)
[2022-02-05] MEDS ORDERED: Vancomycin 1 GM SDV IV SCH ×2 (03:00)
[2022-02-05] MEDS ORDERED: Sodium Chloride 0.9% 50 ML ONE (03:08)
[2022-02-05] MEDS: Piperacillin/Tazobactam/Dext 2.25 GM in Premix Bag 1 BAG IV SCH ×3 (03:16→19:52)
[2022-02-05] MEDS ORDERED: Water For Injection, Sterile 40 ML ONE (04:24)
[2022-02-05] MEDS: Albuterol/Ipratropium 3.0-0.5 MG/3 ML Neb Soln NEB SCH ×2 (12:41→19:54)
[2022-02-05] MEDS: Furosemide 40 MG/4 ML VIAL IVPUSH SCH (13:14)
[2022-02-05] MEDS ORDERED: Bacitracin Oint 1 GM U/D Packet TOP PRN (15:39)
[2022-02-05] MEDS ORDERED: Albuterol 8 GM Inhaler INH PRN (15:39)
[2022-02-05] MEDS ORDERED: Nitroglycerin 0.4 MG Tab.SL SL PRN (15:39)
[2022-02-05] MEDS ORDERED: Loratadine 10 MG Tab PO PRN (15:39)
[2022-02-05] MEDS ORDERED: tiZANidine 2 MG Tab PO PRN (15:39)
[2022-02-05] MEDS ORDERED: Fluticasone NASAL Spray 16 GM Bottle NASBOTH SCH (15:45)
[2022-02-05] MEDS ORDERED: Levothyroxine 100 MCG Tab PO SCH (15:45)
[2022-02-05] MEDS: Hypromellose 0.3% Ophth Soln 15 ML Bottle EYEBOTH SCH (16:26)
[2022-02-05] MEDS: Nystatin Topical Powder 15 GM Bottle TOP SCH (16:27)
[2022-02-05] MEDS: Metoprolol Succinate 25 MG Tab.ER PO SCH (17:36)
[2022-02-05] MEDS ORDERED: Gabapentin 300 MG Cap PO SCH (21:00)
[2022-02-05] MEDS: Gabapentin 100 MG Cap PO SCH (21:57)
[2022-02-05] MEDS: Acetaminophen 500 MG Tab PO SCH (21:57)
[2022-02-06] MEDS: Albuterol/Ipratropium 3.0-0.5 MG/3 ML Neb Soln NEB SCH ×4 (01:56→19:14)
[2022-02-06] MEDS: Piperacillin/Tazobactam/Dext 2.25 GM in Premix Bag 1 BAG IV SCH ×3 (02:39→19:14)
[2022-02-06] MEDS ORDERED: Bisacodyl 5 MG Tab PO PRN (08:18)
[2022-02-06] MEDS: Levothyroxine 100 MCG Tab PO SCH (08:55)
[2022-02-06] MEDS: Levothyroxine 25 MCG Tab PO SCH (08:55)
[2022-02-06] MEDS: Gabapentin 100 MG Cap PO SCH ×3 (08:55→20:24)
[2022-02-06] MEDS: Multivitamins with Iron/Calcium/Folic Acid/Minerals Tab PO SCH (08:55)
[2022-02-06] MEDS: Calcitriol 0.25 MCG Cap PO SCH (08:55)
[2022-02-06] MEDS: Magnesium Oxide 400 MG Tab PO SCH (08:56)
[2022-02-06] MEDS: Ezetimibe 10 MG Tab PO SCH (08:56)
[2022-02-06] MEDS: Acetaminophen 500 MG Tab PO SCH ×3 (08:56→20:23)
[2022-02-06] MEDS: Ascorbic Acid 500 MG Tab PO SCH (08:56)
[2022-02-06] MEDS: Metoprolol Succinate 25 MG Tab.ER PO SCH (08:57)
[2022-02-06] MEDS: Hypromellose 0.3% Ophth Soln 15 ML Bottle EYEBOTH SCH (08:58)
[2022-02-06] MEDS: Fluticasone NASAL Spray 16 GM Bottle NASBOTH SCH (08:58)
[2022-02-06] MEDS: Docusate Sodium 100 MG Cap PO SCH ×2 (09:06→20:23)
[2022-02-06] MEDS: Potassium Chloride 20 MEQ Tab.ER PO SCH (09:06)
[2022-02-06] MEDS: Furosemide 40 MG/4 ML VIAL IVPUSH SCH (09:07)
[2022-02-06] MEDS: Nystatin Topical Powder 15 GM Bottle TOP SCH (11:38)
[2022-02-06] MEDS: Bumetanide 1 MG Tab PO SCH (13:15)
[2022-02-07] MEDS: Albuterol/Ipratropium 3.0-0.5 MG/3 ML Neb Soln NEB SCH ×4 (01:49→20:24)
[2022-02-07] MEDS: Piperacillin/Tazobactam/Dext 2.25 GM in Premix Bag 1 BAG IV SCH ×4 (02:26→22:31)
[2022-02-07] MEDS: Levothyroxine 100 MCG Tab PO SCH (08:09)
[2022-02-07] MEDS: Levothyroxine 25 MCG Tab PO SCH (08:11)
[2022-02-07] MEDS: Docusate Sodium 100 MG Cap PO SCH (08:11)
[2022-02-07] MEDS: Bumetanide 1 MG Tab PO SCH (08:11)
[2022-02-07] MEDS: Hypromellose 0.3% Ophth Soln 15 ML Bottle EYEBOTH SCH (08:13)
[2022-02-07] MEDS: Fluticasone NASAL Spray 16 GM Bottle NASBOTH SCH (08:13)
[2022-02-07] MEDS: Multivitamins with Iron/Calcium/Folic Acid/Minerals Tab PO SCH (08:14)
[2022-02-07] MEDS: Furosemide 40 MG/4 ML VIAL IVPUSH SCH (08:14)
[2022-02-07] MEDS: Potassium Chloride 20 MEQ Tab.ER PO SCH (08:14)
[2022-02-07] MEDS: Calcitriol 0.25 MCG Cap PO SCH (08:14)
[2022-02-07] MEDS: Magnesium Oxide 400 MG Tab PO SCH (08:15)
[2022-02-07] MEDS: Gabapentin 100 MG Cap PO SCH ×3 (08:15→20:29)
[2022-02-07] MEDS: Nystatin Topical Powder 15 GM Bottle TOP SCH (08:15)
[2022-02-07] MEDS: Ascorbic Acid 500 MG Tab PO SCH (08:16)
[2022-02-07] MEDS: Acetaminophen 500 MG Tab PO SCH ×3 (08:16→20:29)
[2022-02-07] MEDS: Metoprolol Succinate 25 MG Tab.ER PO SCH (08:17)
[2022-02-07] MEDS: Ezetimibe 10 MG Tab PO SCH (08:18)
[2022-02-07] MEDS ORDERED: Loperamide 2 MG Cap PO PRN (15:45)
[2022-02-07] MEDS ORDERED: Potassium Chloride 20 MEQ Tab.ER PO ONE (17:00)
[2022-02-08] MEDS: Albuterol/Ipratropium 3.0-0.5 MG/3 ML Neb Soln NEB SCH ×4 (02:03→19:31)
[2022-02-08] MEDS: Piperacillin/Tazobactam/Dext 2.25 GM in Premix Bag 1 BAG IV SCH ×4 (04:48→22:46)
[2022-02-08] MEDS: Ezetimibe 10 MG Tab PO SCH (08:07)
[2022-02-08] MEDS: Calcitriol 0.25 MCG Cap PO SCH (08:07)
[2022-02-08] MEDS: Bumetanide 1 MG Tab PO SCH (08:08)
[2022-02-08] MEDS: Multivitamins with Iron/Calcium/Folic Acid/Minerals Tab PO SCH (08:08)
[2022-02-08] MEDS: Acetaminophen 500 MG Tab PO SCH ×3 (08:09→21:07)
[2022-02-08] MEDS: Gabapentin 100 MG Cap PO SCH ×3 (08:09→21:07)
[2022-02-08] MEDS: Levothyroxine 100 MCG Tab PO SCH (08:09)
[2022-02-08] MEDS: Magnesium Oxide 400 MG Tab PO SCH (08:09)
[2022-02-08] MEDS: Potassium Chloride 20 MEQ Tab.ER PO SCH (08:09)
[2022-02-08] MEDS: Ascorbic Acid 500 MG Tab PO SCH (08:10)
[2022-02-08] MEDS: Levothyroxine 25 MCG Tab PO SCH (08:10)
[2022-02-08] MEDS: Metoprolol Succinate 25 MG Tab.ER PO SCH (08:11)
[2022-02-08] MEDS: Furosemide 40 MG/4 ML VIAL IVPUSH SCH (08:11)
[2022-02-08] MEDS: Hypromellose 0.3% Ophth Soln 15 ML Bottle EYEBOTH SCH (08:12)
[2022-02-08] MEDS: Fluticasone NASAL Spray 16 GM Bottle NASBOTH SCH (08:12)
[2022-02-08] MEDS: Nystatin Topical Powder 15 GM Bottle TOP SCH (08:12)
[2022-02-08 12:48] LABS: CORONAVIRUS COVID-19 NAA NEGATIVE (NEGATIVE)
[2022-02-09] MEDS: Albuterol/Ipratropium 3.0-0.5 MG/3 ML Neb Soln NEB SCH ×2 (02:03→07:00)
[2022-02-09] MEDS: Piperacillin/Tazobactam/Dext 2.25 GM in Premix Bag 1 BAG IV SCH (05:17)
[2022-02-09 07:20] VITALS: BP 139/86
[2022-02-09] MEDS: Levothyroxine 25 MCG Tab PO SCH (07:26)
[2022-02-09] MEDS: Levothyroxine 100 MCG Tab PO SCH (07:26)
[2022-02-09] MEDS: Bumetanide 1 MG Tab PO SCH (08:05)
[2022-02-09] MEDS: Fluticasone NASAL Spray 16 GM Bottle NASBOTH SCH (08:05)
[2022-02-09] MEDS: Potassium Chloride 20 MEQ Tab.ER PO SCH (08:06)
[2022-02-09] MEDS: Furosemide 40 MG/4 ML VIAL IVPUSH SCH (08:06)
[2022-02-09] MEDS: Hypromellose 0.3% Ophth Soln 15 ML Bottle EYEBOTH SCH (08:06)
[2022-02-09] MEDS: Magnesium Oxide 400 MG Tab PO SCH (08:08)
[2022-02-09] MEDS: Gabapentin 100 MG Cap PO SCH (08:08)
[2022-02-09] MEDS: Multivitamins with Iron/Calcium/Folic Acid/Minerals Tab PO SCH (08:09)
[2022-02-09] MEDS: Calcitriol 0.25 MCG Cap PO SCH (08:09)
[2022-02-09] MEDS: Nystatin Topical Powder 15 GM Bottle TOP SCH (08:09)
[2022-02-09] MEDS: Metoprolol Succinate 25 MG Tab.ER PO SCH (08:10)
[2022-02-09] MEDS: Ascorbic Acid 500 MG Tab PO SCH (08:10)
[2022-02-09] MEDS: Acetaminophen 500 MG Tab PO SCH (08:10)
[2022-02-09] MEDS: Ezetimibe 10 MG Tab PO SCH (08:11)
[2022-02-09 08:17] VITALS: PULSE 78
== END 2022-02-09 10:00 | DRG 445 ==
LOC: JP.ED 20:29 → JP.MS 02-05 01:24
PROVIDERS: ADMIT Internal Medicine; ATTEND Hospitalist
DX: K81.9 Cholecystitis, unspecified (principal); K81.0 Acute cholecystitis; N18.4 Chronic kidney disease, stage 4 (severe); N28.9 Disorder of kidney and ureter, unspecified; J30.9 Allergic rhinitis, unspecified; N17.9 Acute kidney failure, unspecified; I13.0 Hypertensive heart and chronic kidney disease with heart failure and stage 1 through stage 4 chronic kidney disease, or unspecified chronic kidney disease; D84.9 Immunodeficiency, unspecified; K52.1 Toxic gastroenteritis and colitis; E86.0 Dehydration; Z66 Do not resuscitate; Z20.822 Contact with and (suspected) exposure to COVID-19; R41.82 Altered mental status, unspecified; H91.90 Unspecified hearing loss, unspecified ear; H54.7 Unspecified visual loss; I50.9 Heart failure, unspecified; I11.0 Hypertensive heart disease with heart failure; I25.10 Atherosclerotic heart disease of native coronary artery without angina pectoris; M19.90 Unspecified osteoarthritis, unspecified site; K21.9 Gastro-esophageal reflux disease without esophagitis; M54.9 Dorsalgia, unspecified; T36.95XA Adverse effect of unspecified systemic antibiotic, initial encounter; G89.29 Other chronic pain; Z88.4 Allergy status to anesthetic agent; E03.9 Hypothyroidism, unspecified; D63.1 Anemia in chronic kidney disease; E55.9 Vitamin D deficiency, unspecified; H35.30 Unspecified macular degeneration; I48.91 Unspecified atrial fibrillation; I27.20 Pulmonary hypertension, unspecified; I34.0 Nonrheumatic mitral (valve) insufficiency; R32 Unspecified urinary incontinence; Z96.653 Presence of artificial knee joint, bilateral; Z88.8 Allergy status to other drugs, medicaments and biological substances; Z79.899 Other long term (current) drug therapy; Z79.890 Hormone replacement therapy; I25.2 Old myocardial infarction; Z95.0 Presence of cardiac pacemaker; Z86.73 Personal history of transient ischemic attack (TIA), and cerebral infarction without residual deficits; Z85.820 Personal history of malignant melanoma of skin; Z95.5 Presence of coronary angioplasty implant and graft; Z98.49 Cataract extraction status, unspecified eye
CPT/HCPCS: 0241U; 36415; 36600; 70450; 71045; 74176; 76705; 80048; 80053; 80202; 81001; 82607; 82803; 83605; 83690; 83735; 83880; 84100; 84439; 84443; 84484; 85025; 85610; 85730; 86140; 87040; 87086; 87088; 87186; 93005; 93010; 93306; 94640; 96361; 96374; 97110; 97162; 97530; 99232; 99238; 99284; 99285; A9270-GY; J1940; J2405; J2543; J3370; J7030; J7050; J7620